=== PATIENT | female | born 1980 | race Caucasian/White ===

== ENCOUNTER 2022-10-21 13:24 | Outpatient (OUT) | payer OTHER, SELFPAY ==
[2022-10-21 13:54] LABS: Basophils Percent Auto 0.4 % (0.2-2.0); Eosinophils Absolute Auto 0.1 10^3/uL (0.0-0.7); Eosinophils Percent Auto 1.2 % (0.9-7.0); Hematocrit 39.6 % (36.0-48.0); Hemoglobin 13.3 g/dL (12.0-16.0); Immature Granulocytes Abs Auto 0.03 10^3/uL (0.00-0.03); Immature Granulocytes Pct Auto 0.4 % (0.0-0.5); Lymphocytes Absolute Auto 2.5 10^3/uL (1.2-3.8); Lymphocytes Percent Auto 32.5 % (20.5-60.0); Mean Corpuscular HGB Conc 33.6 g/dL (29.9-35.2); Mean Corpuscular Hemoglobin 30.4 pg (26.7-34.0); Mean Corpuscular Volume 90.6 fL (81.0-99.0); Mean Platelet Volume 10.3 fL (9.5-13.5); Monocytes Absolute Auto 0.5 10^3/uL (0.3-0.8); Monocytes Percent Auto 6.3 % (1.7-12.0); Neutrophils Absolute Auto 4.5 10^3/uL (1.4-6.5); Neutrophils Percent Auto 59.2 % (43.0-75.0); Platelet Count 291 10^3/uL (150-450); Red Blood Count 4.37 10^6/uL (4.20-5.40); Red Cell Distribution Width 13.1 % (11.0-15.0); White Blood Count 7.6 10^3/uL (4.0-11.0)
[2022-10-21 14:35] LABS: Estimated Average Glucose 123 mg/dL; Glycohemoglobin A1C 5.9 % (4.5-6.2)
[2022-10-21 15:10] LABS: Occult Blood Negative
[2022-10-21 15:16] LABS: Alanine Aminotransferase 37 U/L (14-59); Albumin Globulin Ratio 0.9; Albumin Level 3.5 g/dL (3.4-5.0); Alkaline Phosphatase 67 U/L (46-116); Anion Gap 11.4; Aspartate Amino Transferase 26 U/L (15-37); BUN Creatinine Ratio 3.9; Bilirubin Total 0.3 mg/dL (0.2-1.0); Calcium 8.9 mg/dL (8.5-10.1); Carbon Dioxide 27.5 mmol/L (21.0-32.0); Chloride 103 mmol/L (98-107); Chol HDL Ratio 6.9; Cholesterol 295 mg/dL (<=200); Estimated GFR (African America >60 (>=60); Estimated GFR (Non-African Ame 59 (>=60); Free T3 2.15 pg/mL (2.18-3.98); Globulin 3.9 g/dL; Glucose 122 mg/dL (74-106); HDL Cholesterol 43 mg/dL (40-60); Potassium 3.9 mmol/L (3.5-5.1); Sodium 138 mmol/L (136-145); Thyroid Stimulating Hormone 1.291 uIU/mL (0.358-3.740); Total Protein 7.4 g/dL (6.4-8.2); Triglycerides 295 mg/dL (<=150)
== END 2022-10-21 13:25 | disposition home or self-care (01) ==
LOC: LAB 13:30
PROVIDERS: PCP Family Medicine; Visit Provider Family Medicine
DX: Z00.00 Encounter for general adult medical examination without abnormal findings (principal); E55.9 Vitamin D deficiency, unspecified
CPT/HCPCS: 36415; 80053; 80061; 82306; 82607; 82746; 83036; 83525; 83540; 84436; 84443; 84481; 85025; 87045; G0328

== ENCOUNTER 2022-11-01 08:52 | Outpatient (OUT) | payer OTHER, SELFPAY ==
--- NOTE | 2022-11-01 08:58 | MM_ITS ---
Patient: ALFREDO NAQVI Exam Date: 11/01/2022 : 1980 Gender:F Ordering : DR CORBY MEADE . Admission #: [id number] Family : Order #: [id number] CLICK HERE TO VIEW EXAM RADIOLOGY REPORT PROCEDURE: MM TOMOSYNTHESIS SCREENING BI COMPARISON: None. INDICATIONS: Screening Calculator Name NCI Breast Cancer Risk Assessment Tool 5 Year Breast Cancer Risk Not Reported. Lifetime Breast Cancer Risk Not Reported. Personal Breast Cancer No Personal Ovarian Cancer No Treatments None Family Cancers None LOCATION: [facility] BREAST COMPOSITION: Heterogeneously dense,which may obscure small masses. FINDINGS: DIAGNOSTIC CATEGORY 0--INCOMPLETE: NEED ADDITIONAL IMAGING EVALUATION. RIGHT BREAST: Round partially circumscribed 9 mm mass within posterior upper-outer quadrant which is partially in by a larger area of asymmetric density which appears to be residual fibroglandular tissue. Spot magnification views and ultrasound evaluation recommended. LEFT BREAST: Oval partially circumscribed 18 x 8 x 11 mm mass within upper-outer quadrant, mid breast. Spot magnification views and ultrasound evaluation recommended. RECOMMENDATIONS: ADDITIONAL MAMMOGRAPHIC VIEWS REQUIRED: BILATERAL BREASTS - RIGHT CRANIOCAUDAL SPOT MAGNIFICATION VIEW - RIGHT OBLIQUE SPOT MAGNIFICATION VIEW - LEFT CRANIOCAUDAL SPOT MAGNIFICATION VIEW - LEFT OBLIQUE SPOT MAGNIFICATION VIEW - ULTRASOUND: BILATERAL BREASTS PLEASE NOTE: A NORMAL MAMMOGRAM DOES NOT EXCLUDE THE POSSIBILITY OF BREAST CANCER. A CLINICALLY SUSPICIOUS PALPABLE LUMP SHOULD BE BIOPSIED. Dictated by: Patrick Rangel M.D. on 11/02/2022 at 13:03 Approved by: Patrick Rangel M.D. on 11/02/2022 at 13:25
--- NOTE | 2022-11-01 09:02 | XR_ITS ---
The [address] [address] Patient Name: ALFREDO NAQVI MRN: [id number] date: 1980 Sex: F Assigned Patient Location: [facility] Current Patient Location: [facility] Accession/Order Number: [id number] Exam Date: 11/01/2022 09:28 Report Date: 11/01/2022 09:56 At the request of: CORBY MEADE Procedure: XR DEXA axial skeleton EXAMINATION: XR DEXA axial skeleton HISTORY: Primary Ovarian Failure E28.39 COMPARISON: No relevant comparison available. TECHNIQUE: Dual-energy X-ray absorptiometry (DXA) was performed. FINDINGS: SPINE ANALYSIS: Average bone mineral density is 1.361 g/cm2. T-score (standard deviation relative to young adult mean): 1.5 . HIP ANALYSIS: Lowest bone mineral density is within the left femoral trochanter, 0.791 g/cm2. T-score (standard deviation relative to young adult mean): -0.5 . XR/XR DEXA axial skeleton IMPRESSION: [employer] Classification: Normal - Low Fracture Risk Electronically authenticated by: SRAVANI MAYA Date: 11/01/2022 09:56
== END 2022-11-01 08:53 | disposition home or self-care (01) ==
LOC: MAMMO 08:52
PROVIDERS: PCP Family Medicine; Visit Provider Family Medicine
DX: Z12.39 Encounter for other screening for malignant neoplasm of breast (principal); N63.11 Unspecified lump in the right breast, upper outer quadrant; N63.21 Unspecified lump in the left breast, upper outer quadrant; E28.39 Other primary ovarian failure; R07.9 Chest pain, unspecified; Z00.00 Encounter for general adult medical examination without abnormal findings
CPT/HCPCS: 77063; 77067; 77080

== ENCOUNTER 2022-12-20 19:46 | Outpatient (OUT) | payer OTHER, SELFPAY | END 2022-12-20 19:47 | disposition home or self-care (01) | LOC: SLEEP 19:56 | PROVIDERS: PCP Family Medicine; Visit Provider Family Medicine | DX: G47.33 Obstructive sleep apnea (adult) (pediatric) (principal) | CPT/HCPCS: 95810 ==

== ENCOUNTER 2023-01-17 12:14 | Outpatient (OUT) | payer OTHER, SELFPAY ==
--- NOTE | 2023-01-17 13:01 | P.CN_ITS ---
Consult Note: HPI Data of Consult Patient: new to practice Consult date: 01/17/23 Requesting Physician: Rica Villa MD Primary Care Provider: Yadiel Conner MD Consult Narrative Reason for consult: Right wrist, right foot pain Narrative: 42yof who presents for evaluation. Has longstanding right wrist and ankle pain secondary to trauma and subsequent surgeries of both right wrist and ankle. Right wrist is more painful today. Had previously discussed stellate ganglion block with [facility], but was never completed. Continues in provider directed home exercise course >6 weeks, with minimal benefit. Utilizes butrans patch, cymbalta. Previously was on norco, but caused itchiness. Otherwise denies adverse med side effects. cc:: CC: Rica Villa MD Review of Systems ROS Status of ROS 10 or more systems reviewed and unremarkable except as noted in history and below Exam Narrative Exam Narrative: Psych-alert and oriented x 3.? Attentive and appropriate, constitutionally normal, displays normal mood and affect per situation.? There are no obvious deficits in memory, reasoning, or intellect. Examination of the right upper extremity reveals notable hyperpathia and allodynia.? Notable atrophy and diffuse weakness present in the extremity.? There is notable shiny skin with hair loss and abnormal hair growth denoting trophic changes presently.? Asymmetric color and temperature changes are present which denotes sudomotor changes.? Decreased range of motion and strength is noted in the extremity.? Coordination remains intact.? Gait remains non-antalgic. Assessment and Plan Assessment and Plan (1) Complex regional pain syndrome i of right upper limb: (2) Complex regional pain syndrome i of right lower limb: Plan 42yof who presents for evaluation. Failed conservative measures, as noted. Given her history of injury, subsequent surgeries, and persistent symptoms, suspect that her right wrist and ankle pain is consequence of complex regional pain syndrome. At this point, prudent to attempt right stellate ganglion block x2 under fluoroscopic guidance with moderate sedation with attempts to provide palliation. She is in agreement. Medications reviewed, no changes. Follow up after procedure.
== END 2023-01-17 12:15 | disposition home or self-care (01) ==
PROVIDERS: PCP Family Medicine; Visit Provider Anesthesiology
DX: G90.521 Complex regional pain syndrome I of right lower limb (principal); G90.511 Complex regional pain syndrome I of right upper limb
CPT/HCPCS: G0463

== ENCOUNTER 2023-02-07 20:58 | Outpatient (OUT) | payer OTHER, SELFPAY | END 2023-02-07 20:59 | disposition home or self-care (01) | LOC: SLEEP 20:59 | PROVIDERS: PCP Family Medicine; Visit Provider Family Medicine | DX: G47.33 Obstructive sleep apnea (adult) (pediatric) (principal) | CPT/HCPCS: 95811 ==

== ENCOUNTER 2023-03-07 07:30 | Day surgery (SDC) | payer OTHER, SELFPAY ==
[2023-03-07 07:51] VITALS: BP 129/79; PULSE 87; RESP 16; TEMP 36.3; O2SAT 100
[2023-03-07 07:54] LABS: HCG Qualitative NEGATIVE (NEGATIVE)
[2023-03-07] MEDS: 0.9 % SODIUM CHLORIDE 500 ML 50 ML IV (07:55)
[2023-03-07] MEDS: DEXAMETHASONE SOD PHOS 10 MG/ML VIAL INJ (08:44)
[2023-03-07] MEDS: BUPIVACAINE HCL 0.25% PF 25 MG/10 ML VIAL 4 ML INJ (08:44)
[2023-03-07] MEDS: LIDOCAINE HCL 2% PF 100 MG/5 ML VIAL 2 ML INJ (08:47)
--- NOTE | 2023-03-07 08:47 | W.PM.PROCNOT ---
Date of procedure: 03/07/23 Pre-op diagnosis: Complex regional pain syndrome, type 1, right upper extremity Post-op diagnosis: same as pre-op Procedure: Procedure: Right stellate ganglion block Medications: Bupivacaine 0.25% 4cc, dexamethasone 10mg, normal saline 0.9% 5cc The patient was seen and examined in the preoperative holding areas where the site was marked.? A written informed consent was obtained and placed on the chart.? The patient was brought to the medical procedures unit and placed in the supine position.? The area overlying the anterolateral vertebral body of the C6 vertebral element was identified under fluoroscopic guidance.? The area was prepped and draped in usual sterile fashion.? Strict aseptic technique was used throughout.? The C-arm was rotated obliquely until the intervertebral foramen were well-visualized. Lidocaine 1% was used to anesthetize the skin overlying the base of the right C7 uncinate process. A 25-gauge 3-1/2 inch Quincke tipped spinal needle was advanced to the above mentioned target point under AP fluoroscopic guidance.? Then Omnipaque dye was injected and verified that no vascular uptake was seen.? Then the above-mentioned aliquot was delivered in 1 mL boluses.? The needle was removed.? The needle insertion site was covered.? The patient tolerated the procedure well and was found suitable for discharge in the company of a responsible adult. Anesthesia: Moderate Sedation Surgeon: Rica Villa Pathology: none sent Condition: stable Disposition: no change
[2023-03-07] MEDS: IOHEXOL 240 MG/ML - 10 ML VIAL 12 MG INJ (08:48)
[2023-03-07 08:50] VITALS: BP 106/71; PULSE 81; RESP 16; TEMP 36.9; O2SAT 93
[2023-03-07 08:52] VITALS: BP 97/76; PULSE 80; RESP 16; TEMP 36.9; O2SAT 94
[2023-03-07] MEDS: 0.9 % SODIUM CHLORIDE 10 ML SYRINGE - SALINE FLUSH 2.5 ML IV (09:49)
== END 2023-03-07 09:12 | disposition home or self-care (01) ==
PROVIDERS: PCP Family Medicine; Visit Provider Anesthesiology
PROC: (CPT 1992; principal; 2023-03-07 08:20)
DX: G90.511 Complex regional pain syndrome I of right upper limb (principal)
CPT/HCPCS: 36415; 64510; 77002; 84703; J1100; J2704; Q9966

== ENCOUNTER 2023-03-28 07:30 | Day surgery (SDC) | payer OTHER, SELFPAY ==
[2023-03-28 08:07] VITALS: BP 125/79; PULSE 83; RESP 16; TEMP 36.2; O2SAT 99
[2023-03-28] MEDS: 0.9 % SODIUM CHLORIDE 500 ML IV (08:11)
[2023-03-28 08:15] LABS: HCG Qualitative NEGATIVE (NEGATIVE)
--- NOTE | 2023-03-28 08:49 | W.PM.PROCNOT ---
Date of procedure: 03/28/23 Pre-op diagnosis: Complex regional pain syndrome type 1, right upper extremity Post-op diagnosis: same as pre-op Procedure: Procedure: Right stellate ganglion nerve block Medications: Bupivacaine 0.25% 4cc, normal saline 0.9% 5cc, dexamethasone 10mg The patient was seen and examined in the preoperative holding areas where the site was marked.? A written informed consent was obtained and placed on the chart.? The patient was brought to the medical procedures unit and placed in the supine position.? The area overlying the anterolateral vertebral body of the C6 vertebral element was identified under fluoroscopic guidance.? The area was prepped and draped in usual sterile fashion.? Strict aseptic technique was used throughout.? The C-arm was rotated obliquely until the intervertebral foramen were well-visualized. Lidocaine 1% was used to anesthetize the skin overlying the base of the right C7 uncinate process. A 25-gauge 3-1/2 inch Quincke tipped spinal needle was advanced to the above mentioned target point under AP fluoroscopic guidance.? Then Omnipaque dye was injected and verified that no vascular uptake was seen.? Then the above-mentioned aliquot was delivered in 1 mL boluses.? The needle was removed.? The needle insertion site was covered.? The patient tolerated the procedure well and was found suitable for discharge in the company of a responsible adult. Anesthesia: Moderate Sedation Surgeon: Rica Villa Pathology: none sent Condition: stable Disposition: no change
[2023-03-28 08:50] VITALS: BP 115/77; PULSE 78; RESP 16; TEMP 36.2; O2SAT 97
[2023-03-28] MEDS: BUPIVACAINE HCL 0.25% PF 25 MG/10 ML VIAL 4 ML INJ (08:50)
[2023-03-28] MEDS: DEXAMETHASONE SOD PHOS 10 MG/ML VIAL INJ (08:50)
[2023-03-28] MEDS: IOHEXOL 240 MG/ML - 10 ML VIAL 12 MG INJ (08:50)
[2023-03-28] MEDS: LIDOCAINE HCL 2% PF 100 MG/5 ML VIAL 1 ML INJ (08:51)
[2023-03-28] MEDS: 0.9 % SODIUM CHLORIDE 10 ML SYRINGE - SALINE FLUSH 5 ML INJ (08:52)
[2023-03-28 08:55] VITALS: BP 114/69; PULSE 78; RESP 16; TEMP 36.2; O2SAT 97
== END 2023-03-28 09:17 | disposition home or self-care (01) ==
PROVIDERS: PCP Family Medicine; Visit Provider Anesthesiology
PROC: (CPT 1991; principal; 2023-03-28 08:40)
DX: G90.511 Complex regional pain syndrome I of right upper limb (principal)
CPT/HCPCS: 36415; 64510; 77002; 84703; J1100; J2704; Q9966

== ENCOUNTER 2023-11-02 11:44 | Outpatient (OUT) | payer OTHER, SELFPAY ==
--- OUTSIDE RECORDS SUMMARY | 2023-11-02 11:51 | XMS_ITS | CCD ---
Author Organization [facility] ion Partnership [facility] Care Team Providers Care It Associate Name Role Phone NEENA OLIVAREZ Admitting Unavailable NEENA OLIVAREZ Attending Unavailable CORBY CONNER Admitting Unavailable CORBY CONNER Attending Unavailable CORBY CONNER Primary Care Unavailable Corby Conner Primary Care Physician Brynn Quick Unavailable Unavailable Olu Yang Attending Unavailable Olu Yang Admitting Unavailable Daisy PEREZ, Rica Gerard Attending Unavailable Gistephitis , Rica Gerard Attending Unavailable Gieditis , Rica Gerard Attending Unavailable Allergies Allergy Classification Reported Allergen(s) Allergy Type Date of Onset Reaction(s) Facility (1 source) Acetaminophen / HYDROcodone; Translations: [HYDROCODONE-ACETAM INOPHEN] Drug Allergy 6 [facility] Repository (2 sources) Codeine; Translations: [CODEINE] Drug Allergy 3 [facility] Repository (4 sources) Morphine; Translations: [MORPHINE] Drug Allergy 4 Vomitus (substance) [facility] Repository (1 source) Acetaminophen / HYDROcodone Drug Allergy 4 [facility] Repository (1 source) Pseudoephedrine Drug Allergy 4 [facility] Repository (2 sources) HYDROcodone / Phenylpropanolamine ; Translations: [hydrocodone-phenyl propanolamine] Drug Allergy Rash [facility] Medications Current Medications Medication Drug Class(es) Dates Sig (Normalized) Sig (Original) acetaminophen 325 mg / oxyCODONE hydrochloride 5 mg oral tablet (1 source) Opioid Agonist Start: 04-16-2022 take 1-2 tablets by mouth every four hours as needed for pain Percocet 5 mg-325 mg oral tablet See Instructions, 40 tab(s), Refill(s) 0, Take one to two po every 4 hours as needed for ankle surgical pain, [facility]/pharmacy #[id number] Start Date: 04/16/22 Status: Ordered docusate sodium 100 mg oral capsule (1 source) Start: 04-16-2022 take 1 capsule by mouth twice daily Colace 100 mg Cap 100 mg = 1 cap(s), Oral, BID, # 20 cap(s), Refills(s) 0, Pharmacy: [facility]/pharmacy #[id number] Start Date: 04/16/22 Status: Ordered duloxetine 60 mg Cap-DR (1 source) Start: 04-15-2022 take 2 capsules by mouth once daily duloxetine 60 mg Cap-DR 120 mg, Oral, Daily, Refills(s) 0 Start Date: 04/15/22 Status: Ordered gabapentin 300 mg oral capsule (1 source) Anti-epileptic Agent Start: 04-15-2022 take 1 capsule by mouth once daily at bedtime gabapentin 300 mg Cap 300 mg = 1 cap(s), Oral, Once a day (at bedtime), # 30 cap(s), Refills(s) 0 Start Date: 04/15/22 Status: Ordered omeprazole 40 mg delayed release oral capsule (1 source) Proton Pump Inhibitor Start: 04-15-2022 take 2 capsules by mouth once daily omeprazole 40 mg Cap-DR 80 mg = 2 cap(s), Oral, Daily, Refills(s) 0 Start Date: 04/15/22 Status: Ordered sulfamethoxazole 800 mg / trimethoprim 160 mg oral tablet (1 source) Dihydrofolate Reductase Inhibitor Antibacterial, Sulfonamide Antimicrobial Start: 04-17-2022 End: 05-01-2022 Bactrim D.S. 800 mg-160 mg Tab 1 tab(s), Oral, BID for 14 day(s), 28 tab(s), Refill(s) 0, Cancel Keflex script from yesterday, [facility]/pharmacy #[id number], 74, kg, 04/17/22 6:27:00 EST, Weight Dosing Start Date: 04/17/22 Stop Date: 05/01/22 Status: Ordered Completed/Discontinued Medications Medication Drug Class(es) Dates Sig (Normalized) Sig (Original) aspirin 325 mg oral tablet (1 source) Platelet Aggregation Inhibitor, Nonsteroidal Anti-inflammatory Drug Start: 04-16-2022 End: 05-16-2022 aspirin 325 mg Tab 325 mg = 1 tab(s), Oral, Daily, Start 04-17-22 for 4 weeks for blood clot prevention., X 30 day(s), # 30 tab(s), Refills(s) 0, Pharmacy: [facility]/pharmacy #[id number] Start Date: 04/16/22 Stop Date: 05/16/22 Status: Ordered Problems Active Problems Problem Classification Problem Date Documented Date Episodic/Chronic Other connective tissue disease (1 source) Radial styloid tenosynovitis [de Quervain]; Translations: [Radial styloid tenosynovitis (de quervain)] Onset: 07-07-2018 Episodic Substance-related disorders (1 source) Smoker 04-15-2022 Chronic Comment on above: Added secondary to d ocumentation in Social History. Past or Other Problems Problem Classification Problem Date Documented Da te Episodic/Chronic Fracture of lower limb (3 sources) Closed pilon fracture; Translations: [Displaced pilon fracture of right tibia, initial encounter for closed fracture] Onset: 04-15-2022 Episodic Results Test Name Value Interpretation Reference Range Facility Consent for Procedure/Surger yon 05-18-2022 Consent for Procedure/Surgery [id number] 8#[id number]:[address] [facility] Progress Note-Physicianon Progress Note-Physician Patient: Jane MUNOZ Age: 41 years Sex: Female : 1980 Associated Diagnoses: None Author: Jaun Lockhart Jr, DO Postoperative Information Post Operative Note: Post Anesthesia Care Unit. Anesthetic utilized: General. Health Status Allergies: Allergic Reactions (Selected) Severity Not Documented Codamine- Rash. Morphine- Vomit. Problem list: All Problems Smoker / SNOMED CT 816634532 / Confirmed Added secondary to documentation in Social History. Resolved: At risk for falls / SNOMED CT 365977656 Problem added when Risk for Falls Careplan was initiated. Resolved due to patient discharge. Physical Examination Vital Signs 04/17/2022 12:16 EST Heart Rate Monitored 78 bpm SpO2 97 % 04/17/2022 12:15 EST Systolic Blood Pressure 108 mmHg Diastolic Blood Pressure 70 mmHg Mean Arterial Pressure, Monitered 82 mmHg 04/17/2022 12:15 EST Temperature Axillary 37.1 DegC HI 04/17/2022 9:01 EST Hourly Rounding Yes Promise to Return Yes 04/17/2022 8:55 EST SpO2 97 % 04/17/2022 8:01 EST Hourly Rounding Yes Promise to Return Yes 04/17/2022 7:09 EST Hourly Rounding Yes Promise to Return Yes 04/17/2022 7:00 EST Temperature Oral 36.7 DegC Heart Rate Monitored 79 bpm Systolic Blood Pressure 111 mmHg Diastolic Blood Pressure 73 mmHg SpO2 96 % 04/17/2022 6:00 EST Hourly Rounding Yes Promise to Return Yes 04/17/2022 5:00 EST Hourly Rounding Yes Promise to Return Yes 04/17/2022 4:00 EST Hourly Rounding Yes Promise to Return Yes 04/17/2022 3:35 EST Temperature Oral 36.8 DegC Heart Rate Monitored 89 bpm Respiratory Rate 16 br/min Systolic Blood Pressure 111 mmHg Diastolic Blood Pressure 73 mmHg Blood Pressure Location Right arm Mean Arterial Pressure, Cuff 86 mmHg SpO2 96 % 04/17/2022 3:03 EST Hourly Rounding Yes Promise to Return Yes 04/17/2022 2:21 EST Hourly Rounding Yes Promise to Return Yes 04/17/2022 1:35 EST Temperature Oral 36.9 DegC Heart Rate Monitored 89 bpm Respiratory Rate 16 br/min Systolic Blood Pressure 125 mmHg Diastolic Blood Pressure 77 mmHg Blood Pressure Location Right arm Mean Arterial Pressure, Cuff 93 mmHg SpO2 96 % 04/17/2022 1:21 EST Hourly Rounding Yes Promise to Return Yes 04/17/2022 0:45 EST Hourly Rounding Yes Promise to Return Yes 04/17/2022 0:29 EST SpO2 96 % 04/16/2022 23:30 EST Hourly Rounding Yes Promise to Return Yes 04/16/2022 23:05 EST Temperature Oral 36.7 DegC Heart Rate Monitored 84 bpm Respiratory Rate 16 br/min Systolic Blood Pressure 115 mmHg Diastolic Blood Pressure 76 mmHg Blood Pressure Location Left arm Mean Arterial Pressure, Cuff 89 mmHg SpO2 99 % No qualifying data available General: Alert and oriented, No acute distress. Respiratory: Lungs are clear to auscultation. Cardiovascular: Normal rate, Regular rhythm. Neurologic: Normal sensory. Review / Management Condition: Stable. Assessment Anesthetic outcome No anesthetic complications noted. Adequate pain relief. TOLERATING PO INTAKE. voiding w/o diff.. No Complaint of nausea and vomiting. Plan Transfer/ Discharge: To nursing unit, Patient can be discharged from PACU when criteria met. Condition stable. [facility] Comment on above: Result Comment: Elec tronically Signed By: Jaun Lockhart Jr, DO\.bryant\Date and Time Signed: 05/18/22 10:13 EST Intra[employer] Documentson 0 04-22-2022 IntraOperative Documents [id number] 6#[id number]:[address] [facility] EMS Documentationon 04-21-19 EMS Documentation Please click on link to see report pdfCD:[id number] iDxFJLaOvx8EKIqZoGXG bVqpONPwbF42koJPkzVB fCZV4PlChATGmZYA3WqS wIFIgMiAw GERwOKQ8OTSgPAVnWSL1 BLNhMNZtH7Fec9DDi4wl NS9aLOKxVMN1ONXeHSY2 DSPyTC5vE3CobOXf MTIyMCAwIFIvSUQgMTIy AUQkHHNjVLIsnPGQn0zj TK9fNNUkAIM9OOUmRTA8 XDXaKY8qOGsjUA0p O8LeqcOqaQFgIWz1XVYg Cn0IQDDuwPBjBRE9MR6V n4fpavLlSIIuCVorZ1Ki SSCfSMhdNYFBZl3q Dp2zjUj0I5NAMNOyKjYr EKNtIz0TPCKhGZImIiOv GLBsLLLrAZLqNQTjXd4F YRQwQPXtWPUEB7WL RDFlShK6MLRlSl0+L1By m9KUKWEeK0QXZg5VFQq9 CY8LjGYMS6BguLAwICN1 JUUlEVHzPP7mimJu dCAxMjcyIDAgUj4+L1Jv hLU6BYBmZ1V7ykMxxJYv muUrzCZoTHWxVQksSS3Q OAejC1FzDfTdBs7+ CcFcKM9fvxykZTTox1Nz Yau7O3szsaj0gWHbKOqs Mz4+t4MnERXtBj1IGbNu U0VrPYZyy5VnHoMx CYa1MvH7SAWiOxClXVN6 MyByZQpmCjAgIHNjbgox WNB9NYLwDVz7XS4gWrn7 IHJlCmYKMTAgNjk1 XuT2VIZaNyNsCySuWdZe arLOLdk2QFJlIzGuFoi4 MgW2PRArRgJgIcIsAwOb wwSDWmhqVLU8JXUd NbTdTIx4LJ3dGpv5VUJd RyMGZJTyGfTfLev2YYP7 JyXuZX37OQIzZUxnPwCb CVH6HA5pQZHrPiu7 DY7oWk6fWMNuEDmcWtF3 AB5tIVC0CGVsQmXpHZ11 NSAtMzIuMjUgcmUKZgow UmsnOUZgv1FwDiDu Wvg2UQM5HQ24GCZ2Eg5t NSAtMTIgcmUKZgowICBz R93TACSyGnEnGkqsQnL8 TFI2Ge1mPKDqST02 XOCqXDspJuJyXWA8GTHk G96ETec1SXB0JD45XKB3 Dz0fYYSyBVWfslCWBzal OJUrN33QAus1BHI8 Yz7lYMYsVErtYcMxMZZn LuRhotRFVvifERA1SrIr LAb1NE4bIuf5KFWdWlUQ KJUgJGw6XjF1KOA5 AmCaPD12SSAdWRbjLwUf JHN9EiWpQen4TT02HY69 IHZrMhCKYXi9WeC5TWT9 BgVcCio6QW14JD71 LNGwIrUDZY14OCvqROJt uvqnCQ02PEG8BgUfAdOt OBp0MaFzGWAgMSYiRbXM TAQbj5MzTkQfAjr4 QGC0DTB4ZfYzZNHfCB56 GASxFKjqXhObBQ61TFH5 UA39UVGmGDNjHmWfENFx HpDmfcDBFzx3NMDl JRE8ODVwKKupZgQ3GA8y Fgx5RPBjThOCHAHtFfMp PdE7Vwr2PYChQuEpAKM2 PiKrfoYIAsh3CPOi MjR4Cvc7ASBvTrFdJQO2 LjUgcmUKZgowLjkxOCAg z5FbZcGvWu5fRJZ0NNqd PZnfLxl5YU7qFnDd FQzlRcSiUBFdizg9PVVb KeHoRaR2Otc3IYE2QB89 LJNfUR07EBYiNSfoSqZn GIJ5Kg66NHP9ZuIf LR13SSMwSAhdNvXgNOJ9 TP30NPS5XjFzDKKtTiJp kyEWLizoNDX9ILYnHROf Bsb7DN3oBW10MEEz OuXVFOg3EzK4RLB9Ls57 ZWFdYzUiRKG9RyEiyyGF OryjPnokBDYsy5YiDyDb Rox2RDR7Zx71ICL3 NzQuNSAtMTIgcmUKZgow FQPfT15PWKEnOgWuDYkb UdUbBAp8MhPjGRKoPjKz ylDIYyhpZVB0SUWz OXi1PI7pBom4HBVpPtRC ZYYuBNucEFO8ZsQzWJ63 MBHkJHkfQwJmBTI8LJAa Znv6PH60NK98RLCp GLabClS6BG1yWSA3PVAd BT15YSTbHaQqHlWgunLR NpdrYqhxMXEcw9LmMkEi Ycj8CTLbAO3iADL2 NzQuNSAtMTIgcmUKZgow NOTdS63LBFFzKkSmODS7 YSS4II48LH3oJac0INHz CmYKMTAgNDYwLjUg MKi1BE2sSld1FZKrLtAS NLQcBFU7Ubl5BSH7BfIs HX04KHLaMLgyTcDkRKO7 FL23XTBcRiVvZIM9 GjOujsPUOvg4OFOaKzHo TOCuTcJlIU58HWGrQTLh BVVmLRqzRsLiYIU7ALPs O73HDLWrVvByAFL3 Wbq3DFP1LK81SL0eHiHp OVznDvYrXORaajbzUQ31 ASR5VIrhWBM3LxIlRYXx DK80MTWdKKusWwFo HBT5HTKrV22MDXNoDJC3 CgC9VTY3Ak0mPXNsMOBb NSByZQpmCjEgIHNjbgox NiAzOTMuNzUgMzYu UyJdYUQkYqm0WBJgKoYG FL58KCdwCCGgwhgrGdJj OTMuNzUgMzYuNzUgLTMw Adw2JTVbGiYPOBFn h6WzRfQsHko1OYZ2Ip81 AAX7FI9vKZEpTyPzKhAy hrQDXvmcLuwgARRoh0Hd CnXoSjf8SNY2We79 KHK8XB8pSULvLyRiBqKr pzKJHmfzIOAdY46TNHF6 LYW2Zt82LOU7DiVrUmWu MjUgcmUKZgowLjkx PYXct3HfNlJcPkZkKSMs KrBnTGTpRDYgAiA3CNQd KmEXOJGyf3UnFqT9TRJt OTMuNzUgNDkuNSAt MjAuMjUgcmUKZgowLjkx KSRbf2HlSfX7SCFmSIGc NzUgNDkuNSAtMjAuMjUg hzHCRtmjVBUmJ26Z WwL6TvTsWkqfJxy2ACSe QyJ5TH8yBW7sDUZjNWqx RjZsFKD7JAWoJ40MAyK3 EmJyGhjcXur1ULZy LvZ1RI7bOV2vIZTsGZxz CjEgIHNjbgoyMzguNzUg FqdcIrr3VUYwIY7pBR5p NSByZQpmCjAuOTE4 WWTwR86ZJoO8Tmw5PKJ0 Wq28ZZE4FsDnWnUpDiUf exBWTlxeWSMlU10IAtmj Bup4RQA9Bs47UAOm LD83YU0jGL7tTEPwBTvt WyFjAKE0PAQwW08VUbor Keu6JGR8Xc14XEKgGX19 PR0kUT7fRXPdJEwb CjEgIHNjbgozMDYuMjUg HtowQab7QHUrId5hWNDa MjAuMjUgcmUKZgowLjkx VQLdf2RzZbVwEn4x FOVaHBSxDpEsFLU8JmC1 TQ1pCK6jFKOyRZhpBhGn ZTXsbkq3HxQeAEKfPMXs NzUgMjguNSAtMjAu MjUgcmUKZgowLjkxOCAg g3IuQiMfDi55TGR6Xi44 ZFNiSG75WI5gZH2hFWBd ZQpmCjEgIHNjbgo0 AANdGtooVye8VTA9Oki2 XB0mCT2qSXMfTPzvPvKd IID0FXHnF68QTXFcTMJ6 Uh49OTZbEl41SRSg MjAuMjUgcmUKZgoxICBz D68YXMx3Znb0SIG8Qq05 HKBbIU32JB5aPC2tAVQx DEagSeAcVWX4XVFe F28JXKm7Boe4JDY0Hf90 FYJyJI57ZJ4lSF4uFCSe ZLkyPmIhGTOkycn5YRcj CdNkDrpfMee1OWA0 GrSsGOUxHbL2SBMfYsTF UO86WRoeARJlbnd9LLcc VbXcDishHse2URU3ZmWc TALzUwF4RRLsOyTD CSMcn9ZfNiT2YE31HKFs OTMuNzUgMjUuNSAtMjAu MjUgcmUKZgowLjkxOCAg l2CmJwZ5CQ21AGNz OTMuNzUgMjUuNSAtMjAu YyJlvtRLPoyhFZBrB57Y PEcfHgD1DBF5Am70QHV7 YA1pTC5xQIObQPcr NwZoLZB3KVVtE58DUVjk FfV1HRK1Kd82DCY6AU0f TP8rJTOzBVloIkYfWKNd bei9Pn36XGLxZwRo JCO3ZN4xYFHdMPRlNACb KAirLsMwXRQ1PTEdT52G NTIuNzUgMzczLjUgNzQu MjUgLTEwLjUgcmUK RbwvPLZeC18IEWA4LUE1 Vs25NJBwQE7uXQ30QASm ExLUEY27BUocOALfemcp MjcgMzczLjUgNDIg LTEwLjUgcmUKZgoxICBz X03PRWK1ZFR0Xx73JZU4 LjUgLTEwLjUgcmUKZgow RruwCTDjo1CkNrE0 EHJmNoBmGIP3SX59XC4t ZR12TXTuTqHVYBRah8Lh GsZxZN51TQR6Wk14WTFo BzS0ZF0eYX17DOBz BaZECJ15WBvwDNDhdfbf DGziEZCrFeIsTYNrRS0n NSAtMTAuNSByZQpmCjEg IHNjbgoyMzguNzUg MzczLjUgNDIgLTEwLjUg smEDVsuuXxqyUEOob4Ul HiMrHM89SKUqRxZjILK2 MiAtMTAuNSByZQpm CjEgIHNjbgoyODAuNzUg MzczLjUgMjUuNSAtMTAu YDOtLHwxTgScQWW1NIRy O95TShclMms2AMY1 Ro58DXS4HlSgMFQqOkAh huAXQsotYGKvU99SIkU1 IxR9UCE9Zx51UGL1QJ91 NSAtMTAuNSByZQpm FkMmNPU5YTIqF88ATfG0 YlJ0DFQ6Eb53YIX0FM32 NSAtMTAuNSByZQpmCjEg MQAbukx4ZPFaXfud AtJtGBU9HjY7HU8sII26 RPFaNfFKFN49CJbcNURm zbi8VBXaBpdoXoFzONS6 SzZ7NF7yTR60WBVc EuRCIWJeSdQiTPN5Wwx8 EJ1iGP15YSUnOqFZQJWu KmJsWfWsTIKqDf99WK4e RW24WMHgNrJGPEWj i3ZrZzJ6ZROiWK3rIMN7 NjQgLTAuNzUgcmUKZgox BkF1AMZxBiVqQB41WKDo MTEuMjUgcmUKZgo1 VtsoPzFlAKF5JzN0AUEg ClYrNPCdVaF8ZYFgEuWV WIp4UuQ8RLD0 (more content not included)... [facility] Progress Note-Physicianon Progress Note-Physician Patient: Jane MUNOZ Age: 41 years Sex: Female : 1980 Associated Diagnoses: None Author: Jaun Lockhart Jr, DO Preoperative Information Time patient last ate or drank:=== (npo 8 hours) Anesthesia history: Patient history: No prior anesthesia problems. Re-evaluation prior to induction: Completed, Initial evaluation reviewed. Review of Systems Respiratory: No shortness of breath. Cardiovascular: No chest pain. Hematology/Lymphatic s: No bruising tendency, No bleeding tendency. Health Status Allergies: Allergic Reactions (All) Severity Not Documented Codamine- Rash. Morphine- Vomit. Current medications: (Selected) Inpatient Medications Ordered Dilaudid 1 mg/mL injectable solution: 1 mg = 1 mL, Injection, IV Push, q2hr PRN Pain for 5 day(s), Stop date 04/20/22 18:10:00 EST, Routine, Start date 04/15/22 18:11:00 EST Lactated Ringers IV Tara 1000 mL 1,000 mL: 1,000 mL, IV, 150 mL/hr, Routine, Start date 04/16/22 13:30:00 EST, 6.7 hour(s), Total volume (mL): 1,000 Lactated Ringers IV Tara 1000 mL 1,000 mL: 1,000 mL, IV, 80 mL/hr, Routine, Start date 04/15/22 18:09:00 EST, 12.5 hour(s), Total volume (mL): 1,[address] Tab: 40 mg = 1 tab(s), Tab-DR, Oral, Daily, Routine, Start date 04/15/22 22:00:00 EST Percocet 5 mg-325 mg oral tablet: 1 tab(s), Tab, Oral, q4hr PRN Pain for 5 day(s), Stop date 04/20/22 18:16:00 EST, Routine, Start date 04/15/22 18:17:00 EST Percocet 5 mg-325 mg oral tablet: 2 tab(s), Tab, Oral, q4hr PRN Pain for 5 day(s), Stop date 04/20/22 18:17:00 EST, Routine, Start date 04/15/22 18:18:00 EST Zofran 4 mg/2 mL Injection: 4 mg = 2 mL, Injection, IV Push, q4hr PRN Nausea/Vomiting, Routine, Start date 04/15/22 18:20:00 EST, 04/15/22 18:20:00 EST cefazolin additive + Sodium Chloride 0.9% intravenous solution 50 mL: 2 gram = 1 EA, Powder-Inj, IV Piggyback, PREOP, Routine, Start date 04/16/22 14:00:00 EST, 100 mL/hr, Infuse over 30 minute(s) duloxetine 60 mg Cap-DR: 120 mg = 2 cap(s), Cap-DR, Oral, Bedtime, Routine, Start date 04/15/22 22:00:00 EST, 04/15/22 22:00:00 EST gabapentin 300 mg Cap: 300 mg = 1 cap(s), Cap, Oral, Bedtime, Routine, Start date 04/15/22 22:00:00 EST, 04/15/22 22:00:00 EST Prescriptions Prescribed Colace 100 mg Cap: 100 mg = 1 cap(s), Oral, BID, # 20 cap(s), Refills(s) 0, Pharmacy: [facility]/pharmacy #[id number] Keflex 500 mg Cap: 500 mg = 1 cap(s), Oral, QID, X 10 day(s), # 40 cap(s), Refills(s) 0, Pharmacy: [facility]/pharmacy #[id number] Percocet 5 mg-325 mg oral tablet: See Instructions, 40 tab(s), Refill(s) 0, Take one to two po every 4 hours as needed for ankle surgical pain, [id number] aspirin 325 mg Tab: 325 mg = 1 tab(s), Oral, Daily, Start 04-17-22 for 4 weeks for blood clot prevention., X 30 day(s), # 30 tab(s), Refills(s) 0, Pharmacy: [facility]/pharmacy #[id number] Documented Medications Documented duloxetine 60 mg Cap-DR: 120 mg, Oral, Daily, Refills(s) 0 gabapentin 300 mg Cap: 300 mg = 1 cap(s), Oral, Once a day (at bedtime), # 30 cap(s), Refills(s) 0 omeprazole 40 mg Cap-DR: 80 mg = 2 cap(s), Oral, Daily, Refills(s) 0 Problem list: All Problems At risk for falls / SNOMED CT 163464131 / Possible Problem added when Risk for Falls Careplan was initiated. Smoker / SNOMED CT 799187455 / Confirmed Added secondary to documentation in Social History. Histories Past Medical History: No active or resolved past medical history items have been selected or recorded. Family History: No family history items have been selected or recorded. Procedure history: ORIF - Open reduction of fracture of ankle with internal fixation ([id number]) on 04/16/2022 at 41 Years. Social History Social & Psychosocial Habits Alcohol 04/15/2022 Risk Assessment: Denies Alcohol Use Substance Abuse 04/15/2022 Risk Assessment: Denies Substance Abuse Tobacco 04/15/2022 Risk Assessment: High Risk 04/15/2022 Tobacco Use: vape Type: Vaping . Physical Examination Vital Signs 04/16/2022 15:00 EST Hourly Rounding Yes 04/16/2022 14:00 EST Hourly Rounding Yes Promise to Return Yes 04/16/2022 13:44 EST Hourly Rounding Yes 04/16/2022 13:00 EST Hourly Rounding Yes Promise to Return Yes 04/16/2022 12:00 EST Hourly Rounding Yes Promise to Return Yes 04/16/2022 11:18 EST Temperature Oral 36.6 DegC Peripheral Pulse Rate 76 bpm Respiratory Rate 15 br/min Systolic Blood Pressure 104 mmHg Diastolic Blood Pressure 62 mmHg Blood Pressure Location Right arm Mean Arterial Pressure, Cuff 76 mmHg SpO2 95 % 04/16/2022 11:00 EST Hourly Rounding Yes Promise to Return Yes 04/16/2022 10:00 EST Hourly Rounding Yes Promise to Return Yes 04/16/2022 9:00 EST Hourly Rounding Yes Promise to Return Yes 04/16/2022 8:00 EST Hourly Rounding Yes Promise to Return Yes 04/16/2022 7:31 EST Heart Rate Monitored 78 bpm SpO2 95 % 04/16/2022 7:31 EST Respiratory Rate 19 br/min 04/16/2022 7:27 EST Temperature Axillary 36.7 DegC 04/16/2022 7:26 EST Systolic Bloo (more content not included)... [facility] Comment on above: Result Comment: Elec tronically Signed By: Jaun Lockhart Jr, DO\.br\Date and Time Signed: 04/20/22 14:45 EST Coding Summary.on 04-19-2022 Coding Summary. CD:[id number] Gh0bWw+PGhlYWQ+PE1FV EPxL71jfTZdyC6VV4sYC F4IXTVANMHHBI2BGP7qc BI6HPzjK7GbrtTq ItfxpRIrOP71KMq5TIA9 qNdvHLvmyF7osVTqB3f3 HoMxRM94jE47SDgnHXGv HqT9BsYgpwgagJKo S7laKlYqnYIvSqo+PHRh YmxlIHdpZHRoPScxMDAl CuRmrHjaKF0bNs5cCCSz LWNvbGxhcHNlOiBj l3umWOXjDBarZA2dxGyk M9DprZH6BTZnx6o8Dv26 dHI+WGQcLMC4kXjlJHak y136OpRzc9ioBUA5 rNLxIVyjNTV5O08wm4J3 GAKrHQQeZDK2oVQ3yK8v mEbofdhlM4MxwKOsBzV4 KJS9pQCvoM3tnUkj ujdrfM3xUtd+B49GOG9O XWEIHV6KEbr6J8JoGidc dHI+HA05BNGyBZ02sOOb qQVtl0igzLm9AwNq BIVpAXG8rMbgILtcb2Zj ITLqT97kqWZkt3R8COCh vPgusPFlZwFgnHZ9aO6h OVsgctxit4ufbuny Nqsqp6hedi65vJ92S63u FYhdDCFxUAU3ATBiFRGt oHsodf6zuD2mBy0+IDxj w3qlu3cizMy4XyGt ZJXomdDyiCgyUSF1u3Bu Fm44Y6ZbdWdhp7AbBuv1 ba94vXEzr5L4jFG5RPou EJBdnB9yZJarFpK8 SQLhCuCraX87fJPzDJxr Gj3bySnmzHguDT8tEKDf npsqPJIkcI1pCLDlpGCu dIdsZJ7jGWCwzyhf t209BqXhYDV5KAGesZZa C6DsgS1fIgMvSOTqWBUf M5CmzGVxIBslO350VUva UaF7BYMwueTfW6Oo ZSBydGukDbM3v4F2Ix1H o4JejrtkKES4BLhtRBMl TaM0UjQvLvA2R1FmXuo1 HZPmwAgqSZ0gL5Fb ATSqhzupzujnuIP3ORRp PKTxnH34hAAtLNweZm3r v1W3o874DTViLHDqwR49 Zk7ktVlzSXKvmADQ aM1injadb1wzvvxrSuZy JOHbMAo4WJi9ZOJykEwy YwRnFCU2OjP6QVB9tSGn rR1fyZstwxrxwU9l Oyc+P87gkQ2dLTS8SEO5 vomeBFPgixWqHI75OK96 J7TmBdnwxPNpbVR+PGRp yfJzsWotHF2hNlSl p3avf4RpTBvpR8TzONOa ULirArn7WCYmQOX3tGX5 lE5uRPVnOAcxn6L2jEM8 V5NtgzGoap8aj9jq DEKgKSugM39qwGZis5S4 VDOfzKF4YNCdcVhbYbMs iP90Sqk+DDWqoVole8Uk Kpdue2dvf3cdxVv1 IjMwJSIgdmFsaWduPSJ0 m8MtFj98H47mZGbuHADq JXUyWCMhOONfdKogoj2y fR2sYf0+PGNvbCB3 tVI5tG5hUVPqElK2PNss D788GjIntCKqTfgdl7hz p3aidEm3ZnOaQKLrdhIv yJrfGKI9e1YwNr30 T78oMKthRJPzCIItPMEf ATGteKjxwr0zjB9sQh6+ ZU6mj3ekfq82hO72fLL+ OUYoQCA6nQegHUzl RFWtqN1jDSbaXiL7RWGo PeDspW16mUGcXKkdAq0g oMmffUapDG1kSTGqvqgg u913AaMbf1vjEJSa sPHoLEsoUQM5A47ha3M6 KLWgKVCiWNQ9iRV1uJ2v bGlnbjogbGVmdDsgdmVy eEpvQPtgMYixC285 IHRvcDsnPlBhdGllbnQg UyBrDKn5L1WkKhk3FZDm hGcbZK2nvZZjVWvbDo1c sUycfKctVP9qGFVn nhfgm957LgRtp2mbUKZt tTNaKQdeYKJ4L02re4R2 NIImYZYdSUM2yFQ2xT0q bGlnbjogbGVmdDsg ocDjdAqsDKkbHJkcM225 IHRvcDsnPkJpcnRoIERh eCL6MQ22BG63iHFrk2E6 qCZ2Q7HbYVGjfhpx wcmauWQ5VWAsDYBtxJ78 Qx7ipXmvVp6kYBFxBKY8 IRRybOKtF1HjcX3cXmSq SMLtPQStZ9CvtMQq IIbdL154CBagNxK8QSPv lkVhC6CaIZElzPxjOpY7 w1A5Ui1WS2L1BI70NU65 mDVyk3C3wFV5D7Zf LIQozombzztkjLY0RTNm GHFxfL23Xl2alKrsIn6d BDJvTCT0APBtoBDeN2Oh vP2jHeRlJTLfBQAq B7HnuOYoNXjhI043ATgm BvZ9YZGevxIgR1PzIEYy iCklOnX3k3L5Pt2LWJx5 GB77TV17xAIuj3G3 wBV6K3BuKEKssuiebjbt yXP1HIRkEOVmkO69Ds2d nAymZh1vLAEjYFU7LSBi kIWgJ1QiqV2mQnQd SEJkEUDjW7IoeDWuKKpi Z387WHbgYeB8NHLpufFm Q4JyDFXszGokZlP0q2W6 Wt1UYIHuBE83GSY5 pDP0KG83CM16I6JlWpkl dGFibGU+PHRhYmxlIHdp ZHRoPScxMDAlJyBzdHls QR9pKs1wMSEcBDAf sKqdyEFoUyPun8yiPGQf WJafTF8oxCzzD9WawWJ1 FRRvc8a2En25L97bF3Ne dXA+FUHnpJX1gNX5 kU3lPaGvPdV1LOdpP000 HdUuzZDkOkyxg4hby4mp vHp5NqF2ZLIcnqGevMzy PFX3o2UaRr04H03m IHdpZHRoPSIxNSUiIHZh kXtoix0ieN0wTw5+PGNv kTR6eLW3lM3rAoMwCzM4 EHppH431XrEqqHDs Oubdq7ghu0mthRy4LmKu VMJgdwFflUzrTQF0f7Eb Tb17G6SyoYojl8SuRuo4 jf99mJJkw9Z9wBQ2 R7XhUCFypxxwfPRgmBrb OW3kCWHzkliuVQHouK0f ILFgV7u1HxSfIkU2TGdj O3AjksV4LOZtyHVf CUhiPJD7I60ev5S7JLCe KVAyEQU0bTD0lL7gcHsn bjogbGVmdDsgdmVydGlj GIbeYJpeB168KRWl wPmcFSXcqW5jKPXmdWDd bBbgPM2ePXIrokemQkrV NULyFRwEB6FzRDoerBB+ PIWhQHC4iGgoENyk TYDktB6dYTIgU9x7PqLl CrJ6MFskQ3LbJZYrieih Zf98lB2pMaNeBnE8EMre U8WcqiH5SSNnkANo NLcuSEF1M22gu0D0LCZi XGIoSNN9sEU2aD0koSxj bjogbGVmdDsgdmVydGlj JOnuJPanW110RJLt pJrbWqH9DvT0PnG6Onj4 R8KwZli4VNVavZgwWP2x zKTiKZeaRn3akMndfJon JY3bIRVmmsnnUZYp bY9uSBAutEZbdIyvQQ7c THNgzlhda953FuLyVQX0 NKJcdTGeL8TseQ1tBmHl WFCgXRRjW9SvvAXu MEvoG659YLknFpG4SWGy ijHgE8JjNTElhEnbDiE2 t3V0Gj59GoTHRWBghyqr dGQ+AVSmUYU7uWta YZufSHQvmG0bYLDuP5w3 DfFzMgK4LIcuJ2JdQTYf njbmMn89cM0lIgMrJuS6 NOqyZ5TjqaS4VOCm mRWoQRotJTQ9W72si1J9 XXBpWWCxOJC5oTD2gP0w bGlnbjogbGVmdDsgdmVy dLiqQXruCBtyD231 IHRvcDsnPkZlbWFsZTwv dGQ+KBHnJBJ8jYlkTLnx FDTckM7uSQLvO0x0NkBg DuU6GMbxT3BiQUJv fdqwRp66rX1kWkCcKrH4 GYhaG0KyrlN6MATowPTr BKarXGR1J62fr6R4XBVg JPNeUKL6vLP9uD4r bGlnbjogbGVmdDsgdmVy gRgmKAynITzbL753UUCk lQriRdwdlKC3tIGpuNzs dGQ+EB75ui30V3Hv FzozGdy8QGKkNMO1gKB8 mH1yIKLeJYusx9J4uAM6 M3EfpuUfjj4vr7ioTTFh IPawR26hhQNlf0M2 NDIprWP0TFAzvGhoWrLu yZ17Fvw+BWZygQjww6Hz Ksfck4bzg2srmOk7PwTu JSIgdmFsaWduPSJ0 e7HiNm26H77tNKvvIYZc CDLaCIJkBPIrmVdlcl9p jM2gAk0+MTJwcXT2uKH2 gX3vVjLxGiX5SSun N222OnEtaLJwPkwfk8nm g1nldWx4HdOlTFEcdaIs yAfdPKR2o1BpGg97U4Bt rAjbh0AcJol0hi11 pJJwg5W7xTM9H1TmMLZz xihiyWQopPcoGV3oLTKi pxmaVCPlaA0aEJGfM8h3 NlIzQpY1BQniC1Vn diH5UNHhoYJkETSdgDCO jD2swajop4tfodgpAvIq XYNmYTa0FEf4XEBkeYas EsTfXMC1RxR4COR6 tLLraO8izXcxxscrqL6p Oyc+IDf2j6riuMKuNL3x zPL7BG73GW94xTYxa3C1 yZE0Q8EzSSUgyllt oxczyZV8AGTbFPTjaD31 Nx5ekNosZo6iMMWgJUA0 XOAcxCRcI3TsvD6mUlPv XFIzLQGaI1DzzTZq UImwR346NIpaTeW3XIPq zcAeW7SiERWiqTacCjT6 d6N7Us0GVP53CD91ZZ06 hPAly3U8aPL8D0Ow QCGahxapxhlndKI9WAOh SJZvfE63Wd7agEkaZd2o UIUdXIV0LGAxhPFuS1Hf bR9yVeAvELGiEOJy M9BmiQLyXOzaU016WQoh RpD5YOEdiqFrP3MsSADo nNunBfX0f2N6Lx8MUp71 LL75YB89oGJns9V6 pJI9O4MvQXRjxfvbqwhb rYS1CEZlBFJxtF93Xi9h zIlaMq7hGTQpJFV2BATx aLFnZ4NidD5lLqTm AVAdXFBbP2SrgLVyDJtr I588APbuItD7WNTrkvSy W8ScMEQmqRmrUtR6o7J0 Nx3ISUuaskt3V6Yp PjwvdHI+IU20PQQcAC66 cGHetOSms8tlcIp6JgFj SHFvREA8pNahONtcw6Ho DUDeN78swHPlp8K6 IGNv (more content not included)... Normal [facility] Consent for Anesthesiaon Consent for Anesthesia [id number] 010 [id number] #[email or web address]:[id number] [facility] Consent for Procedure/Surger yon 04-19-2022 Consent for Procedure/Surgery [id number] #[email or web address]:[address] [facility] Discharge Instructionson Discharge Instructions [id number] 010 [id number] .00CD:[address] [facility] ED Note-Physicianon 04-19-19 23 ED Note-Physician Basic Information Time Seen: Capri Weiner PA-C 04/15/2022 16:26 Chief Complaint Tripped over baby gate and fell History of Present Illness 41-year-old female presents to the ED complaining of right ankle pain after tripping over a baby gate and falling. Patient reports that when she attempted to step over the gate she lost her footing and fell, twisting her right ankle. Patient has exquisite pain of the right ankle and is unable to move. Patient called EMS as she was unable to walk. Denies hitting her head, no LOC, no other pain or injuries. States that she is having some pain radiating up her leg from her ankle. Review of Systems All organ systems are reviewed. Pertinent positive and negative findings as mentioned in the HPI. Physical Exam Vitals & Measurements T: 36.3 ?C(Oral) HR: 74(Monitored) RR: 18 BP: 116/78 SpO2: 100% GENERAL APPEARANCE: Well developed, well nourished, alert and cooperative HEAD: normocephalic, atraumatic EYES: PERRL, EOMI. Vision is grossly intact. EARS: External auditory canals clear, hearing grossly intact. NOSE: No nasal discharge. THROAT: Oral cavity and pharynx normal. Oral mucosa moist. CARDIAC: Normal heart sounds, no murmurs. Rhythm is regular. LUNGS: Clear to auscultation without rales, rhonchi, wheezing or diminished breath sounds.. MUSCULOSKELETAL: Obvious deformity of the right ankle with edema and ecchymosis noted. Distal pulses of the right foot 2+. Patient guarding the extremity secondary to pain. She there is no tenderness ovation over the proximal tib-fib, knee, hip. Patient is full passive and active range of motion of all other extremities have pain or difficulty. Distal pulses 2+ throughout. NEUROLOGICAL: CN grossly intact. Strength and sensation symmetric and intact throughout. SKIN: Skin normal color, texture and turgor with no lesions or eruptions. Medical Decision Making 41-year-old female presents to the ED complaining of right ankle pain after tripping and falling at home. In the ED patient is afebrile, vital signs are stable. Mild distress secondary to pain but nontoxic-appearing. Patient has an obvious deformity of her right ankle. X-rays confirm trimalleolar fracture. Patient's pain was treated with fentanyl and Dilaudid and the patient was placed in a Ortho-Glass splint using cast padding, Ortho-Glass, Aniket wrap. Case was discussed with orthopedics on-call, Dr. Yang who recommends CT of the lower extremity and admission to the hospital under the orthopedic service. We will plan for surgical invention in the next 24 to 48 hours. This was discussed with the patient and she is agreeable to plan. Assessment/Plan 1. Trimalleolar fracture of ankle, closed (S82.853A: Displaced trimalleolar fracture of unspecified lower leg, initial encounter for closed fracture) Orders: HYDROmorphone, 1 mg = 1 mL, Injection, IV Push, Once, Stop date 04/15/22 17:46:00 EST, STAT, Start date 04/15/22 17:46:00 EST, 04/15/22 17:46:00 EST ondansetron, 4 mg = 2 mL, Injection, IV Push, Once, Stop date 04/15/22 17:46:00 EST, STAT, Start date 04/15/22 17:46:00 EST, 04/15/22 17:46:00 EST XR Ankle 3+ Views Right XR Knee Complete 4+ Views Right Medications Administered Given Lactated Ringers IV Tara 1000 mL 1,000 mL, 1000 mL, IV [id number] [F], 2 tab(s), Oral Dilaudid 1 mg/mL injectable solution, 1 mg, IV Push duloxetine 60 mg Cap-DR, 120 mg, Oral [id number] [F], 300 mg, Oral [id number] [F], 1 mg, IV Push [id number] [F], 1 mg, IV Push [id number] [F], 40 mg, Oral potassium chloride 20 mEq ER Tab, 40 mEq, Oral Zofran 4 mg/2 mL Injection, 4 mg, IV Push Disposition Plan Patient Discharge Condition Improved, stable Discharge Disposition Admit to orthopedics Discharge Prescription List Prescriptions No active prescription medications Follow-up No qualifying data available Attestation Patient was treated and evaluated by the Physician Graining Press Operator. The attending physician was in the Emergency Department at all times and supervised care. The case was discussed with the attending physician and diagnostics were reviewed as needed. Problem List/Past Medical History Ongoing Smoker Historical No qualifying data Medications Inpatient Dilaudid 1 mg/mL injectable solution, 1 mg= 1 mL, IV Push, q2hr, PRN duloxetine 60 mg Cap-DR, 120 mg= 2 cap(s), Oral, Bedtime gabapentin 300 mg Cap, 300 mg= 1 cap(s), Oral, Bedtime Lactated Ringers IV Tara 1000 mL 1,000 mL, 1000 mL, IV Pantoprazole [address] Tab, 40 mg= 1 tab(s), Oral, Daily Percocet 5 mg-325 mg oral tablet, 1 tab(s), Oral, q4hr, PRN Percocet 5 mg-325 mg oral tablet, 2 tab(s), Oral, q4hr, PRN Zofran 4 mg/2 mL Injection, 4 mg= 2 mL, IV Push, q4hr, PRN Home duloxetine 60 mg Cap-DR, 120 mg, Oral, Daily gabapentin 300 mg Cap, 300 mg= 1 cap(s), Oral, Once a day (at bedtime) omeprazole 40 mg Cap-DR, 80 mg= 2 cap(s), Oral, Daily Allergies Codamine (Rash) morphine (Vomit) Social History Alcohol - Denies Al (more content not included)... [facility] Comment on above: Result Comment: Elec tronically Signed By: Capri Weiner PA-C\.br\Date and Time Signed: 04/15/22 23:21 EST\.br\Electronically Co-Signed By: Sonu Richards MD\.br\Date and Time Co-Signed: 04/19/22 18:39 EST IntraOperative Documentson 0 04-19-2022 IntraOperative Documents [id number] #1.00CD:[address] [facility] Main OR Intraoperative Recor don 04-19-2022 Main OR Intraoperative Record IntraOp Document Type FT Summary Primary Physician: Olu Yang DO Finalized Date/Time: 04/19/22 09:57:37 Pt. Name: ANGELA MUNOZ/Sex: 1980 Female Med Rec #: [id number] Physician: Olu Yang DO Financial #: [id number] Pt. Type: I Room/Bed: [place] [address] Admit/Disch: 04/15/22 16:23:28 - 04/17/22 14:15:00 Institution: Case Times FT Entry 1 Patient Times In Room 04/16/22 17:43:00 Out Room 04/16/22 19:41:00 Procedure Times Start 04/16/22 18:06:00 Stop 04/16/22 19:37:00 Anesthesia Times Start 04/16/22 17:43:00 Stop 04/16/22 19:41:00 Last Modified By: Ever Skelton RN 04/16/22 19:41:15 General Comments: 04/19/22 Chart opened to review and send charges LRoth CSFA Case Attendance FT Entry 1 Entry 2 Entry 3 Case Attendee Jaun Lockhart Jr, DO, DO, Michael T Krupp RN, Gibran Lara Role Performed Anesthesiologist of Surgeon - Primary Ship Captain - Primary Record Time In 04/16/22 17:43:00 04/16/22 17:43:00 04/16/22 17:43:00 Time Out 04/16/22 19:41:00 04/16/22 19:41:00 04/16/22 19:41:00 Procedure ANKLE FRACTURE ANKLE FRACTURE ANKLE FRACTURE ORIF(Right) ORIF(Right) ORIF(Right) Comments Preceptor Last Modified By: Costa RN, Ever Skelton RN, Ever Skelton RN, Ever Mcleod 04/16/22 19:41:16 04/16/22 19:41:16 04/16/22 19:41:16 Entry 4 Entry 5 Entry 6 Case Attendee Prosper KUMARI, Hollis Wesley RN, Ever Mcleod Role Performed TREE TAPPING LABORER/SA Scrub - Primary Ship Captain - Primary Time In 04/16/22 17:43:00 04/16/22 17:43:00 04/16/22 18:06:00 Time Out 04/16/22 19:41:00 04/16/22 19:41:00 04/16/22 19:41:00 Procedure ANKLE FRACTURE ANKLE FRACTURE ANKLE FRACTURE ORIF(Right) ORIF(Right) ORIF(Right) Comments Orientation Last Modified By: Costa RN, Ever Skelton RN, Ever Skelton RN, Ever Mcleod 04/16/22 19:41:16 04/16/22 19:41:16 04/16/22 19:41:16 Entry 7 Entry 8 Case Attendee Carlos Enrique TATUM, Margie Almazan Role Performed Montessori Paraprofessional Montessori Paraprofessional Time In 04/16/22 18:00:00 04/16/22 18:00:00 Time Out 04/16/22 19:24:00 04/16/22 18:05:00 Procedure ANKLE FRACTURE ANKLE FRACTURE ORIF(Right) ORIF(Right) Comments Last Modified By: Costa RN, Ever Skelton RN, Ever Mcleod 04/16/22 19:41:16 04/16/22 19:41:16 General Comments: Lonny Valeriomer-Biomet rep, also in attendance. Gibrancharcoal unloader Protocols FT Pre-Care Text: Implements protective measures prior to operative or invasive procedure, confirms identity before the operative or invasive procedure, verifies operative procedure, surgical site, and laterality Entry 1 Procedure(s) ANKLE FRACTURE Patient Identity Birthday, ID Band ORIF(Right) Verified (select at Check, Patient least 2): Participation Consents / H and P Anesthesia Consent, Operative Site Present Verified HandP, Surgery/Procedure Marking Verified Consent Surgical Site Yes Laterality Verified Yes Verified Procedure Verified Yes Correct Patient Yes Position Verified Availability Equipment, Implant, Prep Dry Yes Verified (If Medication, X-ray Applicable) PreOp Antibiotic Yes Time Out Richy Barlow DO, Jaun Mcleod, Given Participants Olu Yang DO, Katie SIMMONS, Gibran Lara, Hollis Buchanan, Prosper KUMARI, Darlene Quijano Time Out Complete 04/16/22 18:06:00 Outcomes Met? Yes Last Modified By: Ever Skelton RN 04/16/22 18:08:39 Post-Care Text: The patient is free from signs and symptoms of injury caused by extraneous objects Allergy Information FT Pre-Care Text: Verifies allergies Entry 1 Allergies Reviewed? Yes Allergies Reviewed Self/Patient With Outcomes Met? Yes Last Modified By: Gibran Wilson RN 04/16/22 16:43:56 Post-Care Text: The patient received appropriate medication(s) safely administered during the perioperative period Surgical Procedures FT Entry 1 Procedure Description Procedure ANKLE FRACTURE ORIF Modifiers Right Surgeon Description RIGHT ANKLE ORIF Primary Procedure Yes Primary Surgeon Olu Yang DO Start 04/16/22 18:06:00 Stop 04/16/22 19:37:00 Anesthesia Type General Surgical Service Orthopedics Wound Class 1 - Clean Last Modified By: Ever Skelton RN 04/16/22 19:40:20 General Case Data FT Pre-Care Text: Classifies surgical wound, implements aseptic technique, initiates traffic control Entry 1 Case Information OR OR 4 FT Case Level Level 4 Wound Class 1 - Clean Specialty Orthopedics ASA Class 3 Preop Diagnosis trimalleolar ankle Postop Same As Preop Yes fracture, closed Postop Diagnosis trimalleolar ankle Outcomes Met? Yes fracture, closed Last Modified By: Ever Skelton RN 04/16/22 18:09:24 Post-Care Text: The patient is free from signs and symptoms of infection Skin Assessment (Pre Procedure) FT Pre-Care Text: Implements protective measures to prevent skin/ tissue injury due to thermal or mechanical sources Evaluates for signs and symptoms of physical in (more content not included)... [facility] Prescriptions/Work Noteson 0 04-19-2022 Prescriptions/Work Notes [id number]#1 .00CD:[address] [facility] C Urineon 04-18-2022 Bacteria identified Cx Nom (U) Microbiology PROCEDURE: Urine Culture [R1] SOURCE: U Cath BODY SITE: COLLECTED DATE/TIME: 04/16/2022 18:17 EST RECEIVED DATE/TIME: 04/16/2022 19:19 EST START DATE/TIME: 04/16/2022 19:19 EST FREE TEXT SOURCE: Olu Yang DO, DO, Olu Jacobs FINAL REPORTS Final Report [] Verified Date/Time: 04/18/2022 09:11 EST >100,000 cfu/ml Escherichia coli SUSCEPTIBILITY RESULTS LEGEND: S=Susceptible, N/R=Not Reported, Blank=Data not available, or drug not advisable or tested, I=Intermediate, ESBL=Extended spectrum beta-lactamase, R=Resistant, TFG=Thymidine-depend ent strain, DIANN=Beta-lactamase positive, DIVYA=mcg/m;(mg/L), S*=Predicted susceptible interp, R*=Predicted resistant interp EC Antibiotic DIVYA Dilutn DIVYA Interp Amikacin <=16 S Ampicillin <=8 S Ampicillin/ <=8/4 S Sulbactam Aztreonam <=4 S Cefazolin <=2 S Cefepime <=2 S Cefoxitin <=8 S Ceftazidime <=1 S Ceftazidime/ <=8 S Avibactam Ceftriaxone <=1 S Ciprofloxacin <=1 S Ertapenem <=0.5 S Gentamicin <=4 S Levofloxacin <=2 S Meropenem <=1 S Nitrofurantoin <=32 S Piperacillin/ <=16 S Tazobactam Tetracycline <=4 S Tigecycline <=2 S Tobramycin <=4 S Trimethoprim/ <=2/38 S Sulfa Performing Locations R1: This test was performed at: [facility], [address] [place] [address], [address] , , [facility] Comment on above: Performed By: #### 1 [id number] ####[facility] [id number] [place] [address] Inpatient Patient Summaryon 04-17-2022 Inpatient Patient Summary ANGELA MUNOZ :1980 Visit Date:04/15/2022 Inpatient Discharge Instructions Your Care Team Admitting Physician - Olu Yang DO Reason for Your Visit Tripped over baby gate and fell Your Diagnosis Ankle injury - Minor Closed displaced fracture of lateral malleolus of right fibula Closed displaced pilon fracture of right tibia Fall Tests Performed Automated Diff Beta hCG Qual BMP CBC w/ Auto Diff eGFR UA With Cult Reflex Ankle XR 2 Views Right Ankle XR Complete Right CT Lower Extremity w/o Contrast Right XR Ankle 3+ Views Right XR Chest Single View XR Knee Complete 4+ Views Right This Is Your Medications List acetaminophen-oxycod one (Percocet 5 mg-325 mg oral tablet) aspirin (aspirin 325 mg Tab) docusate (Colace 100 mg Cap) duloxetine (duloxetine 60 mg Cap-DR) gabapentin (gabapentin 300 mg Cap) omeprazole (omeprazole 40 mg Cap-DR) sulfamethoxazole-tri methoprim (Bactrim D.S. 800 mg-160 mg Tab) Procedure History ORIF - Open reduction of fracture of ankle with internal fixation (04/16/2022). Discharge Vitals Temperature (Axillary) 37.1 ?C Heart Rate (Monitored) 78 Respiratory Rate 16 Blood Pressure 108/70 Weight 74 kg What to do next Instructions From Your Doctor Event Name Event Result Discharge Activity Resume normal activities in 24 hours, Arrange for a responsible adult supervision for 24 hours, Expect mild pain, Do not lift more than 5 lbs, No weight bearing Discharge Restrictions No driving, Do not operate machinery or tools, Do not make important decisions for 24 hours, Do not drink alcoholic beverages for 24 hours Discharge Diet(s) Regular, Drink liquids and eat a light meal Call Your Doctor For Persistent or heavy bleeding, Temperature above 101.5 degrees, Redness, swelling, or pus at operative site, Severe pain at the operative site, Persistent vomiting Wound Care Do not remove dressing, Keep incision dry Pharmacy Information [facility] (formerly [facility]) Discharge Instructions PLEASE QUIT SMOKING AND AVOID SECOND HAND SMOKE New Follow Up Appointments after Discharge Follow Up with Olu Yang When: Comments: Call for followup appointment 2 weeks [facility] Where: [address] [place] [address]- Business (1) Follow Up with Corby Conner When: In 0 days Where: [address] [place] [address]- Business (1) Medications What How Much When Why Instructions Next Dose New acetaminophen-oxycod one (Percocet 5 mg-325 mg oral tablet) See instructions Closed displaced pilon fracture of right tibia Take one to two po every 4 hours as needed for ankle surgical pain Pickup at [facility]/pharmacy #[id number] New aspirin (aspirin 325 mg Tab) 1 Tablets By Mouth Every day Duration: 30 Days Start 04-17-22 for 4 weeks for blood clot prevention. Pickup at [facility]/pharmacy #[id number] 04/18 New docusate (Colace 100 mg Cap) 1 Capsules By Mouth 2 times a day Pickup at [facility]/pharmacy #[id number] 04/17 9:00pm New sulfamethoxazole-tri methoprim (Bactrim D.S. 800 mg-160 mg Tab) 1 Tablets By Mouth 2 times a day Duration: 14 Days Cancel Keflex script from yesterday Pickup at [facility]/pharmacy #[id number] Begin when filled Unchanged duloxetine (duloxetine 60 mg Cap-DR) 120 Milligram By Mouth Every day 04/18 Unchanged gabapentin (gabapentin 300 mg Cap) 1 Capsules By Mouth Once a day (at bedtime) 04/18 Unchanged omeprazole (omeprazole 40 mg Cap-DR) 2 Capsules By Mouth Every day 04/17 9:00pm Pharmacy Information [facility]/pharmacy #[id number]: [address] [place], [place] [id number] [phone] Test Results CBC BMP WBC: 11.7 E9/L High (04/16/22 05:49:00) Glucose Lvl: 112 mg/dL (04/16/22 05:49:00) RBC: 4.2 E12/L Low (04/16/22 05:49:00) BUN: 6 mg/dL (04/16/22 05:49:00) HGB: 12.6 gm/dL (04/16/22 05:49:00) Creatinine: 0.8 mg/dL (04/16/22 05:49:00) Hct: 37.1 % (04/16/22 05:49:00) BUN/Creat Ratio: 8 Low (04/16/22 05:49:00) MCV: 88.3 fL (04/16/22 05:49:00) Sodium Lvl: 136 mmol/L (04/16/22 05:49:00) MCH: 30 pg (04/16/22 05:49:00) Potassium Lvl: 3.3 mmol/L Low (04/16/22 05:49:00) MCHC: 34 gm/dL (04/16/22 05:49:00) Chloride: 100 mmol/L Low (04/16/22 05:49:00) RDW: 14.1 % (04/16/22 05:49:00) CO2: 29 mmol/L (04/16/22 05:49:00) Platelet: 273 E9/L (04/16/22 05:49:00) AGAP: 10 mEq/L (04/16/22 05:49:00) MPV: 9.6 fL (04/16/22 05:49:00) Calcium Lvl: 8.6 mg/dL Low (04/16/22 05:49:00) Allergies Codamine (Rash) morphine (Vomit) Problems Ongoing - Any problem that you are currently receiving treatment for. Smoker Devices Implanted/Removed This Visit Notice: You have devices implanted this visit that may not be MRI compatible. Implanted ANKLE FRACTURE ORIF Ankle R 3.5 Cortical Screw (3), 04/17/2022 3.5 Cortical Screw 04/17/2022 3.5 Cortical Screw 04/17/2022 3.5 Cortical Screw (2), 04/17/2022 3.5 Locking Cortical Screw (2), 04/17/2022 3.5 Locking Cortical Scre (more content not included)... [facility] Interdisciplinary Note - Cristóbal e Manageron 04-17-2022 Interdisciplinary Note - Rod Straightener Pt is awake and alert in bed, previously rounded with Surgeon. Numerous family members at bedside. Pt is aware of plan to DC home today. Pt is aware of need for knee scooter, sates her family found one for her to use, denies CRM assistance. Declines any further concerns or DC needs. . PCP verified and insurance information reviewed and DME disscussed. contact information provided and white board updated. pt has no medical insurance, was previously provided with financial assistance paperwork, declines further needs. [facility] Comment on above: Result Comment: Elec tronically Signed By: Carol SIMMONS, Mahsa\.br\Date and Time Signed: 04/17/22 14:25 EST Operative Reporton Operative Report SURGERY DATE: 04/16/2022 REMEDIATION BIOANALYTICS CONSULTANT: Darlene Cheng C.F.A. PREOPERATIVE DIAGNOSIS: Right closed ankle fracture with tibial pilon comminuted component with displacement, ankle mortise disruption, distal fibula Diana C/B comminuted fracture status post fall compounded by osteoporosis POSTOPERATIVE DIAGNOSIS: Right closed ankle fracture with tibial pilon comminuted component with displacement, ankle mortise disruption, distal fibula Diana C/B comminuted fracture status post fall compounded by osteoporosis OPERATION: Right ankle open reduction and internal fixation, lateral fibular plating, medial tibial plating, anterior-posterior compression screws ANESTHESIA: General ANESTHESIOLOGIST: Jaun Lockhart Jr., D.O. ESTIMATED BLOOD LOSS: 25 cc SPECIMEN: None IMPLANTS: Utilized were the Keke titanium medial small A.L.P.S. plate with multiple locking and nonlocking screws, a 1/3 tubular DePuy titanium lateral eight-hole plate with multiple cortical screws, two anterior-posterior 4.0 cannulated screws TOURNIQUET TIME: 78 minutes PATIENT CONDITION: Satisfactory HISTORY AND INDICATIONS: Angela is a 41-year-old female with a fall yesterday afternoon over a baby gate while stepping where she blocks her dogs at her apartment, subsequently fell and had pain and deformity of the ankle. She was seen and evaluated by CHRISTINE Acuna in the Emergency Room. Conversation occurred. 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 She has not voided all day. The pros, cons, risks, benefits, and reasonable expectations of the above procedure were discussed. We discussed the high level of comminution and articular stepoff and displacement and the high likelihood of posttraumatic arthritis, stiffness, pain, nerve/vessel/tendon injury, hardware removal, malunion, nonunion, hardware fixation failure, antalgic gait, dissatisfaction, need for multiple surgeries, and potential for infection were all reviewed. The articular displacement is a poor prognostic indicator as well as her tobacco abuse and history of reflex sympathetic dystrophy to the right upper extremity after a scapholunate ligament repair. Consent form was signed and witnessed. Antibiotics provided weight based per protocol. PROCEDURE: Angela was taken to the Operating Room and placed in supine position. Anesthesia was provided. A well-padded tourniquet was placed on the right upper thigh. The leg was prepped and draped in sterile fashion with ChloraPrep. A time-out procedure occurred consistent with the consent form, History and Physical, preoperative marked site. Large C-arm was utilized with system support technician. Landmarks were identified. The leg was exsanguinated. Tourniquet was inflated to 300 mmHg to the right thigh. A 5-1/2 to 6-inch longitudinal incision was made along the medial ankle extending from the tip of the medial malleolus proximally. Posterior tibial tendon and saphenous vein were protected. The fracture had severe comminution with transverse and vertical split components. After copious irrigation and curettage of the hematoma, the fracture fragments were appropriately reduced. The small medial A.L.P.S. plate by Keke (titanium) was positioned and held with a K-wire. One screw was placed holding the plate out to length, and a lateral x-ray was achieved. The coronal split of the articular surface where the talus was proud into the joint was reduced, and two anterior-posterior screws were placed, one through the medial incision and one through an anterolateral incision. Blunt dissection was performed. Tissue protector was achieved, and 4.0 cannulated screws with K-wires were drilled and placed, reducing the anterior-posterior displacement of the articular surface. The medial A.L.P.S. plate was then fixed with locking and nonlocking screws in acceptable position and alignment. Once again significant comminution as well as osteoporosis was seen. This was fairly pronounced for the age of 41. The lateral fibula was opened up through a 4-inch incision. The soft tissue was very thin as well as very swollen. No sign of compartment syndrome. The lateral fibula was a Diana B to C. The syndesmosis was intact. Curettage and irrigation were performed. An eight-hole 1/3 tubular plate was appropriately positioned, and multiple cortical screws and cancellous screws were placed distally. The fibula was fixed out to length, reduced in acceptable position and alignment. Of note, screw purchase and fixation were tenuous due to poor bone quality. Final pictures were taken. It was copiously irrigated out. The subcutaneous tissues were closed with 0 Vicryl and 2-0 Vicryl sutures. Nazia were applied. 10 cc of 0.25% plain Marcaine was injected between the incisions. [place] once again were applied. Bacitracin, Adaptic, and well-padded dressing with posterior short splint were provided. Tourniquet was deflated. She was awakened from anesthesia and transferred to the Recovery Room in stable and satisfactory condition. Of note, due to her (more content not included)... [facility] Comment on above: Result Comment: Elec tronically Signed By: Olu Yang DO\.br\Date and Time Signed: 04/17/22 11:47 EST XR Ankle 2 Views Righton XR Ankle 2 Views Right Exam Date/Time: 04/16/2022 19:27 EST Reason for Exam: Fracture Report XR Ankle 2 Views Right : 04/16/2022 5:48 PM CLINICAL HISTORY: Fracture. Open reduction internal fixation of the tibia and fibula. COMPARISON: None available. Intraoperative fluoroscopy was provided for Dr. Yang' procedure. A total of 7.63 mGy of fluoroscopy was used, with 7 fluoroscopic stills saved. No diagnostic images were obtained. Please see Dr. Yang' surgical notes for complete details. FINAL REPORT Dictated: 04/17/2022 9:20 am Dwayne Davila DO Signed (Electronic Signature): 04/17/2022 9:20 am Signed by: Dwayne Davila DO Transcribed by: DANNIE Technologist: AIDAN Noe [facility] Auto Diffon 04-16-2022 Basophils/100 WBC (Bld) 0.3 % Normal 0.0-2.0 [facility] Comment on above: Order Comment: Order Added by Discern Expert. Performed By: #### [id number] ####[place] [id number] [place] [address] Basophils/Leukocytes Auto (Bld) [Pure # fraction] 0.0 E9/L Normal 0.0-0.2 [facility] Comment on above: Order Comment: Order Added by Discern Expert. Performed By: #### 2 [id number] ####[facility] [id number] [place] [place] [address] Eosinophils/100 WBC (Bld) 0.9 % Normal 0.0-8.0 [facility] Comment on above: Order Comment: Order Added by Discern Expert. Performed By: #### 2 130869, [id number], 7896959, [id number] ####[address] [place] [address] Eosinophils/Leukocytes Auto (Bld) [Pure # fraction] 0.1 E9/L Normal 0.0-0.5 [facility] Comment on above: Order Comment: Order Added by Discern Expert. Performed By: #### 2 956230, [id number], 2397903, 5230029 ####[facility] [address] [place] [address] Lymphocytes/100 WBC (Bld) 31.0 % Normal 14.0-50.0 [facility] Comment on above: Order Comment: Order Added by Discern Expert. Performed By: #### 2 182551, [id number], 3183345, 3501646 ####[facility] [address] [place] [address] Lymphocytes/Leukocytes Auto (Bld) [Pure # fraction] 3.6 E9/L Normal 1.0-4.0 [facility] Comment on above: Order Comment: Order Added by Discern Expert. Performed By: #### 2 860793, 68780215, 4342165, 8311182 ####[address] [place] [address] Monocytes/100 WBC (Bld) 7.3 % Normal 4.0-14.0 [facility] Comment on above: Order Comment: Order Added by Discern Expert. Performed By: #### 2 164965, [id number], 1036083, 1056526 ####[address] [address] Monocytes/Leukocytes Auto (Bld) [Pure # fraction] 0.9 E9/L Normal 0.2-1.0 [facility] Comment on above: Order Comment: Order Added by Discern Expert. Performed By: #### 2 248058, 75827721, 4239413, 7827473 ####[address] [address] Neutrophils/100 WBC (Bld) 60.5 % Normal 36.0-75.0 [facility] Comment on above: Order Comment: Order Added by Discern Expert. Performed By: #### 2 920166, 06228489, 2122794, 9247148 ####[address] [address] Neutrophils/Leukocytes Auto (Bld) [Pure # fraction] 7.1 E9/L Normal 2.0-7.5 [facility] Comment on above: Order Comment: Order Added by Discern Expert. Performed By: #### 2 296476, 76164426, 4746140, 0889230 ####[address] [place] [address] BMPon 04-16-2022 Anion gap [Moles/Vol] 10 mmol/L Normal 6-16 [facility] Comment on above: Performed By: #### 2 089556, 50805443, 8462982, 2737838 ####[facility] [address] [place] [address] Calcium [Mass/Vol] 8.6 mg/dL Low 8.9-11.1 [facility] Comment on above: Performed By: #### 2 238382, 28905429, 3266595, 3640203 ####[facility] [address] [place] [address] Chloride [Moles/Vol] 100 mmol/L Low 101-111 [facility] Comment on above: Performed By: #### 2 937712, 74320158, 0908776, 8949942 ####[facility] [address] [place] [address] CO2 [Moles/Vol] 29 mmol/L Normal 21-31 [facility] Comment on above: Performed By: #### 2 017779, 87257199, 9321431, 4276638 ####[facility] [address] [place] [address] Creatinine [Mass/Vol] 0.8 mg/dL Normal 0.5-1.3 [facility] Comment on above: Performed By: #### 2 006781, 15563471, 4767977, 0152974 ####[facility] [address] [place] [address] Glucose [Mass/Vol] 112 mg/dL Normal 55-199 [facility] Comment on above: Result Comment: If t his glucose result represents a fasting glucose, interpretation should refer to the following reference range: 55-99 mg/dL Performed By: #### 2 144324, 90771525, 3888444, 3776924 ####[facility] [address] [place] [address] Potassium [Moles/Vol] 3.3 mmol/L Low 3.5-5.3 [facility] Comment on above: Performed By: #### 2 622045, 31621031, 6461854, 7174611 ####[facility] [address] [place] [address] Sodium [Moles/Vol] 136 mmol/L Normal 135-145 [facility] Comment on above: Performed By: #### 2 361991, 18240683, 3923655, 0566986 ####[facility] [address] [place] [address] Urea nitrogen [Mass/Vol] 6 mg/dL Normal 5-21 [facility] Comment on above: Performed By: #### 2 622296, 72280515, 0181800, 1098983 ####[facility] [address] [place] [address] Urea nitrogen/Creatinine [Mass ratio] 8 No Units Low 10-20 [facility] Comment on above: Performed By: #### 2 147626, 09929948, 6092550, 7864658 ####[facility] [address] [place] [address] CBC w/ Auto Diffon 3 Erythrocyte distribution width (RBC) [Ratio] 14.1 % Normal 10.9-14.2 [facility] Comment on above: Performed By: #### 2 901317, 18730653, 5031791, 6349929 ####[facility] [address] [place] [address] Hematocrit (Bld) [Volume fraction] 37.1 % Normal 34.0-46.0 [facility] Comment on above: Performed By: #### 2 577866, 32183493, 7234504, 5684857 ####[facility] [address] [place] [address] Hemoglobin (Bld) [Mass/Vol] 12.6 g/dL Normal 12.0-16.0 [facility] Comment on above: Performed By: #### 2 325543, 14405536, 8808809, 3860688 ####[facility] [address] [place] [address] MCH (RBC) [Entitic mass] 30.0 pg Normal 27.0-34.0 [facility] Comment on above: Performed By: #### 2 964052, 79297356, 7171643, 7238157 ####[address] [place] [address] MCHC (RBC) [Mass/Vol] 34.0 g/dL Normal 31.4-36.0 [facility] Comment on above: Performed By: #### 2 943346, 11971605, 4716205, 5868355 ####[facility] [address] [place] [address] MCV (RBC) [Entitic vol] 88.3 fL Normal 80.0-100.0 [facility] Comment on above: Performed By: #### 2 503983, 67777668, 6958740, 6086684 ####[address] [address] Platelet mean volume (Bld) [Entitic vol] 9.6 fL Normal 6.4-10.8 [facility] Comment on above: Performed By: #### 2 612278, 11158849, 4516726, 6827471 ####[address] [address] Platelets (Bld) [#/Vol] 273.0 E9/L Normal 150.0-500.0 [facility] Comment on above: Performed By: #### 2 310681, 14222271, 3935778, 3941879 ####[address] [address] RBC (Bld) [#/Vol] 4.2 E12/L Low 4.3-5.9 [facility] Comment on above: Performed By: #### 2 297616, 77625193, 8560613, 7827273 ####[facility] [address] [place] [address] WBC corrected for nucl RBC Auto (Bld) [#/Vol] 11.7 E9/L High 4.0-11.0 [facility] Comment on above: Performed By: #### 2 977716, 42700392, 3437602, 3859084 ####[facility] [id number] CHEMISTRYOrdered By: SYSTEM SYSTEM on 04-16-2022 Anion gap [Moles/Vol] 10 mmol/L Normal 6 - 16 mEq/L [facility] Remisol Calcium [Mass/Vol] 8.6 mg/dL Low 8.9 - 11. 1 mg/dL [facility] Chloride [Moles/Vol] 100 mmol/L Low 101 - 1 11 mmol/L [facility] Remisol CO2 [Moles/Vol] 29 mmol/L Normal 21 - 31 mmol/L [facility] Creatinine [Mass/Vol] 0.8 mg/dL Normal 0.5 - 1.3 mg/dL [facility] Remisol GFR/1.73 sq M.predicted among blacks MDRD (S/P/Bld) [Vol rate/Area] mL/min/1.73 m2 Normal >=59mL/min/1 .73 m2 [facility] [place] S GFR/1.73 sq M.predicted among non-blacks MDRD (S/P/Bld) [Vol rate/Area] mL/min/1.73 m2 Normal >=59mL/min/1 .73 m2 [facility] [place] S Glucose [Mass/Vol] 112 mg/dL Normal 55 - 199 mg/dL [facility] Potassium [Moles/Vol] 3.3 mmol/L Low 3.5 - 5.3 mmol/L [facility] Sodium [Moles/Vol] 136 mmol/L Normal 135 - 145 mmol/L [facility] Urea nitrogen [Mass/Vol] 6 mg/dL Normal 5 - 21 mg/d L [facility] Remisol Urea nitrogen/Creatinine [Mass ratio] 8 mg/mg Low 10 - 20 [facility] Remisol HEMATOLOGYOrdered By: SYSTEM SYSTEM on 04-16-2022 Basophils/100 WBC (Bld) 0.3 % Normal 0.0 - 2.0 % [facility] HemeAutoSS Basophils/Leukocytes Auto (Bld) [Pure # fraction] 0.0 E9/L Normal 0.0 - 0.2 E9/L [facility] HemeAutoSS Eosinophils/100 WBC (Bld) 0.9 % Normal 0.0 - 8.0 % [facility] HemeAutoSS Eosinophils/Leukocytes Auto (Bld) [Pure # fraction] 0.1 E9/L Normal 0.0 - 0.5 E9/L [facility] HemeAutoSS Lymphocytes/100 WBC (Bld) 31.0 % Normal 14.0 - 50.0 % [facility] HemeAutoSS Lymphocytes/Leukocytes Auto (Bld) [Pure # fraction] 3.6 E9/L Normal 1.0 - 4.0 E9/L [facility] HemeAutoSS Monocytes/100 WBC (Bld) 7.3 % Normal 4.0 - 14.0 % [facility] HemeAutoSS Monocytes/Leukocytes Auto (Bld) [Pure # fraction] 0.9 E9/L Normal 0.2 - 1.0 E9/L [facility] HemeAutoSS Neutrophils/100 WBC (Bld) 60.5 % Normal 36.0 - 75.0 % [facility] HemeAutoSS Neutrophils/Leukocytes Auto (Bld) [Pure # fraction] 7.1 E9/L Normal 2.0 - 7.5 E9/L [facility] HemeAutoSS HEMATOLOGYOrdered By: Dolores Burgess on 04-16-2022 Erythrocyte distribution width (RBC) [Ratio] 14.1 % Normal 10.9 - 14.2 % [facility] HemeAutoSS Hematocrit (Bld) [Volume fraction] 37.1 % Normal 34.0 - 46.0 % [facility] HemeAutoSS Hemoglobin (Bld) [Mass/Vol] 12.6 g/dL Normal 12.0 - 16.0 gm/dL [facility] HemeAutoSS MCH (RBC) [Entitic mass] 30.0 pg Normal 27. 0 - 34.0 pg [facility] HemeAutoSS MCHC (RBC) [Mass/Vol] 34.0 g/dL Normal 31.4 - 36.0 gm/dL [facility] HemeAutoSS MCV (RBC) [Entitic vol] 88.3 fL Normal 80.0 - 100.0 fL [facility] HemeAutoSS Platelet mean volume (Bld) [Entitic vol] 9.6 fL Normal 6.4 - 10.8 fL [facility] HemeAutoSS Platelets (Bld) [#/Vol] 273.0 E9/L Normal 150. 0 - 500.0 E9/L [facility] HemeAutoSS RBC (Bld) [#/Vol] 4.2 E12/L Low 4.3 - 5.9 E12/L [facility] [place] HemeAutoSS WBC corrected for nucl RBC Auto (Bld) [#/Vol] 11.7 E9/L High 4.0 - 11.0 E9/L [facility] [place] HemeAutoSS Inpatient Clinical Summaryon 04-16-2022 Inpatient Clinical Summary [facility] [address], [place] [address] Clinical Summary Person Information: Name: ANGELA MUNOZ Age: 41 Years : 1980 Sex: Female PCP: Corby Conner MD Marital Status: Single Phone: [phone] Race: White Ethnicity: Non- or Language: Lao Visit Id: Visit Reason: Fall; Ankle injury - Minor; ANKLE FX Speciality: Acuity: Enc Type: Observation Med Service: Medical Arrival: 04/15/2022 16:23:28 Discharge: Dispo Type: Ad[facility] as [facility] Address: [address] [place] [phone] Provider Notes: Diagnosis: Closed displaced fracture of lateral malleolus of right fibula; Closed displaced pilon fracture of right tibia Problems Active Smoker Smoking Status: Current Every Day Smoker Functional Status: Sensory Deficits: History of Falls: Immediately prior to hospitalization Mobility Assistance Prior to Admission: Independent ADLs: Independent Current Level of Assistance for Self-Care/Mobility: Cognitive Status: Oriented x 3 Allergies Codamine (Rash) morphine (Vomit) Measurements: Height: Weight: Blood Pressure: 116 mmHg / 70 mmHg BMI: Procedures No Procedures Documented Immunizations No Immunizations Documented This Visit Final Med List: duloxetine (duloxetine 60 mg Cap-DR) 120 Milligram By Mouth every day. gabapentin (gabapentin 300 mg Cap) 1 Capsules By Mouth once a day (at bedtime). omeprazole (omeprazole 40 mg Cap-DR) 2 Capsules By Mouth every day. Care Team Members: Attending Physician: Olu Yang DO Consulting Physician: Referring Physician: Follow up: With: Address: When: Olu Yang [address] [place] [address] [facility] (1) Comments: Call for followup appointment 2 weeks [place] office With: Address: When: Corby Conner [facility] [facility], [place] [address] Business (1) Patient Education Information: Normal [facility] Inpatient Patient Summaryon 04-16-2022 Inpatient Patient Summary [facility] [address], [place] [address] Patient Discharge Instructions PERSON INFORMATION Name: ANGELA MUNOZ Date of : 1980 Current Date: 04/16/2022 07:22:01 PHYSICIANS Admitting Physician: Olu Yang DO Primary Care Physician: Corby Conner MD PCP Comment: Discharge Diagnosis: Closed displaced fracture of lateral malleolus of right fibula; Closed displaced pilon fracture of right tibia Condition at Discharge: ANGELA MUNOZ has been given the following list of follow-up instructions, prescriptions, and patient education materials: PATIENT FOLLOW-UP INFORMATION Diet: Regular, Drink liquids and eat a light meal Discharge Activity: Resume normal activities in 24 hours, Arrange for a responsible adult supervision for 24 hours, Expect mild pain, Do not lift more than 5 lbs, No weight bearing Discharge Restrictions: No driving, Do not operate machinery or tools, Do not make important decisions for 24 hours, Do not drink alcoholic beverages for 24 hours Wound Care Instructions: Do not remove dressing, Keep incision dry Remove Your Dressing In Days Call Your Doctor For: Persistent or heavy bleeding, Temperature above 101.5 degrees, Redness, swelling, or pus at operative site, Severe pain at the operative site, Persistent vomiting IF UNABLE TO CONTACT YOUR PHYSICIAN AND YOU FEEL IT IS AN EMERGENCY, GO TO THE NEAREST EMERGENCY ROOM OR CALL 911 Home Treatment: Devices/Equipment: None Special Services: Additional Instructions: PLEASE QUIT SMOKING AND AVOID SECOND HAND SMOKE Primary Care Physician to provide the following pending test results: Follow up: With: Address: When: Olu Yang [address] [place] [address] Business (1) Comments: Call for followup appointment 2 weeks [place] office With: Address: When: Corby Conner [address] [facility] [place] [address] Business (1) In the event that this physician does not participate in your insurance network, please consult with your insurance company to find a nearby participating provider. Comment: ALEXANDER Tovar LISA M, have received the attached patient education materials/instructio ns and have verbalized understanding: Patient Signature Date Clinican/Nurse Signature Date HERE ARE THE MEDICATION CHANGES THAT OCCURRED DURING YOUR HOSPITAL STAY Medications to Continue with No Changes Other Medications duloxetine (duloxetine 60 mg Cap-DR) 120 Milligram By Mouth every day. Last Dose: Next Dose: gabapentin (gabapentin 300 mg Cap) 1 Capsules By Mouth once a day (at bedtime). Last Dose: Next Dose: omeprazole (omeprazole 40 mg Cap-DR) 2 Capsules By Mouth every day. Last Dose: Next Dose: Comment: MEDICATION LIST PROVIDED FOR YOU IS A LIST OF YOUR CURRENT MEDICATIONS. PLEASE CARRY THIS WITH YOU AT ALL TIMES. duloxetine (duloxetine 60 mg Cap-DR) 120 Milligram By Mouth every day. gabapentin (gabapentin 300 mg Cap) 1 Capsules By Mouth once a day (at bedtime). omeprazole (omeprazole 40 mg Cap-DR) 2 Capsules By Mouth every day. Pharmacy Information: [facility] Comment: PATIENT EDUCATION INFORMATION Instructions: Medication Leaflets: You may receive a survey from [employer] asking you to rate your care experience. Your feedback is important and will help us understand what we do well and how we can improve the quality of care we provide to you, your loved ones and our community. It?s an honor to serve you. Thank you for choosing [facility] Normal [facility] Insurance Correspondence Off iceon 04-16-2022 Insurance Correspondence Office [id number] 3#1.00CD:[address] [facility] Laboratory - Microbiology an d Antimicrobial susceptibilityOrdered By: Lani Hogan on 04-16-2022 Bacteria identified Cx Nom (U) >100,000 cfu/ml Gram Negative Phillip [employer] Designer species [facility] Main OR PACU I Recordon Main OR PACU I Record PACU Phase I Document Type FT Summary Primary Physician: Olu Yang DO Finalized Date/Time: 04/16/22 20:43:42 Pt. Name: MUNOZANGELA/Sex: 1980 Female Med Rec #: [id number] Physician: Olu Yang DO Financial #: [id number] Pt. Type: O Room/Bed: [facility]/ Admit/Disch: 04/15/22 16:23:28 - Institution: Case Times PACU I FT Pre-Care Text: Identifies barriers to communication and implements measures to provide psychological support Develops individualized plan of care, and ensures continuity of care Maintains patient's dignity and privacy, and maintains patient confidentiality Identifies and reports philosophical, cultural, and spiritual beliefs and values Identifies individual values and wishes concerning care Implements aseptic technique, and administers prescribed antibiotic therapy and immunizing agents as ordered Evaluates postoperative tissue perfusion Implements thermoregulation measures, and monitors body temperature Evaluates postoperative respiratory status Evaluates postoperative cardiac status Evaluates postoperative neurological status Assesses pain control, collaborated in initiating patient-controlled analgesia and implements alternative methods of pain control Verifies allergies, administers prescribed medications and solutions, evaluates response to medications Entry 1 In PACU I 04/16/22 19:42:00 Discharge from PACU 04/16/22 20:15:00 I Outcomes Met? Yes Last Modified By: Flora Brandon RN 04/16/22 20:43:23 Post-Care Text: The patient demonstrates knowledge of the expected response to the operative or invasive procedure The patient's care is consistent with the individualized perioperative plan of care The patient's right to privacy is maintained The patient's value system, lifestyle, ethnicity, and culture are considered, respected, and incorporated into the perioperative plan of care The patient participates in decisions affecting his or her perioperative plan of care The patient is free from signs and symptoms of infection The patient has wound/tissue perfusion consistent with or improved from baseline levels established preoperatively The patient is at or returning to normothermia at the conclusion of the immediate postoperative period The patient's respiratory function is consistent with or improved from baseline levels established preoperatively The patient's cardiovascular status is consistent with or improved from baseline levels established preoperatively The patient's cardiovascular status is consistent with or improved from baseline levels established preoperatively The patient demonstrates and/or reports adequate pain control throughout the perioperative period The patient received appropriate medication(s), safely administered during the perioperative period Acuity Level PACU I FT Entry 1 Start Time 04/16/22 19:42:00 Stop Time 04/16/22 20:15:00 Acuity Level Acuity Level I Last Modified By: Flora Brandon RN 04/16/22 20:43:36 Finalized By: Flora Brandon RN Document Signatures Signed By: Flora Brandon RN 04/16/22 20:[address] [facility] Main OR Preoperative Recordo n 04-16-2022 Main OR Preoperative Record PreOp Document Type FT Summary Primary Physician: Olu Yang DO Finalized Date/Time: 04/16/22 18:15:02 Pt. Name: ANGELA MUNOZ./Sex: 1980 Female Med Rec #: [id number] Physician: Olu Yang DO Financial #: [id number] Pt. Type: O Room/Bed: S335/01 Admit/Disch: 04/15/22 16:23:28 - Institution: Case Times PreOp FT Pre-Care Text: Verifies consent for planned procedure, identifies individual values and wishes concerning care, includes family members in perioperative teaching Entry 1 Patient Times. In Pre Surgery 04/16/22 14:50:00 Out Pre Surgery 04/16/22 17:41:00 Outcomes Met? Yes Last Modified By: Ever Skelton RN 04/16/22 18:15:00 Post-Care Text: The patient participates in decisions affecting his or her perioperative plan of care Finalized By: Ever Skelton RN Document Signatures Signed By: Ever Skelton RN 04/16/22 18:[address] [facility] Monitor Recordon 04-16-2022 Monitor Record [id number] 0#[id number]:[address] [facility] Monitor Record [id number] 2#1.00CD:[address] [facility] Operative Reporton 3 Operative Report Patient: ANGELA MUNOZ Age: 41 years Sex: Female : 1980 Associated Diagnoses: None Author: Olu Yang DO Health Status Allergies: Allergic Reactions (Selected) Severity Not Documented Codamine- Rash. Morphine- Vomit. Review / Management Results review: Lab results 04/16/2022 18:17 EST UA Spec Desc [place] UA Color Yellow UA Clarity SL CLOUDY UA Spec Grav 1.020 UA pH 5.5 UA Protein Negative UA Glucose Negative UA Ketones Negative UA Bili Negative UA Blood Trace UA Nitrite Positive UA Urobilinogen 0.2 EU/dL UA Leuk Est 2+ UA RBC 0-3 /HPF UA Squam Epithelial 0-2 /HPF UA WBC >30 /HPF UA Bacteria 3+ /HPF UA Mucous Trace 04/16/2022 5:49 EST WBC 11.7 E9/L HI RBC 4.2 E12/L LOW HGB 12.6 gm/dL Hct 37.1 % MCV 88.3 fL MCH 30.0 pg MCHC 34.0 gm/dL RDW 14.1 % Platelet 273.0 E9/L MPV 9.6 fL Neutro Auto 60.5 % Lymph Auto 31.0 % [place] Auto 7.3 % Eos Auto 0.9 % Basophil Auto 0.3 % Neutro Absolute 7.1 E9/L Lymph Absolute 3.6 E9/L [place] Absolute 0.9 E9/L Eos Absolute 0.1 E9/L Basophil Absolute 0.0 E9/L Glucose Lvl 112 mg/dL BUN 6 mg/dL Creatinine 0.8 mg/dL eGFR >60 mL/min/1.73 m2 eGFR AA >60 mL/min/1.73 m2 BUN/Creat Ratio 8 LOW Sodium Lvl 136 mmol/L Potassium Lvl 3.3 mmol/L LOW Chloride 100 mmol/L LOW CO2 29 mmol/L AGAP 10 mEq/L Calcium Lvl 8.6 mg/dL LOW 04/15/2022 17:35 EST WBC 14.6 E9/L HI RBC 4.6 E12/L HGB 13.7 gm/dL Hct 40.0 % MCV 85.9 fL MCH 29.5 pg MCHC 34.3 gm/dL RDW 13.7 % Platelet 282.0 E9/L MPV 9.4 fL Neutro Auto 82.1 % HI Lymph Auto 11.5 % LOW [place] Auto 5.3 % Eos Auto 0.4 % Basophil Auto 0.7 % Neutro Absolute 12.0 E9/L HI Lymph Absolute 1.7 E9/L [place] Absolute 0.8 E9/L Eos Absolute 0.1 E9/L Basophil Absolute 0.1 E9/L Glucose Lvl 128 mg/dL BUN 7 mg/dL Creatinine 0.9 mg/dL eGFR >60 mL/min/1.73 m2 eGFR AA >60 mL/min/1.73 m2 BUN/Creat Ratio 8 LOW Sodium Lvl 134 mmol/L LOW Potassium Lvl 3.1 mmol/L LOW Chloride 99 mmol/L LOW CO2 25 mmol/L AGAP 13 mEq/L Calcium Lvl 9.1 mg/dL Beta hCG Ql Negative . Impression and Plan Diagnosis Pre-op dx-rt closed displaced pilon fx/lateral malleolus Post-op dx-same Procedure-rt ankle ORIF, med/lat and a-p screw fixation Anesthesia-gen EBL-25 cc TT-78 min To Recovery Room in stable and satisfactory condition.. Normal [facility] Comment on above: Result Comment: Elec tronically Signed By: Olu Yang DO\.br\Date and Time Signed: 04/16/22 19:50 EST Progress Note-Physicianon Progress Note-Physician Patient: Jane MUNOZ Age: 41 years Sex: Female : 1980 Associated Diagnoses: None Author: Olu Yang DO Basic Information H&P dictated OR this afternoon. Continue NPO. Consent signed and witnessed. Health Status Allergies: Allergic Reactions (All) Severity Not Documented Codamine- Rash. Morphine- Vomit. Normal [facility] Comment on above: Result Comment: Elec tronically Signed By: Olu Yang DO\.br\Date and Time Signed: 04/16/22 07:19 EST UA With Cult Reflexon 2022 Bacteria LM Ql (Urine sed) 3+ /HPF Abnormal Trace [facility] Comment on above: Performed By: #### 1 [id number], [id number] ####[facility] [address] [place] [address] Bilirubin Ql (U) Negative Normal Negative [facility] Comment on above: Performed By: #### 1 [id number], [id number] ####[facility] [address] [place] [address] Clarity (U) SL CLOUDY Invalid Interpretation Code [facility] Comment on above: Performed By: #### 1 [id number], 5757445 ####[facility] [address] [place] [address] Color (U) YELLOW Normal Yellow [facility] Comment on above: Performed By: #### 1 3569778, [id number] ####[facility] [address] [place] [address] Epithelial cells.squamous LM.HPF (Urine sed) [#/Area] 0-2 Normal 0-2 [facility] Comment on above: Performed By: #### 1 0875966, 3358595 ####[facility] [address] [place] [address] Glucose Test strip (U) [Mass/Vol] Negative Normal Negative [facility] Comment on above: Performed By: #### 1 8431349, 8517790 ####[address] [address] Hemoglobin Ql (U) TRACE Abnormal Negative [facility] Comment on above: Performed By: #### 1 5898013, 4265824 ####[address] [address] Ketones (U) [Mass/Vol] Negative Normal Negative [facility] Comment on above: Performed By: #### 1 6477352, 5201275 ####[address] [address] [place].plasma/[place].R BC (Bld) [Mass ratio] 0-3 Normal 0-3 [facility] Comment on above: Performed By: #### 1 1161305, 2653443 ####[address] [address] Mucus Ql (Urine sed) TRACE Normal [facility] [facility] Comment on above: Performed By: #### 1 [id number], [id number] ####[address] [address] Nitrite Ql (U) Positive Abnormal Negative [facility] Comment on above: Performed By: #### 1 [id number], [id number] ####[address] [address] pH (U) 5.5 [pH] Invalid Interpretation Code 5.0-9.0 [facility] Comment on above: Performed By: #### 1 [id number], [id number] ####[address] [address] Protein (U) [Mass/Vol] Negative Normal Negative [facility] Comment on above: Performed By: #### 1 [id number], 2893446 ####[address] [address] Specific gravity (U) [Rel density] 1.020 Invalid Interpretation Code 1.005-1.030 [facility] Comment on above: Performed By: #### 1 [id number], 8882472 ####[facility] [address] [place] [address] Type of Urine collection method Mandujano Normal [facility] Comment on above: Performed By: #### 1 [id number], 5559799 ####[facility] [address] [place], [place] [id number] Urobilinogen Qn (U) 0.2 {Yonatan'U}/dL Normal 0.0-1.0 [facility] Comment on above: Performed By: #### 1 7104269, 6371169 ####[place] [address] WBC Auto Ql (U) 2+ Abnormal Negative [facility] Comment on above: Performed By: #### 1 5367021, 9294441 ####[facility] [address] [place] [address] WBC LM.HPF (Urine sed) [#/Area] /[HPF] Abnormal 0-5 [facility] Comment on above: Performed By: #### 1 [id number], 9885888 ####[place] [address] URINALYSISOrdered By: Ru gomez on 04-16-2022 Bacteria LM Ql (Urine sed) 3+ /HPF Invalid Interpretation Code Trace/HPF [facility] UA Auto SS Bilirubin Ql (U) Negative (04/16/22 6:17 PM) Normal Negative [facility] Auto SS Clarity (U) SL CLOUDY Invalid Interpretation Code [facility] [place] Auto SS Color (U) Yellow (04/16/22 6:17 PM) Normal Yellow [facility] [place]A Auto SS Epithelial cells.squamous LM.HPF (Urine sed) [#/Area] 0-2 /HPF Normal 0-2/HPF [facility] Aut o SS Glucose Test strip (U) [Mass/Vol] Negative (04/16/22 6:17 PM) Normal Negative [facility] Auto SS Hemoglobin Ql (U) Trace *ABN* (04/16/22 6:17 PM) Invalid Interpretation Code Negative [facility] UA Auto SS Ketones (U) [Mass/Vol] Negative (04/16/22 6:17 PM) Normal Negative [facility] UA Auto SS [place].plasma/[place].R BC (Bld) [Mass ratio] 0-3 /HPF Normal 0-3/HPF [facility] UA Au to SS Mucus Ql (Urine sed) Trace (04/16/22 6:17 PM) Normal [facility] UA Auto SS Nitrite Ql (U) Positive *ABN* (04/16/22 6:17 PM) Invalid Interpretation Code Negative [facility] UA Auto SS pH (U) 5.5 *NA* (04/16/22 6:17 PM) Invalid Interpretation Code 5.0 - 9.0 [facility] UA Auto SS Protein (U) [Mass/Vol] Negative (04/16/22 6:17 PM) Normal Negative [facility] UA Auto SS Specific gravity (U) [Rel density] 1.020 *NA* (04/16/22 6:17 PM) Invalid Interpretation Code 1.005 - 1.030 [facility] UA Auto SS UA Spec Desc Mandujano (04/16/22 6:17 PM) Normal [facility] UA Auto SS Urobilinogen Qn (U) 0.7098766 {Yonatan'U}/dL Normal 0.0 - 1.0 EU/dL [facility] UA Auto SS WBC Auto Ql (U) 2+ *ABN* (04/16/22 6:17 PM) Invalid Interpretation Code Negative [facility] UA Auto SS WBC LM.HPF (Urine sed) [#/Area] /[HPF] Invalid Interpretation Code 0-5/HPF [facility] UA Auto SS XR Ankle 3+ Views Righton XR Ankle 3+ Views Right Exam Date/Time: 04/15/2022 18:26 EST Reason for Exam: post reduction;Other (please specify) Report IMPRESSION: STATUS POST SPLINTING OF PREVIOUSLY NOTED TIBIAL AND FIBULAR FRACTURES. CLINICAL HISTORY: post reduction COMPARISON: None available. FINDINGS: AP, lateral and oblique views of the right ankle demonstrates status post splinting of previously noted tibial and fibular fractures. FINAL REPORT Dictated: 04/16/2022 8:05 am Morgan Brady MD, V. Signed (Electronic Signature): 04/16/2022 8:05 am Signed by: Morgan Brady MD, V. Transcribed by: DANNIE Technologist: JUAN PABLO Normal [facility] XR Chest Single Viewon 04-16 XR Chest Single View Exam Date/Time: 04/15/2022 17:46 EST Reason for Exam: preop;Other (please specify) Report IMPRESSION: There are no acute cardiopulmonary changes. CLINICAL HISTORY: preop COMPARISON: FINDINGS: The cardiomediastinal silhouette is unremarkable. The lungs are free of infiltrates effusions or consolidations. There are no acute osseous changes. FINAL REPORT Dictated: 04/16/2022 8:02 am Morgan Brady MD, V. Signed (Electronic Signature): 04/16/2022 8:02 am Signed by: Morgan Brady MD, V. Transcribed by: DANNIE Technologist: Normal [facility] eGFRon 04-16-2022 GFR/1.73 sq M.predicted among blacks MDRD (S/P/Bld) [Vol rate/Area] mL/min/{1.73_m2} Normal >=59 [facility] Comment on above: Order Comment: Order added by Discern Expert. Result Comment: eGFR is race adjusted. AA=. Performed By: #### 2 308158, 50855244, 6174585, 4427505 ####[facility] [address] [place] [address] GFR/1.73 sq M.predicted among non-blacks MDRD (S/P/Bld) [Vol rate/Area] mL/min/{1.73_m2} Normal >=59 [facility] Comment on above: Order Comment: Order added by Discern Expert. Result Comment: Kinesiologist vivi kidney disease could be indicated at eGFR's of less than 60 mL/min/1.73m2. Kidney failure is indicated at less than 15 mL/min/1.73m2. Performed By: #### 2 467566, 96957852, 3484210, 8508496 ####[facility] [address] [place] [address] Auto Diffon 04-15-2022 Basophils/100 WBC (Bld) 0.7 % Normal 0.0-2.0 [facility] Comment on above: Order Comment: Order Added by Silver Expert. Performed By: #### 2 367745, 18520991, 7075418, 9182506, 77006177 ####[address] [place] [address] Basophils/Leukocytes Auto (Bld) [Pure # fraction] 0.1 E9/L Normal 0.0-0.2 [facility] Comment on above: Order Comment: Order Added by Discern Expert. Performed By: #### 2 478895, 16985635, 0496054, 1266305, 75491014 ####[address] [place] [address] Eosinophils/100 WBC (Bld) 0.4 % Normal 0.0-8.0 [facility] Comment on above: Order Comment: Order Added by Silver Expert. Performed By: #### 2 621501, 48055102, 8815107, 4192964, 67878650 ####[address] [place] [address] Eosinophils/Leukocytes Auto (Bld) [Pure # fraction] 0.1 E9/L Normal 0.0-0.5 [facility] Comment on above: Order Comment: Order Added by Silver Expert. Performed By: #### 2 990831, 20841788, 7326871, 8145088, 68677578 ####[address] [address] Lymphocytes/100 WBC (Bld) 11.5 % Low 14.0-50.0 [facility] Comment on above: Order Comment: Order Added by Silver Expert. Performed By: #### 2 179991, 99609870, 4305081, 0544159, 32184642 ####[address] [address] Lymphocytes/Leukocytes Auto (Bld) [Pure # fraction] 1.7 E9/L Normal 1.0-4.0 [facility] Comment on above: Order Comment: Order Added by Silver Expert. Performed By: #### 2 463348, 63515663, 9955868, 0866941, 86731893 ####[facility] [address] [place] [address] Monocytes/100 WBC (Bld) 5.3 % Normal 4.0-14.0 [facility] Comment on above: Order Comment: Order Added by Discern Expert. Performed By: #### 2 430368, 41341343, 0211822, 2008155, 23319531 ####[facility] [address] [place] [address] Monocytes/Leukocytes Auto (Bld) [Pure # fraction] 0.8 E9/L Normal 0.2-1.0 [facility] Comment on above: Order Comment: Order Added by Silver Expert. Performed By: #### 2 342488, 80341975, 6386558, 2438545, 21332089 ####[address] [address] Neutrophils/100 WBC (Bld) 82.1 % High 36.0-75.0 [facility] Comment on above: Order Comment: Order Added by Discern Expert. Performed By: #### 2 957696, 88837282, 3422006, 7891519, 90757193 ####[address] [place] [address] Neutrophils/Leukocytes Auto (Bld) [Pure # fraction] 12.0 E9/L High 2.0-7.5 [facility] Comment on above: Order Comment: Order Added by Discern Expert. Performed By: #### 2 584602, 78718712, 4150091, 0308353, 65177582 ####[facility] [address] [place] [address] B hCG Qualon 04-15-2022 Beta hCG Ql Negative Normal [facility] Comment on above: Performed By: #### 2 956612, 58356883, 3058531, 5299030, 21754249 ####[facility] [address] [place] [address] BMPon 04-15-2022 Creatinine [Mass/Vol] 0.9 mg/dL Normal 0.5-1.3 [facility] Comment on above: Performed By: #### 2 561497, 49838625, 9795589, 6831277, 89861334 ####[facility] [address] [place] [address] Urea nitrogen [Mass/Vol] 7 mg/dL Normal 5-21 [facility] Comment on above: Performed By: #### 2 771015, 22386867, 9965541, 9289680, 58593671 ####[facility] [address] [place] [address] Urea nitrogen/Creatinine [Mass ratio] 8 No Units Low 10-20 [facility] Comment on above: Performed By: #### 2 805134, 05999274, 8234714, 8758356, 71626737 ####[facility] [address] [place] [address] Anion gap [Moles/Vol] 13 mmol/L Normal 6-16 [facility] Comment on above: Performed By: #### 2 447817, 41640124, 0642038, 9865107, 70179119 ####[facility] [address] [place] [address] Calcium [Mass/Vol] 9.1 mg/dL Normal 8.9-11.1 [facility] Comment on above: Performed By: #### 2 271445, 10347050, 8941347, 1038291, 56804998 ####[facility] [address] [place] [address] Chloride [Moles/Vol] 99 mmol/L Low 101-111 [facility] Comment on above: Performed By: #### 2 585089, 42547589, 1886268, 3182020, 21815337 ####[facility] [address] [place] [address] CO2 [Moles/Vol] 25 mmol/L Normal 21-31 [facility] Comment on above: Performed By: #### 2 592228, 29148088, 8623317, 6189387, 01080598 ####[facility] [address] [place] [address] Glucose [Mass/Vol] 128 mg/dL Normal 55-199 [facility] Comment on above: Result Comment: If t his glucose result represents a fasting glucose, interpretation should refer to the following reference range: 55-99 mg/dL Performed By: #### 2 744219, 02138909, 0687516, 3360759, 54775988 ####[facility] [address] [place] [address] Potassium [Moles/Vol] 3.1 mmol/L Low 3.5-5.3 [facility] Comment on above: Performed By: #### 2 499852, 85191996, 0282566, 6805706, 82782194 ####[facility] [address] [place] [address] Sodium [Moles/Vol] 134 mmol/L Low 135-145 [facility] Comment on above: Performed By: #### 2 281459, 09464678, 2394328, 9113021, 47813577 ####[facility] [address] [place] [address] CBC w/ Auto Diffon 3 Erythrocyte distribution width (RBC) [Ratio] 13.7 % Normal 10.9-14.2 [facility] Comment on above: Performed By: #### 2 274777, 75427192, 4907104, 6967346, 08280683 ####[facility] [address] [place] [address] Hematocrit (Bld) [Volume fraction] 40.0 % Normal 34.0-46.0 [facility] Comment on above: Performed By: #### 2 429192, 01719129, 2130144, 9994421, 18386117 ####[facility] [address] [place] [address] Hemoglobin (Bld) [Mass/Vol] 13.7 g/dL Normal 12.0-16.0 [facility] Comment on above: Performed By: #### 2 837006, 08185454, 5428489, 5315597, 90851894 ####[address] [address] MCH (RBC) [Entitic mass] 29.5 pg Normal 27.0-34.0 [facility] Comment on above: Performed By: #### 2 458784, 91587110, 2888722, 3137064, 21025536 ####[address] [address] MCHC (RBC) [Mass/Vol] 34.3 g/dL Normal 31.4-36.0 [facility] Comment on above: Performed By: #### 2 571840, 92039288, 5251417, 5558182, 28027081 ####[address] [address] MCV (RBC) [Entitic vol] 85.9 fL Normal 80.0-100.0 [facility] Comment on above: Performed By: #### 2 300063, 20897048, 5995382, 3501602, 67807089 ####[address] [address] Platelet mean volume (Bld) [Entitic vol] 9.4 fL Normal 6.4-10.8 [facility] Comment on above: Performed By: #### 2 033887, 04426252, 7522542, 8114418, 82214825 ####[address] [address] Platelets (Bld) [#/Vol] 282.0 E9/L Normal 150.0-500.0 [facility] Comment on above: Performed By: #### 2 346262, 04536845, 9195246, 1845315, 57706483 ####[address] [address] RBC (Bld) [#/Vol] 4.6 E12/L Normal 4.3-5.9 [facility] Comment on above: Performed By: #### 2 422631, 08165734, 7733494, 4658537, 25379218 ####[facility] [address] [place] [address] WBC corrected for nucl RBC Auto (Bld) [#/Vol] 14.6 E9/L High 4.0-11.0 [facility] Comment on above: Performed By: #### 2 958087, 84975755, 2273245, 0141389, 36703185 ####[facility] [address] [place] [address] CHEMISTRYOrdered By: SYSTEM SYSTEM on 04-15-2022 Anion gap [Moles/Vol] 13 mmol/L Normal 6 - 16 mEq/L [facility] Remisol Calcium [Mass/Vol] 9.1 mg/dL Normal 8.9 - 11. 1 mg/dL [facility] Remisol Chloride [Moles/Vol] 99 mmol/L Low 101 - 1 11 mmol/L [facility] Remisol CO2 [Moles/Vol] 25 mmol/L Normal 21 - 31 mmol/L [facility] Remisol Creatinine [Mass/Vol] 0.9 mg/dL Normal 0.5 - 1.3 mg/dL [facility] Remisol GFR/1.73 sq M.predicted among blacks MDRD (S/P/Bld) [Vol rate/Area] mL/min/1.73 m2 Normal >=59mL/min/1 .73 m2 [facility] S GFR/1.73 sq M.predicted among non-blacks MDRD (S/P/Bld) [Vol rate/Area] mL/min/1.73 m2 Normal >=59mL/min/1 .73 m2 [facility] [place] Chem S Glucose [Mass/Vol] 128 mg/dL Normal 55 - 199 mg/dL [facility] Remisol Potassium [Moles/Vol] 3.1 mmol/L Low 3.5 - 5.3 mmol/L [facility] Remisol Sodium [Moles/Vol] 134 mmol/L Low 135 - 145 mmol/L [facility] Remisol Urea nitrogen [Mass/Vol] 7 mg/dL Normal 5 - 21 mg/d L [facility] Remisol Urea nitrogen/Creatinine [Mass ratio] 8 mg/mg Low 10 - [address] [facility] [address] Lower Extremity w/o Contr ast Righton 04-15-2022 CT Lower Extremity w/o Contrast Right Exam Date/Time: 04/15/2022 17:55 EST Reason for Exam: right ankle fx;Trauma Report IMPRESSION: COMMINUTED FRACTURES OF THE DISTAL TIBIA AND FIBULA WITH POSTERIOR DISLOCATION OF THE TALUS WITH RESPECT TO THE MAJORITY OF THE TIBIAL PLAFOND. EXAMINATION: CT Lower Extremity w/o Contrast Right HISTORY: Fracture TECHNIQUE: Multiple contiguous axial images were obtained of the right ankle without contrast . Multiplanar reformats were obtained. COMPARISON: Radiographs performed earlier on the same date FINDINGS: Comminuted displaced fracture of the distal tibial diaphysis extending into the medial malleolus and posterior malleolus with resultant posterior dislocation of the talar dome with respect to the majority of the tibial plafond. Comminuted fracture of the distal fibular diaphysis with the distal aspect of the fracture located approximately 1 cm proximal to the talar dome. Associated soft tissue edema. No overt abnormality of the flexor or extensor tendons identified by CT. No definitive tendon interposition between fracture fragments. All CT scans at this facility use dose modulation, iterative reconstruction, and/or weight based dosing when appropriate to reduce radiation dose to as low as reasonably achievable. FINAL REPORT Dictated: 04/15/2022 6:11 pm Dwayne Davila DO Signed (Electronic Signature): 04/15/2022 6:11 pm Signed by: Dwayne Davila DO Transcribed by: DANNIE Technologist: JUAN PABLO Noe [facility] Consent for Treatmenton Consent for Treatment [id number] 1#[id number] [facility] ED Clinical Summaryon 2022 ED Clinical Summary [address] [address] ED Clinical Summary Person Information Name: ANGELA MUNOZ [facility] Age: 41 Years : 1980 Sex: Female Language: Lao PCP: Corby Conner MD Marital Status: Single Phone: [phone] Visit Id: Visit Reason: Fall; Ankle injury - Minor; ANKLE FX Speciality: Acuity: 3 Enc Type: Observation Med Service: Emergency Arrival: 04/15/2022 16:23:28 Discharge: LOS: 000 02:02 Checkin: 04/15/2022 16:23:28 Checkout: 04/15/2022 18:25:42 Dispo Type: Admitted as IP to this [facility] EVENTS: Event Name Event Status Request Date/Time Start Date/Time Complete Date/Time Arrive Complete 04/15/2022 16:23:28 04/15/2022 16:23:28 04/15/2022 16:23:28 Document Home Meds Request 04/15/2022 16:23:28 Triage Complete 04/15/2022 16:23:28 04/15/2022 16:30:35 04/15/2022 16:30:35 Bed Assign Complete 04/15/2022 16:25:02 04/15/2022 16:25:02 04/15/2022 16:25:02 Dr Exam Complete 04/15/2022 16:25:02 04/15/2022 16:26:46 04/15/2022 16:26:46 RN Exam Complete 04/15/2022 16:25:02 04/15/2022 16:39:01 04/15/2022 16:39:01 Registration Complete 04/15/2022 16:26:46 04/15/2022 17:17:03 04/15/2022 17:17:03 X-Ray Complete 04/15/2022 16:28:12 04/15/2022 16:39:34 04/15/2022 16:49:52 X-Ray Complete 04/15/2022 16:36:10 04/15/2022 16:39:34 04/15/2022 16:49:52 Fall Risk Request 04/15/2022 16:39:02 Wet Read Request 04/15/2022 16:49:52 Pending Labs Complete 04/15/2022 17:16:30 04/15/2022 18:05:54 Lab Complete 04/15/2022 17:16:30 04/15/2022 17:55:25 CT Complete 04/15/2022 17:16:30 04/15/2022 17:46:48 04/15/2022 17:55:55 EKG Complete 04/15/2022 17:16:30 04/15/2022 17:29:30 Bed Request Request 04/15/2022 17:16:30 Reg Bed Request Complete 04/15/2022 17:16:30 04/15/2022 17:17:03 04/15/2022 17:17:03 Admit Request 04/15/2022 17:16:30 X-Ray Complete 04/15/2022 17:16:30 04/15/2022 17:31:35 04/15/2022 17:46:18 Reg Complete Request 04/15/2022 17:17:03 Dr Exam Complete 04/15/2022 17:25:22 04/15/2022 17:25:22 04/15/2022 17:25:22 Registration Complete 04/15/2022 17:25:22 04/15/2022 17:56:13 04/15/2022 17:56:13 Pending Labs Complete 04/15/2022 17:38:01 04/15/2022 17:38:01 04/15/2022 17:52:24 Lab Complete 04/15/2022 17:38:01 04/15/2022 17:38:01 04/15/2022 17:52:24 Meds Admin Complete 04/15/2022 17:46:46 04/15/2022 17:56:54 Pending Labs Complete 04/15/2022 17:55:25 04/15/2022 17:55:25 04/15/2022 17:55:32 Lab Complete 04/15/2022 17:55:25 04/15/2022 17:55:25 04/15/2022 17:55:32 X-Ray Request 04/15/2022 18:14:16 Meds Admin Request 04/15/2022 18:25:27 NPO Request 04/15/2022 18:25:27 Patient Care Request 04/15/2022 18:25:27 Pending Labs Request 04/15/2022 18:25:27 Lab Request 04/15/2022 18:25:27 Inpatient Bed Ready Complete 04/15/2022 18:25:42 04/15/2022 18:25:42 04/15/2022 18:25:42 ADDRESS: [address] [place] [phone] PHYS DOC NOTES: MEDICAL INFORMATION: Prescriptions Given: PATIENT EDUCATION INFORMATION: Instructions: Follow up: DIAGNOSIS: Normal [facility] ED Patient Education Noteon 04-15-2022 ED Patient Education Note Normal [facility] ED Patient Summaryon 023 ED Patient Summary [address] [address] Patient Discharge Instructions Person Information Name: ANGELA MUNOZ Age: 41 Years Arrival Date: 04/15/2022 16:23:28 Discharge Diagnosis: Primary Care Physician: Corby Conner MD Provider Information Primary Provider: [facility] [employer]ibility [facility] Representative:Capri Weiner PA-C The exam and treatment you received in the Emergency Department were for an urgent problem and are not intended as complete care. It is important that you follow up with a doctor, nurse practitioner, or physician?s religious assistant for ongoing care. If your symptoms become worse or you do not improve as expected and you are unable to reach your usual health care provider, you should return to the Emergency Department. We are available 24 hours a day. ANGELA MUNOZ has been given the following list of patient education materials, prescriptions and follow-up instructions: Follow-up Instructions: In the event that this physician does not participate in your insurance network, please consult with your insurance company to find a nearby participating provider. Patient Education Materials: A MESSAGE TO ALL PATIENTS REGARDING OPIOIDS PRESCRIPTION OPIOIDS: WHAT YOU NEED TO KNOW Prescription opioids can be used to help relieve yueohtbc-jd-qfxzyw pain and are often prescribed following a surgery or injury, or for certain health conditions. These medications can be an important part of the treatment but also come with serious risks. It is important to work with your healthcare provider to make sure you are getting the safest, most effective care. WHAT ARE THE RISKS AND SIDE EFFECTS OF OPIOID USE? Prescription opioids carry serious risks of addiction and overdose, especially with prolonged use. An opioid overdose, often marked by slowed breathing, can cause sudden . The use of prescription opioids can have a number of side effects as well, even when taken as directed: ? Tolerance?meaning you might need to take more of the medication for the same pain relief ? Physical dependence?meaning you have symptoms of withdrawal when a medication is stopped ? Increased sensitivity to pain ? Constipation ? Nausea, vomiting, and dry mouth ? Sleepiness and dizziness ? Confusion ? Depression ? Low levels of testosterone that can result in lower sex drive, energy, and strength ? Itching and sweating RISKS ARE GREATER WITH: ? History of drug misuse, substance use disorder, or overdose ? Mental health conditions (such as depression or anxiety) ? Sleep apnea ? Older age (65 years and older) ? Avoid alcohol while taking prescription opioids. Also, unless specifically advised by your health care provider, medications to avoid include: ? Benzodiazepines (such as Xanax or Valium) ? Muscle relaxants (such as Soma or Flexeril) ? Hypnotics (such as Ambien or Lunesta) ? Other prescription opioids KNOW YOUR OPTIONS Talk to your health care provider about ways to manage your pain that don?t involve prescription opioids. Some of these options may actually work better and have fewer risks and side effects. Options may include: ? Pain relievers such as acetaminophen, ibuprofen, and naproxen ? Some medication that are also used for depression or seizures ? Physical therapy and exercise ? Cognitive behavioral therapy, a psychological, goal-directed approach, in which patients learn how to modify physical, behavioral, and emotional triggers of pain and stress. IF YOU ARE PRESCRIBED OPIOIDS FOR PAIN: ? Never take opioids in greater amounts or more often than prescribed. ? Follow up with your primary health care provider. o Work together to create a plan on how to manage your pain. o Talk about ways to help manage your pain that don?t involve prescription opioids. o Talk about any and all concerns and side effects. ? Help prevent misuse and abuse o Never sell or share prescription opioids. o Never use another person?s prescription opioids. ? Store prescription opioids in a secure place and out of reach of others (this may include visitors, children, friends, and family). ? Safely dispose of unused prescription opioids: Find your community drug take-back program or your pharmacy mail-back program, or flush them down the toilet, following guidance from the Food and Drug Administration (www.fda.gov/Drugs/R esourcesForYou). ? Visit www.cdc.gov/drugover dose to learn about the risks of opioids abuse and overdose. ? If you believe you may be struggling with addiction, tell your health daytime caregiver and ask for guidance or call [facility]?S National Helpline at 7-395-038-DTLF. b Source: US Department of Health and Human Services/Center for Disease Control & Prevention [facility] Medications Given: Medication Dose Route HYDROmorphone 1.00 mg IV Push Left Antecubital Fo (more content not included)... Normal [facility] EMS Documentationon 04-15-19 EMS Documentation Please click on link to see report pdfCD:[id number] xLjQNCiX5+prnDQolQUJ IlIZcOCIiUeZ1ENaiOaI cWG7vvz0HCMhCQ0DbZTG aTGBlPk2P IXxcGAk6YGWpM34QD2mu OYvmDNlmGb9BjS0lLYTf hvKcTWNXH08sNevmVyVj NQovVCAxODAwOTMK Zw1yHLGzAZGwXJMzPIBk ICAgICAgICAgICAgICAg ICAgICAgICAgICAgICAg ICAgICAgICAgICAg ICAgICAgICAgICAgICAg ICAgICAgDQplbmRvYmoN Gf0LbIShEw4EFeBvChBK CjAwMDAwMDAwMzIg BVEcGXQqvt0YMDXbHBLo RGA6DJOjAXYcNMFiCXks SGOsLHUiKCc0TWTnIEGd ZU9FCpPqUXNgWIQ5 HzWlQFVnRLPihi0JJIWk UNIjZBl8MxXiTLEhYBIp MJcqXVDcOIZqTnS0BMWz VUMoTM7XAjVxYGHp YOYwXWpgKXKkBJWjni5T ZQHeQQZqHcL2ZKEcOJFg MCBuDQowMDAwMDAyNDI4 GGDrYPSoEG4ALgXn NHSrMWF7DTkmDPGtFTRj pq6VWCLgFCGjZvyrGqBz MDAwMCBuDQowMDAwMDAz RMgfKBNfJXWiWH2C NkXoKJEtEQZ0NYByRBJf SRQzsi7CTHGfRTHfVaE6 MCAwMDAwMCBuDQowMDAw MDAzODgxIDAwMDAw WA5DKhEmHFCjVRHvJrGs LDRfKHQdpy0JXXExBJWp NDUxMCAwMDAwMCBuDQow LZImPSI7LmrzLFCi SDOjPC3MXxKgFNHbVVX0 UAsvAKUtFTNnrr0LQAIw DCBaTCL5HtDfQLPvFHRe TRgvWWNoBLT2IUrl OZZbGHZkPM7SGpRtYGWu STN2MYGdHSByNSVitk2W ULJcTWGeEFC1JCKkLQUs MCBuDQowMDAwMDQ4 TYr3BTApNGAeOQ9UJdKh MDAwODUzNDQgMDAwMDAg bw2OzADggBkflf7RVDvK Q4lJBHc7BSR6NVT1 IHo0ZwL1VvW4FYc6BUSm BpH5SiYqIvJuNKL+CjxD RDBFMjExRTMyNEVDNTUw ZVTySMApKpg7ZlEe RVhFNs0vUl8DqjO7ZRV5 YOU0LhgxGm2htYZfKiWq DNZWI3ByqbLkNGvZL3Ii rDTgZOEnN4VZLMZ8 Rc64VprxjHvGUMS8ZIRD NGrxPI8ZZqcGRsLnRRlk Tw21J9BPj5N7HlStY2QA gIkAykPXTHfhG2eX fPO8f1lewJqOiZLKlLbt OGdJcndPalFSQUlqUHNX eC82ywiYX9UbKQu1G6VP Uq1ERKfhEeJosF1B qVneOFI2wG7aLWERJJcI KjjiCW7KQZJWYVn2JXc+ PiAgICAgICAgICAgICAg ICAgICAgICAgICAg ICAgICAgICAgICAgICAg ICAgICAgICAgICAgICAg ICAgICAgICAgICAgICAg ICAgICAgICAgICAg ICAgICAgICAgICAgICAg ICAgICAgICAgICAgICAg ICAgICAgICAgICAgICAg ICAgICAgICAgICAg ICAgICAgICAgICAgICAg ICAgICAgICAgICAgICAg ICAgICAgICAgICAgICAg ICAgICAgICAgICAg ICAgICAgICAgICAgICAg ICAgICAgICAgICAgICAg ICAgICAgICAgICAgICAg ICAgICAgICAgICAg ICAgICAgICAgICAgICAg ICAgICAgICAgICAgICAg ICAgICAgICAgICAgICAg ICAgICAgICAgICAg ICAgICAgICAgICAgICAg ICAgICAgICAgICAgICAg ICAgICAgICAgICAgICAg ICAgICAgICAgICAg ICAgICAgICAgICAgICAg ICAgICAgICAgICAgICAg ICAgICAgICAgICAgICAg ICAgICAgICAgICAg EA9Ut0DuesD8epToASiz PVuiUOZVMi5MPCkoVlHc NM3ugw6MNItFH09vaDPp YXRhIDIxIDAgUgov Q6RwrpZiaRslijFeCcHw JOFYKf3RtHSWVVypC5U1 uAxgWENoMMonFBWUUr9F INjgLN3tKZBtAKRh Ta8hHEazXEQcRTHsNuXv MXYFRe6OgZEiBS0PTAKb pT9lXp2+DQplbmRvYmoN Jy2QRuFgDUFwJihU Asr1Ea8PnSe9MTYzS5Qt OYDwGSOkr6TaRe4JFJ2z uFlrIBU2Nc0HJAa1Qb9+ VElobEZbWP7VMarx C2BlXPOpVSSvLWLq7FOV iXSzPNCcSYRAYJGb7pJP Xu7fSGrKSUvYwpJBLjZI L2lHMhgqZvfFmeGy OnCnnM8P7oHLsB5iAXxT loOpO7O2Kif0ZyPcPFmu iG8B+WnS8aa0ATuLJchB +z3iOQBlOgLiuMoq yKsAc6U4NeM7YzMlLVMA GRgqVgLZbuhOBgDwqhqE CXzqncUccPVsZT9JGfVq KU3wej2DBLsfKOGf SU7oqs3JITzKA4QwgcYg bvRjDPh2AyDsNPNmIm8Y ZWRpYUJveCBbMCAwIDYx IvA0ZRNlWt1WRSXf irXmQnKeNIYWPw3XFBVx bUJwSIQdAXdDK7tEZhmb Y8SnUJnVV4ciZyW3DIR1 IDAgUgo+Pgo+Pgov VHlwZSAvUGFnZQo+Pg0K MH7qj8RbKCxPXaM8RSLy a0LcVYo4HLhhGaGhkOTd YMQjMVXxNtV3PCKp Hu9DgJl1USOeU8YaJQTi MAFiz4MyCi4HOI5iqArm ViZZE7Nog010ojMzwpJ6 YIhnSF9psyKhtYQ2 PAovSWFiYzYgNDMgMCBS Cj4+Cj4+Fj4LnRH6hZTm HJ6Dw5HmDk6SbLHxQK9D B9KzCRB0Is6+DQpz uWVqAB3ELkgfi9it4Ngw 2NU2WKRVSLQ1PyX7VQWb SuXlClfI4+Pf6WG3IRIx AzPKFXWp2PjgTtiu GDgWN38xALzNSPZfd7xh kJfLFWgOADNrDtQNCmVu HEA9pjJjpC9LST1rh9Bb AZwLMpE7LFOoh3Xq OVz0XSbiZk1uD40cof6o tTloJ3XwYGpqORLmQPvx TEogMAovTFcgMgovTUwg EFnxH4HgqDO4YIca B6AdJPa+Xh8GMR5ok1Vo FMhWIyF4GFRkn0PmTIe1 UWvfCl8gU96jpa3lcPmt V3YoESa+Gj0PUJ3f v2NhRZvFGqP5MUBqz3Mu WLg1CSktGq3aK94pfd9b xQfmL2YiETokSUJsGYhu TEogMAovTFcgMQov HKlsFBdvZ6OraIE0YSws B5OfZRf+Oz2RXE9ug3Ad OHzDWcHePFBss7VgNSa8 PAovQmFzZUZvbnQg F5ONAdrHHjdCm0EaeWDv IqP0WZYsZt4kND1TTe0A OIQiQL6aVH49Wu1abVHh DdVzWSMuQa2BN4Ja C63clJ7zMI7NHFAckGk8 mP5JOo2RmRK9lYFaNF9V vBIlQXvxPZ3Dreave9Ok IDMzIDAgUgovVHlw YMCrIs3eqEv+Bv4CQA6k j4ReRLwYAeRiKIBsi2Nz LDa6IXffItPyIPQufsAy F4HUIurKArvVt8Oo uOTpDfN0OGYwNk9qBB1E Xw3GBFRNbBO3FJ0ZmmUf HIn6Mr6YmpEnxlnoInWw JBYyjnTymJazUn1Z MKepe5ZzkOThWPGxStXa Ok5XfMPdoRFtKG12BVGJ Sa9MG4MDZVFbA1uEVLYx CA8QLTAzpMw0wKwp KCzyQZnnVc2lgIMjn8Fw gIV9j4YyYoTiKHQPNu6J iQN8sNJrBM1RSNSMs899 YFyzCEBHM3Z2uELs M6UqipKKY7iyXvMmJNKc NpXtEcH3OxD2DSg+Pg0K RN7vw0GcHLdXJwPgJHQp j1SsVUj3PIuxFUQx HU01LNdbAa33DUc4Ofzg S7EbZKEuS8r7WXH0YP71 DTP6WNndEDBjL4TmaKAt CVXdGruuGCdUW6Jw ZVfcRAJ6Ou8Xx208IiSk oGYfOHC6HR73CWS1BfIk UgTnTnI2WAUbLIhaPO16 NjAxNiAxMjIxLjE5 RVFgBScsOo3giJGplJFf HRF4ZWLyLriqUq8sgG6m qVMfB7SCSwqVPbyOq7Jt sCJtZsQ9LOPxXb0k DU6GXq6TiOYfxZRDwyhh WPYmZw3KgXCfDeI4Lg5j AeR8SKijFArjPDCuCy2e sOQyt3RnxUC5h0TG Uz8CGtKhYV7dzx1BBWse ApKkOW2qfk9QWWaLN8Ca bHRlciAvRmxhdGVEZWNv NPMQM8ayyvy3uJMf ROXSVq4CTtZ6ycQeyR9Z nQuzYa3vpkPSnbRjyapA FKQVqsuD1WJH8bBJss8L 7XC4rZhCVaum7v/Y kJHLCgSx11k8nvV4TRiA BJZ++TR0YEatbDHrrQch jN2sUvhPXdrRHpwXdpl5 k4BQ2U8NyJYo/ZiU KXZtA5yWkk8mm4GoQL5C 2J4x5EOy2Vw8prOfp379 kQE7UR3DCeSSG8yJli02 Z5QGNwcWz6pM3fQa Xndj5NMXcJUiFq7bLjcs 7K70TDIcpOoYfvJlJfV1 T97I2otqq+cCtGe572KE iHaEckRCIMpPiPIj ouKAvqvD/s/xAw4FrJhG Yo/qcLNQ4vCE0BWxMg0g o+TRrvGtriePWBOM6NTA sVS8JK9egUESB0Kl DQ3PgHYbm7d/gFpeZrTs 1x2QccM+oi5MfeMlti4n 3O+SW94dGk5scgfz0q9G OX6vh8LfDFUrRMqv ctNpPtrYWe5VCxWmTEOh LrdLVbw2Gx3JTHRyLu3z tYAmZ7bQHEOFI9BbdWAd SMAAWAgXF61EZy5U ZVLgMG3jBN72Wc5irYGo OrM2EBInMt2EV5QeU40z eZ6eQR8QGWMt (more content not included)... Normal [facility] Documentation Please click on link to see report pdfCD:[id number] xLjQNCiX5+prnDQolQUJ DcGRmIDExMjAxDQoxNyA jUA3dri1RTRrGL8WeIHq pMSgTP1dp KzW5HrXeLJW5RAfrFBOw UCV6TfWLG1hmdwNqkxv8 WPVzWQqlTjQhVx6DOXGi Si5XPJCeVUE9Shx+ PiAgICAgICAgICAgICAg ICAgICAgICAgICAgICAg ICAgICAgICAgICAgICAg ICAgICAgICAgICAg ICAgICAgICAgICAgICAg ICAgICAgDQplbmRvYmoN Dq0QeUKoNx5AOXswPHzD CjAwMDAwMDAwMzIg BSZwFEBnsv9YIIAoBSKp JLD3NCJeYXXxASVfCLff XJMqTTXhKRJ2TBQjEVOc IK5EZrNnOVUrNRR9 JDMzEHHcSUFvjh2OEKFk YRAiTQj0DBDkKDCdPAGw DQowMDAwMDAxOTYzIDAw CMStGQ8MHkKdCQGy BSBaBgZmKIFoMAMxwh1P MDAwMDAwMjIzNyAwMDAw MCBuDQowMDAwMDAyNDAz PABtLSZrWS4GAqZn AVCyVTO9TYLsJSPoLXXg ta8PRAMrOWXjHvF9HGAv MDAwMCBuDQowMDAwMDAy Lyu4GJUxKCCrKX3T UyAbXCXoPVE2KWCwBGQm WCBlgn9NLOAnGSIoGfC8 NCAwMDAwMCBuDQowMDAw JSWbPbC4ACNlHVFn GB1FLpRmEBJfAjphVXjk NSDtAROjmo4EKZRlWNB8 VaY2NFObIHXcEXMqHWa6 drOauQInAZu0MXux PQFsBve5FWH0VLyAOwU5 NzdGNEIwMkQzMzlBNkQw RpVjGZPkVU9HPAR1T6BQ RkEyNjFEQzIzRTlD NWIiFIJ9VOXWIWYsQVA3 Zf2EK5XkFODoLIFuDPp6 Ko6Bp856ODW0ELFgQagb O1a6ILAbSCyjZ613 cmNlIChXZUpYRnhOTzRm CyY0fMSJGEEXZ0F9A91e A35oPG1CHZjtS8N8LFly I7R6HiORX9FEMGNv LMWvoBb8EEojBOf1Yugc qLxkZJL8N3HmeGB2B4fb d05wIQXDQRrUg3gwPBH3 G00FRywPDujXizPR E3j2jQFJK3HjL4TsK6VZ UNsBUONaHNAqNy1WJHcI PKkvsiiDJv9zBp8+ICAg ICAgICAgICAgICAg ICAgICAgICAgICAgICAg ICAgICAgICAgICAgICAg ICAgICAgICAgICAgICAg ICAgICAgICAgICAg ICAgICAgICAgICAgICAg ICAgICAgICAgICAgICAg ICAgICAgICAgICAgICAg ICAgICAgICAgICAg ICAgICAgICAgICAgICAg ICAgICAgICAgICAgICAg ICAgICAgICAgICAgICAg ICAgICAgICAgICAg ICAgICAgICAgICAgICAg ICAgICAgICAgICAgICAg ICAgICAgICAgICAgICAg ICAgICAgICAgICAg ICAgICAgICAgICAgICAg ICAgICAgICAgICAgICAg ICAgICAgICAgICAgICAg ICAgICAgICAgICAg ICAgICAgICAgICAgICAg ICAgICAgICAgICAgICAg ICAgICAgICAgICAgICAg ICAgICAgICAgICAg ICAgICAgICAgICAgICAg ICAgICAgICAgICAgICAg ICAgICAgICAgICAgICAg ICAgICAgICAgICAg ICAgICAgICAgICAgDQpz dGFydHhyZWYNCjANCiUl QP4RQJaTBjP0ZEPvz6Ui QUx5BYlzNIA4BUVo lJHaAJBfJRAFHb1LaZGh BBC9sN9mMTnePCDuMYVL V0LbiO5LS565zUihpkBv AXP6DSGdAvhgCPLr ZH2xIEBtL2WlJH3kttHF P4MeS3WhFNU0XOHcHopz ITvlKDWiA4T8PCcfYlf+ Lj2BCS1jq8YgBJaX AwD3OHGnf7IpSNa9YQbp HfrsaCHfPI2OyRJ8HGQu O50zQRvfTTFsY2GlTQwq Cr7NMMQ4Lx7+DQpz fVVzZS5LHwihR5Fb0FFd RF1OvMCXwOsNDEFCYaYr ZTxPJCY8hWCAfWpleDwx +YCJyAPNtCZ0dEBD KTJTrA9ItjTuXaF5uJXO f4YqWdsM1V6TxV+YiQCY +TdaREgftwJtkQErPR1X MlFrFA2wva4THIeg DIGeHP0tby3AMQhZC3Ug bnRlbnRzIFsyMiAwIFIg DyBlUTHYUKS8VQSqCbXj NSAwIFIKMjYgMCBS AAE6JQUdRuQrVBRoILJy MjkgMCBSXQovTWVkaWFC i1wePgWdVAW7ZGCvZich WYewANBcAL42MNX6 AWAdQaxfIwBwg7MfL4Lu HZn7Xc7Ri646IMx5Hd7N AYYlEQIzYIOrNILYYm2T U3vJWmdhA8YlUFbY K4raBoBnEFVbDRYyQHVP F4dkDhMcKTBjXlGzQZQD R2zyXmEnMQGxZyTmJZJI V3ngOvG8SLHhTYEw Ambrocio+Pgo+PgovVHlwZSAv UGFnZQo+Ky6GUV9cb7Ni BUvGBqUbRXImn8RjISc6 PAovQmFzZUZvbnQg S4CajDAkMSMxsJHjKe2V xhGtXArvJbRaV4wbIF1y lBCfS20gqU8gHx0EzCH1 mSAaXA8QtICwCIdu LSbeHJRhOr1bzWh+Pg0K WM2sk6WcDAcBLlWvEIGo x7NuNMt2TMyaNRKqH9Gn IDEwMQo+Bg3Jj1Ck CMAfUTzuDFpZDZ0UXFLi MGLlbssYRg0SPHFvQZIi QWVAQt6KIHPiMNKlHWSq QEK8IGWbCbKBrS2K JdGsITU4JUJkWBHuNG24 V0B7kvwcNnTeGPFnVG0M F2sqZZjbKVXAOg7QJMQT ZoEOHb0OZQ8sy6Lu LYFkYMiebxGkKveUVf5O BtHnGOUfMabSWgx4Zc8K RZ5wcEasHSQICi4YIeH6 ndWfeE4QRwuWChGZ UaO4LyJbPPJxTQN8VDZr WMT8HE0qJlOfRsJwlB1U G0obSqG6BVMkVDwBFDxF NU7OUKqnofWzkSYi RO6FZcLrJA0yuh9SJHbt IJRzIH7knz2AAMrSL4fy xik7eLZwYIAYQm6GVhE1 wfAewH6ApP4YYdLE CjAgMCAwIHJnDQovRmFi YzUgMTEgVGYNCjEgMCAw IDEgMjAgNTQwLjUzMzMz IFRtDQpbICggRXYp KGX9YTxcwkPkJ8QhjEJz IYKtDIGgA7LtdxMpTnws ENRANc4LLCGBMhAROe0N JI1rq5JvGRMbXLvd clLeVcuDJd6OXbGiFYQn JmhRQvc0Nb3GKM3voSiq UFXCQb2KVsA1yyCtuD3J FiwBDzDAXsG1MzQc IKZjHZQzIoTuHUI6LoX1 WbH2VQQmBVixTHWuNmFf IAPjXFwAOBeYKS1PACtz cbVnuFKvYJ7DAuCf LJ9rvd4TWAaaCeKvYG2l ga1AEKuJF3ruaqb4wCBn RKOXXb6FJoG8ylIwcI7W kQ5DWeHPRjOxZILs IHJnDQovRmFiYzUgMTEg VGYNCjEgMCAwIDEgMjAg ACE9Wwf1HbJ7JVZbQQwf DYanVHQvKDR3XSvp ycUwG6ZqxGKsYSEzPVP8 H8BdM46xHUSgFOFICCqW WS4ZVJ0ZERrsvvZrnDRe KI3LCfJwUA1hid0L UAnaTzLkVR0uyp7YGWeY O9hbogn7kSW4FUf+Pg0K s3TnRIHkGCuPQX9SyC1J NTUyIDAgMCAxNjUg OeWhKcU9PMUtIKikGGAa IyY1ANXzLMtSBHmFXR2F JSnvlmPndTHvFO9WQuZz BA5acd2UOYpqPBJn HG8prp0AHNoAI9ewvjo6 iMJdQSSBGi1ZUyL2jgIx jG1YiA0UInMEPqEcGYOb IHJnDQovRmFiYzUg MTEgVGYNCjEgMCAwIDEg WbKaYsY9GoZdIX4QLjkv NJSUqrbnCHMwULNyyG0D dCKlkQ6tUWQwDRic U5IjDe80GXDxOLJAWRvZ PX5LYV1MBKcpcjGjqIQo KF8EBcUkNK9ysw2YAIiu RBTsIZ7tio0BVGvA D0wbveb2rHH4XZw+Pg0K p4QkLTFjKOzEJG3VbW7P STKrVVBnLZO6PnJcLVUr BfXgNuUnHoHaA13V Vl2XIAQjXTuyTB1CUnSG WsRIXEdSZrHpOCZ2seFc iV9UUO4ic4FeGCtIUkMo CMYhq6ZwGJw0PBkh Cqi0h5EsqoGytPWmixYp qCN2Gf0Ez5ujjnIkANNi YR3FUJTzV3JDK1SNL8Gz bHRlciAvRmxhdGVE MIXdXIFGQ8yjjHtvpCTs CeGVD7pkiwb0iFOgZQi9 BSzyN5MkaKyeDJFbGX2w Y6DZE1S7hCObF7eC EribB7KPL0dpFYTjZMD6 MQo+Fn3Xa7XqATYuQFg6 yJz1Q9uNXjSu2nd97g76 c9//go6zPj2nS0Jx 9ovs8IlwYh1eCW4NhPQi ZRJIMwpbHMsXIXnVw40l QQFBDChmELNiQMRMVASV I5lD+F5n9vHyFmlh d4pXQlc3ok/2iJys5o47 JxgO4thL9Q5OSlKJGbKY AgICAgICAgICAgICAgIC AgICAgICAgICAgIC AgICAgICAgICAgICAgIC YxYIEmWJIcRLEruhJJ9Q u1mma/w+RWfRd1Ve6ZiI 8rv65FqQEb1/9ijn hO48Btq2+Gq51vdJLfKe B9poN69yN36/LDt+o1hf 5ZiEmGh9rqm20tq+PZU3 j2c+qXuZXyUgICAg 0CFRnxM+cukVrUoIaIHu +jnF7ThCljrJtXFv/FJu Ac6Pl78QPS7maG70+uf2 VwlS4MmTDpR25LQu p8W9J2MLsX/FgprrqeET lWbx3cyE7lcbes1egL1S JWvSdi6YY+/i (more content not included)... Normal [facility] HEMATOLOGYOrdered By: SYSTEM SYSTEM on 04-15-2022 Basophils/100 WBC (Bld) 0.7 % Normal 0.0 - 2.0 % [facility] Basophils/Leukocytes Auto (Bld) [Pure # fraction] 0.1 E9/L Normal 0.0 - 0.2 E9/L [facility] Eosinophils/100 WBC (Bld) 0.4 % Normal 0.0 - 8.0 % [facility] Eosinophils/Leukocytes Auto (Bld) [Pure # fraction] 0.1 E9/L Normal 0.0 - 0.5 E9/L [facility] Lymphocytes/100 WBC (Bld) 11.5 % Low 14.0 - 50.0 % [facility] Lymphocytes/Leukocytes Auto (Bld) [Pure # fraction] 1.7 E9/L Normal 1.0 - 4.0 E9/L [facility] Monocytes/100 WBC (Bld) 5.3 % Normal 4.0 - 14.0 % [facility] Monocytes/Leukocytes Auto (Bld) [Pure # fraction] 0.8 E9/L Normal 0.2 - 1.0 E9/L [facility] Neutrophils/100 WBC (Bld) 82.1 % High 36.0 - 75.0 % [facility] Neutrophils/Leukocytes Auto (Bld) [Pure # fraction] 12.0 E9/L High 2.0 - 7.5 E9/L [facility] HEMATOLOGYOrdered By: Vilma Crouch on 04-15-2022 Erythrocyte distribution width (RBC) [Ratio] 13.7 % Normal 10.9 - 14.2 % [facility] Hematocrit (Bld) [Volume fraction] 40.0 % Normal 34.0 - 46.0 % [facility] Hemoglobin (Bld) [Mass/Vol] 13.7 g/dL Normal 12.0 - 16.0 gm/dL [facility] MCH (RBC) [Entitic mass] 29.5 pg Normal 27. 0 - 34.0 pg [facility] MCHC (RBC) [Mass/Vol] 34.3 g/dL Normal 31.4 - 36.0 gm/dL [facility] MCV (RBC) [Entitic vol] 85.9 fL Normal 80.0 - 100.0 fL [facility] Platelet mean volume (Bld) [Entitic vol] 9.4 fL Normal 6.4 - 10.8 fL [facility] Platelets (Bld) [#/Vol] 282.0 E9/L Normal 150. 0 - 500.0 E9/L [facility] RBC (Bld) [#/Vol] 4.6 E12/L Normal 4.3 - 5.9 E12/L [facility] WBC corrected for nucl RBC Auto (Bld) [#/Vol] 14.6 E9/L High 4.0 - 11.0 E9/L [facility] Pre-Arrival Noteon 3 Pre-Arrival Note Pre-Arrival Summary [facility] Current Date: 04/15/2022 16:25:10 EST Gender: Female Date of : Age: 41 Pre-Arrival Type: EMS ETA: 04/15/2022 16:50:00 EST Primary Care Physician: Presenting Problem: fall Pre-Arrival User: Ana Paula Funes RN Referring Source: Location: Completion Date/Time: 04/15/2022 16:20:00 [facility] Emergency Department Pre-Hospital Report Form Vital Signs: Pre-Hospital Report: Treatment in Route: Response to Treatment: Misc. Issues: Normal [facility] SEROLOGYOrdered By: Ru For ster on 04-15-2022 Beta hCG Ql Negative (04/15/22 5:35 PM) Normal [facility] [place] Sero XR Ankle 3+ Views Righton XR Ankle 3+ Views Right Exam Date/Time: 04/15/2022 16:49 EST Reason for Exam: Fall Report IMPRESSION: THERE ARE TRIMALLEOLAR ANKLE FRACTURES WITH POSTERIOR DISPLACEMENT OF THE TALUS. CLINICAL HISTORY: Fall COMPARISON: None available. FINDINGS: AP, lateral and oblique views of the right ankle demonstrates mildly displaced fractures of the distal fibula in the posterior and lateral tibia with posterior displacement of the talus. FINAL REPORT Dictated: 04/15/2022 4:59 pm Morgan Brady MD, V. Signed (Electronic Signature): 04/15/2022 4:59 pm Signed by: Morgan Brady MD, V. Transcribed by: DANNIE Technologist: MIRANDA [facility] XR Knee Complete 4+ Views Ri [facility] 04-15-2022 XR Knee Complete 4+ Views Right Exam Date/Time: 04/15/2022 16:49 EST Reason for Exam: Pain, Traumatic Report IMPRESSION: NEGATIVE RIGHT KNEE. CLINICAL HISTORY: Pain, Traumatic COMPARISON: NONE. FINDINGS: AP and lateral views of the right knee demonstrate no evidence of a fracture, dislocation, bone or joint abnormality. FINAL REPORT Dictated: 04/15/2022 4:58 pm Morgan Brady MD, V. Signed (Electronic Signature): 04/15/2022 4:58 pm Signed by: Morgan Brady MD, V. Transcribed by: DANNIE Technologist: MIRANDA [facility] eGFRon 04-15-2022 GFR/1.73 sq M.predicted among blacks MDRD (S/P/Bld) [Vol rate/Area] mL/min/{1.73_m2} Normal >=59 [facility] Comment on above: Order Comment: Order added by Discern Expert. Result Comment: eGFR is race adjusted. AA=. Performed By: #### 2 [id number] ####[facility] [id number] [place] [address] GFR/1.73 sq M.predicted among non-blacks MDRD (S/P/Bld) [Vol rate/Area] mL/min/{1.73_m2} Normal >=59 [facility] Comment on above: Order Comment: Order added by Discern Expert. Result Comment: Kinesiologist vivi kidney disease could be indicated at eGFR's of less than 60 mL/min/1.73m2. Kidney failure is indicated at less than 15 mL/min/1.73m2. Performed By: #### 2 [id number] ####[facility] [id number] [place] [address] ANES Rodney 07-07-2018 ANES POST HNO ID: [id number] Author: Gwen Angela Service: Anesthesiology Author Type: Anesthesiologist Type: Anesthesia PostOp Filed: 07/07/2018 11:33 AM Note Text: POST ANESTHESIA EVALUATION NOTE SERVICE DATE: 07/07/2018 SERVICE TIME: 11:33 AM : 1980 Vitals: 07/07/18 0819 07/07/18 1025 Temp: 36.3 ?C (97.3 ?F) 36.4 ?C (97.5 ?F) 07/07/18 0819 07/07/18 1025 07/07/18 1030 07/07/18 1045 BP: 111/72 117/66 129/69 125/76 07/07/18 0819 07/07/18 1025 07/07/18 1030 07/07/18 1045 Pulse: 72 87 77 68 07/07/18 0819 07/07/18 1025 07/07/18 1030 Resp: 16 16 20 07/07/18 0819 07/07/18 1025 07/07/18 1030 07/07/18 1045 SpO2: 97% 95% 97% 95% Validated Vital Signs: Yes POST ANES STATUS: No apparent anesthetic complications. The patient is appropriately hydrated with stable respiratory and cardiovascular status. Patient has safe and adequate airway control. The patient has appropriate pain relief and no significant post operative nausea or vomiting. The patient has achieved baseline mental status. Intra-Operative Events: No Significant Anesthesia Events Further assessment by Anesthesia Service: None Other Remarks: SIGNATURE: Gwen Angela MD PATIENT NAME: Angela Munoz DATE: July 07, 2018 TIME: 11:33 AM PAGER/CONTACT #: [phone] [facility] ANES PREOPon 07-07-2018 ANES PREOP HNO ID: [id number] Author: Gwen Angela Service: Anesthesiology Author Type: Anesthesiologist Type: Anesthesia PreOp Filed: 07/07/2018 8:38 AM Note Text: ANESTHESIOLOGY DAY OF SURGERY NOTE SERVICE DATE: 07/07/2018 SERVICE TIME: 8:37 AM : 1980 Procedure(s) (LRB): RELEASE CONTRACTURE DEQUERVAINS (Left) BIOPSY SOFT TISSUE FOREARM AND/OR WRIST, DEEP (Left) Surgeon(s): Neena Olivarez Estimated body mass index is 29.45 kg/m? as calculated from the following: Height as of 07/05/18: 157.5 cm (5' 2 ). Weight as of this encounter: 73 kg (161 lb). Most recent hematocrit and potassium results: Hematocrit 43.4 07/05/2018 Potassium 3.9 07/05/2018 ANES DOS/PREOP NOTE: Vitals: 07/07/18 0819 BP: 111/72 Pulse: 72 Resp: 16 Temp: 36.3 ?C (97.3 ?F) TempSrc: Temporal SpO2: 97% Weight: 73 kg (161 lb) ACTIVE PROBLEM LIST Work Related Injury Pain in Right Wrist Bmi 25.0-25.9,Adult Scapholunate Dissociation Pre-Op Testing Radial Sensory Nerve Injury, Right, Sequela Traumatic Neuroma De Quervain's Disease (Radial Styloid Tenosynovitis) Tobacco Abuse Depression Gerd (Gastroesophageal Reflux Disease) PAST MEDICAL HISTORY Diagnosis Date - NEGATIVE MEDICAL HISTORY - Tobacco abuse PAST SURGICAL HISTORY Procedure Laterality Date - PAST SURGICAL HISTORY OF Left age 10 knee open repair - PAST SURGICAL HISTORY OF tubal ligation - PAST SURGICAL HISTORY OF Right 2013 oopherectomy and salpingectomy (ovarian cyst) - PAST SURGICAL HISTORY OF Right 01/2016, 10/2016 wrist surgeries FAMILY HISTORY Problem Relation Age of Onset - None Mother - Diabetes Father Social History: Social History Tobacco Use - Smoking status: Current Every Day Smoker Packs/day: 0.75 Years: 30.00 Pack years: 22.50 Types: Cigarettes - Smokeless tobacco: Never Used Substance Use Topics - Alcohol use: No - Drug use: No No current facility-administere d medications on file prior to encounter. Current Outpatient Medications on File Prior to Encounter: gabapentin (NEURONTIN) 300 mg capsule Take 300 mg by mouth twice daily. amitriptyline (ELAVIL) 25 mg tablet Take 50 mg by mouth daily at bedtime. 150mg daily DULOXETINE HCL (CYMBALTA ORAL) Take 20 mg by mouth once daily. pantoprazole (PROTONIX) 40 mg grps Take 40 mg by mouth DAILY (6 AM). No current facility-administere d medications for this encounter. Allergies: ALLERGIES Allergen Reactions - Codeine Vomiting - Hydrocodone-Acetami* Vomiting - Morphine Vomiting DOS EXAM: Adequate NPO status: Yes Anesthetic risks, benefits, alternatives, personnel and consent discussed: Yes Patient agrees to proceed: Yes Previous Anesthesia: No history of adverse event. Airway Assessment: MP 2; Neck ROM: Full ROM without neurologic symptoms; Airway Evaluation: No significant abnormalities Symptoms of Sleep Apnea: None Dentition: Teeth intact Additional Physical Exam: Lungs: Lungs clear to auscultation. Good diaphragmatic excursion. Cardiac: normal S1 and S2; no rubs, no murmurs, and no gallops Additional Pertinent Findings: N/A Blood Products: Not anticipated for this procedure. Anesthetic Plan: MAC with Sedation Pain Management Plan: Parenteral or Oral ASA Class: 2 Other Medical Problems: None Chronic Beta Rhonda medication administered within 24 hours: N/A I have interviewed and examined the patient. I have reviewed the medical record and/or the pre-anesthesia evaluation, pertinent labs, and test results. Significant changes in the patient's condition since the History and Physical, not otherwise documented in primary service progress notes: No This contains updated information obtained within 48 hours of Surgery/Procedure. SIGNATURE: Gwen Angela MD PATIENT NAME: Angela Munoz DATE: July 07, 2018 TIME: 8:37 AM CSN: [id number] [facility] NURSING PROGon 07-07-2018 Protein mass conc HNO ID: [id number] Author: Leila (Rn) Jules RN Service: Nursing Author Type: Registered Nurse Type: Nursing Progress Note Filed: 07/07/2018 10:48 AM Note Text: Dr Olivarez spoke to patient at bedside [facility] PT EDon 07-07-2018 PT ED HNO ID: [id number] Author: Leila (Rn) TROY Vicente Service: Nursing Author Type: Registered Nurse Type: Patient Education Filed: 07/07/2018 11:16 AM Note Text: POST OP LEARNING RESPONSE INSTRUCTION PROVIDED TO: Patient and family member METHOD OF INSTRUCTION: Written instruction - handouts Verbal instruction PATIENT / FAMILY RESPONSE: Verbalizes understanding of: MEDICATION PRESCRIBED-Accurate knowledge of prescribed medication prior to discharge PAIN MANAGEMENT-Effective strategies to manage pain in addition to pain medication POST-OPERATIVE INSTRUCTIONS-Correct actions to take to reduce postoperative complications FOLLOW-UP PLAN: Patient instructed to call with any further issues SUPPLEMENTAL MATERIAL: None REFERRAL (RECOMMENDATION): None Electronically Signed By: Leila Vicente RN In Department: [facility] AMBULATORY SURGERY - [facility] SURGICAL PATHOLOGYon 019 SURGICAL PATHOLOGY Specimen #: [id number] Submitting Physician: NEENA OLIVAREZ M.D. FINAL DIAGNOSIS 1. Left wrist, first compartment tenosynovium, excision (A) - Fragments of tenosynovium, no significant pathologic alterations. 2. Left wrist, second extensor compartment tenosynovium, excision (B) - Marked chronic tenosynovitis with organizing fibrin deposition. 3. 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 JDR/poppy 07/12/2018 Alessandro Izquierdo M.D. (Electronic Signature) SPECIMEN SUBMITTED A: LEFT WRIST FIRST COMPARTMENT TENOSYNOVIUM B: LEFT WRIST SECOND EXTENSOR COMPARTMENT TENOSYNOVIUM C: LEFT WRIST THIRD EXTENSOR COMPARTMENT TENOSYNOVIUM CLINICAL DATA DE QUERVAIN'S DISEASE (TENOSYNOVITIS) LEFT WRIST GROSS DESCRIPTION A. Received in formalin and labeled first compartment tenosynovium left wrist is an irregular white soft segment of tissue measuring 2.2 x 0.5 x 0.2 cm. The specimen is totally submitted in formalin in one cassette. KVB/ka 07/10/2018 B. Received in formalin labeled left wrist second extensor compartment tenosynovium are multiple jane soft segments of tissue aggregating to 3.3 x 3.2 x 1.0 cm. The specimens are sectioned. [employer] sections are submitted in formalin in one cassette. KVB/rw 07/10/2018 C. Received in formalin labeled third extensor compartment tenosynovium left wrist are multiple white rubbery to fibrous segments of tissue aggregating to 2.3 x 1.8 x 0.4 cm. The specimens are totally submitted in formalin in one cassette. KVB/glw 07/10/2018 Gross examination performed at [facility], [address] [place] [address] Date of Report: 07/12/2018 Date of Procedure: 07/07/2018 Date of Receipt: 07/07/2018 Submitted by: NEENA OLIVAREZ M.D. Location: [facility] ([facility]) Diagnostic interpretation performed at [facility], [address] [place] [address]. CLIA Number: [id number] [facility] NURSING PROGon 07-06-2018 Protein mass conc HNO ID: [id number] Author: Roseline (Rn) TROY Douglas Service: ? Author Type: Registered Nurse Type: Nursing Progress Note Filed: 07/06/2018 7:35 AM Note Text: PACC Nurse Progress Note History AND Physical: PACC Visit Date: 07/05/18 Original HANDP Date: N/A ED visit Date: N/A Outside HANDP Scanned Date: N/A Labs Within Last 6 Months: CBC: Date 07/05/18-wnl BMP/CMP: Date 07/05/18 within acceptable limits per anesthesia guidelines for planned procedure. Imaging Within Last 12 Months: See chart Cardiac Testing: N/A EKG not indicated per PACC protocol Last Menstrual Period: LMP Date: 07/05/18 Postmenopausal >1yr: No, S/P Hysterectomy: No BMI Percentile (PEDS): N/A Risk Assessment: N/A Anesthesia Review: N/A Narrative: N/A Pre-op Considerations: N/A Chart Check: COMPLETED Roseline Douglas RN July 06, 2018 7:33 AM [facility] HOSPon 06-22-2018 HOSP Patient:Angela Munoz MRN: Height:5' 2 (1.575 m) Weight:163 lb (73.936 kg) Outpatient Medications as of 07/07/18: traMADol (ULTRAM) 50 mg tablet Omeprazole 40 mg capsule acetaminophen (TYLENOL) 325 mg tablet CALCIUM ORAL gabapentin (NEURONTIN) 300 mg capsule amitriptyline (ELAVIL) 25 mg tablet pantoprazole (PROTONIX) 40 mg grps DULOXETINE HCL (CYMBALTA ORAL) Admission/Clinic Administered Medications as of 07/07/18: lidocaine 10 mg/mL (1 %) 1-2 mg injection (XYLOCAINE) lactated ringers infusion ceFAZolin iv piggyback 2 g in D5W (iso-osmotic) 100 mL (ANCEF) Problem List: Work related injury [Y99.0] Pain in right wrist [M25.531] BMI 25.0-25.9,adult [Z68.25] Scapholunate dissociation [M25.339] Pre-op testing [Z01.818] Radial sensory nerve injury, right, sequela [S44.21XS] Traumatic neuroma [T14.8XXA] De Quervain's disease (radial styloid tenosynovitis) [M65.4] Tobacco abuse [Z72.0] Depression [F32.9] GERD (gastroesophageal reflux disease) [K21.9] Allergies: Codeine Hydrocodone-Acetamin ophen Morphine Date Verified: 07/07/18 Lab Values Lab Value Units Date High Low POTA* 3.9 mmol/L 07/05/2018 5.1 3.7 MARIA TERESA* 43.4 % 07/05/2018 46.0 36.0 Progress Notes ([facility] MAIN): Gm Matthewake 07/06/2018 1:40 PM Signed ORTHO CARE COORDINATION QUICK NOTE Patient has been identified by name and date of : Yes called patient to check if labs were fasting or not, glucose was 138. she was fasting. so she will follow up with pcp about high blood sugar results. Gm Broussard Progress Notes ([facility]): Noelle Rudd Rt 06/20/2018 12:35 PM Signed Radiology Service Progress Note PATIENT NAME: Angela Munoz DATE OF SERVICE: June 20, 2018 TIME: 12:34 PM PATIENT IDENTITY VERIFICATION COMPLETED USING TWO (2) METHODS: Patient confirmed name verbally and Date of . PATIENT GENDER DATA: Female. status: : No status: NO. PATIENT RELEVANT IMPLANT DATA REVIEWED: Not Applicable RADIOLOGY DEPARTMENT: General X-ray: Exam(s) Completed: Upper Extremity X-Ray(s): Wrist, left : PERIPHERAL IV DATA: Not applicable SIGNED BY: Noelle Rudd Rt June 20, 2018 12:34 PM [facility] Vital Signs Date Time Vital Sign Value Performing Clinician Jeff lindo 04-17-2022 12:16-0500 Heart rate 78 /min Olu Yang [facility] 04-17-2022 12:16-0500 SaO2% (BldA) [Mass fraction] 97 % Olu Yang [facility] 04-17-2022 12:15-0500 Diastolic blood pressure 70 mm[Hg] Olu Yang [facility] 04-17-2022 12:15-0500 Mean blood pressure 82 mm[Hg] Olu Yang [facility] 04-17-2022 12:15-0500 Systolic blood pressure 108 mm[Hg] Olu Yang [facility] 04-17-2022 12:15-0500 Body temperature 98.78 [degF] Olu Yang [facility] 04-17-2022 09:01-0500 Hourly Rounding Olu Yang [facility] 04-17-2022 09:01-0500 Promise to Return Olu Yang [facility] 04-17-2022 08:55-0500 SaO2% (BldA) [Mass fraction] 97 % Olu Yang [facility] 04-17-2022 08:01-0500 Hourly Rounding Olu Yang [facility] 04-17-2022 08:01-0500 Promise to Return Olu Yang [facility] 04-17-2022 07:09-0500 Hourly Rounding Olu Yang [facility] 04-17-2022 07:09-0500 Promise to Return Olu Yang [facility] 04-17-2022 07:00-0500 Body temperature 98.06 [degF] Olu Yang [facility] 04-17-2022 07:00-0500 Heart rate 79 /min Olu Yang [facility] 04-17-2022 07:00-0500 SaO2% (BldA) [Mass fraction] 96 % Olu Yang [facility] 04-17-2022 03:35-0500 Blood Pressure Location Olu Yang [facility] 04-17-2022 03:35-0500 Body temperature 98.24 [degF] Olu Celia [facility] 04-17-2022 03:35-0500 Diastolic blood pressure 73 mm[Hg] Olu Yang [facility] 04-17-2022 03:35-0500 Heart rate 89 /min Olu Celia [facility] 04-17-2022 03:35-0500 Mean blood pressure 86 mm[Hg] Olu Celia [facility] 04-17-2022 03:35-0500 Respiratory rate 16 /min Olu Yang [facility] 04-17-2022 03:35-0500 Systolic blood pressure 111 mm[Hg] Olu Celia [facility] 04-17-2022 01:35-0500 Blood Pressure Location Olu Celia [facility] 04-17-2022 01:35-0500 Body temperature 98.42 [degF] Olu Yang [facility] 04-17-2022 01:35-0500 Mean blood pressure 93 mm[Hg] Olu Celia [facility] 04-17-2022 01:35-0500 Respiratory rate 16 /min Olu Yang [facility] 04-16-2022 23:05-0500 Blood Pressure Location Olu Celia [facility] 04-16-2022 23:05-0500 Mean blood pressure 89 mm[Hg] Olu Yang [facility] 04-16-2022 23:05-0500 Respiratory rate 16 /min Olu Yang [facility] 04-16-2022 20:40-0500 Respiratory rate 17 /min Olu Yang [facility] 04-16-2022 20:10-0500 Body temperature 98.42 [degF] Olu Yang [facility] 04-16-2022 20:10-0500 Respiratory rate 26 /min Olu Yang [facility] 04-16-2022 19:55-0500 Respiratory rate 21 /min Olu Yang [facility] 04-16-2022 19:42-0500 Body temperature 98.24 [degF] Olu Celia [facility] 04-16-2022 11:18-0500 Heart rate 76 /min Olu Celia [facility] 04-16-2022 07:26-0500 Mean blood pressure 80 mm[Hg] Olu Yang [facility] 04-15-2022 20:53-0500 Mean blood pressure 81 mm[Hg] Olu Yang [facility] 04-15-2022 17:59-0500 Heart rate 82 /min Olu Yang [facility] 04-15-2022 16:25-0500 Heart rate 71 /min Olu Yang [facility] Encounters Encounter Date Encounter Type Care Provider Facility Start: 03-28-2023 End: 03-29-2023 [facility] Start: 03-07-2023 End: 03-08-2023 ambulatory Rica Villa MD [facility]: [facility] Start: 01-17-2023 End: 01-18-2023 ambulatory Rica Villa MD Facility: [facility] Start: 04-15-2022 End: 04-17-2022 Evaluation and management of inpatient Olu [place] [place]: 04-15-2022 End: 04-17-2022 Evaluation and management of inpatient Olu Yang [facility] Start: 01-11-2020 Patient encounter procedure CORBY DESHAUN Facility: Start: 07-07-2018 End: 07-07-2018 Patient encounter procedure [facility] Procedures Date Procedure Procedure Detail Performing Clinician Start: 04-16-2022 Open reduction of fracture of ankle with internal fixation Olu Yang Payers Date Payer Category Payer Private Health Insurance 1980 Unknown [id number] 1980 Unknown [id number] 1980 Unknown [id number] 1978 Unknown [id number] [id number]. [id number] 1978 Unknown [id number] [id number]. [id number] 1961 Self-pay Social History Date Type Detail Facility Tobacco vape Tobacco Use:. Vaping Fi [facility] Tobacco smoking status No Smoking Status Entered [facility] Sex Assigned At Female [facility] Medical Equipment Procedure Code Equipment Code Equipment Origin al Text Equipment Identifier Dates ANKLE FRACTURE O RIF Yang DO, Olu T 04/16/22 Unknown Ankle R FDA Start: 04-16-2022 ANKLE FRACTURE O RIF Yang DO, Olu T 04/16/22 Unknown Ankle R FDA Start: 04-16-2022 ANKLE FRACTURE O RIF Yang DO, Olu T 04/16/22 Unknown Ankle R FDA Start: 04-16-2022 ANKLE FRACTURE O RIF Yang DO, Olu T 04/16/22 Unknown Ankle R FDA Start: 04-16-2022 ANKLE FRACTURE O RIF Yang DO, Olu T 04/16/22 Unknown Ankle R FDA Start: 04-16-2022 ANKLE FRACTURE O RIF Yang DO, Olu T 04/16/22 Unknown Ankle R FDA Start: 04-16-2022 ANKLE FRACTURE O RIF Yang DO, Olu T 04/16/22 Unknown Ankle R FDA Start: 04-16-2022 ANKLE FRACTURE O RIF Yang DO, Olu T 04/16/22 Unknown Ankle R FDA Start: 04-16-2022 ANKLE FRACTURE O RIF Yang DO, Olu T 04/16/22 Unknown Ankle R FDA Start: 04-16-2022 ANKLE FRACTURE O RIF Yang DO, Olu T 04/16/22 Unknown Ankle R FDA Start: 04-16-2022 ANKLE FRACTURE O RIF Yang DO, Olu T 04/16/22 Unknown Ankle R FDA Start: 04-16-2022 ANKLE FRACTURE O RIF Ynag DO, Olu T 04/16/22 Unknown Ankle R FDA Start: 04-16-2022 ANKLE FRACTURE O RIF Yang DO, Olu T 04/16/22 Unknown Ankle R FDA Start: 04-16-2022 ANKLE FRACTURE O RIF Yang DO, Olu T 04/16/22 Unknown Ankle R FDA Start: 04-16-2022 ANKLE FRACTURE O RIF Yang DO, Olu T 04/16/22 Unknown Ankle R FDA Start: 04-16-2022 ANKLE FRACTURE O RIF Yang DO, Olu T 04/16/22 Unknown Ankle R FDA Start: 04-16-2022 Functional Status Date Assessment Result Facility 04-15-2022 Functional Status N/A [facility] 04-15-2022 Functional Status [facility] Clinical Note 04-19-2022 Note Date & Type Note Facility 04-19-2022 Note PROGRESS NOTE: 04/17 CHIEF COMPLAINT: Postoperative day one status post right ankle open reduction and internal fixation comminuted distal tibial pilon fracture with articular displacement with associated fibular fracture Diana B to C HISTORY OF PRESENT ILLNESS: Angela had a fair amount of pain last night. Catheter is still in. She denies any chest pain or shortness of breath. No anesthesia complications. Family is present at the bedside. Of note, a urinary Mandujano catheter was placed intraoperatively with cloudy urine. This does have a positive culture. It shows gram-negatives. Further identification is pending. PHYSICAL EXAMINATION: Today she is alert and oriented. Daughter and spouse are present. Vital signs 36.7, 79, 16, 111/73. She is 97% on room air. Her dressing is clean, dry, intact. Her compartments are supple. She is able to wiggle her toes. Her capillary refill is appropriate and she is neurovascularly intact distally. LABORATORY DATA: Laboratory studies are reviewed. Urinalysis culture is pending. ASSESSMENT: 1. Status post right ankle open reduction and internal fixation comminuted distal tibial pilon fracture with articular stepoff and comminution, associated fibular fracture, postoperative day one. 2. Osteoporosis. 3. Metabolic syndrome. 4. Urinary tract infection. 5. History of reflex sympathetic dystrophy right upper extremity after a scapholunate ligament repair. 6. History of tobacco abuse. 7. Poor dentition. TREATMENT PLAN: The nature of the findings are discussed at length. We discussed this being a wakeup call for Angela at length with the patient and family. She has some metabolic issues that are going on with very soft bone for her age. We discussed improvement parameters with overall health with smoking cessation, weight reduction, improving her dentition, as well as calcium plus D. Once she is healed over the next month, I would appreciate if she would see her primary care for a formal physical as well as consideration of DEXA scan testing. For this low-volume injury, stepping over a baby gate to have this volume of fracture does further support her significant osteoporosis and metabolic syndrome. She is strict nonweightbearing. Mandujano catheter will be removed. She will be discharged home with Percocet for pain, aspirin once a day for deep vein thrombosis prevention for four weeks, Colace for constipation p.r.n., and Bactrim DS twice a day for seven days for orthopedic coverage of her leg as well as her urinary tract infection. I will see her back in the office in two weeks for recheck with staple removal. They voiced verbal understanding an increase in pain will return to the Emergency Room. Olu Yang D.O. sathish Dictated: 04/17/2022 [id number] Transcribed: 04/17/2022 [facility] Comment on above: Result Comment: Elec tronically Signed By: Olu Yang DO\.br\Date and Time Signed: 04/19/22 06:59 EST Discharge summary note 04-19-2022 Note Date & Type Note Facility 04-19-2022 Note ADMISSION DATE: 08/2022 DISCHARGE DATE: 04/17/2022 ADMISSION DIAGNOSIS: Right closed displaced distal tibial pilon fracture with associated fibular component. DISCHARGE DIAGNOSIS: Right closed displaced distal tibial pilon fracture with associated fibular component. SURGERY: 04/16/2022, general anesthesia with Dr. Lockhart. CONSULTATIONS: Physical Therapy and Social Service. HOSPITAL COURSE: Angela was admitted the evening of the fracture to my service, subsequently was n.p.o. after midnight. Preoperative labs were performed. Potassium was supplemented. She subsequently underwent surgery in the evening on 04/16/2022 for her committed pilon fracture with fibular component. She was admitted due to the time of the evening overnight. Mandujano catheter was placed which does have gram-negative infection. She states this is quite frequent for her. She will be discharged to home with family, strict nonweightbearing, two-pillow elevation. Icing techniques were reviewed. Discharge medications are sent to [facility] in [place] with Percocet, aspirin, Colace, and Bactrim (of note, cancelled Keflex ordered yesterday due to her concomitant urinary tract infection). She will follow up in the office in two weeks for recheck with dressing off and staple removal. We discussed followup with Primary Care in one to two months for a formal physical exam and consideration of bone density DEXA scan testing. Olu Yang D.O. ca Dictated: 04/17/2022 [id number] Transcribed: 04/17/2022 [facility] Comment on above: Result Comment: Elec tronically Signed By: Olu Yang DO\.br\Date and Time Signed: 04/19/22 06:59 EST Clinical Note 04-17-2022 Note Date & Type Note Facility 04-17-2022 Note PT evaluation comple bebe. Pt required min assist for bed mobility due to R LE pain rated 9/10, min assist with left hand rail for sit to stand, and pt was unable to flex R LE due to LE pain to try to utilize knee scooter this date. Pt will have w/c at home for mobility and family to assist. Pt will likely have improved ability with transfers and ability to use knee scooter when pain decreases. Pt and family report understanding of use of knee scooter this date and stated they felt comfortable with transferring to w/c until she has less pain. Will trial knee scooter again tomorrow if pt still inpatient. [facility] 04/03 [facility] Hospital Discharge instructions 04-17-2022 Note Date & Type Note Facility 04-17-2022 Hospital Discharg e instructions Patient Education 04/17/2022 12:25:02 Displaced Medial or Posterior Malleolar Ankle Fracture Treated With ORIF, Care After Displaced Medial or Posterior Malleolar Ankle Fracture Treated With ORIF, Care After This sheet gives you information about how to care for yourself after your procedure. Your health care provider may also give you more specific instructions. If you have problems or questions, contact your health care provider. What can I expect after the procedure? After the procedure, it is common to have: Pain. Swelling. A small amount of fluid from your incision. Follow these instructions at home: If you have a boot: Wear the boot as told by your health care provider. Remove it only as told by your health care provider. Loosen the boot if your toes tingle, become numb, or turn cold and blue. Keep the boot clean. If the boot is not waterproof: ?Do not let it get wet. ?Cover it with a watertight covering when you take a bath or a shower. If you have a cast: Do not stick anything inside the cast to scratch your skin. Doing that increases your risk of infection. Check the skin around the cast every day. Tell your health care provider about any concerns. You may put lotion on dry skin around the edges of the cast. Do not put lotion on the skin underneath the cast. Keep the cast clean. If the cast is not waterproof: ?Do not let it get wet. ?Cover it with a watertight covering when you take a bath or a shower. Bathing Do not take baths, swim, or use a hot tub until your health care provider approves. Ask your health care provider if you can take showers. If your boot or cast is not waterproof, cover it with a watertight covering when you take a bath or a shower. Keep the bandage (dressing) dry until your health care provider says it can be removed. Incision care Follow instructions from your health care provider about how to take care of your incision. Make sure you: ?Wash your hands with soap and water before you change your dressing. If soap and water are not available, use hand distance learning unit leader. ?Change your dressing as told by your health care provider. ?Leave stitches (sutures), skin glue, or adhesive strips in place. These skin closures may need to stay in place for 2 weeks or longer. If adhesive strip edges start to loosen and curl up, you may trim the loose edges. Do not remove adhesive strips completely unless your health care provider tells you to do that. Check your incision area every day for signs of infection. Check for: ?Redness. ?More pain or swelling. ?Blood or more fluid. ?Warmth. ?Pus or a bad smell. Managing pain, stiffness, and swelling If directed, put ice on the affected area. ?If you have a removable boot, remove it as told by your health care provider. ?Put ice in a plastic bag. ?Place a towel between your skin and the bag or between your cast and the bag. ?Leave the ice on for 20 minutes, 2 3 times a day. Move your toes often to avoid stiffness and to lessen swelling. Raise (elevate) the injured area above the level of your heart while you are sitting or lying down. To do this, try putting a few pillows under your leg and ankle. Driving Do not drive or use heavy machinery while taking prescription pain medicine. Ask your health care provider when it is safe to drive if you have a boot or cast on your foot. Activity Return to your normal activities as told by your health care provider. Ask your health care provider what activities are safe for you. Do exercises as told by your health care provider or physical therapist. Do not use your injured limb to support (bear) your body weight until your health care provider says that you can. Follow weight-bearing restrictions as told. Use crutches or other devices to help you move around (assistive devices) as directed. General instructions Do not put pressure on any part of the cast until it is fully hardened. This may take several hours. Do not use any products that contain nicotine or tobacco, such as cigarettes and e-cigarettes. These can delay bone healing. If you need help quitting, ask your health care provider. Take lkze-ces-cgjhevf and prescription medicines only as told by your health care provider. If you are taking prescription pain medicine, take actions to prevent or treat constipation. Your health care provider may recommend that you: ?Drink enough fluid to keep your urine pale yellow. ?Eat foods that are high in fiber, such as fresh fruits and vegetables, whole grains, and beans. ?Limit foods that are high in fat and processed sugars, such as fried or sweet foods. ?Take an jtbu-svr-hafqfgv or prescription medicine for constipation. Keep all follow-up visits as told by your health care provider. This is important. Contact a health care provider if: You have a fever. Your pain medicine is not helping. You have redness around your incision. You have more swelling or pain around your incision. You have blood or more fluid coming from your incision or leaking through your cast. Your incision feels warm to the touch. You have pus or a bad smell coming from your incision or dressings. Get help right away if: The edges of your incision come apart after the stitches or nazia have been taken out. You have chest pain. You have difficulty breathing. You have numbness or tingling in your foot or leg. Your foot becomes cold, pale, or blue. Summary After the procedure, it is common to have some pain and swelling. If your boot or cast is not waterproof, do not let it get wet. Contact your health care provider if you have severe pain or swelling, or if you have more fluids coming from your incision or leaking through your cast. Get help right away if you have numbness or tingling in your foot or leg, or if your foot becomes cold, pale, or blue. This information is not intended to replace advice given to you by your health care provider. Make sure you discuss any questions you have with your health care provider. Document Released: 01/05/2006 Document Revised: 03/10/2018 Document Reviewed: 01/16/2018 [employer] Patient Education 2020 [employer] 04/17/2022 12:24:52 Ankle Fracture Ankle Fracture The ankle joint is made up of the lower (distal) sections of your lower leg bones (tibia and fibula) along with a bone in your foot (talus). An ankle fracture is a break in one, two, or all three of these sections of bone. There are two general types of ankle fractures: Stable fracture. This happens when one of your bones is broken, but the bones of your ankle joint stay in their normal positions. Unstable fracture. This type can include more than one broken bone. It can also happen if your outer bone is broken and the tough bands of tissue that connect bones (ligaments) are also injured at your inner ankle. This type of fracture allows the talus to move out of its normal position. What are the causes? This condition may be caused by: A hard, direct hit (blow) to the ankle. Quickly and severely twisting your ankle, often while your foot is planted and the rest of your body moving. Trauma, such as a car accident or falling from a height. What increases the risk? This condition is more likely to occur in people who: Smoke. Are overweight. Participate in sports that involve quick direction changes, as in soccer. Do high-impact sports like gymnastics or football. Are involved in a high-impact car accident. What are the signs or symptoms? Symptoms of this condition include: Tender and swollen ankle. Bruising around the injured ankle. Pain when moving or pressing on the ankle. Trouble walking or using the ankle to support your body weight (putting weight on the ankle). Pain that gets worse when moving or standing and gets better with rest. How is this diagnosed? An ankle fracture is usually diagnosed with a physical exam and X-rays. A CT scan or MRI may also be done. How is this treated? Treatment for this condition depends on the type of ankle fracture you have. Stable fractures are treated with a cast, boot, or splint to hold the ankle still and crutches to avoid putting weight on the injured ankle until the fracture heals. Unstable fractures require surgery to ensure that the bones heal properly. After surgery, you will have a splint. After your incision is healed, your surgeon may give you a cast or a boot. You will not be able to put weight on your injured side for several weeks. After your ankle has healed, you will do exercises to improve the strength and mobility of your ankle. Follow these instructions at home: If you have a splint: Wear the splint as told by your health care provider. Remove it only as told by your health care provider. Loosen the splint if your toes tingle, become numb, or turn cold and blue. Keep the splint clean. If the splint is not waterproof: ?Do not let it get wet. ?Cover it with a watertight covering when you take a bath or a shower. If you have a cast: Do not stick anything inside the cast to scratch your skin. Doing that increases your risk of infection. Check the skin around the cast every day. Tell your health care provider about any concerns. You may put lotion on dry skin around the edges of the cast. Do not put lotion on the skin underneath the cast. Keep the cast clean. If the cast is not waterproof: ?Do not let it get wet. ?Cover it with a watertight covering when you take a bath or a shower. Managing pain, stiffness, and swelling If directed, put ice on the injured area: ?If you have a removable splint, remove it as told by your health care provider. ?Put ice in a plastic bag. ?Place a towel between your skin and the bag or between your cast and the bag. ?Leave the ice on for 20 minutes, 2 3 times a day. Move your toes often to avoid stiffness and to lessen swelling. Raise (elevate) the injured area above the level of your heart while you are sitting or lying down. General instructions Do not use the injured limb to support your body weight until your health care provider says that you can. Use crutches as told by your health care provider Take cwsi-eoc-zsstvnx and prescription medicines only as told by your health care provider. Ask your health care provider when it is safe to drive if you have a cast or splint. Do exercises as told by your health care provider. Do not use any products that contain nicotine or tobacco, such as cigarettes and e-cigarettes. These can delay bone healing. If you need help quitting, ask your health care provider Keep all follow-up visits as told by your health care provider. This is important. Contact a health care provider if: You have pain or swelling that gets worse or does not get better with rest or medicine. Get help right away if: Your cast gets damaged. You have severe pain that lasts. You develop new pain or swelling. Your skin or toenails below the injury turn blue or wick, feel cold, become numb, or have a loss of sensitivity to touch. Summary An ankle fracture can either be stable or unstable. This is determined after a physical exam and imaging studies like X-rays, a CT scan, or MRI. Stable fractures are treated with a cast, boot, or splint to hold the ankle still until the fracture heals. Unstable fractures require surgery to ensure that the bones heal properly. You will not be able to put weight on your injured side for several weeks. Pain medicines, icing, and raising (elevating) your injured ankle when sitting or lying down may help with pain relief. Follow instructions as told by your health care provider. This information is not intended to replace advice given to you by your health care provider. Make sure you discuss any questions you have with your health care provider. Document Released: 03/25/2001 Document Revised: 06/07/2019 Document Reviewed: 04/29/2017 [employer] Patient Education 2019 [employer]. Follow Up Care 04/15/2022 16:23:55 With:Olu Yang Address: [address] [place] [address]- Business (1) When: Unknown Comments:Call for followup appointment 2 weeks [place] office With:Corby Conner Address: [address] [place] [phone]- Business (1) When: Unknown [facility] Clinical Note 04-16-2022 Note Date & Type Note Facility 04-16-2022 Note CRM entered the room to discuss discharge planning. PCP, DME and insurance discussed. Patient is alert and involved in plan of care. Contact information provided and whiteboard updated. Pt had ankle fx. PT rec knee scooter, LM with Ortho office clerk assistant to see if Celia will order for pt. Pt has no insurance. HCAP given. Pt will have surgery today. ANt dc TBD. CRM to follow. [facility] Comment on above: Result Comment: Elec tronically Signed By: Elisa Domínguez\.br\Date and Time Signed: 04/16/22 12:12 EST Evaluation + Plan note 04-16-2022 Note Date & Type Note Facility 04-16-2022 Evaluation + Plan note Extrac bebe from: Title:Op Note skeleton Author:Olu Yang DO Date:04/16/22 Impression and Plan Diagnosis Pre-op dx-rt closed displaced pilon fx/lateral malleolus Post-op dx-same Procedure-rt ankle ORIF, med/lat and a-p screw fixation Anesthesia-gen EBL-25 cc TT-78 min To Recovery Room in stable and satisfactory condition.. [facility] Clinical Note 04-16-2022 Note Date & Type Note Facility 04-16-2022 Note PT Evaluation done t his date. Pt. is unable to use crutches or FWW due to CRPS in right hand and is only allowed to put 1# of pressure through that hand. She does have access to a w/c and would also benefit from a knee scooter to use in the home to get around independently. No further PT needs at this time. [facility] History and physical note 04-16-2022 Note Date & Type Note Facility 04-16-2022 Note HOSPITAL REGULATIONS : All Positive and Important Negative Findings Shall Be Recorded DATE ADMITTED: 04/15/2022 CHIEF COMPLAINT: Right ankle pain, deformity status post fall. HISTORY OF PRESENT ILLNESS: Angela is admitted to my service late yesterday evening for a fall over a baby gait that she uses to block her four dogs. She lives with her boyfriend and two daughters in the [facility]. She does have a full slight of stairs. As she stepped over the gait, her ankle slipped twisting and feeling a pop sensation with deformity. She could not bear weight. She comes in for evaluation, x-ray and examination. She had no prodrome of pain. She is admitted to my service with a distal tibial pilon fracture with distal fibula fracture with deformity. PAST MEDICAL HISTORY: She does have a past history of tobacco abuse, chronic regional pain syndrome right upper extremity after a scapholunate ligament repair with Dr. Neena Olivarez, [facility]; gastroesophageal reflux disease. PAST SURGICAL HISTORY: Right wrist scapholunate ligament repair with pin, bilateral knee surgery. MEDICATIONS: 1. Cymbalta 60 mg daily. 2. Gabapentin 30 mg q h.s. 3. Omeprazole 40 mg daily. ALLERGIES: Codeine and morphine. She states she can take Percocet and [place]. REVIEW OF SYSTEMS: Otherwise negative. PHYSICAL EXAMINATION: VITAL SIGNS: 36.7, 77, 14, 116/70. She is 97% on room air. HEAD AND E.E.N.T.: Pupils are equal, round and reactive to light and accommodation. Extraocular movements are intact. Cranial nerves II-XII are intact. Tongue is midline. No tracheal shift. No neck pain. CHEST: Clear to auscultate lungs bilaterally. HEART: Regular rate and rhythm. ABDOMEN: Soft, nontender without rebound. EXTREMITIES: Her right lower extremity is in a splint. She has appropriate capillary refill. She has tenderness both at the medial malleolar area as well as fibula. Her left ankle is stable. She has prior incisions of the knees left greater than right. There is no hip pain or deformity. Pelvic compression test is negative. OSTEOPATHIC: Examination is deferred secondary to immobility with her fracture. LABORATORY DATA: Laboratory studies are reviewed, show a white blood cell count of 11.7, hemoglobin 12.6, hematocrit 37.1, platelet 273. Potassium is 3.3, improved from 3.1 last night. IMAGING: X-rays are reviewed of the ankle show a distal fibular fracture Diana B with displacement and angulation. She has a comminuted distal pilon fracture with both coronal and sagittal split with significant deformity. She does have proximal migration of her talus into the fracture with the deformity and instability of the articular area. Comminution is present. Deformity is moderate to severe. Syndesmosis appears to be intact. CT scan is reviewed as well. ASSESSMENT: 1. Status post fall with right closed displaced distal tibia pilon fracture with associated distal fibular lateral malleolus fracture. 2. History of chronic regional pain syndrome right upper extremity after ligament repair. 3. Tobacco abuse. 4. Gastroesophageal reflux disease. TREATMENT PLAN: The nature of the findings were discussed at length. We had a lengthy visit regarding the comminution of severity of the injury. This does have significant intra-articular involvement of the distal tibial plafond. This does have a poor prognostic indicator with respect to stiffness as well as long-term posttraumatic ankle arthritis. She is at a higher risk for her RSD or chronic regional pain syndrome of the right leg which she also has of the right wrist. She has been NPO after midnight. We will tentatively be on surgery later this afternoon for surgical fixation with lateral and medial plating with correction of the deformity. She most likely will require anterior, posterior screws. The pros, cons, risks, benefits, reasonable expectations were reviewed. These include but not limited to regional pain syndrome, numbness/tingling, nerve, vessel, tendon injury, stiffness, posttraumatic arthritis, infection, hardware failure, nonunion/malunion, need for more surgeries, antalgic gait, leg length disparity, dissatisfaction were all reviewed. She does live with her family on an upper level floor with four dogs. Instructed it may be of best interest to find a situation where she can stay on a single level without all the commotion of the animals. She is a high risk of recurrent falls. We discussed the importance of smoking cessation. The potential of nonunion, malunion contributed to the tobacco abuse was reviewed and highly encouraged to quit smoking at this point. She voiced a verbal understanding. Consent form signed and witnessed. She will be maintained NPO status. We will move forward later today. Xochilt Bueno Dictated: 04/16/2022 [id number] Transcribed: 04/16/2022 [facility] Comment on above: Result Comment: Elec tronically Signed By: Olu Yang DO\.br\Date and Time Signed: 04/16/22 07:47 EST Hospital course Narrative Note Date & Type Note Facility Hospital course Narrative No data available for this section [facility] Progress note Note Date & Type Note Facility Progress note No data available for this section [facility] Summary Purpose Family History No Family History Records FoundNo Family History Records FoundNo Family History Records FoundNo Family History Records Found Advance Directives No Advanced Directives Records FoundNo Advanced Directives Records FoundNo Advanced Directives Records FoundNo Advanced Directives Records Found Procedure Findings Note HNO ID: [id number] Author: James Montenegro MD (Fel) Service: ? Author Type: Fellow Type: Brief Op Note Filed: 07/07/2018 10:25 AM Note Text: BRIEF OPERATIVE / PROCEDURE NOTE LOG ID: [id number] SURGERY/PROCEDURE DATE: 07/07/2018 INCISION/PROCEDURE START TIME: 9:43 AM INCISION CLOSE/PROCEDURE END TIME: 10:19 AM SURGEON(S)/PROCEDURALIST(S) AND REMEDIATION BIOANALYTICS CONSULTANT(S): Surgeon(s) and Role: * Neena Olivarez - Primary * Tristian Montenegro MD (Fel) - Fellow No Additional Staff SURGERY/PROCEDURE(S): LEFT: Release 1st extensor compartment, with tenosynovial biopsy Release 2nd extensor compartment, with tenosynovial biopsy Release 3rd extensor compartment, with tenosynovial biopsy ANESTHESIA: Monitored Anesthesia Care FINDINGS: thickened mucoid hypertrophic tenosynovium all 3 compartments ESTIMATED BLOOD LOSS: 0 ml SPECIMENS: 3 compartments' tenosynovium COMPLICATIONS: None PRE-OP/PRE-PROCEDURE DIAGNOSIS: DeQuervains Disease (tenosynovitis) DeQuervain's disease (radial styloid tenosynovitis) POST-OP/POST-PROCEDURE D (more content not included)... Note HNO ID: [id number] Author: Zeinab Olivarez Service: Hand Surgery Author Type: Physician Type: Operative Report Filed: 07/12/2018 5:45 PM Note Text: OPERATIVE NOTE: July 07, 2018 Neena Olivarez MD, PhD, [facility] Shoulder, Elbow, Wrist AND Hand Surgery Orthopaedic AND Rheumatologic [place] [address] [place] [address] , Patient: Ms. Angela Munoz 1980, 37 year old, female Procedure(s): Left DeQuervain's release, 2nd and 3rd dorsal compartment and tenosynovectomy Pre-op Diagnosis: Left DeQuervain's (first dorsal wrist compartment) and 2nd and 3rd compartment tenosynovitis Post-op Diagnosis: Same Surgeon(s) and Role: * Neena Olivarez - Primary * Tristian Montenegro MD (Fel) - Fellow No Additional Staff Anesthesia: Monitored Anesthesia Care Tourniquet: See anaesthesia note Specimens: tenosynovium EBL: 0 ml Implanted tissues or devices: NoneFindings: Please see dictated operative note for details Complications: None Incision/Procedure Start Ti (more content not included)... Additional Source Comments INFORMATION SOURCE (unrecogn ized section and content) DATE CREATED AUTHOR 07/14/2018 [facility] DATE CREATED AUTHOR AUTHOR'S ORGANIZ ATION 01/11/2020 [facility] DATE CREATED AUTHOR AUTHOR'S ORGANIZ ATION 08/14/2022 [facility] DATE CREATED AUTHOR AUTHOR'S ORGANIZ ATION 04/01/2023 [facility] Patient Care team informatio n (unrecognized section and content) Personnel Name: Deshaun PEREZ Corby Address: Address: [address] [place] [address] Name: Brynn Quick LPN FOR RECORDS PERTAINING TO PATIENTS WHO ARE OR HAVE BEEN ENROLLED IN A CHEMICAL DEPENDENCY/SUBSTANCEABUSE PROGRAM, SOME INFORMATION MAY BE OMITTED. This clinical summary was aggregated from multiple sources. Caution should be exercised in using it in the provision of clinical care. This summary normalizes information from multiple sources, and as a consequence, information in this document may materially change the coding, format and clinical context of patient data. In addition, data may be omitted in some cases. CLINICAL DECISIONS SHOULD BE BASED ON THE PRIMARY CLINICAL RECORDS. [employer] provides no warranty or guarantee of the accuracy or completeness of information in this document.
--- NOTE | 2023-11-02 11:55 | XR_ITS ---
The [address] [address] Patient Name: ALFREDO NAQVI MRN: [id number] date: 1980 Sex: F Assigned Patient Location: LAB Current Patient Location: LAB Accession/Order Number: [id number] Exam Date: 11/02/2023 12:00 Report Date: 11/02/2023 12:49 At the request of: CORBY MEADE Procedure: XR chest 2V EXAM: XR chest 2V HISTORY: COVID 19 U07.1 COMPARISON: None. TECHNIQUE: Upright PA and lateral chest x-ray FINDINGS: The heart is not enlarged and the vasculature is not distended. No acute infiltrate, effusion or pneumothorax is identified. The osseous structures are grossly intact. XR/XR chest 2V IMPRESSION: No acute infiltrate or evidence of cardiac decompensation. Electronically authenticated by: NEENA ORELLANA Date: 11/02/2023 12:49
[2023-11-02 12:31] LABS: Alanine Aminotransferase 31 U/L (14-59); Albumin Globulin Ratio 0.8; Albumin Level 3.3 g/dL (3.4-5.0); Alkaline Phosphatase 72 U/L (46-116); Anion Gap 16.1; Aspartate Amino Transferase 11 U/L (15-37); BUN Creatinine Ratio 17.3; Bilirubin Total 0.4 mg/dL (0.2-1.0); Calcium 8.3 mg/dL (8.5-10.1); Chloride 94 mmol/L (98-107); Estimated GFR (African America 50 (>=60); Estimated GFR (Non-African Ame 41 (>=60); Globulin 4.2 g/dL; Glucose 436 mg/dL (74-106); Potassium 3.1 mmol/L (3.5-5.1); Sodium 133 mmol/L (136-145); Total Protein 7.5 g/dL (6.4-8.2)
[2023-11-02 12:32] LABS: Hematocrit 42.4 % (36.0-48.0); Hemoglobin 14.7 g/dL (12.0-16.0); Mean Corpuscular HGB Conc 34.7 g/dL (29.9-35.2); Mean Corpuscular Hemoglobin 29.7 pg (26.7-34.0); Mean Corpuscular Volume 85.7 fL (81.0-99.0); Mean Platelet Volume 10.8 fL (9.5-13.5); Platelet Count 562 10^3/uL (150-450); Red Blood Count 4.95 10^6/uL (4.20-5.40); Red Cell Distribution Width 12.7 % (11.0-15.0); White Blood Count 19.2 10^3/uL (4.0-11.0)
[2023-11-02 15:00] LABS: Internal Control Within Normal Limits; Mono Screen NEGATIVE (NEGATIVE)
[2023-11-02 15:05] LABS: Band Neutrophils Absolute 0.2 10^3/uL (0.0-0.3); Eosinophils Absolute Manual 0.19 10^3/uL (0.00-0.70); Lymphocytes Absolute Manual 5.37 10^3/uL (1.20-3.80); Monocytes Absolute Manual 1.53 10^3/uL (0.30-0.80)
== END 2023-11-02 11:45 | disposition home or self-care (01) ==
LOC: LAB 11:46
PROVIDERS: PCP Family Medicine; Visit Provider Family Medicine
DX: U07.1 COVID-19 (principal)
CPT/HCPCS: 36415; 71046; 80053; 85007; 85027; 86308

== ENCOUNTER 2023-11-25 08:05 | Outpatient (OUT) | payer OTHER, SELFPAY ==
--- OUTSIDE RECORDS SUMMARY | 2023-11-25 08:09 | XMS_ITS | CCD ---
Author Organization [facility] ion Partnership [facility] Care Team Providers Care Custodial Operations Manager Name Role Phone NEENA OLIVAREZ Admitting Unavailable [...] HYDROcodone; Translations: [HYDROCODONE-ACETAM INOPHEN] Drug Allergy 6 [facility] Repository (2 sources) Codeine; Translations: [CODEINE] Drug Allergy 3 [facility] Repository (4 sources) Morphine; Translations: [MORPHINE] Drug Allergy 4 Vomitus (substance) [facility] Repository (1 source) Acetaminophen / HYDROcodone Drug Allergy 4 [facility] Repository (1 source) Pseudoephedrine Drug Allergy 4 [facility] Repository (2 sources) HYDROcodone / Phenylpropanolamine ; Translations: [hydrocodone-phenyl propanolamine] Drug Allergy Rash [facility] Medications Current Medications Medication Drug Class(es) [...] hours as needed for ankle surgical pain, [facility]/pharmacy #[id number] Start Date: 04/16/22 Status: Ordered docusate sodium 100 mg oral capsule (1 source) Start: 04-16-2022 take 1 capsule by mouth twice daily Colace 100 mg Cap 100 mg = 1 cap(s), Oral, BID, # 20 cap(s), Refills(s) 0, Pharmacy: [facility]/pharmacy #[id number] Start Date: 04/16/22 Status: Ordered duloxetine [...] Refill(s) 0, Cancel Keflex script from yesterday, [facility]/pharmacy #[id number], 74, kg, 04/17/22 6:27:00 EST, Weight [...] day(s), # 30 tab(s), Refills(s) 0, Pharmacy: [facility]/pharmacy #[id number] Start Date: 04/16/22 Stop Date: 05/16/22 [...] for Procedure/Surger yon 05-18-2022 Consent for Procedure/Surgery [id number] 8#1.00CD:127 Normal [facility] Progress Note-Physicianon Progress Note-Physician Patient: Jane MUNOZ Age: 41 years Sex: Female : 1980 Associated Diagnoses: None Author: Jaun Lockhart Jr, DO Postoperative Information Post Operative Note: Post Anesthesia Care Unit. Anesthetic utilized: General. Health Status Allergies: Allergic Reactions (Selected) Severity Not Documented Codamine- Rash. Morphine- Vomit. Problem list: All Problems Smoker / SNOMED CT 145403699 / Confirmed Added secondary to documentation in Social History. Resolved: At risk for falls / SNOMED CT 231001379 Problem added when Risk for Falls Careplan [...] PACU when criteria met. Condition stable. Normal [facility] Comment on above: Result Comment: Elec tronically Signed By: Jaun Lockhart Jr, DO\.bryant\Date and Time Signed: 05/18/22 10:13 EST Intra[employer] Documentson 0 04-22-2022 Intra[facility] Documents [id number] 6#[id number]:127 Normal [facility] EMS Documentationon 04-21-19 EMS Documentation Please click on link to see report pdfCD:[id number] hVwLHYgGjt2YQPkVuFRY gVolONOlyQ30hgEKhoCJ bGNK4XySzUHRoEWA8GhR wIFIgMiAw JHPdZUS5ALAoPNYkXUD8 EEPnQQNvJ9Ggq7ZSk4ej NZ0sVWRlKIY7RNBqIWT5 OWOdRY0jD7UubVNt MTIyMCAwIFIvSUQgMTIy ZNCzPBQkLBEikSZAk9jy XJ8pMXVzWCA4HJJsZDJ0 NOFsCK9oXTxbAI3p U5PixdYfpKQoIFb0UQCx Yi2HJGQunIOtGSM9GO0X n4anczBjEHWhTJauV2Xi LYGwYWepASNXVr6t Tw7qgEz0N2TLANNpDuQf NHLwXd9ADHUvWRKuPqOr RJMfDLOmOHVrQVFbCl8N TGJcXYLkICHTW8SM SSAzPcZ3OMHlZa2+L1By o3UIBQOxH9ZNQa1TDYm9 IM5WyBQZJ9ZaaPUcKYY2 YJYiYRPlWZ1djsQz dCAxMjcyIDAgUj4+L1Jv xYR7XFZkH1U3jpJcbXWp ceRqbSIeQZWfRSbqTW3M FJtxH7FbFmKkVb7+ QxVcHA3qtqzhMSPgy2Or Ufd7P7uofdv0uEGlBMtv Mz4+e7LoDIGwKn8UNoCu L1KrZDXxa0SlZxWn TQh1JzZ6NUKsCgZpATK4 MyByZQpmCjAgIHNjbgox MKY2BUThQYh8ZW2uGjc2 IHJlCmYKMTAgNjk1 SdN4BBVwStUxMsVsGcWc lkPQUzs0VQKaDlWdOco4 EjI6BUZkQyJzQeIxAcEa pkQUYlcmQXA4LDGp CiNmQAj2KR6mYgy7FJNx AjMYMEHaLiEmAov0AWE1 XnOiNJ31NJJjVOvrEcMg VTC3FY5bDUReMgv7 MO1iMy9kQFGgNCojFnN8 QD0cRDZ8WSLgLzHrTV30 NSAtMzIuMjUgcmUKZgow ShsyDHBuw0RhOfKx Xpj4SAJ9HI92HJY3As4h NSAtMTIgcmUKZgowICBz W50UBPVqEyYrAmemJhC6 UAU7Qa9xPAHpZE66 LLFcHYijOrLrUPV1CEDs W20VJxy7SZT4EG96EYK7 Cg4vOZKqZSKhxbFBGvoq JXIlI01HTpx1FEN0 Cq7kWTKrCJqwXbLlRWMa HyJchlKTXucnKNH5RlQd LKk6CD6hKow4LVGeUySQ PAQyTPu3JxG9KMM9 HiGvSQ43HLTcNNbhBfEz UJZ3ViMgClg6AL11EW65 OJTnNtJZTKm0NvS5JNZ7 MaIaJrk1NE17MH08 HTUxKpSVDS63CCjwBHTj ldjhWX17CKQ5XpQsXyQp ZZk0MtXmESNgYKCaGjHY KRQwm8ClJfRhDkn0 UBG2JAT7OvUyDNBkPS43 ZNLhNDnrIqFdUS35MWG4 WX93VPMqHNUbXhWcYPXi WoDqgwKAHgj0TSKc ZDP9NHAvNFziLaO5SR6w Xds5QFSpDuXBJTXhYtHw VdG1Bxo3TCIzPmBfAGI4 AwKsxdQFIjo2FJJa CtN5Cfc9UNIpLvPvTNR7 LjUgcmUKZgowLjkxOCAg b1BcPfKxGd5iSBR9YFys GIsfVjs8DA6sMpXh DVqtHuSbKBIjihg8BMAy WjUaZaC2Eas0TOG4XW30 GREkZQ12TZXcFChiXtPb PKP3Ak59GNA0ZsJy WQ08YJPjZWiqWgJqJNO2 DA07IQY2DjClRSVzGnFn qxHQYvlbVAA7VQFtVHBt Bdr9MC9rDF10BUMb FhAIDKi5OoG5NEQ3Wg09 HLXmStRpXDZ6SyDkblXS OmnsZzauERYnf1XjGqSb Jmd5MNS0Qm46DAA2 NzQuNSAtMTIgcmUKZgow BEKbJ78VLZWhUdEaTIqt KzBiGGj0BgJtUSIiTdIa weIBZsqfUVZ2JCQs CJd2ZI6qKrc9YNLnMwYD FCJzZYypMER3UgJkXC71 OXGtXEntKlNxNMD9OTJt Faj6SB73RZ15YKMi WEozIeO9SY7gAFO4VTSo FA35EDQrXhOjPgPrqkCX DvmuVyrmADJqy6RcZeXl Kbg3JOWgES3bYOQ4 NzQuNSAtMTIgcmUKZgow YUFpJ47AJNWvUbHtXWP9 YZP6DT48NB3gAms2ZXXz CmYKMTAgNDYwLjUg RIj4TZ0rKzj9OQAhOaFF CPCbOQE3Xnw4PWM8BbAj BX88HZFhXCrkUtCvNTZ1 KW35OKOxXbHrGAZ8 UuQenzLOQlb1FVLlJoYc VLLvRuVdUC70JVHzCIEy YOFrNBjqHnGaVCA4SYNt H19BPDTfCmQnNLD9 Yjj9UEF0YG00IS7zBgJn EMksJxHdPSJezlyjFV04 XVF1VDruCBU6GdKbMYCd GQ91PIRqOMqbMjLn EHG4JORkM34ZEZXyMYB1 UeM6NDM5Ll9cAHXhDTRl NSByZQpmCjEgIHNjbgox NiAzOTMuNzUgMzYu LtWwSDVkFly9EVTwEvCM WU63VOcuPDThhkkbCbRa OTMuNzUgMzYuNzUgLTMw Dhv5KKEzWfLPWQLe t2WvMhNvYns1GKA9Ig64 ASL8LU5uDTZpItNbQxSa hzOMRwyeCaqeURTwv7Va CqAiLvp7HSW3Hr30 LDY0SM4aOIWmJgXzFsGq kiPWRdpwTCAuN88XRSE5 MNZ1Sj13YMI7ExPuCdLg MjUgcmUKZgowLjkx YKJca3ToYnNxYjYyIHLd DqGvCHVxHHLbToH1XPEl YeBZPRTap3QpBzY8ACIm OTMuNzUgNDkuNSAt MjAuMjUgcmUKZgowLjkx PZSuy3JhQtT6IPAeMQTr NzUgNDkuNSAtMjAuMjUg tkAPLjiwAIZeF46I ZlI2EtDpGtcyPgn4WSGt AbI9DX3fZA9zAHVeUErj YiAzOXO3SQIpC60PPiF0 WrLiLcqoMeb4ZOAs QpP6ER3sHC0pOWSrJBom CjEgIHNjbgoyMzguNzUg HtlkBed5EACxQZ1eKP6b NSByZQpmCjAuOTE4 SFKhB21TQkD9Ncr2JWU3 Bz28VSE7PpOlPrIpSiYw liFAVktvTAZlX75GYqab Xpt1ZFO9Rc26QZGx BN06SZ7bSI3lTVOuKSkp FcDsEUT5JGBiK50FCldn Cmb5ROA2Lc05ABGcMA04 WV4yNU3lBCLcNOoy CjEgIHNjbgozMDYuMjUg XjuyQre6FSWxRi7tFITk MjAuMjUgcmUKZgowLjkx MIGwy9MgDuAuHa4k SYJsSGGkHdBzGJJ8VyB1 EK2rXZ2cJWBvZCcfNlIf KCHxbyz1VnNoYIExJAYm NzUgMjguNSAtMjAu MjUgcmUKZgowLjkxOCAg y6VyMxYnPl85GIL9Cx96 LZEdIC20JH1eDT1aFNEp ZQpmCjEgIHNjbgo0 YVSrKscoUqu5FJU6Jae5 EX2iJH0gKPTvWGkePeQw KIW3DHBuX96MRWFqOVN4 Yr06PXRcVi48XWQm MjAuMjUgcmUKZgoxICBz F69TQNs5Thv5SVL0Sk39 CSVjTU64DA2uFI7uFLIb YCndPbYgXWZ0NGYk K85LCXd8Tfb7KXS5Xl97 ZRTqOG86LX9iIL2oSFNj AZdmJtMoVWRphib8JQat VpBjCiksGqd2AYR0 JnYgWIHbTwL7AGMgIpZV DC21BNvvXENbmwx1ONcx FsHwOyygAob9MQF1EgYm PFGaVgH3SPKfEcZO RGJur2GbMdY8UY10OZBu OTMuNzUgMjUuNSAtMjAu MjUgcmUKZgowLjkxOCAg y7WmWjK8XK21IYYj OTMuNzUgMjUuNSAtMjAu LnClejQSMsreAYXeO68E RWwbUxV2CNG6Gk03SEM8 CL7zSW7wBYItJBxp RvErOQT5LKTkE17AWJub YmB8DTN3Qr64KRT9DQ2r KY0tLLSnZYkgCmLtLTIn hwd2En67YIUqBcRc FDM1WC6gGNYcLEBpTXCg HZpaBdWyXBX0UBAtB58M NTIuNzUgMzczLjUgNzQu MjUgLTEwLjUgcmUK RnmaNILrR88YYWS6MNX4 Gn95WPDbWN6pLF16PTOa TpUKEZ99LDwwQAGscdeh MjcgMzczLjUgNDIg LTEwLjUgcmUKZgoxICBz B53LGUP6LVP0Qh22HEW7 LjUgLTEwLjUgcmUKZgow RbekCTHnq3BzCuW2 EFNuYlHpSFF6OS59SP5j OT56IXWoCsOSWAHxp4Ci FvBvWJ83CCV9Gn12POLh NlI8XD9aXF00JDRe KsCHUL77TFnrBEWwxavp AUyeSGMdTaLhXQWdDS8w NSAtMTAuNSByZQpmCjEg IHNjbgoyMzguNzUg MzczLjUgNDIgLTEwLjUg bbPNLnslQammFOLfj3Oa SxNwQA06UFYtXaIwLCA5 MiAtMTAuNSByZQpm CjEgIHNjbgoyODAuNzUg MzczLjUgMjUuNSAtMTAu WFUgBXcfWjTiCWR8DBYi A22FFjsqIck3OEA7 Mc55ORX1BrNwVEKkClAb llEANjwoPDAvK49KHgF9 FxE2ZSF5Iv85IDR2IX00 NSAtMTAuNSByZQpm YhRkEVC5SXQbF73LBcL7 ZzD8KHP3Qi03ZLC7PW88 NSAtMTAuNSByZQpmCjEg HBVayzl0WTDoVaom GsHxNEQ5YrV8SR5bGP13 FCYtStRBBH19LJrxGZJu ozf1WYAmKfutCgHnNYQ3 IvW8TZ3jBJ56LWPp QoLYXQJsZeRiSOW6Dkz4 SZ7rFL81HZJaKfVOXCAf XsWjGcJqPBFgFy87ZW9h PT96OWLxOqOWSFYa z5PxQjS1WFIqNH4rXTL2 NjQgLTAuNzUgcmUKZgox HyS9QCOpJoBaBV14HWVn MTEuMjUgcmUKZgo1 GdhfXmLaZDI0NdI2XPXy ZcXzBXCbRyH7WDVcJeFA JZl3UeS3PKN8 (more content not included)... Normal [facility] Progress Note-Physicianon Progress Note-Physician Patient: Jane MUNOZ [...] BID, # 20 cap(s), Refills(s) 0, Pharmacy: [facility]/pharmacy #[id number] Keflex 500 mg Cap: 500 mg = 1 cap(s), Oral, QID, X 10 day(s), # 40 cap(s), Refills(s) 0, Pharmacy: [facility]/pharmacy #[id number] Percocet 5 mg-325 mg oral tablet: See Instructions, 40 tab(s), Refill(s) 0, Take one to two po every 4 hours as needed for ankle surgical pain, [facility][id number] aspirin 325 mg Tab: 325 mg = 1 tab(s), Oral, Daily, Start 04-17-22 for 4 weeks for blood clot prevention., X 30 day(s), # 30 tab(s), Refills(s) 0, Pharmacy: [facility]/pharmacy #[id number] Documented Medications Documented duloxetine 60 mg Cap-DR: 120 mg, Oral, Daily, Refills(s) 0 gabapentin 300 mg Cap: 300 mg = 1 cap(s), Oral, Once a day (at bedtime), # 30 cap(s), Refills(s) 0 omeprazole 40 mg Cap-DR: 80 mg = 2 cap(s), Oral, Daily, Refills(s) 0 Problem list: All Problems At risk for falls / SNOMED CT 040810133 / Possible Problem added when Risk for Falls Careplan was initiated. Smoker / SNOMED CT 552738330 / Confirmed Added secondary to documentation in Social History. Histories Past Medical History: No active or resolved past medical history items have been selected or recorded. Family History: No family history items have been selected or recorded. Procedure history: ORIF - Open reduction of fracture of ankle with internal fixation ([id number]) on 04/16/2022 at 41 Years. Social History [...] Systolic Bloo (more content not included)... Normal [facility] Comment on above: Result Comment: Elec tronically Signed By: Jaun Lockhart Jr, DO\.br\Date and Time Signed: 04/20/22 14:45 EST Coding Summary.on 04-19-2022 Coding Summary. [id number] Gh0bWw+PGhlYWQ+PE1FV YQzG21fzFUwjD3QT3xPT K3VNWTKNJJBVM6NMH6gf KM0QLcpV6MrrgHr ShwpvXNkXO52YZo1BQU2 nEunROavbE2etPEoI9w6 WiGbSR95hZ51KJkqXEUn JaE8RvPedqpdxOJw Z8pyTeYqmORrDap+PHRh YmxlIHdpZHRoPScxMDAl YsQhfDymUX5uPa2tSOGu LWNvbGxhcHNlOiBj j0dbXQLzNLxdCU9ocPzo C4RsiGD4SNHpo5m3Ot31 dHI+XXAfEQU5oHhnVFwr z688LlPfp1ofVKL9 wEAmZXtbKCN5K84ez6F8 MEMcIOAlFAI0xIZ6uO8b jDflfrgnK4PniDSwFvL3 SFD2bBTesJ3bxXti bzkqvC6uHmn+E52HOY1G LBXZMQ7AXjo1M8WvEvfd dHI+XE85DXKhJS44hSJy bNXtj4lqiVn7DzBt LOOrXJW4pHgaWVojm6Sx QCIhZ55qsWXnu2D7LGSj fUyzvNOuCmVllKA3yE1j FPphrolql5ztrgha Ibqmh4vnsz34mH44Y37r QPixZHNrQWU2VVJlFTIu pRhsju1dmK6eKv7+IDxj n3xvg7optAt8OuOn CHMcmeEkbZryDSP6h0Ky Sw92D8EzaXxjr6KrYih1 sj70lHPph1N3aWW2OFmn MJYjkX6oZLhaNxT4 YZQdOiKamG41hLUgDGfe Bu1fuJqveLbkZQ2mEKAv ipyiEZVipL4qHDMyzBLq yKxwEI6eDEZwmecb w122UzNwIWN7MSZtyTTm C7EhyD5mUqBrIVJaKQLu L3IxlGJjPEicV459XHas MnX3HXNminXxF9Tq TTZkjZliEaP4f1C5Hn8M i7OfrcjrRHS5ZPwwJYVx TfJ2CiVwSuN8J8BiQzi1 TPHceJryNC9fG5Jj CAFijpqkakjuuGA6IORu STNvhX84rNIxGFleCu7j y8H5s472WLGbSYEmrV75 Os3xoYyiHBCdbVAL nV7ajlgvr5jhypgvLrNh WNXuVWp6EZe1QLQteIlh WlVrKEF3NrL8YJS8qWFd pF9sqOgugjzpyA8d Oyc+W57yrU4cJVB1CPV6 emftHYKjrbMuEW73YD23 X6QkFlpfpADxpVK+PGRp ejIshFofQG5kFfEe x2ecd7SlIEkiC0YqDQXe OGtyAzm4TEQkLMO5jAX7 jS9fQATvGAern5M9mIF4 Y3EfoaDkhw9bf7hc YFKjECobW76tsETga8Z8 KVMooKC7HKYzdJkzPtSk oF90Skb+EZOryZamm7Wt Gwoqw1cka2chdUf1 IjMwJSIgdmFsaWduPSJ0 x2YzWf52Z47eDAfiMACn GLEpVNSwMOCnoCtzoi7z mY1kZo3+PGNvbCB3 gRR2bZ0zVXOeIsM0HXhr W789NeJxpHOqBtrwk3ds f2fjsMt8VsFbVZOmeyTf uCyfVVJ4i7NzQr93 R82gXPojPLJjOVRoLOIi VVMvcHqkhb7ojK8sDk1+ WA8xr5fzae36cO13nAC+ KEBtVIK6oPkfBBcl YJHrrM8aCZhoVxL5RKAi VmLewZ71bLShTIjnTt1t bAsaeFjkHA7rBDGcoaev e542DlMkk6ydZWWl oLAjKUiqJGN7X69kc3J7 RQGeSYBmMIR7xZO3rH6g bGlnbjogbGVmdDsgdmVy eKrzKCzgHEsjI224 IHRvcDsnPlBhdGllbnQg SjRyFCx5Z5TxDoi8TLYf oSzoRN5ysMWyHHrtYh3r mVcfdXekZG5uOXHf ipock146XhEok4wiJEFr aIXnRMulMET4N41em5W6 KBIoOHPqYRG3wXW4kE0p bGlnbjogbGVmdDsg vyZhtGesXCkuRIwsP936 IHRvcDsnPkJpcnRoIERh mRK4KX79CW89iHBzw8K0 oWX2B2GzLZOtxfyd mvgofDB0MOSeDBBxeT82 Ec3hgCpmTi2nPKLnWJN9 IHCgpGFuM3ZldY0mYkRg FMMzOAPjB2NzdDLj OZyhW215XXzlCpO5NADi egNsE8EhQYMrnRhzSsL0 x8Q4Ar3AT9J4OZ14HO27 pXAku5A5uGO2Y3Fg SVLpfqwvlmfhdGS8GMEu NFEifX17Wj0rtSqhDc7y ZNMvEOR0WSLkeMLwU4Eg nY8tMpFdTIDvUJXf L6NrwCQxFKzrZ745LWhe PrE2VEDxqtPtY2LlKXLm hWimGsX0z3T5Xz6UTLe6 VZ58HV96lSRuc6A3 pOM0S5WpOVBhrrvtlprx wRM9RPUiJNThwW89Sb4o mBhrCd1xPIAbDVK4KAGb aTEvS7MmlV4iTjAc KWTzVYXyJ7LetHVwPJvb E534SVvjNeT0VIVrshCy G2NnFVVrwXkxScE3u8I8 Rs3IWWDkLI06OEF2 sAB9MI89VN69M8HsYchm dGFibGU+PHRhYmxlIHdp ZHRoPScxMDAlJyBzdHls JF4rLd9hCCLwASUb jJdyiDWaMoZqp5ckMLSq PYhtMF8zfHvjH0QtoRB6 EGQln7x5Sn64V39uR7Ao dXA+JAKqyHM4hBC6 oO4sMrCnNuX4TKmlL170 UhApgMLsMbhxi5flu3vc wTa5AyJ7ENQppuXfpKpk PFH1t6IeEv16Z74q IHdpZHRoPSIxNSUiIHZh sWbojo7qgB0jWe8+PGNv pGP7gZY3vT9aLeAuKbR2 CJawG822QoAitTWm Svlwe0mup4pylBw2ZuJd ENSoaqPtlHbzRJS2i5Fq Qq42T7IoaQzud6JqUfg3 gq07jEIit1Z9vQE1 N1DbDBPgtfkhfGLylWru BC8rOWSwyzgcVPCqqF7g PWVjV1t4UrKoQlO5WHhz V9OostQ0FFGloPBx FPxqWRG9M05hb7B4LBTy XSQlZZN5vAX7oI8lgOpo bjogbGVmdDsgdmVydGlj EUuvYZxpT598NAYe bBopZBZoiP2eSKCziVXh cHtjAL7lWOVohzlzMmjS LHAxGUbNZ1CrWUpofJL+ LTSdLCY6aQyjZDbg QTDnqT9kWRGmE1q7FzYp OzS5AGmfB6HdHYCiteee Pv12uF0oVnLvXeB3TEqc V7NsbzH7MBWbqGJw HGzcIXU4O36oi1R4PVBu VAFnRCT1qVN5qI5elVpo bjogbGVmdDsgdmVydGlj FSyxBYnzP590WXXg tXipShN5MyG1ChK1Ldc9 G4HyVrn9DRHjsHumNK2d tQXjSOblBm1olByuoUry PM7lEJBlqhxnCPWl sA4dVKMzsSDgrQcjOY8j MKAhxtbud009YzYsNRU6 KOJzqUGlZ7LusA0mOyJi APRqXJQgB3YniHXs PLfjB312MWcjSzR2SJEo nrDbV9KmZYFhwVkpMwY5 z8C7Tn17DtXJBWCngdvs dGQ+SUKkCTA9eIbv OIvuVOTrtC5fMTMaX2d7 WeHkWsD8PRciR7PoFSYh vlheKl59aR0hLpXxCrN7 LKgnR9QogpA2VBUa vYSlNPqnFXS5H59ld1H0 HWBiMRRtVFU9cUB8lD0z bGlnbjogbGVmdDsgdmVy aDilWMamPIlkU476 IHRvcDsnPkZlbWFsZTwv dGQ+COMgMUT2pThgDBef SYDjgR1aBSJfJ5a0MsZe LqJ1VNbyZ6IzSZMf hqlrEf34dW5jDdSrCgT3 NIcgY8NkjkA2ASTcyFJn EXhiFEX4D40dc6B6VHOz SBYcCBJ4cEM7kW3u bGlnbjogbGVmdDsgdmVy mQabRJjtCQafG216RHYu sBdaAojlfAE4gZMooEcd dGQ+AU85py20G2Rt GgzdVig9DWKiNNE1gOK7 pP4dBQRvTScjh7N6kNT2 N2QopgPehl6mf7mtEDQd RAiaX47bxLVdr6D5 LNBoeNQ0UPKufQfvBrSt nA13Eoi+SBAmrDibd6Qi Akvhk3mwq8niqBl0MkYl JSIgdmFsaWduPSJ0 y7MxRu57K26wBPzdQPQw CXTpESYhPHKbaPoymr5a sF8jFm7+WYEvrKS5mAG7 rY5oCbLkHuE2LFbg A684OjUdbAOeJimea3ng k0ylnHu3FsTrLBOsffXr kVqvLDY8r2ArTy00L1Zj sSgph3KtEsm7dh40 uRCus6Z5kRJ1W7XqCDHd gjdafXNmkHtdYP5vEBPs cjqpANMwrI4gAMDvR4s4 UcVsWsD6LJfmK4Ee oxR9HYKoeTDnFDUwkFFS qW0jvjhxe6rtfnmbJhIr LFFeSIr3LSt1QESkgLwn XqPdQOG8SjA2EHN6 pNTijH7tfCkkefphcO5n Oyc+HHh5q6msdEFnOE5s qZF5JX56VV57xCNbc4K4 gYV9C9OnKELrefop jaxjxML4FKKqXTBqsQ48 Dq4sqAmuDh1gCOKrWQI0 KBRidMLrA1TcgY1mBaNp BRByEGIgV1ThdFCl VLfrM843JItsKgA1AYHc aeLiO8CaGRMlqIqiXoG0 a5V1Cw2OUI19QA52EU72 eTDcu4Q6jGI2Y5Nr RKFploenogeiyZW5UJFf LRCojL77Ww1ygOykJz3l GVYsWAH2PUByxQSoZ1Lg uZ5tUwHrYKWsRMLb Z9WfpVOdBYfuZ020HPrq RlA5UZUhtmNbH5XaDCXp kOabMlI4u2U9Pl5GHv82 VL74EX13tXFcu6Q5 lAI0C8IvJTDoyjpxibax dKB5HNGbKHZcsF57Tm0s uFmfQo5vRSIwEBR3VJAl pGYxC5RktN8mUsDo UIUqYRVwF3SbdHRcBJjs K227UZyeZlK2WHAsdbAb Y7LbKRPcrTqoRkP1f4G7 Wp7GKXpyqlk7W3Ye PjwvdHI+DB07CPUbTG04 kUMlbRAel0xbtMq9DlVm QZAxJID0bSrdRVlld2Sk LJXuP47ziHVlc8Q3 IGNv (more content not included)... Normal [facility] Consent for Anesthesiaon Consent for Anesthesia [id number] [id number] #1.00CD:127 Normal [facility] Consent for Procedure/Surger yon 04-19-2022 Consent for Procedure/Surgery [id number] #1.00CD:127 Normal [facility] Discharge Instructionson Discharge Instructions [id number] [id number]#1 .00CD:127 Normal [facility] ED Note-Physicianon 04-19-19 23 ED Note-Physician Basic [...] 1000 mL 1,000 mL, 1000 mL, IV aal-mpz168-9dFwq [F], 2 tab(s), Oral Dilaudid 1 mg/mL injectable solution, 1 mg, IV Push duloxetine 60 mg Cap-DR, 120 mg, Oral lzplvo0Xjf [F], 300 mg, Oral VPMF3CHG [F], 1 mg, IV Push MOXO6WCS [F], 1 mg, IV Push amsire3Xrr-CW [F], 40 mg, Oral potassium chloride 20 mEq ER Tab, 40 mEq, Oral Zofran 4 mg/2 mL Injection, 4 mg, IV Push Disposition Plan Patient Discharge Condition Improved, stable Discharge Disposition Admit to orthopedics Discharge Prescription List Prescriptions No active prescription medications Follow-up No qualifying data available Attestation Patient was treated and evaluated by the Physician Access Registrar. The attending physician was in the Emergency [...] Denies Al (more content not included)... Normal [facility] Comment on above: Result Comment: Elec tronically Signed By: Capri Weiner PA-C\.br\Date and Time Signed: 04/15/22 23:21 EST\.br\Electronically Co-Signed By: Sonu Richards MD\.br\Date and Time Co-Signed: 04/19/22 18:39 EST IntraOperative Documentson 0 04-19-2022 IntraOperative Documents [id number] #1.00CD:127 Normal [facility] Main OR Intraoperative Recor don 04-19-2022 Main OR Intraoperative Record IntraOp Document Type FT Summary Primary Physician: Olu Yang DO Finalized Date/Time: 04/19/22 09:57:37 Pt. Name: AGNELA MUNOZ/Sex: 1980 Female Med Rec #: [id number] Physician: Olu Yang DO Financial #: [id number] Pt. Type: I Room/Bed: [place] [address] Admit/Disch: 04/15/22 16:23:28 - 04/17/22 14:15:00 Institution: [...] Role Performed Anesthesiologist of Surgeon - Primary Quality Control Head - Primary Record Time In 04/16/22 17:43:00 [...] Hollis Wesley RN, Ever Mcleod Role Performed CIVIL ENGINEERING ASSISTANT/SA Scrub - Primary Quality Control Head - Primary Time In 04/16/22 17:43:00 04/16/22 17:43:00 04/16/22 18:06:00 Time Out 04/16/22 19:41:00 04/16/22 19:41:00 04/16/22 19:41:00 Procedure ANKLE FRACTURE ANKLE FRACTURE ANKLE FRACTURE ORIF(Right) ORIF(Right) ORIF(Right) Comments Orientation Last Modified By: Costa RN, Ever Skelton RN, Ever Skelton RN, Ever Mcleod 04/16/22 19:41:16 04/16/22 19:41:16 04/16/22 19:41:16 Entry 7 Entry 8 Case Attendee Carlos Enrique TATUM, Margie Almazan Role Performed Binder Cutter Hand Binder Cutter Hand Time In 04/16/22 18:00:00 04/16/22 18:00:00 Time Out 04/16/22 19:24:00 04/16/22 18:05:00 Procedure ANKLE FRACTURE ANKLE FRACTURE ORIF(Right) ORIF(Right) Comments Last Modified By: Costa RN, Ever Skelton RN, Ever Mcleod 04/16/22 19:41:16 04/16/22 19:41:16 General Comments: Lonny Valeriomer-Biomet rep, also in attendance. Gibranflotation tender Protocols FT Pre-Care Text: Implements protective measures [...] physical in (more content not included)... Normal [facility] Prescriptions/Work Noteson 0 04-19-2022 Prescriptions/Work Notes [id number]#1 .00CD:127 Normal [facility] C Urineon 04-18-2022 Bacteria identified Cx Nom [...] Locations R1: This test was performed at: [facility], [address] [place] [address], [phone]- , , Normal [facility] Comment on above: Performed By: #### 1 [id number], [id number] ####[facility] [id number] [place] [address] Inpatient Patient Summaryon 04-17-2022 Inpatient Patient Summary [...] remove dressing, Keep incision dry Pharmacy Information [facility] Discharge Instructions PLEASE QUIT SMOKING AND AVOID SECOND HAND SMOKE New Follow Up Appointments after Discharge Follow Up with Olu Yang When: Comments: Call for followup appointment 2 weeks [facility] Where: [address] [place] [address]- Business (1) Follow Up with Corby Conner When: In 0 days Where: [address] [place] [address]- Business (1) Medications What How Much When Why Instructions Next Dose New acetaminophen-oxycod one (Percocet 5 mg-325 mg oral tablet) See instructions Closed displaced pilon fracture of right tibia Take one to two po every 4 hours as needed for ankle surgical pain Pickup at [facility]/pharmacy #[id number] New aspirin (aspirin 325 mg Tab) 1 Tablets By Mouth Every day Duration: 30 Days Start 04-17-22 for 4 weeks for blood clot prevention. Pickup at [facility]/pharmacy #[id number] 04/18 New docusate (Colace 100 mg Cap) 1 Capsules By Mouth 2 times a day Pickup at [facility]/pharmacy #[id number] 04/17 9:00pm New sulfamethoxazole-tri methoprim (Bactrim D.S. 800 mg-160 mg Tab) 1 Tablets By Mouth 2 times a day Duration: 14 Days Cancel Keflex script from yesterday Pickup at [facility]/pharmacy #[id number] Begin when filled Unchanged duloxetine (duloxetine 60 mg Cap-DR) 120 Milligram By Mouth Every day 04/18 Unchanged gabapentin (gabapentin 300 mg Cap) 1 Capsules By Mouth Once a day (at bedtime) 04/18 Unchanged omeprazole (omeprazole 40 mg Cap-DR) 2 Capsules By Mouth Every day 04/17 9:00pm Pharmacy Information [facility]/pharmacy #[id number]: [address] [place], [place] [id number] [phone] Test Results CBC BMP WBC: 11.7 E9/L [...] Cortical Scre (more content not included)... Normal [facility] Interdisciplinary Note - Cristóbal e Manageron 04-17-2022 Interdisciplinary Note - On Air Director Pt is awake and alert in bed, [...] financial assistance paperwork, declines further needs. Normal [facility] Comment on above: Result Comment: Elec tronically Signed By: Carol SIMMONS, Mahsa\.br\Date and Time Signed: 04/17/22 14:25 EST Operative Reporton Operative Report SURGERY DATE: 04/16/2022 AIRBRUSH PAINTER: Darlene Cheng C.F.A. PREOPERATIVE DIAGNOSIS: Right closed [...] marked site. Large C-arm was utilized with it support technician. Landmarks were identified. The leg [...] with 0 Vicryl and 2-0 Vicryl sutures. [place]erfield were applied. 10 cc of 0.25% plain Marcaine was injected between the incisions. Nazia once again were applied. Bacitracin, Adaptic, and well-padded dressing with posterior short splint were provided. Tourniquet was deflated. She was awakened from anesthesia and transferred to the Recovery Room in stable and satisfactory condition. Of note, due to her (more content not included)... Normal [facility] Comment on above: Result Comment: Elec tronically [...] DO Transcribed by: DANNIE Technologist: AIDAN Noe [facility] Auto Diffon 04-16-2022 Basophils/100 WBC (Bld) 0.3 % Normal 0.0-2.0 [facility] Comment on above: Order Comment: Order Added by Discern Expert. Performed By: #### 2 [id number], [id number] ####[address] [place] [address] Basophils/Leukocytes Auto (Bld) [Pure # fraction] 0.0 E9/L Normal 0.0-0.2 [facility] Comment on above: Order Comment: Order Added by Discern Expert. Performed By: #### 2 [id number], [id number] ####[facility] [id number] [place] [address] Eosinophils/100 WBC (Bld) 0.9 % Normal 0.0-8.0 [facility] Comment on above: Order Comment: Order Added by Discern Expert. Performed By: #### 2 [id number], [id number], [id number] ####[address] [place] [address] Eosinophils/Leukocytes Auto (Bld) [Pure # fraction] 0.1 E9/L Normal 0.0-0.5 [facility] Comment on above: Order Comment: Order Added by Discern Expert. Performed By: #### 2 [id number], [id number], [id number] ####[facility] [id number] [place] [address] Lymphocytes/100 WBC (Bld) 31.0 % Normal 14.0-50.0 [facility] Comment on above: Order Comment: Order Added by Discern Expert. Performed By: #### 2 [id number], [id number], [id number], [id number] ####[facility] [address] [place] [address] Lymphocytes/Leukocytes Auto (Bld) [Pure # fraction] 3.6 E9/L Normal 1.0-4.0 [facility] Comment on above: Order Comment: Order Added by Discern Expert. Performed By: #### 2 [id number], [id number], [id number], [id number] ####[address] [place] [address] Monocytes/100 WBC (Bld) 7.3 % Normal 4.0-14.0 [facility] Comment on above: Order Comment: Order Added by Discern Expert. Performed By: #### 2 [id number], [id number], 4258848, 5303900 ####[address] [address] Monocytes/Leukocytes Auto (Bld) [Pure # fraction] 0.9 E9/L Normal 0.2-1.0 [facility] Comment on above: Order Comment: Order Added by Discern Expert. Performed By: #### 2 138417, 00226831, 5427684, 7726505 ####[address] [address] Neutrophils/100 WBC (Bld) 60.5 % Normal 36.0-75.0 [facility] Comment on above: Order Comment: Order Added by Discern Expert. Performed By: #### 2 243984, 27216686, 9737044, 2648379 ####[address] [address] Neutrophils/Leukocytes Auto (Bld) [Pure # fraction] 7.1 E9/L Normal 2.0-7.5 [facility] Comment on above: Order Comment: Order Added by Discern Expert. Performed By: #### 2 300193, 57289980, 0752716, 1383319 ####[address] [place] [address] BMPon 04-16-2022 Anion gap [Moles/Vol] 10 mmol/L Normal 6-16 [facility] Comment on above: Performed By: #### 2 198622, 01603698, 2859424, 7633956 ####[facility] [address] [place] [address] Calcium [Mass/Vol] 8.6 mg/dL Low 8.9-11.1 [facility] Comment on above: Performed By: #### 2 469297, 26758789, 4023732, 2515463 ####[facility] [address] [place] [address] Chloride [Moles/Vol] 100 mmol/L Low 101-111 [facility] Comment on above: Performed By: #### 2 165027, 86691956, 6751088, 0988184 ####[facility] Iv[address]Nor[place] [address] CO2 [Moles/Vol] 29 mmol/L Normal 21-31 [facility] Comment on above: Performed By: #### 2 283001, 80097243, 8599747, 4867906 ####[facility] [address] [place] [address] Creatinine [Mass/Vol] 0.8 mg/dL Normal 0.5-1.3 [facility] Comment on above: Performed By: #### 2 575402, 17961023, 1403732, 9923196 ####[facility] [address] [place] [address] Glucose [Mass/Vol] 112 mg/dL Normal 55-199 [facility] Comment on above: Result Comment: If t his glucose result represents a fasting glucose, interpretation should refer to the following reference range: 55-99 mg/dL Performed By: #### 2 781065, 49272098, 0407148, 2077230 ####[facility] [address] [place] [address] Potassium [Moles/Vol] 3.3 mmol/L Low 3.5-5.3 [facility] Comment on above: Performed By: #### 2 233869, 44857264, 3268258, 3961738 ####[facility] [address] [place] [address] Sodium [Moles/Vol] 136 mmol/L Normal 135-145 [facility] Comment on above: Performed By: #### 2 070915, 75485276, 6028197, 2718020 ####[facility] [address] [place] [address] Urea nitrogen [Mass/Vol] 6 mg/dL Normal 5-21 [facility] Comment on above: Performed By: #### 2 693598, 14441616, 1428490, 8453458 ####[facility] [address] [place] [address] Urea nitrogen/Creatinine [Mass ratio] 8 No Units Low 10-20 [facility] Comment on above: Performed By: #### 2 468388, 31978304, 7546927, 6091695 ####[facility] [address] [place] [address] CBC w/ Auto Diffon 3 Erythrocyte distribution width (RBC) [Ratio] 14.1 % Normal 10.9-14.2 [facility] Comment on above: Performed By: #### 2 852367, 62280726, 4170952, 5931323 ####[facility] [address] [place] [address] Hematocrit (Bld) [Volume fraction] 37.1 % Normal 34.0-46.0 [facility] Comment on above: Performed By: #### 2 475161, 35451918, 2277303, 3831087 ####[facility] [address] [place] [address] Hemoglobin (Bld) [Mass/Vol] 12.6 g/dL Normal 12.0-16.0 [facility] Comment on above: Performed By: #### 2 293127, 05103013, 5188527, 1290538 ####[facility] [address] [place] [address] MCH (RBC) [Entitic mass] 30.0 pg Normal 27.0-34.0 [facility] Comment on above: Performed By: #### 2 743841, 15697324, 7465363, 6953161 ####[address] [place] [address] MCHC (RBC) [Mass/Vol] 34.0 g/dL Normal 31.4-36.0 [facility] Comment on above: Performed By: #### 2 856464, 71954662, 8687508, 8323883 ####[facility] [address] [place] [address] MCV (RBC) [Entitic vol] 88.3 fL Normal 80.0-100.0 [facility] Comment on above: Performed By: #### 2 927637, 38192471, 0194321, 9092163 ####[address] [address] Platelet mean volume (Bld) [Entitic vol] 9.6 fL Normal 6.4-10.8 [facility] Comment on above: Performed By: #### 2 054268, 76035977, 0459712, 3015331 ####[address] [address] Platelets (Bld) [#/Vol] 273.0 E9/L Normal 150.0-500.0 [facility] Comment on above: Performed By: #### 2 279946, 09780709, 0998164, 9201443 ####[address] [address] RBC (Bld) [#/Vol] 4.2 E12/L Low 4.3-5.9 [facility] Comment on above: Performed By: #### 2 534057, 84944455, 3182478, 1119810 ####[facility] [address] [place] [address] WBC corrected for nucl RBC Auto (Bld) [#/Vol] 11.7 E9/L High 4.0-11.0 [facility] Comment on above: Performed By: #### 2 337617, 92079362, 9625307, 8382224 ####[facility] [id number] CHEMISTRYOrdered By: SYSTEM SYSTEM on 04-16-2022 Anion gap [Moles/Vol] 10 mmol/L Normal 6 - 16 mEq/L [place] [facility] [place]isol Calcium [Mass/Vol] 8.6 mg/dL Low 8.9 - 11. 1 mg/dL [facility] Chloride [Moles/Vol] 100 mmol/L Low 101 - 1 11 mmol/L [facility]isol CO2 [Moles/Vol] 29 mmol/L Normal 21 - 31 mmol/L [facility] Creatinine [Mass/Vol] 0.8 mg/dL Normal 0.5 - 1.3 mg/dL [facility] GFR/1.73 sq M.predicted among blacks MDRD (S/P/Bld) [Vol rate/Area] mL/min/1.73 m2 Normal >=59mL/min/1 .73 m2 [facility] [place] Chem S GFR/1.73 sq M.predicted among non-blacks MDRD (S/P/Bld) [Vol rate/Area] mL/min/1.73 m2 Normal >=59mL/min/1 .73 m2 [facility] [place] Chem S Glucose [Mass/Vol] [...] 4.2 E12/L Low 4.3 - 5.9 E12/L [facility] HemeAutoSS WBC corrected for nucl RBC Auto (Bld) [#/Vol] 11.7 E9/L High 4.0 - 11.0 E9/L [facility] [place] HemeAutoSS Inpatient Clinical Summaryon 04-16-[address] [facility] [address] [place], [place] [address] Clinical Summary Person Information: Name: ANGELA MUNOZ Age: 41 Years : 1980 Sex: Female PCP: Corby Conner MD Marital Status: Single Phone: [phone] Race: White Ethnicity: Non- or Language: [place]er Visit Id: Visit Reason: Fall; Ankle injury - Minor; ANKLE FX Speciality: Acuity: Enc Type: Observation Med Service: Medical Arrival: 04/15/2022 16:23:28 Discharge: Dispo Type: Admitted as IP to this [facility] Address: [address] [place] [address] [id number] Provider Notes: Diagnosis: Closed displaced fracture of [...] up: With: Address: When: Olu Yang [address] [place] [address] [facility] (1) Comments: Call for followup appointment 2 weeks [place] office With: Address: When: Corby Conner [facility] [facility], [place] [address] Business (1) Patient Education Information: Normal [facility] Inpatient Patient Summaryon 04-16-[address] [facility] [address] [place], [place] [address] Patient Discharge Instructions PERSON INFORMATION [...] up: With: Address: When: Olu Yang [address] [place] [address] Business (1) Comments: Call for followup appointment 2 weeks [place] office With: Address: When: Corby Conner [address] [facility], [facility] [place] [address] Business (1) In the event [...] Leaflets: You may receive a survey from [employer] asking you to rate your care experience. Your feedback is important and will help us understand what we do well and how we can improve the quality of care we provide to you, your loved ones and our community. It?s an honor to serve you. Thank you for choosing [facility] Normal [facility] Insurance Correspondence Off iceon 04-16-2022 Insurance Correspondence Office [id number] 3#1.00CD:127 Normal [facility] Laboratory - Microbiology an d Antimicrobial susceptibilityOrdered By: Lani Hogan on 04-16-2022 Bacteria identified Cx Nom (U) >100,000 cfu/ml Gram Negative [employer] Tender species [facility] Main OR PACU I Recordon Main OR PACU I Record PACU Phase I Document Type FT Summary Primary Physician: Olu Yang DO Finalized Date/Time: 04/16/22 20:43:42 Pt. Name: MUNOZANGELA/Sex: 1980 Female Med Rec #: [id number] Physician: Olu Yang DO Financial #: [id number] Pt. Type: O Room/Bed: [facility]/ Admit/Disch: 04/15/22 16:23:28 - Institution: [...] By: Flora Brandon RN 04/16/22 20:43 Normal [facility] Main OR Preoperative Recordo n 04-16-2022 Main OR Preoperative Record PreOp Document Type FT Summary Primary Physician: Olu Yang DO Finalized Date/Time: 04/16/22 18:15:02 Pt. Name: ANGELA MUNOZ./Sex: 1980 Female Med Rec #: [id number] Physician: Olu Yang DO Financial #: [id number] Pt. Type: O Room/Bed: S335/01 Admit/Disch: 04/15/22 [...] By: Ever Skelton RN 04/16/22 18:15 Normal [facility] Monitor Recordon 04-16-2022 Monitor Record [id number] 0#1.00CD:127 Normal [facility] Monitor Record [id number] 2#1.00CD:127 Normal [facility] Operative Reporton 3 Operative Report Patient: ANGELA [...] Auto 60.5 % Lymph Auto 31.0 % Christian Auto 7.3 % Eos Auto 0.9 % Basophil Auto 0.3 % Neutro Absolute 7.1 E9/L Lymph Absolute 3.6 E9/L Christian Absolute 0.9 E9/L Eos Absolute 0.1 E9/L [...] % HI Lymph Auto 11.5 % LOW Christian Auto 5.3 % Eos Auto 0.4 % Basophil Auto 0.7 % Neutro Absolute 12.0 E9/L HI Lymph Absolute 1.7 E9/L Christian Absolute 0.8 E9/L Eos Absolute 0.1 E9/L [...] Room in stable and satisfactory condition.. Normal [facility] Comment on above: Result Comment: Elec tronically [...] Not Documented Codamine- Rash. Morphine- Vomit. Normal [facility] Comment on above: Result Comment: Elec tronically Signed By: Olu Yang DO\.br\Date and Time Signed: 04/16/22 07:19 EST UA With Cult Reflexon 2022 Bacteria LM Ql (Urine sed) 3+ /HPF Abnormal Trace [facility] Comment on above: Performed By: #### 1 7973350, 2575263 ####[facility] [address] [place] [address] Bilirubin Ql (U) Negative Normal Negative [facility] Comment on above: Performed By: #### 1 2139791, 6410024 ####[facility] [address] [place] [address] Clarity (U) SL CLOUDY Invalid Interpretation Code [facility] Comment on above: Performed By: #### 1 1688432, 2303937 ####[facility] [address] [place] [address] Color (U) YELLOW Normal Yellow [facility] Comment on above: Performed By: #### 1 1376773, 1963186 ####[facility] [address] [place] [address] Epithelial cells.squamous LM.HPF (Urine sed) [#/Area] 0-2 Normal 0-2 [facility] Comment on above: Performed By: #### 1 9664304, 7706395 ####[facility] [address] [place] [address] Glucose Test strip (U) [Mass/Vol] Negative Normal Negative [facility] Comment on above: Performed By: #### 1 8797319, 4150875 ####[address] [address] Hemoglobin Ql (U) TRACE Abnormal Negative [facility] Comment on above: Performed By: #### 1 8855387, 9760877 ####[address] [address] Ketones (U) [Mass/Vol] Negative Normal Negative [facility] Comment on above: Performed By: #### 1 1144661, 0571393 ####[address] [address] [place].plasma/[place].R BC (Bld) [Mass ratio] 0-3 Normal 0-3 [facility] Comment on above: Performed By: #### 1 7495029, 5028354 ####[address] [address] Mucus Ql (Urine sed) TRACE Normal [facility] Comment on above: Performed By: #### 1 5988069, 3129520 ####[address] [address] Nitrite Ql (U) Positive Abnormal Negative [facility] Comment on above: Performed By: #### 1 9173682, 3061311 ####[address] [address] pH (U) 5.5 [pH] Invalid Interpretation Code 5.0-9.0 [facility] Comment on above: Performed By: #### 1 2331831, 2884524 ####[address] [address] Protein (U) [Mass/Vol] Negative Normal Negative [facility] Comment on above: Performed By: #### 1 7205692, 7674025 ####[address] [address] Specific gravity (U) [Rel density] 1.020 Invalid Interpretation Code 1.005-1.030 [facility] Comment on above: Performed By: #### 1 7293133, 7927995 ####[facility] [address] [place] [address] Type of Urine collection method Mandujano Normal [facility] Comment on above: Performed By: #### 1 0252008, 7639449 ####[facility] [address] [place], [place] [address] Urobilinogen Qn (U) 0.2 {Yonatan'U}/dL Normal 0.0-1.0 [facility] Comment on above: Performed By: #### 1 0456941, 1967964 ####[place] [address] WBC Auto Ql (U) 2+ Abnormal Negative [facility] Comment on above: Performed By: #### 1 5466391, 8191754 ####[facility] [address] [place] [address] WBC LM.HPF (Urine sed) [#/Area] /[HPF] Abnormal 0-5 [facility] Comment on above: Performed By: #### 1 0102140, 1860927 ####[place] [address] URINALYSISOrdered By: Ru gomez on 04-16-2022 Bacteria LM Ql (Urine sed) 3+ /HPF Invalid Interpretation Code Trace/HPF FT UA Auto SS Bilirubin Ql (U) Negative (04/16/22 6:17 PM) Normal Negative [facility] UA Auto SS Clarity (U) SL CLOUDY Invalid Interpretation Code [facility] UA Auto SS Color (U) Yellow (04/16/22 6:17 PM) Normal Yellow [facility] [place] UA Auto SS Epithelial [...] PM) Normal Negative [facility] UA Auto SS [place].plasma/[place].R BC (Bld) [Mass ratio] 0-3 /HPF Normal [...] [facility] UA Auto SS Urobilinogen Qn (U) 0.1890912 {Yonatan'U}/dL Normal 0.0 - 1.0 EU/dL [facility] [...] Transcribed by: DANNIE Technologist: JUAN PABLO Normal [facility] XR Chest Single Viewon 04-16 XR Chest Single View Exam Date/Time: 04/15/2022 17:46 EST Reason for Exam: preop;Other (please specify) Report IMPRESSION: There are no acute cardiopulmonary changes. CLINICAL HISTORY: preop COMPARISON: FINDINGS: The cardiomediastinal silhouette is unremarkable. The lungs are free of infiltrates effusions or consolidations. There are no acute osseous changes. FINAL REPORT Dictated: 04/16/2022 8:02 am Mogran Brady MD, V. Signed (Electronic Signature): 04/16/2022 8:02 am Signed by: Morgan Brady MD, V. Transcribed by: DANNIE Technologist: Normal [facility] eGFRon 04-16-2022 GFR/1.73 sq M.predicted among blacks MDRD (S/P/Bld) [Vol rate/Area] mL/min/{1.73_m2} Normal >=59 [facility] Comment on above: Order Comment: Order added by Discern Expert. Result Comment: eGFR is race adjusted. AA=. Performed By: #### 2 002913, 76386351, 0692748, 5243750 ####[facility] [address] [place] [address] GFR/1.73 sq M.predicted among non-blacks MDRD (S/P/Bld) [Vol rate/Area] mL/min/{1.73_m2} Normal >=59 [facility] Comment on above: Order Comment: Order added by Discern Expert. Result Comment: Baggage Checker vivi kidney disease could be indicated at eGFR's of less than 60 mL/min/1.73m2. Kidney failure is indicated at less than 15 mL/min/1.73m2. Performed By: #### 2 645903, 83055951, 0386497, 7163088 ####[facility] [address] [place] [address] Auto Diffon 04-15-2022 Basophils/100 WBC (Bld) 0.7 % Normal 0.0-2.0 F [facility] Comment on above: Order Comment: Order Added by Silver Expert. Performed By: #### 2 380955, 20684312, 5828480, 2763419, 17764231 ####[address] [place] [address] Basophils/Leukocytes Auto (Bld) [Pure # fraction] 0.1 E9/L Normal 0.0-0.2 [facility] Comment on above: Order Comment: Order Added by Discern Expert. Performed By: #### 2 182574, 22476135, 0329308, 8189028, 29220029 ####[address] [place] [address] Eosinophils/100 WBC (Bld) 0.4 % Normal 0.0-8.0 [facility] Comment on above: Order Comment: Order Added by Silver Expert. Performed By: #### 2 723053, 80364920, 6245966, 0190572, 67940103 ####[address] [place] [address] Eosinophils/Leukocytes Auto (Bld) [Pure # fraction] 0.1 E9/L Normal 0.0-0.5 [facility] Comment on above: Order Comment: Order Added by Silver Expert. Performed By: #### 2 629098, 63078201, 9979098, 1651978, 04465073 ####[address] [address] Lymphocytes/100 WBC (Bld) 11.5 % Low 14.0-50.0 [facility] Comment on above: Order Comment: Order Added by Silver Expert. Performed By: #### 2 049517, 05116867, 0070550, 4075085, 70760795 ####[address] [address] Lymphocytes/Leukocytes Auto (Bld) [Pure # fraction] 1.7 E9/L Normal 1.0-4.0 [facility] Comment on above: Order Comment: Order Added by Silver Expert. Performed By: #### 2 955292, 27639637, 0267233, 5558549, 39858785 ####[facility] [address] [place] [address] Monocytes/100 WBC (Bld) 5.3 % Normal 4.0-14.0 [facility] Comment on above: Order Comment: Order Added by Discern Expert. Performed By: #### 2 535395, 71451500, 1352196, 1880493, 22185820 ####[facility] [address] [place] [address] Monocytes/Leukocytes Auto (Bld) [Pure # fraction] 0.8 E9/L Normal 0.2-1.0 [facility] Comment on above: Order Comment: Order Added by Silver Expert. Performed By: #### 2 316564, 57283403, 0752520, 2569808, 52473173 ####[address] [address] Neutrophils/100 WBC (Bld) 82.1 % High 36.0-75.0 [facility] Comment on above: Order Comment: Order Added by Discern Expert. Performed By: #### 2 463117, 00549553, 7614107, 2993771, 61580159 ####[address] [place] [address] Neutrophils/Leukocytes Auto (Bld) [Pure # fraction] 12.0 E9/L High 2.0-7.5 [facility] Comment on above: Order Comment: Order Added by Discern Expert. Performed By: #### 2 096241, 25862549, 4825129, 2953801, 11871438 ####[facility] [address] [place] [address] B hCG Qualon 04-15-2022 Beta hCG Ql Negative Normal [facility] Comment on above: Performed By: #### 2 690552, 84140185, 8078944, 0707706, 01244925 ####[facility] [address] [place] [address] BMPon 04-15-2022 Creatinine [Mass/Vol] 0.9 mg/dL Normal 0.5-1.3 [facility] Comment on above: Performed By: #### 2 380529, 53897722, 0103656, 1937827, 12640817 ####[facility] [address] [address] Urea nitrogen [Mass/Vol] 7 mg/dL Normal 5-21 [facility] Comment on above: Performed By: #### 2 312654, 29069725, 3122383, 6720804, 46706257 ####[facility] [address] [place]Nthe [place] [address] Urea nitrogen/Creatinine [Mass ratio] 8 No Units Low 10-20 [facility] Comment on above: Performed By: #### 2 219361, 77949735, 5567361, 1334679, 15349685 ####[facility] [address] [place] [facility] [address] Anion gap [Moles/Vol] 13 mmol/L Normal 6-16 [facility] Comment on above: Performed By: #### 2 760626, 62565853, 9814485, 7180288, 66211732 ####[facility] [address] AveNthe [place] [address] Calcium [Mass/Vol] 9.1 mg/dL Normal 8.9-11.1 [facility] Comment on above: Performed By: #### 2 241002, 61892461, 3467632, 5012014, 49598375 ####[facility] [address]Nthe [place] [address] Chloride [Moles/Vol] 99 mmol/L Low 101-111 [facility] Comment on above: Performed By: #### 2 592398, 04243144, 0123186, 9127488, 84297030 ####[facility] [address]Nthe [place] [address] CO2 [Moles/Vol] 25 mmol/L Normal 21-31 [facility] Comment on above: Performed By: #### 2 647169, 58167961, 2209124, 4915089, 40847901 ####[facility] [address] [place] [address] Glucose [Mass/Vol] 128 mg/dL Normal 55-199 [facility] Comment on above: Result Comment: If t his glucose result represents a fasting glucose, interpretation should refer to the following reference range: 55-99 mg/dL Performed By: #### 2 390132, 19609627, 0042188, 9684456, 96021802 ####[facility] [address] [place] [address] Potassium [Moles/Vol] 3.1 mmol/L Low 3.5-5.3 [facility] Comment on above: Performed By: #### 2 224741, 13673640, 8494153, 6812576, 97001929 ####[facility] [address] [place] [address] Sodium [Moles/Vol] 134 mmol/L Low 135-145 [facility] Comment on above: Performed By: #### 2 273090, 22066240, 4389912, 3094279, 02764577 ####[facility] [address] [place] [address] CBC w/ Auto Diffon 3 Erythrocyte distribution width (RBC) [Ratio] 13.7 % Normal 10.9-14.2 [facility] Comment on above: Performed By: #### 2 690328, 91241634, 8155460, 4611729, 09321745 ####[facility] [address] [place] [address] Hematocrit (Bld) [Volume fraction] 40.0 % Normal 34.0-46.0 [facility] Comment on above: Performed By: #### 2 502288, 83900504, 4325570, 2714628, 35025660 ####[facility] [address] [place] [address] Hemoglobin (Bld) [Mass/Vol] 13.7 g/dL Normal 12.0-16.0 [facility] Comment on above: Performed By: #### 2 985145, 68402173, 2691849, 9059300, [id number] ####[address] [address] MCH (RBC) [Entitic mass] 29.5 pg Normal 27.0-34.0 [facility] Comment on above: Performed By: #### 2 [id number], [id number], [id number], [id number], [id number] ####[address] [address] MCHC (RBC) [Mass/Vol] 34.3 g/dL Normal 31.4-36.0 [facility] Comment on above: Performed By: #### 2 [id number], [id number], 9882502, [id number], [id number] ####[address] [address] MCV (RBC) [Entitic vol] 85.9 fL Normal 80.0-100.0 [facility] Comment on above: Performed By: #### 2 [id number], [id number], 3830417, 0282389, [id number] ####[address] [address] Platelet mean volume (Bld) [Entitic vol] 9.4 fL Normal 6.4-10.8 [facility] Comment on above: Performed By: #### 2 542036, [id number], 6615589, [id number], [id number] ####[address] [address] Platelets (Bld) [#/Vol] 282.0 E9/L Normal 150.0-500.0 [facility] Comment on above: Performed By: #### 2 883080, [id number], 0174916, 8803935, [id number] ####[address] [address] RBC (Bld) [#/Vol] 4.6 E12/L Normal 4.3-5.9 [facility] Comment on above: Performed By: #### 2 [id number], 12897946, 6325986, 0078664, [id number] ####[facility] [address] [place] [address] WBC corrected for nucl RBC Auto (Bld) [#/Vol] 14.6 E9/L High 4.0-11.0 [facility] Comment on above: Performed By: #### 2 457059, 17841430, 9169260, 0448065, [id number] ####[facility] [address] [place] [address] CHEMISTRYOrdered By: SYSTEM SYSTEM on 04-15-2022 Anion [...] rate/Area] mL/min/1.73 m2 Normal >=59mL/min/1 .73 m2 [facility] [place] Chem S Glucose [Mass/Vol] [...] Transcribed by: DANNIE Technologist: JUAN PABLO Noe [facility] Consent for Treatmenton Consent for Treatment [id number] [id number] [email or web address] Normal [facility] ED Clinical Summaryon 2022 ED Clinical Summary [address] [address] ED Clinical Summary Person Information Name: ANGELA MUNOZ [facility] Age: 41 Years : 1980 Sex: Female Language: [place] Islander PCP: Corby Conner MD Marital Status: Single Phone: [phone] Visit Id: Visit Reason: Fall; Ankle injury - Minor; ANKLE FX Speciality: Acuity: 3 Enc Type: Observation Med Service: Emergency Arrival: 04/15/2022 16:23:28 Discharge: LOS: 000 02:02 Checkin: 04/15/2022 16:23:28 Checkout: 04/15/2022 18:25:42 Dispo Type: Admitted as IP to this [facility] EVENTS: Event Name Event Status Request [...] 04/15/2022 18:25:42 04/15/2022 18:25:42 04/15/2022 18:25:42 ADDRESS: [address] [place] [id number] PHYS DOC NOTES: MEDICAL INFORMATION: Prescriptions Given: PATIENT EDUCATION INFORMATION: Instructions: Follow up: DIAGNOSIS: Normal [facility] ED Patient Education Noteon 04-15-2022 ED Patient Education Note Normal [facility] ED Patient Summaryon 023 ED Patient Summary [address] [address] Patient Discharge Instructions Person Information Name: ANGELA MUNOZ Age: 41 Years Arrival Date: 04/15/2022 16:23:28 Discharge Diagnosis: Primary Care Physician: Corby Conner MD Provider Information Primary Provider: [employer] Operator:Capri Weiner PA-C The exam and treatment you received in the Emergency Department were for an urgent problem and are not intended as complete care. It is important that you follow up with a doctor, nurse practitioner, or physician?s assistant case manager for ongoing care. If your symptoms become [...] opioids can be used to help relieve rhjancvk-ib-ulggvy pain and are often prescribed following a [...] be struggling with addiction, tell your health customer care professional and ask for guidance or call [facility]?S National Helpline at 2-141-309-XTCU. c Source: [place] Department of Health and Human Services/Center for Disease Control & Prevention [facility] Medications Given: Medication Dose Route HYDROmorphone 1.00 mg IV Push Left Antecubital Fo (more content not included)... Normal [facility] EMS Documentationon 04-15-19 EMS Documentation Please click on link to see report pdfCD:[id number] xLjQNCiX5+prnDQolQUJ PfJRtVVLaIgL2LYqtCpL aGC5nuw9EASlBT1QmNKR sASPdXb8G UAhcKHl3CSRlE90NN4pz JRlmUOkoUh5ShQ4eADNk zkHiXUGRH39zLahsAfYf NQovVCAxODAwOTMK Kl9xXSCiEXTrWUTiFOMw ICAgICAgICAgICAgICAg ICAgICAgICAgICAgICAg ICAgICAgICAgICAg ICAgICAgICAgICAgICAg ICAgICAgDQplbmRvYmoN Bh0KkKFbLk5BXoLhUaOI CjAwMDAwMDAwMzIg QOUbOKDmoy7LBLHbCFZv KIB2BSLsVJDdLTCwHExa KYUbZLZmXQc9WYUuEQJo IL7OIgReILJxWMU1 OdAwETDiGOBbln4MJPUl IEPzIPv6HfFtOJWlQSOl WVicEBPxXBMyYiC4PQEe UTLkIY7EZjAbDFXb ZVTzPJdrUYMdQVQmuv7S FKNdTTBnVzK7JDRcVBIf MCBuDQowMDAwMDAyNDI4 WUStVLCgHQ6LRgOn TIDpELW6DYfvAOQzRWOd cd6WHQRkMNHdUbqaUiUv MDAwMCBuDQowMDAwMDAz JLamRLPuXQWdUY1M BeUrWZZrKFO4BDIrDYRl IQHmoh8SZUQnMLPvRlA8 MCAwMDAwMCBuDQowMDAw MDAzODgxIDAwMDAw NF0VTpIdSQQbTQCcPdRn JRUwTUOucp1IEOEjSJNt NDUxMCAwMDAwMCBuDQow OOAgMKA7FzabSFOe UCXsPU3VJhGlZATbPKT7 ULjdULSsEHWpid3CKUDd GHVqHWT5IuSkUAJtYUPc UYlbXOTrSRI9XZog LRFjQERbLL3UIvOjKBVh YFH4EUTaLOJwBGTeqs9A RDEmQXDtMDE5PNFyMEXe MCBuDQowMDAwMDQ4 DHc2MDDtMRTfEE8QNqPd MDAwODUzNDQgMDAwMDAg aa4RqSJpvQgnvc2EFPmO C5gVPJk8ZOV6TOB3 NLa7SaH6ZoZ9LPq4XYWc JuT3QrDjJrLlRJF+CjxD RDBFMjExRTMyNEVDNTUw VYQbKNJmPod3YlPt KGjLMi9eTb9GrdP9JLC7 FJC3JprbEo5qeIYnJtDi WJNNP8NdnfBjBEmUC7Qu oLQeDFPiK5EKRAW5 Xp32EnobzKmQHEN3PPZI OOgnFC0DHsbGEsPuOUjw Sa92H1TZg1R1IjWiP4NF mRdIaxBSAKbwM5hA fQQ9p1qzeCzOkSJBuTfb OGdJcndPalFSQUlqUHNX eD34atfED6OkXNb2U1XG Yk7SAFunMfQnbT6D uZfxPWJ2nQ6aSXHIPExF SjpzYI7XJJNMQQe8VTz+ PiAgICAgICAgICAgICAg ICAgICAgICAgICAg ICAgICAgICAgICAgICAg ICAgICAgICAgICAgICAg ICAgICAgICAgICAgICAg ICAgICAgICAgICAg ICAgICAgICAgICAgICAg ICAgICAgICAgICAgICAg ICAgICAgICAgICAgICAg ICAgICAgICAgICAg ICAgICAgICAgICAgICAg ICAgICAgICAgICAgICAg ICAgICAgICAgICAgICAg ICAgICAgICAgICAg ICAgICAgICAgICAgICAg ICAgICAgICAgICAgICAg ICAgICAgICAgICAgICAg ICAgICAgICAgICAg ICAgICAgICAgICAgICAg ICAgICAgICAgICAgICAg ICAgICAgICAgICAgICAg ICAgICAgICAgICAg ICAgICAgICAgICAgICAg ICAgICAgICAgICAgICAg ICAgICAgICAgICAgICAg ICAgICAgICAgICAg ICAgICAgICAgICAgICAg ICAgICAgICAgICAgICAg ICAgICAgICAgICAgICAg ICAgICAgICAgICAg BH9Vq3PxuuW6jaFaWZpm AKigHQKAXp2TOMmhCiYn HS0ljo9ZREdNH14nmBDw YXRhIDIxIDAgUgov C1UqbqMxbDrbegKdRvRc PVRSKb9AiZABUUykX7X7 lOpuYQHqNOfjFMTRLp8O DGerGS4rOKKzOXDd Wm1lMRplTOXzYHLsCkRb PZIUWv4RzDBjAC3BYKUs oT9cYq5+DQplbmRvYmoN Md3DXxMkRSDuTfjT Yoa8Fx0IdCq5WUSbU8Hv DQLvCXOty7CoLf0LFA7s vZnaPWJ0Lc0ZFCv5Pp9+ GLjruOQsMT3WTyew V6PaIBRtLVIkAVEe8MDM kDCwORJxRVKHCNAs2yCM Cy7xQUhVDErMfcBYAbUB A0pLPmvhSvcDlvBs WoBpfJ5A5xEYeI9oAJsM xjCxK5J1Ghy4YwReDDjw iG8B+QtY7fv8DAaUArxR +l9hEWGpReVoaZqb rPcQd2I9XvH5BfVvYFXU GRgqVgLZbuhOBgDwqhqE DLelniHqfGDuJF2YDeIr YT5ufy6BHSauBLRx MH7fmu9TTJmCN6AnsnPo hmJtKAl2EwEmKTLfQn4C ZWRpYUJveCBbMCAwIDYx AlT3SISbJc3ITDMa ybTxRxAlMISNUq1CPGXg xZZqUQOrJMkXS6lUEvyj Z7ReUDzBI8poYxI4EAC7 IDAgUgo+Pgo+Pgov VHlwZSAvUGFnZQo+Pg0K IF3cf7ZvDDvYHvV1QENj l2WgTUv0NDrpJdUusDWt FXMqZNQqSzY1QXDg Yb5UiLc2FENoV2BeAAPk JIQvd4WkPn0VDI7maAoj JwUGA9Ilu905ufDpnbL1 YJesUT4hjcLslXL5 PAovSWFiYzYgNDMgMCBS Cj4+Cj4+Sh0TrKZ7rUSz SZ6Dx4CuQh8LaLVnEC4O G4TyCPS6Jf8+DQpz eESeFD6JNqicq7go3Zkb 2YE3YOGWRIM7HuT7DJCf SuXlClfI4+Wp9YI7SBMw RdVVWREb5FevWrya KCkMG90bLAcJGUOzo6ys kJfLFWgOADNrDtQNCmVu UZN2ixJjnU8KDY4sq8Xs WQzIByD5EDEoa1Qb ZZy9KMiwHc1rV91wdf7x tLarO8PkHWtjYTNzICwe TEogMAovTFcgMgovTUwg AZmtD0BxcUC4ZExr X1FrKBw+Yt3AYC3np4Vs XIvVOkJ1VQYcf9UiEBn3 JElpYw3nG41pje8tyXml E8SbYWh+Mb4STK8u e7DtUMpMIzJ6NQZxx0Ki XRb0HFxaMx6cD75dfe6b wBsaZ4EpAZzlYHJiDLza TEogMAovTFcgMQov GVkqBGxwX5IfuAZ7XUaq U9RqXRj+Ko3HZV9ua7Ab XVnGRsOmCJLst3YoEKm0 PAovQmFzZUZvbnQg F1JCGehXBdmMy6ZoxMUr VfP7TSKoAe2bUD0HYg8T OXVdHQ2tLD72Zs7exDXf ZrMwDTTgFo0OG6Sp X85bnD4aXE6KTKAggCd2 mD4QPt5KiFG6bBVcXP4E uZIaLPxzBK1Utvkbh3Jr IDMzIDAgUgovVHlw PDGsLu3cuDm+Dm8ZWT9d o8YdUVaLRuXnOYOfa1Zf FFw6OQyoXgVaHPSecfUx J8DENfkDDzyOw9Wq nKYoHxN5OBBiCv9sKI9Z Bx3ZLIQKhRM0SP8ZkbLu XUj8Nn1ZttLzxmsyGtFd KYSbzfJrrNvmIz0J IDdbi2RbuKKgIBGkSiIe Rg4KzFCryRAaFK10SJVC Il9DG1HOWLJiA4bZZYLr MW1CILGneYz9hAyl UWusODvbUz6ozIFei2Pk mPT4p1PcLiAlCLPFSj6V dUH9dLZjOX5NGRRWh069 NDasUVGSS2R9gAEx U1ZihmFLP9qoXqDiOPZu VbRpYzB9HrP2DNf+Pg0K PY7hm2ExKQrEMcClAXPv v5JoSVk3RFqxCWAl XP32ZLivWw65RMy1Xwui T1OhFTJiT7x4TEQ7GP37 NXW0PEktQYYdF0WsqCUx FQMmXpqkBGfOR2Uu DUvfASE4Oa5Kc689GnPv fXPhCDL4HZ08PFI9EpCe KoBaKeA3FOCbPPiyKQ53 NjAxNiAxMjIxLjE5 JWXeNWttTo2ntMYnmKEb JUG7ZQBkRvbpIp9icE9q zQJdL8ZYIesKLrzJe9Hc vJFtBlF3OKSsOw0f QA7QPp2AlUIfqBUZvikc GKSnPy2ZrGRiEpO8Cw0n ClH1PStfHTxhLMExYq4u pSQke3WnkYU5j4BK Rq1EYkKoWI8rxa8UCZxi ErNbPG8huj4SREgEJ5Vv bHRlciAvRmxhdGVEZWNv HAEKF0spiuu8bNWu MQDECs5IClE4fdYzoO3A hYsqRa2vivZWllFbuqiY LSZQrzoA1DZL8cQQug3U 7GS6bDvCQehp9a/Y rDDWWnGb38o7sfM3JLzC BJZ++OT0GInnpNRbjReu eO4kNrgSNhaXNlsOnmh8 h4FQ3Z4EcAAd/ZiU UTDoZ9mRza4ur8HiUB7G 5W7o6PQu8Te3ttMwh714 xPI9WW7XJjSFG7qUkw71 V7QECmiAu8gE1nMu Ynos8YSKqZPlKe8jRekd 8R98CGYqqHjVzxWcBlD1 Z37J0tudz+nCnMy071JR iHaEckRCIMpPiPIj ouKAvqvD/s/jBu6DcCvI Yo/mnBGV4nZR5WYwKp2e o+JMjoQehnrUKDBP8EOB lBO9DN6zcXTOJ0Ol BE9EuSWou9u/gFpeZrTs 7t3QavH+ou4XkjVpdu2h 3O+DE64sVn4wbxgu8h7F MY1gh2GsEYFcRWbq ajWqPjfBKa1BTpAbWBVg VguOZam2Ck2JMNNyZj3m nHEpP7vGKSCMB2KouFTv HOILEMkLE51GYi3O QHEsYJ0kAB67Dv5ksPWu LtQ6XUOdZp7ZM8HkH57t hG9bQJ6AKVSk (more content not included)... Normal [facility] EMS Documentation Please click on link to see report pdfCD:[id number] xLjQNCiX5+prnDQolQUJ DcGRmIDExMjAxDQoxNyA kJH1coq0YXKxXP6RbQLu bBUxKI1cu BjJ6GrHxRGL6PNicPMYe GVV4JxPBF5xcdvFpyjc6 CCWhKQgiIiAzBi6NZAFq Vr1JOCPsTQO5Fsg+ PiAgICAgICAgICAgICAg ICAgICAgICAgICAgICAg ICAgICAgICAgICAgICAg ICAgICAgICAgICAg ICAgICAgICAgICAgICAg ICAgICAgDQplbmRvYmoN Vs6ZuYCsHf9BTEnyWXjR CjAwMDAwMDAwMzIg RJLzVDOrwi5APKSkDFZt DJU7LNMnCZHdGALuFIfh LQIaZLKwFEE9HIRwLLRe EY5NBtErVZWkLTI8 HOXxSEQbOTYgwk4LAXBg VXNiEPv7PAQfGDCvEFZh DQowMDAwMDAxOTYzIDAw MRXyVX6ZDlUiKGOt OLBcPxUuRLMpHIFlbl7M MDAwMDAwMjIzNyAwMDAw MCBuDQowMDAwMDAyNDAz YNAfBGWaWW3AYqBm NPTbTPD5TXHlCEBiYUPz pc1FPPYrOPJrCuD6JGDy MDAwMCBuDQowMDAwMDAy Ggk2OIMvARAvTW6H QaXcMHAvXVK7RFSgOLPd ZOPfeu0KOAGqLUVgUrV2 NCAwMDAwMCBuDQowMDAw IKKgWuC6KVFqDLJq KS5KCxWvNTZbPaghPWqu UXQxHITlac6MSEViMDF3 ThG8YVJdQAUeMMZyZQr4 ukEuwWZxFOu0KTef QWAmSjy2JBT2QAbMKvM9 NzdGNEIwMkQzMzlBNkQw EiTdDOUpGY4RYSW1G0IE RkEyNjFEQzIzRTlD UHFaINP9DNLHSUNwZCY6 Fj4QG0FaFRCoOEQvZQu7 Jk9Za640CFO6DJLjVetd A0i9YBYhSBdmI351 cmNlIChXZUpYRnhOTzRm TeT1bRRBJFBSZ6T2K30p N31xHL5BXEukD6U2TUfn O7J7XzYZR6GBLGGo OLFcvAl1IGbgZDi0Yrpv qYogJME5N7UjkKM9C4xb m49aBBQZWNtQd3gwVOY1 W97WAjnQBrkFkcCW C3i8gNNNY1HcE1UtD5CA DCrOJLHdAEGdNf9WRKdP INqesgpNBc0bWw9+ICAg ICAgICAgICAgICAg ICAgICAgICAgICAgICAg ICAgICAgICAgICAgICAg ICAgICAgICAgICAgICAg ICAgICAgICAgICAg ICAgICAgICAgICAgICAg ICAgICAgICAgICAgICAg ICAgICAgICAgICAgICAg ICAgICAgICAgICAg ICAgICAgICAgICAgICAg ICAgICAgICAgICAgICAg ICAgICAgICAgICAgICAg ICAgICAgICAgICAg ICAgICAgICAgICAgICAg ICAgICAgICAgICAgICAg ICAgICAgICAgICAgICAg ICAgICAgICAgICAg ICAgICAgICAgICAgICAg ICAgICAgICAgICAgICAg ICAgICAgICAgICAgICAg ICAgICAgICAgICAg ICAgICAgICAgICAgICAg ICAgICAgICAgICAgICAg ICAgICAgICAgICAgICAg ICAgICAgICAgICAg ICAgICAgICAgICAgICAg ICAgICAgICAgICAgICAg ICAgICAgICAgICAgICAg ICAgICAgICAgICAg ICAgICAgICAgICAgDQpz dGFydHhyZWYNCjANCiUl SV0SFQcJCcO0YTVua4Ke RXb9WCiaKNS2EPUb mADtAURbFLSJTq5EvMIg TSA0bO6dMFwqQUIdJDSL Z2EjlM0BM951sTpswvFf ZPO4DRNrNptuTHSg ZW4fFYKuT3RkKK7cbyHU G3SvR4VlWTX2ZKLyOwce UUjnIHMhG6O4XQrxEfr+ In4AWB9ce1UdDWnP FbB6YNAqn3EgXRc6FLhj GbsteBBsAE2XoMK9BTTi E60cTHlqWJGqJ3ArWKle Yb2LOWB0Bq7+DQpz bTZbVP6EEutbF0Bk4FEh MK3RtUCOdWjITYPZZaYt KJnEFUL9rHQAiChwoAys +VCVqDVWpXF1yFKM NCXReJ1FeqGiHtC9zKLH g0EpLnoG7A4OlX+YiQCY +VbhJHgecbDcyHNoWB1I AqQlNQ7bsl8XRVgt KXLdKP7ske3TFClOV1Fw bnRlbnRzIFsyMiAwIFIg EtJgFXXULCD1UNErNmDa NSAwIFIKMjYgMCBS XDW3WACvJcEzEKZrLFTf MjkgMCBSXQovTWVkaWFC r8ifNtXwTDG8NDLhTvio CHexEOUlUR32EWJ0 XQUeAcnuLfUih0EzB3Jy CTi2Am1Mn482HZy3Pr4Q JXXyQKXzVBFeMOPOXi3T D0dAAfnoN4GjTLmU Y0wkZkZkHDUtVIRvOAON U5onXpQmXSGdSlStFRAD A6cpHpSiOAKgNaFjTFVE J8koEmI3ECAoVAOj Ambrocio+Pgo+PgovVHlwZSAv UGFnZQo+Kl6EHB0ts9Zy EDaFMiKgFBYog5LzLXx1 PAovQmFzZUZvbnQg Q2FjyPPnTJYqcYUeEw9E ycXjQNgyDiDdJ0dsNL8u fJBoH50veC8yAi1ZuHQ6 kMLwTH0FlJGvZRzi MBtuTPLyWr3kdQv+Pg0K GD3xy3BdNAfAOpHqZUQb v0WzUQy4RWytJTRsJ0Rm IDEwMQo+Hx9Hp6Gg XRVfLDhfQRvOXX2XMBRe WLGrdmfWKh2YTWDlSUPu IXZMCd8XCZWnGKGwCSIg LGE2JQFvBhFYiD6E ArGmRTI2DYIrRBXpVH38 E8G5bpaqSkWbLQVoSW1C F7iqZFxiOUSIIl1YQTXV BiNYMo3GDS5qq2Mn SIBgBUtfpiEaRbbVXb2V SxKsLTWzFmbTUap7Om6C BJ4auPnkBUUJPu7QLnP5 ehCpnS9BNblRRhJG KzY5KwOuGBExJZY8MKAz GKW2VG3dDoVqGfPptG2M A7xrMsY0QYBfMThZPOmF IW3UVDalpgActFSm UB7JGjKuWD2hcx3OQKuq SZVvWZ2vpo2IPVgCB0lj jfo3vJAqUFBACo7LBdJ1 trPmkF5YiY2FOhYM CjAgMCAwIHJnDQovRmFi YzUgMTEgVGYNCjEgMCAw IDEgMjAgNTQwLjUzMzMz IFRtDQpbICggRXYp PIW4NJllpkLeF1EddPAb TJKcKTKkK6VispTsLtkx APBICc8CDVKVAvAYTm9F AJ9hm9DjKKIeWWae imUqXvfCGf3QIiRfDACn MejOIax6Mf3YVC6agLoy UBTFWa6QZgG2epKaiU3L IdcPQiJJAqW1IdCa QWVfCFMbMfDuXDT3RwZ8 UeT3SGPtBKtrNJWcKwAk JYFeJJrTTHjVZR6WGQoq uiHjtYLqWI3TTfZn SK1qck9FBNrhSnThHS3i ja3FZGhVT3smpxj0cKBs CVNOGm4SOoP0skUgvE7H pZ4DTlIJVjOcFVGa IHJnDQovRmFiYzUgMTEg VGYNCjEgMCAwIDEgMjAg VGM1Jtz4NqR4HNMkZShr LZhePDKcFWX4HSne rsUvC7TxuDCtOYIsNIS1 U8YzD82vEKUsKQUOSYtW QY3ZXC7GTUsrppPwsTRp OZ7GWjJmSW5oig7V YLwvAwPoNY7pzv1PNQnT C5cuwmw2xAR9YDz+Pg0K i6HsHIEdHPuUGY7NrN5A NTUyIDAgMCAxNjUg WgYzJuW8SPRmLRehOINg PcT2SWGpAPzOVIgHBJ5R KIdgdxRdbLBlDT6LYsQk YL0chu0SFPhvZSAc FI7qeo6MSFpFG8fujdc4 eBGkXTLBWx4NKgJ4pqTt mX9GeK1SEdHBPuQhNHUb IHJnDQovRmFiYzUg MTEgVGYNCjEgMCAwIDEg JjZkOfM6ZbQrNH1RPpnb BZXWrxtqKAPfSMGhxN4V zGIpeP0zAIGhKHuq Q5ByTl26YOBmREERPAnP SN9YEY6KHNdmjqZplKJy GS7ELqPpYE6lfb6TZWga OCDoKY4avi7TLKyP V6kudtd0hLX9OTk+Pg0K m6LtMTEuVNmPYI4KxI3A OSLrWABwCZK2DmFmTOBq LwNcEhKlAsPxX95B On8PNVIvQPfpDZ1KLxDA CgPCHPcPGgWeHWT9ptLt uQ1QSY2vl6CvTHuHTjYz WRGfx3FsQBz6FRml Ycy1k4OzlfIxzGBqnvVf yRG6Ro6Jd7nhjgJiTOZn HY9XVFVmE1QNT8FUC7Ec bHRlciAvRmxhdGVE CCBnCJAFG4qelNgrgACs XdNOV6lucfw8fFHwVJl8 GCnbU1IpqPliQLUvUW2s Z4BNA8U5kKAxJ3bM MjjyO4OFM4laTKNfDMH2 MQo+Hf3Ln1UlNAJmCSi0 oLt7A8qMKsCl2uf81n26 c9//wy9mRn4dY7Xk 5zgg9TbyBx2aUA7SrDUd RHUGHlymBZcVOYkUr48t QQFBDChmELNiQMRMVASV I5lD+D7p2hNhPjrb m6wDLbv8by/9aNpn7e72 QlnF4yfA0A8DQwLYEiAM AgICAgICAgICAgICAgIC AgICAgICAgICAgIC AgICAgICAgICAgICAgIC WlIONfDEXrEBKdoxWX0H u1mma/w+AQaNd1Dq2WcT 0hx79YhQAx5/9ijn xU45Hrx7+Aq15tfDXaJw L9iyV39aV68/LDt+o1hf 6LkLkRm2vus07rl+PZU3 j2c+qXuZXyUgICAg 0CFRnxM+cukVrUoIaIHu +hlA1CsUqfeDbUIz/FJu Ii8Zs09PEJ0soV10+uf2 SnkH6LgZNxR39PGc k8W8S6RWnL/FgprrqeET tRcp6nsB4xsrmo9sdF9E YQjSbv7ER+/i (more content not included)... Normal [facility] HEMATOLOGYOrdered By: SYSTEM SYSTEM on 04-15-2022 Basophils/100 [...] 3 [facility]-Ar[facility] Note [facility]: 04/15/2022 16:25:10 EST Gender: Female Date of : Age: 41 Pre-Arrival Type: EMS ETA: 04/15/2022 16:50:00 EST Primary Care Physician: Presenting Problem: fall Pre-Arrival User: Ana Paula Funes RN Referring Source: Location: Completion Date/Time: 04/15/2022 16:20:00 [facility] Emergency Department Pre-Hospital Report Form Vital Signs: Pre-Hospital Report: Treatment in Route: Response to Treatment: Misc. Issues: Normal [facility] SEROLOGYOrdered By: Ru For ster on 04-15-2022 Beta hCG Ql Negative (04/15/22 5:35 PM) Normal [facility] Man Sero XR Ankle [...] MD, V. Transcribed by: DANNIE Technologist: MIRANDA [facility] XR Knee Complete 4+ Views Ri [facility] 04-15-2022 XR Knee Complete 4+ Views Right [...] MD, V. Transcribed by: DANNIE Technologist: MIRANDA [facility] eGFRon 04-15-2022 GFR/1.73 sq M.predicted among blacks MDRD (S/P/Bld) [Vol rate/Area] mL/min/{1.73_m2} Normal >=59 [facility] Comment on above: Order Comment: Order added by Discern Expert. Result Comment: eGFR is race adjusted. AA=. Performed By: #### 2 [id number] ####[facility] [id number] [place] [address] GFR/1.73 sq M.predicted among non-blacks MDRD (S/P/Bld) [Vol rate/Area] mL/min/{1.73_m2} Normal >=59 [facility] Comment on above: Order Comment: Order added by Discern Expert. Result Comment: Baggage Checker vivi kidney disease could be indicated at eGFR's of less than 60 mL/min/1.73m2. Kidney failure is indicated at less than 15 mL/min/1.73m2. Performed By: #### 2 [id number] ####[facility] [id number] [place] [address] ANES Rodney 07-07-2018 ANES POST HNO ID: [id number] Author: Gwen Angela Service: Anesthesiology Author Type: [...] 07, 2018 TIME: 11:33 AM PAGER/CONTACT #: [phone] [facility] ANES PREOPon 07-07-2018 ANES PREOP HNO ID: [id number] Author: Gwen Angela Service: Anesthesiology Author Type: [...] within 48 hours of Surgery/Procedure. SIGNATURE: Gwen Anglea MD PATIENT NAME: Angela Munoz DATE: July 07, 2018 TIME: 8:37 AM CSN: [id number] [facility] NURSING PROGon 07-07-2018 Protein mass conc HNO ID: [id number] Author: Leila (Rn) Julse RN Service: Nursing Author Type: Registered Nurse Type: Nursing Progress Note Filed: 07/07/2018 10:48 AM Note Text: Dr Olivarez spoke to patient at bedside [facility] PT EDon 07-07-2018 PT ED HNO ID: [id number] Author: Leila (Rn) TROY Vicente Service: Nursing [...] Signed By: Leila Vicente RN In Department: [facility] AMBULATORY SURGERY - [facility] SURGICAL PATHOLOGYon 019 SURGICAL PATHOLOGY Specimen #: [id number] Submitting Physician: NEENA OLIVAREZ M.D. FINAL DIAGNOSIS [...] x 1.0 cm. The specimens are sectioned. Hide Shaker sections are submitted in formalin in one cassette. KVB/rw 07/10/2018 C. Received in formalin labeled third extensor compartment tenosynovium left wrist are multiple white rubbery to fibrous segments of tissue aggregating to 2.3 x 1.8 x 0.4 cm. The specimens are totally submitted in formalin in one cassette. KVB/glw 07/10/2018 Gross examination performed at [facility], [address] [place] [address] Date of Report: 07/12/2018 Date of Procedure: 07/07/2018 Date of Receipt: 07/07/2018 Submitted by: NEENA OLIVAREZ M.D. Location: [facility] ([facility]) Diagnostic interpretation performed at [facility], [address] [place] [address]. CLIA Number: [id number] [facility] NURSING PROGon 07-06-2018 Protein mass conc HNO ID: [id number] Author: Roseline (Rn) TROY Douglas Service: ? [...] Douglas RN July 06, 2018 7:33 AM [facility] HOSPon 06-22-2018 HOSP Patient:Angela Munoz MRN: [...] results. Gm Broussard Progress Notes ([facility] IN[facility]): Noelle Rudd Rt 06/20/2018 12:35 PM [...] Rudd Rt June 20, 2018 12:34 PM [facility] Vital Signs Date Time Vital Sign Value Performing Clinician Jeff lindo 04-17-2022 12:16-0500 Heart rate 78 /min Olu Yang [facility] 04-17-2022 12:16-0500 SaO2% (BldA) [Mass fraction] 97 % Olu Yang [facility] 04-17-2022 12:15-0500 Diastolic blood pressure 70 mm[Hg] Olu Yang [facility] 04-17-2022 12:15-0500 Mean blood pressure 82 mm[Hg] Olu Yang [facility] 04-17-2022 12:15-0500 Systolic blood pressure 108 mm[Hg] Olu Yang [facility] 04-17-2022 12:15-0500 Body temperature 98.78 [degF] Olu Yang [facility] 04-17-2022 09:01-0500 Hourly Rounding Olu Yang [facility] 04-17-2022 09:01-0500 Promise to Return Olu Yang [facility] 04-17-2022 08:55-0500 SaO2% (BldA) [Mass fraction] 97 % Olu Yang [facility] 04-17-2022 08:01-0500 Hourly Rounding Olu Yang [facility] 04-17-2022 08:01-0500 Promise to Return Olu Yang [facility] 04-17-2022 07:09-0500 Hourly Rounding Olu Yang [facility] 04-17-2022 07:09-0500 Promise to Return Olu Yang [facility] 04-17-2022 07:00-0500 Body temperature 98.06 [degF] Olu Yang [facility] 04-17-2022 07:00-0500 Heart rate 79 /min Olu Yang [facility] 04-17-2022 07:00-0500 SaO2% (BldA) [Mass fraction] 96 % Olu Yang [facility] 04-17-2022 03:35-0500 Blood Pressure Location Olu Yang [facility] 04-17-2022 03:35-0500 Body temperature 98.24 [degF] Olu Celia [facility] 04-17-2022 03:35-0500 Diastolic blood pressure 73 mm[Hg] Olu Yang [facility] 04-17-2022 03:35-0500 Heart rate 89 /min Olu Celia [facility] 04-17-2022 03:35-0500 Mean blood pressure 86 mm[Hg] Olu Celia [facility] 04-17-2022 03:35-0500 Respiratory rate 16 /min Olu Yang [facility] 04-17-2022 03:35-0500 Systolic blood pressure 111 mm[Hg] Olu Celia [facility] 04-17-2022 01:35-0500 Blood Pressure Location Olu Celia [facility] 04-17-2022 01:35-0500 Body temperature 98.42 [degF] Olu Yang [facility] 04-17-2022 01:35-0500 Mean blood pressure 93 mm[Hg] Olu Celia [facility] 04-17-2022 01:35-0500 Respiratory rate 16 /min Olu Yang [facility] 04-16-2022 23:05-0500 Blood Pressure Location Olu Celia [facility] 04-16-2022 23:05-0500 Mean blood pressure 89 mm[Hg] Olu Yang [facility] 04-16-2022 23:05-0500 Respiratory rate 16 /min Olu Yang [facility] 04-16-2022 20:40-0500 Respiratory rate 17 /min Olu Yang [facility] 04-16-2022 20:10-0500 Body temperature 98.42 [degF] Olu Yang [facility] 04-16-2022 20:10-0500 Respiratory rate 26 /min Olu Yang [facility] 04-16-2022 19:55-0500 Respiratory rate 21 /min Olu Yang [facility] 04-16-2022 19:42-0500 Body temperature 98.24 [degF] Olu Celia [facility] 04-16-2022 11:18-0500 Heart rate 76 /min Olu Celia [facility] 04-16-2022 07:26-0500 Mean blood pressure 80 mm[Hg] Olu Yang [facility] 04-15-2022 20:53-0500 Mean blood pressure 81 mm[Hg] Olu Yang [facility] 04-15-2022 17:59-0500 Heart rate 82 /min Olu Yang [facility] 04-15-2022 16:25-0500 Heart rate 71 /min Olu Yang [facility] Encounters Encounter Date Encounter Type Care Provider Facility Start: 03-28-2023 End: 03-29-2023 [facility]ulatory [facility] Start: 03-07-2023 End: 03-08-2023 ambulatory Rica Villa MD Facility: [facility] Start: 01-17-2023 End: 01-18-2023 ambulatory Rica Villa MD Facility: [facility] Start: 04-15-2022 End: 04-17-2022 Evaluation and management of inpatient Olu Yang Facility:[facility] Start: 04-15-2022 End: 04-17-2022 Evaluation and management of inpatient Olu Yang [facility] Start: 01-11-2020 Patient encounter procedure CORBY DESHAUN Facility: Start: 07-07-2018 End: 07-07-2018 Patient encounter procedure [facility] Procedures Date Procedure Procedure Detail Performing Clinician Start: 04-16-2022 Open reduction of fracture of ankle with internal fixation Olu Yang Payers Date Payer Category Payer Private Health Insurance 1980 Unknown [id number] 1980 Unknown [id number] 1978 Unknown [id number] 1978 Unknown [id number] [id number]. [id number] 1978 Unknown [id number]. [id number] 1961 Self-pay Social History Date Type Detail Facility Tobacco vape Tobacco Use:. Vaping [facility] Tobacco smoking status No Smoking Status Entered [facility] Sex Assigned At Female [facility] Medical Equipment Procedure Code Equipment Code [...] Assessment Result Facility 04-15-2022 Functional Status N/A [facility] 04-15-2022 Functional Status [facility] Clinical Note 04-19-2022 Note Date & Type [...] Room. Olu Yang D.O. sathish Dictated: 04/17/2022 [id number] Transcribed: 04/17/2022 [facility] Comment on above: Result Comment: Elec tronically [...] were reviewed. Discharge medications are sent to [facility] in [place] with Percocet, aspirin, Colace, and Bactrim (of [...] testing. Olu Yang D.O. ca Dictated: 04/17/2022 [id number] Transcribed: 04/17/2022 [facility] Comment on above: Result Comment: Elec tronically [...] scooter again tomorrow if pt still inpatient. [facility] 04/03 [facility] Hospital Discharge instructions 04-17-2022 Note Date & [...] and water are not available, use hand daycare worker. ?Change your dressing as told by your [...] quitting, ask your health care provider. Take fuca-bpa-bfqnbwl and prescription medicines only as told by [...] as fried or sweet foods. ?Take an magr-oag-fqhhhai or prescription medicine for constipation. Keep all [...] 01/05/2006 Document Revised: 03/10/2018 Document Reviewed: 01/16/2018 [employer] Patient Education 2020 [employer] 04/17/2022 12:24:52 Ankle Fracture Ankle Fracture [...] told by your health care provider Take jleh-cbi-avabcaj and prescription medicines only as told by [...] 03/25/2001 Document Revised: 06/07/2019 Document Reviewed: 04/29/2017 [employer] Patient Education 2019 [employer]. Follow Up Care 04/15/2022 16:23:55 With:Olu Yang Address: [address] [place] [phone]- Business (1) When: Unknown Comments:Call for followup appointment 2 weeks [place] office With:Corby Conner Address: [address] [place] [phone]- Business (1) When: Unknown [facility] Clinical Note 04-16-2022 Note Date & Type Note Facility 04-16-2022 Note CRM entered the room to discuss discharge planning. PCP, DME and insurance discussed. Patient is alert and involved in plan of care. Contact information provided and whiteboard updated. Pt had ankle fx. PT rec knee scooter, LM with Ortho office machines wirer to see if Celia will order for pt. Pt has no insurance. HCAP given. Pt will have surgery today. ANt dc TBD. CRM to follow. [facility] Comment on above: Result Comment: Elec tronically [...] Recovery Room in stable and satisfactory condition.. [facility] Clinical Note 04-16-2022 Note Date & [...] No further PT needs at this time. [facility] History and physical note 04-16-2022 Note Date [...] her boyfriend and two daughters in the [facility]. She does have a full slight of [...] scapholunate ligament repair with Dr. Neena Olivarez, [facility]; gastroesophageal reflux disease. PAST SURGICAL HISTORY: Right wrist scapholunate ligament repair with pin, bilateral knee surgery. MEDICATIONS: 1. Cymbalta 60 mg daily. 2. Gabapentin 30 mg q h.s. 3. Omeprazole 40 mg daily. ALLERGIES: Codeine and morphine. She states she can take Percocet and [place]. REVIEW OF SYSTEMS: Otherwise negative. PHYSICAL EXAMINATION: [...] forward later today. Xochilt Bueno Dictated: 04/16/2022 [id number] Transcribed: 04/16/2022 [facility] Comment on above: Result Comment: Elec tronically Signed By: Olu Yang DO\.br\Date and Time Signed: 04/16/22 07:47 EST Hospital course Narrative Note Date & Type Note Facility Hospital course Narrative No data available for this section [facility] Progress note Note Date & Type Note Facility Progress note No data available for this section [facility] Summary Purpose Family History No Family History Records FoundNo Family History Records FoundNo Family History Records FoundNo Family History Records Found Advance Directives No Advanced Directives Records FoundNo Advanced Directives Records FoundNo Advanced Directives Records FoundNo Advanced Directives Records Found Procedure Findings Note HNO ID: [id number] Author: James Montenegro MD (Fel) Service: ? Author Type: Fellow Type: Brief Op Note Filed: 07/07/2018 10:25 AM Note Text: BRIEF OPERATIVE / PROCEDURE NOTE LOG ID: [id number] SURGERY/PROCEDURE DATE: 07/07/2018 INCISION/PROCEDURE START TIME: 9:43 AM INCISION CLOSE/PROCEDURE END TIME: 10:19 AM SURGEON(S)/PROCEDURALIST(S) AND AIRBRUSH PAINTER(S): Surgeon(s) and Role: * Neena Olivarez - [...] (more content not included)... Note HNO ID: [id number] Author: Zeinab Olivarez Service: Hand Surgery Author Type: Physician Type: Operative Report Filed: 07/12/2018 5:45 PM Note Text: OPERATIVE NOTE: July 07, 2018 Neena Olivarez MD, PhD, [facility] Shoulder, Elbow, Wrist AND Hand Surgery Orthopaedic AND Rheumatologic [place] [address] [place] [address] , Patient: Ms. Angela Munoz 1980, 37 [...] CREATED AUTHOR AUTHOR'S ORGANIZ ATION 01/11/2020 [facility] DATE CREATED AUTHOR AUTHOR'S ORGANIZ ATION 08/14/2022 [facility] DATE CREATED AUTHOR AUTHOR'S ORGANIZ ATION 04/01/2023 [facility] Patient Care team informatio n (unrecognized section and content) Personnel Name: Deshaun PEREZ Corby Address: Address: [address] [place] [address] Name: Brynn Quick LPN FOR RECORDS PERTAINING [...] BE BASED ON THE PRIMARY CLINICAL RECORDS. [email or web address] provides no warranty or guarantee of the accuracy or completeness of information in this document.
[2023-11-25 09:01] LABS: Estimated Average Glucose 252 mg/dL; Glycohemoglobin A1C 10.4 % (4.5-6.2)
[2023-11-25 09:16] LABS: Basophils Percent Auto 0.2 % (0.2-2.0); Eosinophils Absolute Auto 0.1 10^3/uL (0.0-0.7); Eosinophils Percent Auto 2.1 % (0.9-7.0); Hematocrit 36.9 % (36.0-48.0); Hemoglobin 12.5 g/dL (12.0-16.0); Immature Granulocytes Abs Auto 0.04 10^3/uL (0.00-0.03); Immature Granulocytes Pct Auto 0.7 % (0.0-0.5); Lymphocytes Absolute Auto 2.4 10^3/uL (1.2-3.8); Lymphocytes Percent Auto 43.6 % (20.5-60.0); Mean Corpuscular HGB Conc 33.9 g/dL (29.9-35.2); Mean Corpuscular Hemoglobin 29.3 pg (26.7-34.0); Mean Corpuscular Volume 86.6 fL (81.0-99.0); Mean Platelet Volume 10.6 fL (9.5-13.5); Monocytes Absolute Auto 0.5 10^3/uL (0.3-0.8); Monocytes Percent Auto 8.4 % (1.7-12.0); Neutrophils Absolute Auto 2.5 10^3/uL (1.4-6.5); Platelet Count 323 10^3/uL (150-450); Red Blood Count 4.26 10^6/uL (4.20-5.40); Red Cell Distribution Width 13.5 % (11.0-15.0); White Blood Count 5.6 10^3/uL (4.0-11.0)
[2023-11-25 09:50] LABS: Alanine Aminotransferase 43 U/L (14-59); Albumin Globulin Ratio 0.9; Albumin Level 3.2 g/dL (3.4-5.0); Alkaline Phosphatase 86 U/L (46-116); Anion Gap 12.2; Aspartate Amino Transferase 17 U/L (15-37); BUN Creatinine Ratio 7.8; Bilirubin Total 0.6 mg/dL (0.2-1.0); Calcium 8.8 mg/dL (8.5-10.1); Chloride 99 mmol/L (98-107); Chol HDL Ratio 5.6; Cholesterol 338 mg/dL (<=200); Estimated GFR (African America >60 (>=60); Estimated GFR (Non-African Ame >60 (>=60); Free T3 2.71 pg/mL (2.18-3.98); Globulin 3.4 g/dL; Glucose 325 mg/dL (74-106); HDL Cholesterol 60 mg/dL (40-60); Potassium 3.2 mmol/L (3.5-5.1); Sodium 138 mmol/L (136-145); Thyroid Stimulating Hormone 2.331 uIU/mL (0.358-3.740); Total Protein 6.6 g/dL (6.4-8.2); Triglycerides 314 mg/dL (<=150); VLDL CHOLESTEROL 62.8 mg/dL
[2023-11-27 12:13] LABS: Insulin 10.7 uIU/mL (2.6-24.9)
== END 2023-11-25 08:06 | disposition home or self-care (01) ==
LOC: LAB 08:06
PROVIDERS: PCP Family Medicine; Visit Provider Family Medicine
DX: I73.9 Peripheral vascular disease, unspecified (principal); R60.9 Edema, unspecified; R63.8 Other symptoms and signs concerning food and fluid intake; R73.09 Other abnormal glucose; D64.9 Anemia, unspecified
CPT/HCPCS: 36415; 80053; 80061; 83036; 83525; 83540; 84436; 84443; 84481; 85025

== ENCOUNTER 2023-11-29 12:59 | Outpatient (OUT) | payer OTHER, SELFPAY ==
--- NOTE | 2023-11-29 13:00 | VEIN_ITS ---
Patient Name: ALFREDO NAQVI MR#: [id number] : 1980 Exam Date: 11/29/2023 Ordering Doctor: DR CORBY MEADE . RADIOLOGY REPORT PROCEDURE: VC EXT VENOUS REFLUX MOE LMTD COMPARISON: None. INDICATIONS: R60.0 TECHNIQUE: Duplex imaging of the lower extremity to assess the deep and superficial venous system for the presence of deep or superficial venous incompetence and to document the location and severity of disease. The study includes evaluation of the great saphenous vein (GSV), anterior accessory saphenous vein (AASV) and small saphenous vein (SSV). Patient scanned in reverse Trendelenburg and standing. FINDINGS: RIGHT LOWER EXTREMITY: Saphenofemoral Junction Reflux: YesNo 4.6mm sec GSV: Diam (mm) Reflux/ Time (sec) Proximal Thigh 3.7 No Mid Thigh 2.1 No Distal Thigh 3.3 No Prox Calf 1.4 No Mid Calf N/A Saphenopopliteal Junction Reflux 3.2mm No SSV: Proximal Calf 3.7 No Mid Calf 1.3 No AASV: Proximal Thigh 2.3 No Mid Thigh Distal Thigh Thrombi: No acute or chronic thrombus visualized Compressibility: Normal Flow: Normal Preforator: Mid/med calf 1.3mm with 0s reflux. Tech Note: Patent varicose vein prox/med calf 1.3mm with 0s reflux. LEFT LOWER EXTREMITY: Saphenofemoral Junction Reflux: Yes 5.0 mm 0.6 sec GSV: Diam (mm) Reflux/Time (sec) Proximal Thigh 3.7 No Mid Thigh 3.3 No Distal Thigh 3.7 No Prox Calf 1.4 No Mid Calf 0.5 No Saphenopopliteal Junction Relux: 1.2 mm No SSV: Proximal Calf 1.0 No Mid Calf AASV: Not present Proximal Thigh Mid Thigh Distal Thigh Thrombi: No acute or chronic thrombus visualized Compressibility: Normal Flow: Normal Technical Sales Associate: Dist/med calf 2.3mm with 0s reflux. Tech Note: Patent varicose vein prox/med calf 1.8mm with 0s reflux. CONCLUSION: 1. No significant venous insufficiency Dictated by: Sarthak Knapp MD on 11/29/2023 at 14:31 Approved by: Sarthak Knapp MD on 11/29/2023 at 14:37
--- NOTE | 2023-11-29 13:01 | VEIN_ITS ---
The [address] [address] Patient Name: ALFREDO NAQVI MRN: [id number] date: 1980 Sex: F Assigned Patient Location: Current Patient Location: Accession/Order Number: [id number] Exam Date: 11/29/2023 13:00 Report Date: 11/30/2023 10:27 At the request of: CORBY MEADE Procedure: VC SEGMENTAL PRESSURES EXAM: VC SEGMENTAL PRESSURES HISTORY: I73.9 hyperlipidemia. Diabetes. Cool extremity. COMPARISON: None. TECHNIQUE: Resting ABIs and segmental pressures were obtained. FINDINGS: Right resting CORI normal at 1.14. Left resting CORI normal at 1.14. No gradients demonstrated. Normal toe brachial indices. VEIN/VC SEGMENTAL PRESSURES IMPRESSION: Normal resting ABIs. No pressure gradients. Electronically authenticated by: Zafar GE Date: 11/30/2023 10:27
--- OUTSIDE RECORDS SUMMARY | 2023-11-29 13:20 | XMS_ITS | CCD ---
Author Organization [facility] ion Partnership [facility] Care Team Providers Care Manager Access Name Role Phone NEENA OLIVAREZ Admitting Unavailable [...] HYDROcodone; Translations: [HYDROCODONE-ACETAM INOPHEN] Drug Allergy 6 [facility] Repository (2 sources) Codeine; Translations: [CODEINE] Drug Allergy 3 [facility] Repository (4 sources) Morphine; Translations: [MORPHINE] Drug Allergy 4 Vomitus (substance) [facility] Repository (1 source) Acetaminophen / HYDROcodone Drug Allergy 4 [facility] Repository (1 source) Pseudoephedrine Drug Allergy 4 [facility] Repository (2 sources) HYDROcodone / Phenylpropanolamine ; Translations: [hydrocodone-phenyl propanolamine] Drug Allergy Rash [facility] Medications Current Medications Medication Drug Class(es) [...] hours as needed for ankle surgical pain, [facility]/pharmacy #[id number] Start Date: 04/16/22 Status: Ordered docusate sodium 100 mg oral capsule (1 source) Start: 04-16-2022 take 1 capsule by mouth twice daily Colace 100 mg Cap 100 mg = 1 cap(s), Oral, BID, # 20 cap(s), Refills(s) 0, Pharmacy: [facility]/pharmacy #[id number] Start Date: 04/16/22 [...] Refill(s) 0, Cancel Keflex script from yesterday, [facility]/pharmacy #[id number], 74, kg, 04/17/22 [...] day(s), # 30 tab(s), Refills(s) 0, Pharmacy: [facility]/pharmacy #[id number] Start Date: 04/16/22 [...] for Procedure/Surger yon 05-18-2022 Consent for Procedure/Surgery [id number]:127 Normal [facility] Progress Note-Physicianon Progress Note-Physician Patient: Jane MUNOZ Age: 41 years Sex: Female : 1980 Associated Diagnoses: None Author: Jaun Lockhart Jr, DO Postoperative Information Post Operative Note: Post Anesthesia Care Unit. Anesthetic utilized: General. Health Status Allergies: Allergic Reactions (Selected) Severity Not Documented Codamine- Rash. Morphine- Vomit. Problem list: All Problems Smoker / SNOMED CT [id number] / Confirmed Added secondary to documentation in Social History. Resolved: At risk for falls / SNOMED CT 875635200 Problem added when Risk for Falls Careplan [...] PACU when criteria met. Condition stable. Normal [facility] Comment on above: Result Comment: Elec tronically Signed By: Jaun Lockhart Jr, DO\.bryant\Date and Time Signed: 05/18/22 10:13 EST [facility] [employer] 0 04-22-2022 [facility] Documents [id number] [id number]:127 Normal [facility] EMS Documentationon 04-21-19 EMS Documentation Please click on link to see report pdfCD:[id number] oWdGWZfBmf6FWWoQbWSQ uQlkSPIysR10uiZQdfIX hHGP0DwGjMWQxUQE4AyW wIFIgMiAw XFZqPBQ9NGScVDZpMYA1 TWUeVTLdB4Hvr8TGz9je FO9gPZNiOSR1NEVfPPX7 DYHtGR6cD7BfsHPj MTIyMCAwIFIvSUQgMTIy WVHiYFOwAZCuvPYYu7mt AM4wVTWvIPN5CPRkUZF5 SLJsOB3wYBylTD8c B7CrsmFtxTBtEZf8VJHr Rs0TBVSruYMbYVT5NW8R w3okzpPwFZIuOMjwW5At FENlGLemBLZUGo3q Qn6fwZt8A2KAOALdMfFm AZLoEx9PKBIkWZWxUyWg QQJdNLStUBAoOCFrYr4U AAQlKQEkWODNI5RD XJUwYyY9XSOeVs8+L1By s1MOXWGjK0KSIh6PAXa8 WG5DcFLWI8VauNPsWZC8 FINaOCXxQI3plmTs dCAxMjcyIDAgUj4+L1Jv bQP4YZCjZ3X8ucJumOPr kyLhfOEdXGEaVYglZF5G PRllX5GsOgBgGu1+ FrDjUI1jarnsOVZxv2Uw Vdt1T7dhpcm4mPGjAFuh Mz4+j6ZtJVMjOb0KFqTd V3IuPYCag1UbHaXk ACg9AzJ3VFUwNsXaUIP5 MyByZQpmCjAgIHNjbgox XXI5TSRsLNi2XI5jYaq1 IHJlCmYKMTAgNjk1 HoA2KULtHkYlUiLaHoHk nnTRAxt2UPXdXaDuKhu5 XnJ8TBIcYfHsRxIcHlPk blCYWkugIJG0ZSCl EwBdSDi6OS3lCbf1WJPk HyYLJGCvQfHyPuj3QKL1 RlAyPG58DVNdVWodChFv FGQ5DL5mXNBrFhe9 ID0uEt0gARFbIDhtMwL3 OJ2vUOW6XQUhAcEzBR64 NSAtMzIuMjUgcmUKZgow JxhpDTXpz9CsFoLo Olu1VRL8OB73RXY7Pn3f NSAtMTIgcmUKZgowICBz C59QMGNzRoIeDqekMaI3 ARZ6Ir7wVPGdTK44 LXKgNIfnLyRuWSJ6SWVq N04FVuw9UFD1NG55ATJ2 Lf0uEJOsXJInagZCFvre YUIsS69YZgy6SGQ1 Ja2yOTJxMKqpKwFzESRn BlJeaaMJYwfyMUV5NmGt OOg3JQ1qWzq4JSIoSsQK XZUvOVa3ZdK7GNS8 ZoGjDS02VROjGWspQgOv GJG2KxUzDdl3OG72JX08 YDCaNyDTYGb1JgB1LHX4 ZdRaTjk1SI51SL74 BCZhNsNFZI70WIycJKJd zkhqPI24HEW2JjYiBpBu UDw5OjLlEORrFFFhWgPA LYPfv5YxVpZeBci0 EWX8AGJ0MsQbYSSaEX69 NSBtRDbvWqNgEX32RZA4 PZ46WASwNGTyHeZqAFTd GjYmboHKGfo7NOMr OAP1UYVhZCfrDlP7XT5l Yyy6SUDnUxRWIYYhJkFq LzP9Yse7RRJuAlQmHSA4 NjHzngOFZoa2WNIm KhH4Dpn9HJToArJcPDN1 LjUgcmUKZgowLjkxOCAg u5ZrCzXfOl0jTMY0UVep HJkcBui2XH0tTxOn UDiuJjKlATZygwm7HQRr FxDhLrD9Udh2WKS5US48 YUDeEM61VMRgEHlxBjYx AIX8Sk38WQC2YlRl DL11RZNiIGbtDyNfFAW3 CY68CTH1TpHmCAKrBcCr arYJYwodCTG5XTOxWMVv Kxm6YX5sQF60VJUb TlUQHYk4LvJ1BQV5Cy40 PNOhBxNyTPT0EzRcwaMO HxssYxgsYDUjl5ZlFvFq Frk1RBT9Ph25SRS4 NzQuNSAtMTIgcmUKZgow SUFrW21KMCAqFtFpGAfv TdSwJKl5BoVmGRPfVbNc lfLSSzgzQRS4BVIf ISy8MG1lWag9MVKxCxTQ KTRlGFqpOWW7AdJnET44 SDWqMSwdQvRnLNY0SYRr Btj0IX09KS20MIQr GDgdCxR4EV7kVKI5DTBb ZD04GUKcPhDqZmUdhiMB RmvxIitwOAGkv4HxKhDv Iea9WYIiPN1xPGX7 NzQuNSAtMTIgcmUKZgow RIXiP30LYGGsOtJwDMQ7 ZDE4ZB04SA9xFsu7RZUk CmYKMTAgNDYwLjUg TPh1BB2oRqt6FRCkTgMS MCXeKBF7Qyb6ZXG4TfEw SV51KIYtMUpvUtBfQNT7 WX89BPMiEuZwGGJ6 JkGlkgQYYih4CTCiSvJn SIAyOqMbAZ83ZJPtKIHs VXEwAWaqOeSiJSJ8TCBf A06XBNXuJlCkLGS6 Inr5ARY6VP65XB8vRaKs QDdxWgKxZJTbiygtOR54 WGI8XIjjIJB6FaTgMHXh QV43AWPuXItiZdIj APX2IHGbX58CEICuGJF2 JjX7EGP2Gj7fURSlOUJx NSByZQpmCjEgIHNjbgox NiAzOTMuNzUgMzYu TeWaNMFfEve7YRNjGsNX OV16XLgsLOMwtxoqVfHq OTMuNzUgMzYuNzUgLTMw Meh1UTMlLhPSBICp l0CeAbDjYqu9KMQ5Rr82 DKD2WZ6sVXWpAdUsFqUe obOMZlewFdfgLWQau0Tz HvQcLzx3LPF4Lk15 LGR6VI5dKGRpXxKwNoDf zeAMDlyiLBBiF69EFAZ6 NTS5Lx96CWM3ZaTeCoNr MjUgcmUKZgowLjkx FJGpy1WsLsTyFxHxEEGd UfEfCQBsIRUyFeY0UOFi HqKLJEBpw6IdGoP6BEWg OTMuNzUgNDkuNSAt MjAuMjUgcmUKZgowLjkx CWTkx5IhFlE1WWUaCISb NzUgNDkuNSAtMjAuMjUg gyPAZatjOFVjK56J GtX3WsBnJemqTca1UPMp PkF7SN5aNX5bUJZfHSrd JlHfFHG0RGXaX03KWrJ4 LsMcRpoaLuy5QHAs YiD2GV3aGK7pPHYkSWwg CjEgIHNjbgoyMzguNzUg FaafTdi3SUUwPE9uLV7h NSByZQpmCjAuOTE4 CXNhJ27ZLlO1Pov4ISU3 Sk81OHM8XnGwKrAzBvXo rkTSIpavGKKgG34ZVbly Dki4MRI7Yc93RHDm EL89JW2sQU1yBOAqADpq VaBoWUA4WYWeE79ILida Ohv7BZZ4Vb40BOIfZQ65 UD4cEN7gVJQfEGsz CjEgIHNjbgozMDYuMjUg MdxxHbc2KNSpSy4bMEZp MjAuMjUgcmUKZgowLjkx FNSji7ZyIrCoMf2i QZPaREWuPwOzZYP2UiI3 TC9eNP4xRQYrCAggIuRc DRZakhx6LzUnOUMwMPSr NzUgMjguNSAtMjAu MjUgcmUKZgowLjkxOCAg s6HoEhUgJa52KMP9Hx71 MAMsZU16NX8pXO1oBTZi ZQpmCjEgIHNjbgo0 QAArZguxWxe6EMQ1Zoo2 LP7xYS0qMGJyRYicXrWj OCA4DCVgC38WLZQbXSJ7 Sh89KYDcXd23TNEa MjAuMjUgcmUKZgoxICBz Z48QYPa8Gvi4LVS2Nk75 UDXmUS23BD1rWQ7vIIKi CEjqHiHnJPY2WXYy D78DOCt5Mpl9LNK7Sh68 XVHgTE15AI3yON2oGDFk WXalGzWpKFYxjuw4QChn XyCtPeomOsz5UWH6 SpStNCLcBqX9CPDpCyCU IB42MMttJEZsarj7QHqm UmQqBdumFnj3LOW6QjYk BBObYbI1MOKgIvVA AYLhw9LrIkT9CC96JACf OTMuNzUgMjUuNSAtMjAu MjUgcmUKZgowLjkxOCAg x6YxQwT9CR57ETWq OTMuNzUgMjUuNSAtMjAu CoCrmuINSazsWMEdW61O XYzfKnG9WDP3Wg25VKM6 BC5qYL6iSJGrJZgq TlGoJJC3XRHiQ00HERkf DrX8HII3Wr12OCJ1BI5d JB6vCKAwYAcgLuWfVVEs nzt2Bi74NUCgLeQc BRL9DZ0pIIKsYJYnZCUe OTybRuFmMUO2RHJkK46U NTIuNzUgMzczLjUgNzQu MjUgLTEwLjUgcmUK VhswZGYeL27NOMU0XJG3 Pt43INDtTZ0dIC02ZPUa NcGLFP25FXivRGYdxmml MjcgMzczLjUgNDIg LTEwLjUgcmUKZgoxICBz H83LHLH4PMU1Ur60VFL8 LjUgLTEwLjUgcmUKZgow VxdbIPHwz8BzKqU9 BIDeGyZoLUF4NC31LE3r ZB53SNErAdABIARhl4Fn EzWpNZ31RJC0Pl12GRTk OoK8YI6vTL04IEPn OuZNXS57DTdsLFUdmkiq QAulUDYlXoLkBYDyAR9p NSAtMTAuNSByZQpmCjEg IHNjbgoyMzguNzUg MzczLjUgNDIgLTEwLjUg rqMPMjtzQvvhALJmn1Mn BoSmFR89KRLgJeMjZAG2 MiAtMTAuNSByZQpm CjEgIHNjbgoyODAuNzUg MzczLjUgMjUuNSAtMTAu RZXnZQvaAeGfGRI0JBJh W64NJmkaRaq0EZH8 Pr21GWT3VmWkBYDcCpNc uhDFXaymZDRvR43IJdX9 TrQ2STK6Yy80VPM5VZ71 NSAtMTAuNSByZQpm YgGuCDP0RVMrD26RNpF3 LyN6NPE4Gx96ZVC8GL03 NSAtMTAuNSByZQpmCjEg LPAlsux4OALpDuhb UqKqKZF6MdI5UJ3qWD15 UFIuZsAKUV82PYijFRBe fme0OBHcSvelHzWyVMJ6 ReG5AK9mBG17DVCk ToCFZWWmFaCwIGZ2Lhc7 ED3eXM23CIRyNfTLRYUv EeJkAfQtCUUsAw98HV0l QU32JDDsSqIRXFWw w2XyZzT3MRVyAY4hVTW4 NjQgLTAuNzUgcmUKZgox XbH5MEKgAkLyKN81EBNg MTEuMjUgcmUKZgo1 UaivGaFzJKB0EaG0KTRh QdEiEVArCdI4JTGqNqQW BZb2WhF2AKQ0 (more content not included)... Normal [facility] Progress Note-Physicianon Progress Note-Physician Patient: Jane [...] BID, # 20 cap(s), Refills(s) 0, Pharmacy: [facility]/pharmacy #[id number] Keflex 500 mg Cap: 500 mg = 1 cap(s), Oral, QID, X 10 day(s), # 40 cap(s), Refills(s) 0, Pharmacy: [facility]/pharmacy #[id number] Percocet 5 mg-325 mg oral tablet: See Instructions, 40 tab(s), Refill(s) 0, Take one to two po every 4 hours as needed for ankle surgical pain, [facility] #6177 aspirin 325 mg Tab: 325 mg = 1 tab(s), Oral, Daily, Start 04-17-22 for 4 weeks for blood clot prevention., X 30 day(s), # 30 tab(s), Refills(s) 0, Pharmacy: [facility]/pharmacy #[id number] Documented Medications Documented duloxetine 60 mg Cap-DR: 120 mg, Oral, Daily, Refills(s) 0 gabapentin 300 mg Cap: 300 mg = 1 cap(s), Oral, Once a day (at bedtime), # 30 cap(s), Refills(s) 0 omeprazole 40 mg Cap-DR: 80 mg = 2 cap(s), Oral, Daily, Refills(s) 0 Problem list: All Problems At risk for falls / SNOMED CT 963954069 / Possible Problem added when Risk for Falls Careplan was initiated. Smoker / SNOMED CT 761082275 / Confirmed Added secondary to documentation in Social History. Histories Past Medical History: No active or resolved past medical history items have been selected or recorded. Family History: No family history items have been selected or recorded. Procedure history: ORIF - Open reduction of fracture of ankle with internal fixation ([id number]) on 04/16/2022 at 41 Years. Social History [...] Systolic Bloo (more content not included)... Normal [facility] Comment on above: Result Comment: Elec tronically Signed By: Jaun Lockhart Jr, DO\.br\Date and Time Signed: 04/20/22 14:45 EST Coding Summary.on 04-19-2022 Coding Summary. CD:[id number] Gh0bWw+PGhlYWQ+PE1FV UXaN89huOWauI7EW0zBR M9OBIEPINSAPW0YOH5ej FP5WQihC4CsohWq ShtukJGbHL34VQs0IQN4 bHhlSScqbZ4xvAUrI8x4 EaSpIP28mV15PJzeBPIy TuT6MkZlalvdeDOr M7wkVbWkeOSxUfi+PHRh YmxlIHdpZHRoPScxMDAl RgRvhCisIH0aHf4rXLNk LWNvbGxhcHNlOiBj c8wqLALkMDcmDV2snNuk Y0DdaXY0VGLvr4l0Ll75 dHI+LTZeCXD7iAlhQTvw b093JlKtj7ziYOX5 kCHmYCoeHEG6S71zu5R9 KUBcJNAxGNT3mYQ4mL8y eQsvkpwyO9LlgFLhImP5 NTI8bGSosN3wkXgp xgdshX4xRot+U04WXM9S NCNVXU6WQzv6J7NiIdtw dHI+QW51TNMvWD13dUBx wGWcy9mihZv6ZjZi OZRjUSO7gSpnHRxmg8Iu LEAoV91mzKIgz8I8OXXp kKjmuRDjGwHelRT1vY4a QTunedrkc9nlwpdc Ycayc8naue78iD83A53e PFwoPOWgQWT8UTNsATMu cHcpcl1ivT3uQo4+IDxj o8hjp5kfuTa1DuHz JNTndjHsgZhgQPG5e9Jv Si32Z5LzqTxrd6TlBfi0 tc60uXUjc9R1lCN6VGfc JCNvrP4xYZysVpT3 GRCxIsKhvO79rJXiNYxx Fw5bgOhxrCeyLR8nEDUh rkzrOLDwoT1cVWOfuHNs lGafAV2xOTJgoitn d016UvGhTKG3SGYjpNPy D0UxgU4mHuOzOVPhZNBa Z8CucCXmQBnlK922CPtg BnS0JLXjfkNuR2Fg FSPyoAmcZrM5y7N0Tt8X q6KgidmpVKN0KZnaCFTc OiY1VtMkOwC0M1WxCrb1 QFDffZxzSX1hH4Uo EGWrsjwbbddsyCN4ZDEf WVCzwP94tPXnTGhjVo5y v3S5w660POHrLTWaqY00 Jk9ibSnuEXRyfRMB nH6blgtuz8dgkvsiBhJq XKEaWTg1QRw8OQWghLex NlSzDZW0IzS2PRP7iJOm eQ1ueFnxcejiiC3q Oyc+B89ghN6dALV1IXI7 iwqpDGChngRvED88DQ32 B1FzIuxphGVcbMM+PGRp tpRxnFjqOP6tNkVr i6rzr3RnRWjlJ7NsUGSo XFvbLhr0TGKgCEL4lXL7 oO6zWBQxYEkeq3L7rAV1 R1IiyfLonm7ac0tj UIRdMWidD40vvXSkn1R1 ANBwdGG8IFAyqHasObIm yE98Qae+XBCfnLkvg0Yo Vtrrk5xhp8dttHx6 IjMwJSIgdmFsaWduPSJ0 c4HdBt83S22vWJszZGLa ZOBmWOCcQCRufAjptj4x oK5nAb3+PGNvbCB3 xFD9rY0tPMRnUlH9CDza Y236UuMyzRAeOkgov6rk u2yklBi2TpGoMWFxydYv fZzlNXL0u8LyUt81 K50uLNezQFQpADDsPWOv KSLbgMupkp1doL7sRy4+ OF3om7kjqh49nN11hTH+ NQMtOHK7jCqqCTlk IQVcoI7bUSvjOmS2KGKv LhSfpF50wTHyDRurYt7e kQiwvHewDO2bPAXqgamv o074UxEbf9osGAGu qPUxEOzgFSZ8J59wj9R0 TCCmUQNcBNO7tMP2rF2f bGlnbjogbGVmdDsgdmVy tDveGGvpPAkgU993 IHRvcDsnPlBhdGllbnQg EyTqMVa9K8MzJvi0QLAc cRfsZM5cgXRlQQgdDh9d iVfhyZrcDM1eZWLz ttvnl926BjLtp9ceKRPe uIVhMEloFAP8V64cc8F1 BZFyYEOtCSL8fUK1bY3f bGlnbjogbGVmdDsg gbBlaXntEBzgDYmaQ664 IHRvcDsnPkJpcnRoIERh iQN4WT40XV72jGCui1W3 dVC2M3FxIHGvzvva uvrkaIM9OTGfFQZhvV99 Yo0xaJadCc5rCYKrNUY1 XPQhqOFpR9RpoO1nDqZb LQUjFQNoW2EoaSYw OUpxJ780HTxnBnF1LCYu crLtQ4SjZNIeyFolMaK1 t6K0Pg2BI1S2EO90PD64 sLJog3Q6cUZ6S7Ie XBTyvvjcxevztQQ0SSMv WKQiaQ28Mk5hiVxpWw3p AQMgFED4HIKhqYXxM1Co oL0nTyBvHCLjGMXd N0TgnMNmMSszU843HQhp ZdM3WNBvybCoJ3DtZJZh mZrlDaV4a1J6Vx5SBSt0 XU21HL06cUKvk6P0 cWB1J9DlHFNpzkausxca pTW0NAAnDPApwE95Ng7z hAboPt3uFMXgZAU8HWRc bXBnN7RbxA4gXhYr TVYzQPZlV3CmpEUaHRka Z686EXkoGdZ3DTUqvzYb C9AqRJJduMaoZfN6i6G6 Sg5ZCMStWL61AAH7 vNL1QJ67HG78B6QbSdxg dGFibGU+PHRhYmxlIHdp ZHRoPScxMDAlJyBzdHls JC0uFb6nPIZcYZGi oViegLZrGhAgf3zkDMJw TGwfAH8aqErgN9SejFF8 VQHay6p6Ao04Z03bS1Cd dXA+QTVwcXH5zVK3 dI1pGlTkJkV7OJugM113 GwEknHCxOnrpx2xoi2de zGb0LkR1EOJrjiEfaMqi SNU9e7JfCw74O62b IHdpZHRoPSIxNSUiIHZh gCwdbo5caA4nJk6+PGNv eFB6tZB1kM8wVkFcHpH0 EIdyG178CvYviYJn Xfpab2ebc7wlnCr6GpRk SICxprTevXbaIQM4q5Ml Nu67U0QpkNmxy1CiGqz9 nl58eIXnr6H4zJD1 D6BjTZZzpvrcpJMdfQlt JH2qSKGddakaLKKmvJ3u BNPtE6s4ZrSrEyZ6AZhj T3KgdvS3WMQkvHOg NMfgWKK9G14js8L1XABy UNMiOLC5zSL4uV1vrSwi bjogbGVmdDsgdmVydGlj CUzjIRszK004MUJb wMjwFSDgtC0eUMQuaYNo yUstNB4wUNBinilsVswL CRLzGXyOT0KcIRbgjDR+ SPMaGWS1iNfsFFyn HOLicY4zNKJlW0z4FfYc SwH0OYmiV4EqSZUtzztm Le56hL9eRqHhDmH2HKbf N9DxtwA6AUNcrNLj BWtvIZN7W68ef6X4AITw UBWxDRO9eGK8eL7vySfz bjogbGVmdDsgdmVydGlj RWsrGBduG106OYMe vBsjMrH5BlW6NmI1Syy0 A2ZpIqh7RJObwKrsAT1o bIKoLVkrPl8gfLsqzDie LF0oSLTfizaaSVQs jT1vRYIqgAGvfClrHF4u UBHnafikj286UnYsQIP7 NWWvbLJjH1NggO2xEuGq TZByNHSeF1AlfKGw YKsiL486VRqfEtT1SBUp jtJxZ4KkZRNbnKguCsW7 g1A7Oz17XxRGSVPettcp dGQ+TTTyWXH5uCip KEknIVMmlF1zCNDjT8e3 KtQkIoY9TChnH8RsXTYv xipnOm35qV4jAoNwNpJ5 HMqrS1VovyX2BDCd gBXrEGidVQY0Z41eg1Q1 PYHeVMZkKXB7kES6rA0d bGlnbjogbGVmdDsgdmVy cQqsCTdeHVmwN820 IHRvcDsnPkZlbWFsZTwv dGQ+DEGoRCX5mGhfBSwq IUEkqD2qOJHuN1k0CzGb LvK5VDalN0OgLGZb swdnFf26yR9eQsKbNvJ6 NXebZ9IebrN7SMEglJKa KXmyMVF0P09ri9C8GDIu QLZfMAZ6tPG7iW8a bGlnbjogbGVmdDsgdmVy kAueQLhvDFqaM299HWSs vVsxXnlkaQY2aXAhpOkb dGQ+TI09ew95D6Au KauiVcw2SNOnOFZ4yKZ1 mK5wLXClHPfvq2A2jCQ1 R2ZpzbPetu3gs2dmONUa PIrbC39uyTTgh9Z9 XBYjtFN7WIEadFynSbTj kM47Rvo+WHJenKado4Xy Uhzaf1dqd3szoLj6BePg JSIgdmFsaWduPSJ0 x7PrRf89Y72rAEqaAYHd LIIsMPXzSTTeeCqxnn5g pZ2cMg8+TKHsdWO6tPG8 oM2sHgOnZqH1UNnh P716JcMajQToDlgwb2oa a5vhoFt5ThTkVZFfduZy eIeeXDT7l2QpQv86Q7Rf hFmno7CgXwx0mn12 pFKyg7H1oQI6A7EwIARk gwqhlWGetJdzYB2wLPQe gyrpDTVhvN9sONTgN5k7 ReEiUzG6TGsiA7Xr nvQ6BOJuiRTpHHSxcBDT dF2vbhciv2cioklaEdHr MIIjPWs0IZk5TBJysCvp JqTqXWO5JvQ5DXQ5 oUCiwQ3lyYbndtugxL0f Oyc+AXa9a1spgWKhLU1k rGV1SZ18SV58xVKnn2O7 sMM9I9XyCHDbqbla wmfmyBJ4SLVvCRLdlH52 Aq8hpMchOs7pKVTcBYB2 BIGnoUNiO5MegC9xGbAr OEOfRMPsK3VolEKn EPiaT510TTecMzP2CSBq zjZtC5KsUGAqpCryYmU0 d4K4Fj7BYF81AF51NL97 lDCui6W5bYE3H8Fw NYVkytqobydslOJ6QQFh SJLfgD28Ex5giVkcAy3x UAIoBGO6HPZhgYJvW1Rq xT5qZeYrABUtPKLc B8YhgYPaDNqzB388HJdd NaS6UEHycwAaW3OaRXYw fYmtEgN2d2Z0Fd1HOc97 XE62KM72qFLei1M7 lWE4Z3EkRBMcqxwsjfna sNB3DFEwHIXpwN94Rr3r uMjuWb3wMBSgSXT9WFSn sDKyS3XbqZ2eJcGn CHCbBNQbF5LlkLTdJQeq G501NUiyRtR7BMIyblGi C6QtCAUeiCzlVjS3m8U8 Sr1UDVyvjrr2M1Se PjwvdHI+BF07ZWCiWJ03 cLAziNEex7rrmDw4JpYh WNPxBBG1tCdmBGkop8Nu OSCqT86fvKMpa5Q9 IGNv (more content not included)... Normal [facility] Consent for Anesthesiaon Consent for Anesthesia [id number] [id number] #1.00CD:127 Normal [facility] Consent for Procedure/Surger yon 04-19-2022 Consent for Procedure/Surgery [id number] #1.00CD:127 Normal [facility] Discharge Instructionson Discharge Instructions [id number] [id number]#1 .00CD:127 Normal [facility] ED Note-Physicianon 04-19-19 23 ED Note-Physician [...] 1000 mL 1,000 mL, 1000 mL, IV din-zoy076-5qXpn [F], 2 tab(s), Oral Dilaudid 1 mg/mL injectable solution, 1 mg, IV Push duloxetine 60 mg Cap-DR, 120 mg, Oral vmajbj1Zmq [F], 300 mg, Oral MYGA3YYD [F], 1 mg, IV Push FCGQ9UMN [F], 1 mg, IV Push nhzwsx0Iyh-TC [F], 40 mg, Oral potassium chloride 20 mEq ER Tab, 40 mEq, Oral Zofran 4 mg/2 mL Injection, 4 mg, IV Push Disposition Plan Patient Discharge Condition Improved, stable Discharge Disposition Admit to orthopedics Discharge Prescription List Prescriptions No active prescription medications Follow-up No qualifying data available Attestation Patient was treated and evaluated by the Physician Account Retention Representative. The attending physician was in the Emergency [...] Denies Al (more content not included)... Normal [facility] Comment on above: Result Comment: Elec tronically Signed By: Capri Weiner PA-C\.br\Date and Time Signed: 04/15/22 23:21 EST\.br\Electronically Co-Signed By: Sonu Richards MD\.br\Date and Time Co-Signed: 04/19/22 18:39 EST IntraOperative Documentson 0 04-19-2022 IntraOperative Documents [id number] #1.00CD:127 Normal [facility] Main OR Intraoperative Recor don 04-19-2022 Main OR Intraoperative Record IntraOp Document Type FT Summary Primary Physician: Olu Yang DO Finalized Date/Time: 04/19/22 09:57:37 Pt. Name: ANGELA MUNOZ/Sex: 1980 Female Med Rec #: [id number] Physician: Olu Yang DO Financial #: [id number] Pt. Type: I Room/Bed: [place] [address] Admit/Disch: 04/15/22 16:23:28 - 04/17/22 14:15:00 Institution: [...] Role Performed Anesthesiologist of Surgeon - Primary Manager Float - Primary Record Time In 04/16/22 17:43:00 [...] Hollis Wesley RN, Ever Mcleod Role Performed ELEVATOR TENDER/SA Scrub - Primary Manager Float - Primary Time In 04/16/22 17:43:00 04/16/22 17:43:00 04/16/22 18:06:00 Time Out 04/16/22 19:41:00 04/16/22 19:41:00 04/16/22 19:41:00 Procedure ANKLE FRACTURE ANKLE FRACTURE ANKLE FRACTURE ORIF(Right) ORIF(Right) ORIF(Right) Comments Orientation Last Modified By: Costa RN, Ever Skelton RN, Ever Skelton RN, Ever Mcleod 04/16/22 19:41:16 04/16/22 19:41:16 04/16/22 19:41:16 Entry 7 Entry 8 Case Attendee Carlos Enrique TATUM, Margie Almazan Role Performed Furnace Installer Helper Furnace Installer Helper Time In 04/16/22 18:00:00 04/16/22 18:00:00 Time Out 04/16/22 19:24:00 04/16/22 18:05:00 Procedure ANKLE FRACTURE ANKLE FRACTURE ORIF(Right) ORIF(Right) Comments Last Modified By: Costa RN, Ever Skelton RN, Ever Mcleod 04/16/22 19:41:16 04/16/22 19:41:16 General Comments: Lonny Valeriomer-Biomet rep, also in attendance. Gibransmoking pipe mounter Protocols FT Pre-Care Text: Implements protective measures [...] physical in (more content not included)... Normal [facility] Prescriptions/Work Noteson 0 04-19-2022 Prescriptions/Work Notes [id number]#1 .00CD:127 Normal [facility] C Urineon 04-18-2022 Bacteria identified Cx [...] Locations R1: This test was performed at: [facility], [address] [place] [address], [phone]- , , Normal [facility] Comment on above: Performed By: #### 1 [id number] ####[facility] [address] [place] [address] Inpatient Patient Summaryon 04-17-2022 Inpatient Patient Summary [...] remove dressing, Keep incision dry Pharmacy Information [facility] Discharge Instructions PLEASE QUIT SMOKING AND AVOID SECOND HAND SMOKE New Follow Up Appointments after Discharge Follow Up with Olu Yang When: Comments: Call for followup appointment 2 weeks [facility] Where: [address] [place] [address]- Business (1) Follow Up with Corby Conner When: In 0 days Where: [address] [place] [address]- Business (1) Medications What How Much When Why Instructions Next Dose New acetaminophen-oxycod one (Percocet 5 mg-325 mg oral tablet) See instructions Closed displaced pilon fracture of right tibia Take one to two po every 4 hours as needed for ankle surgical pain Pickup at [facility]/pharmacy #[id number] New aspirin (aspirin 325 mg Tab) 1 Tablets By Mouth Every day Duration: 30 Days Start 04-17-22 for 4 weeks for blood clot prevention. Pickup at [facility]/pharmacy #[id number] 04/18 New docusate (Colace 100 mg Cap) 1 Capsules By Mouth 2 times a day Pickup at [facility]/pharmacy #[id number] 04/17 9:00pm New sulfamethoxazole-tri methoprim (Bactrim D.S. 800 mg-160 mg Tab) 1 Tablets By Mouth 2 times a day Duration: 14 Days Cancel Keflex script from yesterday Pickup at [facility]/pharmacy #[id number] Begin when filled Unchanged duloxetine (duloxetine 60 mg Cap-DR) 120 Milligram By Mouth Every day 04/18 Unchanged gabapentin (gabapentin 300 mg Cap) 1 Capsules By Mouth Once a day (at bedtime) 04/18 Unchanged omeprazole (omeprazole 40 mg Cap-DR) 2 Capsules By Mouth Every day 04/17 9:00pm Pharmacy Information [facility]/pharmacy #[id number]: [address] [place], [place] [id number] [phone] Test Results CBC BMP WBC: 11.7 E9/L [...] Cortical Scre (more content not included)... Normal [facility] Interdisciplinary Note - Cristóbal e Manageron 04-17-2022 Interdisciplinary Note - Top Steep Tender Pt is awake and alert in bed, [...] financial assistance paperwork, declines further needs. Normal [facility] Comment on above: Result Comment: Elec tronically Signed By: Carol SIMMONS, Mahsa\.br\Date and Time Signed: 04/17/22 14:25 EST Operative Reporton Operative Report SURGERY DATE: 04/16/2022 TIME BUYER: Darlene Cheng C.F.A. PREOPERATIVE DIAGNOSIS: Right closed [...] marked site. Large C-arm was utilized with automobile technician. Landmarks were identified. The leg was [...] with 0 Vicryl and 2-0 Vicryl sutures. Risco were applied. 10 cc of 0.25% plain Marcaine was injected between the incisions. Nazia once again were applied. Bacitracin, Adaptic, and well-padded dressing with posterior short splint were provided. Tourniquet was deflated. She was awakened from anesthesia and transferred to the Recovery Room in stable and satisfactory condition. Of note, due to her (more content not included)... Normal [facility] Comment on above: Result Comment: Elec [...] DO Transcribed by: DANNIE Technologist: AIDAN Noe [facility] Auto Diffon 04-16-2022 Basophils/100 WBC (Bld) 0.3 % Normal 0.0-2.0 F [facility] Comment on above: Order Comment: Order Added by Discern Expert. Performed By: #### 2 [id number], [id number], [id number] ####[address] [place] [address] Basophils/Leukocytes Auto (Bld) [Pure # fraction] 0.0 E9/L Normal 0.0-0.2 [facility] Comment on above: Order Comment: Order Added by Discern Expert. Performed By: #### 2 [id number], [id number] ####[facility] [address] [place] [address] Eosinophils/100 WBC (Bld) 0.9 % Normal 0.0-8.0 [facility] Comment on above: Order Comment: Order Added by Discern Expert. Performed By: #### 2 [id number], [id number] ####[address] [place] [address] Eosinophils/Leukocytes Auto (Bld) [Pure # fraction] 0.1 E9/L Normal 0.0-0.5 [facility] Comment on above: Order Comment: Order Added by Discern Expert. Performed By: #### 2 [id number], [id number], [id number], [id number] ####[facility] [id number] [place] [address] Lymphocytes/100 WBC (Bld) 31.0 % Normal 14.0-50.0 [facility] Comment on above: Order Comment: Order Added by Discern Expert. Performed By: #### 2 [id number], [id number], [id number], [id number] ####[facility] [address] [place] [address] Lymphocytes/Leukocytes Auto (Bld) [Pure # fraction] 3.6 E9/L Normal 1.0-4.0 [facility] Comment on above: Order Comment: Order Added by Discern Expert. Performed By: #### 2 [id number], [id number], [id number], [id number] ####[address] [place] [address] Monocytes/100 WBC (Bld) 7.3 % Normal 4.0-14.0 [facility] Comment on above: Order Comment: Order Added by Discern Expert. Performed By: #### 2 [id number], [id number], [id number], [id number] ####[address] [address] Monocytes/Leukocytes Auto (Bld) [Pure # fraction] 0.9 E9/L Normal 0.2-1.0 [facility] Comment on above: Order Comment: Order Added by Discern Expert. Performed By: #### 2 [id number], [id number], [id number], [id number] ####[address] [address] Neutrophils/100 WBC (Bld) 60.5 % Normal 36.0-75.0 [facility] Comment on above: Order Comment: Order Added by Discern Expert. Performed By: #### 2 [id number], 73095118, 6631027, 9076360 ####[address] [address] Neutrophils/Leukocytes Auto (Bld) [Pure # fraction] 7.1 E9/L Normal 2.0-7.5 [facility] Comment on above: Order Comment: Order Added by Discern Expert. Performed By: #### 2 587115, 15558649, 3680359, 6463191 ####[address] [place] [address] BMPon 04-16-2022 Anion gap [Moles/Vol] 10 mmol/L Normal 6-16 [facility] Comment on above: Performed By: #### 2 622164, 87646120, 3507580, 0093442 ####[facility] [address] [place] [address] Calcium [Mass/Vol] 8.6 mg/dL Low 8.9-11.1 [facility] Comment on above: Performed By: #### 2 303030, 44564401, 7003929, 3478472 ####[facility] [address] [place] [address] Chloride [Moles/Vol] 100 mmol/L Low 101-111 [facility] Comment on above: Performed By: #### 2 804994, 70484418, 4682893, 7272131 ####[facility] [address] Ave[place] [address] CO2 [Moles/Vol] 29 mmol/L Normal 21-31 [facility] Comment on above: Performed By: #### 2 845617, 53142845, 8300718, 5749644 ####[facility] [address] [place] [address] Creatinine [Mass/Vol] 0.8 mg/dL Normal 0.5-1.3 [facility] Comment on above: Performed By: #### 2 079250, 16266920, 2689193, 7367377 ####[facility] [address] [place] [address] Glucose [Mass/Vol] 112 mg/dL Normal 55-199 [facility] Comment on above: Result Comment: If t his glucose result represents a fasting glucose, interpretation should refer to the following reference range: 55-99 mg/dL Performed By: #### 2 485529, 27387340, 8630946, 3056208 ####[facility] [address] [place] [address] Potassium [Moles/Vol] 3.3 mmol/L Low 3.5-5.3 [facility] Comment on above: Performed By: #### 2 511429, 74009785, 3433987, 5195375 ####[facility] [address] [place] [address] Sodium [Moles/Vol] 136 mmol/L Normal 135-145 [facility] Comment on above: Performed By: #### 2 068141, 79216409, 2975914, 5246877 ####[facility] [address] [place] [address] Urea nitrogen [Mass/Vol] 6 mg/dL Normal 5-21 [facility] Comment on above: Performed By: #### 2 069286, 71529022, 9354162, 7747754 ####[facility] [address] [place] [address] Urea nitrogen/Creatinine [Mass ratio] 8 No Units Low 10-20 [facility] Comment on above: Performed By: #### 2 926448, 83342815, 3292910, 4055748 ####[facility] [address] [place] [address] CBC w/ Auto Diffon 3 Erythrocyte distribution width (RBC) [Ratio] 14.1 % Normal 10.9-14.2 [facility] Comment on above: Performed By: #### 2 156011, 60193355, 5989442, 0569821 ####[facility] [address] [place] [address] Hematocrit (Bld) [Volume fraction] 37.1 % Normal 34.0-46.0 [facility] Comment on above: Performed By: #### 2 817146, 61061873, 0081333, 3923094 ####[facility] [address] [place] [address] Hemoglobin (Bld) [Mass/Vol] 12.6 g/dL Normal 12.0-16.0 [facility] Comment on above: Performed By: #### 2 940523, 27055305, 0720994, 5731618 ####[facility] [address] [place] [address] MCH (RBC) [Entitic mass] 30.0 pg Normal 27.0-34.0 [facility] Comment on above: Performed By: #### 2 264672, 06412647, 4033735, 0739281 ####[address] [place] [address] MCHC (RBC) [Mass/Vol] 34.0 g/dL Normal 31.4-36.0 [facility] Comment on above: Performed By: #### 2 514371, 62329629, 5742636, 4829028 ####[facility] [address] [place] [address] MCV (RBC) [Entitic vol] 88.3 fL Normal 80.0-100.0 [facility] Comment on above: Performed By: #### 2 138992, 81277724, 3758431, 5540109 ####[address] [address] Platelet mean volume (Bld) [Entitic vol] 9.6 fL Normal 6.4-10.8 [facility] Comment on above: Performed By: #### 2 192518, 72978801, 6569554, 5365272 ####[address] [address] Platelets (Bld) [#/Vol] 273.0 E9/L Normal 150.0-500.0 [facility] Comment on above: Performed By: #### 2 012063, 39049648, 2858563, 1141122 ####[address] [address] RBC (Bld) [#/Vol] 4.2 E12/L Low 4.3-5.9 [facility] Comment on above: Performed By: #### 2 999533, 03372234, 8537618, 0952530 ####[facility] [address] [place] [address] WBC corrected for nucl RBC Auto (Bld) [#/Vol] 11.7 E9/L High 4.0-11.0 [facility] Comment on above: Performed By: #### 2 799378, 05792065, 9410450, 7716379 ####[facility] [address] CHEMISTRYOrdered By: SYSTEM SYSTEM on 04-16-2022 Anion [...] rate/Area] mL/min/1.73 m2 Normal >=59mL/min/1 .73 m2 [facility] Chem S GFR/1.73 sq M.predicted among non-blacks MDRD (S/P/Bld) [Vol rate/Area] mL/min/1.73 m2 Normal >=59mL/min/1 .73 m2 [facility] Chem S Glucose [Mass/Vol] 112 mg/dL Normal [...] 4.2 E12/L Low 4.3 - 5.9 E12/L [facility] HemeAutoSS WBC corrected for nucl RBC Auto (Bld) [#/Vol] 11.7 E9/L High 4.0 - 11.0 E9/L [facility] HemeAutoSS Inpatient Clinical Summaryon 04-16-2022 Inpatient Clinical Summary [facility] [address], [place] [address] Clinical Summary Person Information: Name: ANGELA MUNOZ Age: 41 Years : 1980 Sex: Female PCP: Corby Conner MD Marital Status: Single Phone: [phone] Race: White Ethnicity: Non- or Language: Russian Visit Id: Visit Reason: Fall; Ankle injury - Minor; ANKLE FX Speciality: Acuity: Enc Type: Observation Med Service: Medical Arrival: 04/15/2022 16:23:28 Discharge: Dispo Type: Admitted as IP to this [facility] Address: [address] [place] [id number] Provider Notes: Diagnosis: Closed displaced fracture of [...] up: With: Address: When: Olu Yang [address] [place] [address] [facility] (1) Comments: Call for followup appointment 2 weeks [place] office With: Address: When: Corby Conner [facility] [facility], [place] [address] Business (1) Patient Education Information: Normal [facility] Inpatient Patient Summaryon 04-16-2022 Inpatient Patient Summary [facility] [address], [place] [address] Patient Discharge Instructions PERSON INFORMATION [...] up: With: Address: When: Olu Yang [address] [place] [address] Business (1) Comments: Call for followup appointment 2 weeks [place] office With: Address: When: Corby Conner [address] [facility], [facility] [place] [address] Business (1) In the event [...] Leaflets: You may receive a survey from [employer] asking you to rate your care experience. Your feedback is important and will help us understand what we do well and how we can improve the quality of care we provide to you, your loved ones and our community. It?s an honor to serve you. Thank you for choosing [facility] Normal [facility] Insurance Correspondence Off iceon 04-16-2022 Insurance Correspondence Office [id number] 3#1.00CD:127 Normal [facility] Laboratory - Microbiology an d Antimicrobial susceptibilityOrdered By: Lani Hogan on 04-16-2022 Bacteria identified Cx Nom (U) >100,000 cfu/ml Gram Negative [employer] species [facility] Main OR PACU I Recordon Main OR PACU I Record PACU Phase I Document Type FT Summary Primary Physician: Olu Yang DO Finalized Date/Time: 04/16/22 20:43:42 Pt. Name: MUNOZANGELA/Sex: 1980 Female Med Rec #: [id number] Physician: Olu Yang DO Financial #: [id number] Pt. Type: O Room/Bed: [facility]/ Admit/Disch: 04/15/22 16:23:28 - Institution: Case Times [...] By: Flora Brandon RN 04/16/22 20:43 Normal [facility] Main OR Preoperative Recordo n 04-16-2022 Main OR Preoperative Record PreOp Document Type FT Summary Primary Physician: Olu Yang DO Finalized Date/Time: 04/16/22 18:15:02 Pt. Name: ANGEAL MUNOZ./Sex: 1980 Female Med Rec #: [id number] Physician: Olu Yang DO Financial #: [id number] Pt. Type: O Room/Bed: S335/01 Admit/Disch: 04/15/22 [...] By: Ever Skelton RN 04/16/22 18:15 Normal [facility] Monitor Recordon 04-16-2022 Monitor Record [id number] 0#1.00CD:127 Normal [facility] Monitor Record [id number] 2#1.00CD:127 Normal [facility] Operative Reporton 3 Operative Report Patient: [...] Auto 60.5 % Lymph Auto 31.0 % Spink Auto 7.3 % Eos Auto 0.9 % Basophil Auto 0.3 % Neutro Absolute 7.1 E9/L Lymph Absolute 3.6 E9/L Spink Absolute 0.9 E9/L Eos Absolute 0.1 E9/L [...] % HI Lymph Auto 11.5 % LOW Spink Auto 5.3 % Eos Auto 0.4 % Basophil Auto 0.7 % Neutro Absolute 12.0 E9/L HI Lymph Absolute 1.7 E9/L Spink Absolute 0.8 E9/L Eos Absolute 0.1 E9/L [...] Room in stable and satisfactory condition.. Normal [facility] Comment on above: Result Comment: Elec [...] Not Documented Codamine- Rash. Morphine- Vomit. Normal [facility] Comment on above: Result Comment: Elec tronically Signed By: Olu Yang DO\.br\Date and Time Signed: 04/16/22 07:19 EST UA With Cult Reflexon 2022 Bacteria LM Ql (Urine sed) 3+ /HPF Abnormal Trace [facility] Comment on above: Performed By: #### 1 8832266, 4617319 ####[facility] [address] [place] [address] Bilirubin Ql (U) Negative Normal Negative [facility] Comment on above: Performed By: #### 1 3423537, 5699498 ####[facility] [address] [place] [address] Clarity (U) SL CLOUDY Invalid Interpretation Code [facility] Comment on above: Performed By: #### 1 5842020, 3810731 ####[facility] [address] [place] [address] Color (U) YELLOW Normal Yellow [facility] Comment on above: Performed By: #### 1 9167238, 2851427 ####[facility] [address] [place] [address] Epithelial cells.squamous LM.HPF (Urine sed) [#/Area] 0-2 Normal 0-2 [facility] Comment on above: Performed By: #### 1 4874225, 0083091 ####[facility] [address] [place] [address] Glucose Test strip (U) [Mass/Vol] Negative Normal Negative [facility] Comment on above: Performed By: #### 1 5809088, 9217279 ####[address] [address] Hemoglobin Ql (U) TRACE Abnormal Negative [facility] Comment on above: Performed By: #### 1 9497478, 8912275 ####[address] [address] Ketones (U) [Mass/Vol] Negative Normal Negative [facility] Comment on above: Performed By: #### 1 8607815, 0777321 ####[address] [address] [place].plasma/[place].R BC (Bld) [Mass ratio] 0-3 Normal 0-3 [facility] Comment on above: Performed By: #### 1 3267057, 0827082 ####[address] [address] Mucus Ql (Urine sed) TRACE Normal [facility] Comment on above: Performed By: #### 1 9543170, 2268202 ####[address] [address] Nitrite Ql (U) Positive Abnormal Negative [facility] Comment on above: Performed By: #### 1 6648586, 6706989 ####[address] [address] pH (U) 5.5 [pH] Invalid Interpretation Code 5.0-9.0 [facility] Comment on above: Performed By: #### 1 2894295, 5529553 ####[address] [address] Protein (U) [Mass/Vol] Negative Normal Negative [facility] Comment on above: Performed By: #### 1 4512769, 4422233 ####[address] [address] Specific gravity (U) [Rel density] 1.020 Invalid Interpretation Code 1.005-1.030 [facility] Comment on above: Performed By: #### 1 5994927, 7346122 ####[facility] [address] [place] [address] Type of Urine collection method Mandujano Normal [facility] Comment on above: Performed By: #### 1 9497320, 9484538 ####[facility] [address] [place], [place] [address] Urobilinogen Qn (U) 0.2 {Yonatan'U}/dL Normal 0.0-1.0 [facility] Comment on above: Performed By: #### 1 7069789, 4586314 ####[place] [address] WBC Auto Ql (U) 2+ Abnormal Negative [facility] Comment on above: Performed By: #### 1 3614436, 5325511 ####[facility] [address] [place] [address] WBC LM.HPF (Urine sed) [#/Area] /[HPF] Abnormal 0-5 [facility] Comment on above: Performed By: #### 1 6907348, 1834052 ####[place] [address] URINALYSISOrdered By: uR gomez on 04-16-2022 Bacteria LM Ql (Urine sed) 3+ /HPF Invalid Interpretation Code Trace/HPF FT UA Auto SS Bilirubin Ql (U) Negative (04/16/22 6:17 PM) Normal Negative [facility] UA Auto SS Clarity (U) SL CLOUDY Invalid Interpretation Code [facility] UA Auto SS Color (U) Yellow (04/16/22 6:17 PM) Normal Yellow [facility] UA Auto SS Epithelial cells.squamous LM.HPF (Urine sed) [#/Area] 0-2 /HPF Normal 0-2/HPF [facility] UA Aut o SS Glucose Test strip (U) [Mass/Vol] Negative (04/16/22 6:17 PM) Normal Negative FT UA Auto SS Hemoglobin Ql (U) Trace *ABN* (04/16/22 6:17 PM) Invalid Interpretation Code Negative [facility] UA Auto SS Ketones (U) [Mass/Vol] Negative (04/16/22 6:17 PM) Normal Negative [facility] UA Auto SS [facility].plasma/[place].R BC (Bld) [Mass ratio] 0-3 /HPF Normal [...] [facility] UA Auto SS Urobilinogen Qn (U) 0.9237160 {Yonatan'U}/dL Normal 0.0 - 1.0 EU/dL [facility] [...] Transcribed by: DANNIE Technologist: JUAN PABLO Normal [facility] XR Chest Single Viewon 04-16 XR [...] MD, V. Transcribed by: DANNIE Technologist: Normal [facility] eGFRon 04-16-2022 GFR/1.73 sq M.predicted among blacks MDRD (S/P/Bld) [Vol rate/Area] mL/min/{1.73_m2} Normal >=59 [facility] Comment on above: Order Comment: Order added by Discern Expert. Result Comment: eGFR is race adjusted. AA=. Performed By: #### 2 335180, 00943486, 0793296, 1869572 ####[facility] [address] [place] [address] GFR/1.73 sq M.predicted among non-blacks MDRD (S/P/Bld) [Vol rate/Area] mL/min/{1.73_m2} Normal >=59 [facility] Comment on above: Order Comment: Order added by Discern Expert. Result Comment: Network Diagnostic Support Specialist vivi kidney disease could be indicated at eGFR's of less than 60 mL/min/1.73m2. Kidney failure is indicated at less than 15 mL/min/1.73m2. Performed By: #### 2 906154, 23165216, 5987017, 5916551 ####[facility] [address] [place] [address] Auto Diffon 04-15-2022 Basophils/100 WBC (Bld) 0.7 % Normal 0.0-2.0 [facility] Comment on above: Order Comment: Order Added by Silver Expert. Performed By: #### 2 767260, 75791856, 6141004, 5221185, 55226244 ####[address] [place] [address] Basophils/Leukocytes Auto (Bld) [Pure # fraction] 0.1 E9/L Normal 0.0-0.2 [facility] Comment on above: Order Comment: Order Added by Discern Expert. Performed By: #### 2 064169, 83106139, 2169202, 0281313, 63770103 ####[address] [place] [address] Eosinophils/100 WBC (Bld) 0.4 % Normal 0.0-8.0 [facility] Comment on above: Order Comment: Order Added by Silver Expert. Performed By: #### 2 323306, 19464770, 8599812, 8554621, 04420045 ####[address] [place] [address] Eosinophils/Leukocytes Auto (Bld) [Pure # fraction] 0.1 E9/L Normal 0.0-0.5 [facility] Comment on above: Order Comment: Order Added by Silver Expert. Performed By: #### 2 874361, 06243352, 1634593, 7065015, 72348936 ####[address] [address] Lymphocytes/100 WBC (Bld) 11.5 % Low 14.0-50.0 [facility] Comment on above: Order Comment: Order Added by Silver Expert. Performed By: #### 2 604849, 43660303, 0186265, 6391559, 23380765 ####[address] [address] Lymphocytes/Leukocytes Auto (Bld) [Pure # fraction] 1.7 E9/L Normal 1.0-4.0 [facility] Comment on above: Order Comment: Order Added by Silver Expert. Performed By: #### 2 107671, 73238864, 1713405, 0537707, 82249996 ####[facility] [address] [place] [address] Monocytes/100 WBC (Bld) 5.3 % Normal 4.0-14.0 F [facility] Comment on above: Order Comment: Order Added by Discern Expert. Performed By: #### 2 143428, 83918645, 2009608, 2292311, 71676314 ####[facility] [address] [place] [address] Monocytes/Leukocytes Auto (Bld) [Pure # fraction] 0.8 E9/L Normal 0.2-1.0 [facility] Comment on above: Order Comment: Order Added by Silver Expert. Performed By: #### 2 195769, 33495548, 7954680, 9402754, 03420273 ####[address] [address] Neutrophils/100 WBC (Bld) 82.1 % High 36.0-75.0 [facility] Comment on above: Order Comment: Order Added by Discern Expert. Performed By: #### 2 147260, 74181767, 1266459, 7256148, 82718682 ####[address] [place] [address] Neutrophils/Leukocytes Auto (Bld) [Pure # fraction] 12.0 E9/L High 2.0-7.5 [facility] Comment on above: Order Comment: Order Added by Discern Expert. Performed By: #### 2 198109, 32047082, 5449288, 2729096, 36060163 ####[facility] [address] [place] [address] B hCG Qualon 04-15-2022 Beta hCG Ql Negative Normal [facility] Comment on above: Performed By: #### 2 097162, 47396144, 8178226, 2275582, 63428454 ####[facility] [address] [place] [address] BMPon 04-15-2022 Creatinine [Mass/Vol] 0.9 mg/dL Normal 0.5-1.3 [facility] Comment on above: Performed By: #### 2 248791, 32130399, 4696420, 7314731, 51444468 ####[facility] [address] [address] Urea nitrogen [Mass/Vol] 7 mg/dL Normal 5-21 [facility] Comment on above: Performed By: #### 2 004574, 14792010, 7383286, 2872459, 47892485 ####[facility] [address] [address] Urea nitrogen/Creatinine [Mass ratio] 8 No Units Low 10-20 [facility] Comment on above: Performed By: #### 2 031719, 02956023, 7388045, 8013675, 04493880 ####[facility] [address] [facility] [place] [address] Anion gap [Moles/Vol] 13 mmol/L Normal 6-16 [facility] Comment on above: Performed By: #### 2 045673, 07977515, 3733394, 3689937, 09481294 ####[facility] [address] [address] Calcium [Mass/Vol] 9.1 mg/dL Normal 8.9-11.1 [facility] Comment on above: Performed By: #### 2 530123, 94434534, 5139490, 6839685, 18415330 ####[facility] [address] [address] Chloride [Moles/Vol] 99 mmol/L Low 101-111 [facility] Comment on above: Performed By: #### 2 092374, 18895974, 0843147, 5748777, 61199003 ####[facility] [address] [address] CO2 [Moles/Vol] 25 mmol/L Normal 21-31 [facility] Comment on above: Performed By: #### 2 762589, 63245422, 4881599, 5836019, 45112072 ####[facility] [address] [place] [address] Glucose [Mass/Vol] 128 mg/dL Normal 55-199 [facility] Comment on above: Result Comment: If t his glucose result represents a fasting glucose, interpretation should refer to the following reference range: 55-99 mg/dL Performed By: #### 2 999478, 95016203, 6496532, 6312345, 40130027 ####[facility] [address] [place] [address] Potassium [Moles/Vol] 3.1 mmol/L Low 3.5-5.3 [facility] Comment on above: Performed By: #### 2 465762, 72014997, 7971683, 5435474, 54816758 ####[facility] [address] [place] [address] Sodium [Moles/Vol] 134 mmol/L Low 135-145 [facility] Comment on above: Performed By: #### 2 979505, 84754600, 1192151, 8231610, 69845488 ####[facility] [address] [place] [address] CBC w/ Auto Diffon 3 Erythrocyte distribution width (RBC) [Ratio] 13.7 % Normal 10.9-14.2 [facility] Comment on above: Performed By: #### 2 887845, 69197290, 3130579, 3920174, 30609699 ####[facility] [address] [place] [address] Hematocrit (Bld) [Volume fraction] 40.0 % Normal 34.0-46.0 [facility] Comment on above: Performed By: #### 2 510676, 52440763, 9377066, 8913269, 03375382 ####[facility] [address] [place] [address] Hemoglobin (Bld) [Mass/Vol] 13.7 g/dL Normal 12.0-16.0 [facility] Comment on above: Performed By: #### 2 054363, 63116162, 4971526, 7018243, 81821944 ####[address] [address] MCH (RBC) [Entitic mass] 29.5 pg Normal 27.0-34.0 [facility] Comment on above: Performed By: #### 2 178746, 73333608, 1397455, 1902716, 62697282 ####[address] [address] MCHC (RBC) [Mass/Vol] 34.3 g/dL Normal 31.4-36.0 [facility] Comment on above: Performed By: #### 2 325869, 84166723, 7350545, 4469316, 60028927 ####[address] [address] MCV (RBC) [Entitic vol] 85.9 fL Normal 80.0-100.0 F [facility] Comment on above: Performed By: #### 2 471549, 28386566, 7094361, 9968451, 36734182 ####[address] [address] Platelet mean volume (Bld) [Entitic vol] 9.4 fL Normal 6.4-10.8 [facility] Comment on above: Performed By: #### 2 983346, 60005875, 3353716, 8406593, 99047343 ####[address] [address] Platelets (Bld) [#/Vol] 282.0 E9/L Normal 150.0-500.0 [facility] Comment on above: Performed By: #### 2 691936, 88286947, 2914823, 6665715, 94347484 ####[address] [address] RBC (Bld) [#/Vol] 4.6 E12/L Normal 4.3-5.9 [facility] Comment on above: Performed By: #### 2 621234, 22754404, 9168949, 4644325, 76624339 ####[facility] [address] [place] [address] WBC corrected for nucl RBC Auto (Bld) [#/Vol] 14.6 E9/L High 4.0-11.0 [facility] Comment on above: Performed By: #### 2 538641, 51288681, 1708491, 1598801, 60486884 ####[facility] [address] [place] [address] CHEMISTRYOrdered By: SYSTEM SYSTEM on 04-15-2022 Anion [...] rate/Area] mL/min/1.73 m2 Normal >=59mL/min/1 .73 m2 [facility] Chem S Glucose [Mass/Vol] 128 mg/dL Normal [...] Transcribed by: DANNIE Technologist: JUAN PABLO Noe [facility] Consent for Treatmenton Consent for Treatment [id number] 1#1.00CD:127 Normal [facility] ED Clinical Summaryon 2022 ED Clinical Summary [address] [address] ED Clinical Summary Person Information Name: ANGELA MUNOZ [facility] Age: 41 Years : 1980 Sex: Female Language: Russian PCP: Corby Conner MD Marital Status: Single Phone: [phone] Visit Id: Visit Reason: Fall; Ankle injury - Minor; ANKLE FX Speciality: Acuity: 3 Enc Type: Observation Med Service: Emergency Arrival: 04/15/2022 16:23:28 Discharge: LOS: 000 02:02 Checkin: 04/15/2022 16:23:28 Checkout: 04/15/2022 18:25:42 Dispo Type: Admitted as IP to this [facility] EVENTS: Event Name Event Status Request Date/Time [...] 04/15/2022 18:25:42 04/15/2022 18:25:42 04/15/2022 18:25:42 ADDRESS: [address] [place] [phone] PHYS DOC NOTES: MEDICAL INFORMATION: Prescriptions Given: PATIENT EDUCATION INFORMATION: Instructions: Follow up: DIAGNOSIS: Normal [facility] ED Patient Education Noteon 04-15-2022 ED Patient Education Note Normal [facility] ED Patient Summaryon 023 ED Patient Summary [address] [address] Patient Discharge Instructions Person Information Name: ANGELA MUNOZ Age: 41 Years Arrival Date: 04/15/2022 16:23:28 Discharge Diagnosis: Primary Care Physician: Corby Conner MD Provider Information Primary Provider: Advanced Bisque Placer:Capri Weiner PA-C The exam and treatment you received in the Emergency Department were for an urgent problem and are not intended as complete care. It is important that you follow up with a doctor, nurse practitioner, or physician?s drilling assistant for ongoing care. If your symptoms [...] opioids can be used to help relieve rbhtxtvr-wi-bpkgnp pain and are often prescribed following a [...] be struggling with addiction, tell your health healthcare account manager and ask for guidance or call [facility]S National Helpline at [phone]. g Source: [place] Department of Health and Human Services/Center for Disease Control & Prevention [facility] Medications Given: Medication Dose Route HYDROmorphone 1.00 mg IV Push Left Antecubital Fo (more content not included)... Normal [facility] EMS Documentationon 04-15-19 EMS Documentation Please click on link to see report pdfCD:[id number] xLjQNCiX5+prnDQolQUJ QsPMnMZYjJiA1ALexKiV lYH3sye0DVOdYK0ZqOMK pASArKr8C IReuAZy1KUOrE16KE7vc USvvECnsIq6HpC9iARBu tiDvLBTBH96rLvqzJnSq NQovVCAxODAwOTMK Yx1kEMYtRXUmTZAmUYRz ICAgICAgICAgICAgICAg ICAgICAgICAgICAgICAg ICAgICAgICAgICAg ICAgICAgICAgICAgICAg ICAgICAgDQplbmRvYmoN Pk6BfAIqHk4SYdKfLsCX CjAwMDAwMDAwMzIg MIVaAMFbnd6SZDVuBTQz NCM9EAVeRCIwPWBcMNfr AVTuDSWxLKe6DXQpVHBe GQ5ZRwDpZUUfICP6 CcVsOESzWWHqus1QIWMm XOAsCZb3XbNxTJKbFDAf KDtwNTRcAPBrBaG2JNXk VJYdRC5AYbUcDRGu SRJvGBxuTOIdHUWyor0B TEDxJZPwKxA4FPJaCXYg MCBuDQowMDAwMDAyNDI4 IRDkVTMzLN4TSuPp KJIaXXY9PPorCXEnBEMb yu2DXIBhMIWwBoejCrJl MDAwMCBuDQowMDAwMDAz YUinWXWsKJOgOX2W ZiGtMVUfVDW8YQKeOGPl XQMgjk0JXFItZZCpViV5 MCAwMDAwMCBuDQowMDAw MDAzODgxIDAwMDAw TM9JNdFoSGKvQJLgFeJt SNEzJDQwmm6GHDJhVAIj NDUxMCAwMDAwMCBuDQow XBVlFRI1SxajLXVk DGKqIG9WKiCkGJCtDAU8 RZtoLMQxPUYtxw7KEUMp WEWkCOA9GkBqGSAoBYYh AZxpOURiSSO5ENeb WNLxDEJbPV4PEcKvQAWv KKI9BDLlXXYfPDAljh0K IGNcBIVoCUI4DCZsLNWz MCBuDQowMDAwMDQ4 SWb2ZGYgBIEkGB1XIqEf MDAwODUzNDQgMDAwMDAg hm6JrUAgkCjgib3SNZzM K1cVLXa7QBL5GJY7 UVv8DtL0QfP7VYu7MOKc VvL9RjFjJpCzNUF+CjxD RDBFMjExRTMyNEVDNTUw QXVuYHDyQcn9DlHq LFkQRl6aKs0PxcX8EKI7 QAB1UrbzNf9ooKEuFeLq JZTEK1KepzQdQBdGB5Dx aNOnNKKcG8LQYWT6 Jd61WjcnwBxRHMN0HAUJ LVhyTS9NTypKMjItNGca Sd56W7EQm0P2GcPpM5HJ hGtRotNMSFjbJ3kL qHI1g9gdbGwWfOEZyOwj OGdJcndPalFSQUlqUHNX oD51fdeDG1ZoEGp2P2IX Hg6THOagXeHlbR5Z vTklKFV3hC6eIKYDTHnH CntwWJ2RSLBCXHy8HFp+ PiAgICAgICAgICAgICAg ICAgICAgICAgICAg ICAgICAgICAgICAgICAg ICAgICAgICAgICAgICAg ICAgICAgICAgICAgICAg ICAgICAgICAgICAg ICAgICAgICAgICAgICAg ICAgICAgICAgICAgICAg ICAgICAgICAgICAgICAg ICAgICAgICAgICAg ICAgICAgICAgICAgICAg ICAgICAgICAgICAgICAg ICAgICAgICAgICAgICAg ICAgICAgICAgICAg ICAgICAgICAgICAgICAg ICAgICAgICAgICAgICAg ICAgICAgICAgICAgICAg ICAgICAgICAgICAg ICAgICAgICAgICAgICAg ICAgICAgICAgICAgICAg ICAgICAgICAgICAgICAg ICAgICAgICAgICAg ICAgICAgICAgICAgICAg ICAgICAgICAgICAgICAg ICAgICAgICAgICAgICAg ICAgICAgICAgICAg ICAgICAgICAgICAgICAg ICAgICAgICAgICAgICAg ICAgICAgICAgICAgICAg ICAgICAgICAgICAg OL4De7PvqhP7dfEnFJft TXijPQVRWn0ONUnzGtJr TE5ede0SIJdQI58wjUDx YXRhIDIxIDAgUgov D1QqxkUygZtccdQfFuGz PIFYHs4HzYHTLZqzZ0E7 lLgeHUHaUUbyEDBVYo7O NFtwST7aOOSiJKUh Hj2oXPxqETXyFLBjVkMq GIBNMe6ObYKkFI7OEOGd zX0mEx6+DQplbmRvYmoN Gg6ZSlBrSKIyQrcJ Qgr1Ex4RcOq3BOPgQ4Vn PAEuQEAkt9ZpRb9RMT7z yKjbBEC8Uj6VWWd1Xn1+ YCzgeBUxHG2LPbmu M4HkEJQzRAIhKUHf8CFW cGBtPNLvOIGZYJOa6oPB Qv9oSJqBKTxBppGFWwDH N2vLRmekAohKjuQd VrPqmO0V3iNFxN7aZXgC vjUcT6T7Biv7WvRnSVlb iG8B+BcS3ad1GWyPOsoL +p0sQWEeEyUphLns xFvDu3E4MmB8TwZfHJWT GRgqVgLZbuhOBgDwqhqE ZXpclpLhyCGpJZ5NJqYa WG1vfj0ZJDbuWPBv PK1jxm5TLTwKY1FfgsZt wqZaRKy7PpTdQYCiXp6A ZWRpYUJveCBbMCAwIDYx BeW4AVWhIg4SDYJf hlCvWdEyHHCDZg9YNEXj aJPcQWFxODsKQ4gBUjwy C5SuQMzRK4cgVdN6AAX5 IDAgUgo+Pgo+Pgov VHlwZSAvUGFnZQo+Pg0K NQ7rh0PiMNjJKdN1NTMg y0NhJKp3HAggOoUlkWEa CRLpSWDfUcL2NJFz Pe5WeNh6NIUgG6StTVOz ENQmy4EvCh0LLZ1kxPcs DoLWX1Wfz387szPnnvO3 OLjzWO2rjnKvePO4 PAovSWFiYzYgNDMgMCBS Cj4+Cj4+Ls0NeEW4dYMb LB4Qe3TbKy2FnJYlHK5B U8QgZCV7Rd3+DQpz nFIlAG8AYwzko1me7Rns 3FB8ZGSDZHL2XpM8XSOl SuXlClfI4+Jj1IN1SVLt QzWSUZOl3RhoRtpu VHlHN67lNPiKSCRuu7hr kJfLFWgOADNrDtQNCmVu PIF9eiNppH3JDE7iq7Mk QLoVZsR6XFTgn8Ve GIs2FHnyYv8lK91xie1x uXywM4HuKWwhSZBlGAkf TEogMAovTFcgMgovTUwg OTxbK0XdxVU5AJnq C8SfUSy+Jh7EQX2td1Yy VGxIXhX6MUChz5AsEDs8 BZxeFc0nC68npz0zzGwm U3SlANu+Yd5MXQ5j c8ZkJBoKSaV3HFIvg4Lp TRl3TZzfCl5bH38imu2j aJzkQ2UkSEsdDAStMIso TEogMAovTFcgMQov KJmtAPnuJ0LwwJO2JIwr V6KzXSn+Pu4IRY0gv1Fc VBtHBdBaTRJek9GqGIf5 PAovQmFzZUZvbnQg A0UKLduHVicMr9MrfRWs MlG6JTOcUb9gSI7YMu1R NTWnMM8nLC63Qk0zoIMt RcVlRIHlPu8MV2Jj R69iaS8iJY2PNDQzkNb1 nW9JEg6RqFJ0uDJlDW6C aIRyOXtmON4Jzbacr9Iv IDMzIDAgUgovVHlw AGPoNg3udEr+Jb7EGX6v a9UnDOpSEzInHJCsx9Qs RHk5OJibXeXrJERfawXv G0XZCnmOGjeWq7Mv kXHnIiU6WZJjQp9lEV0V Ef5NAVHXrEW6YT3XhoPf PHk7Gr3EcqHlxoilBkJg CBRlmgHydWjxIr5X FCcvh0MokHUqZCJdPqTq Sf4HvUXceDZnRW80ZOUT Rl4OD0OIVPAlW0kIEWQk FQ2TTEZvvAj1sTvm PForGQlrGo3xcJJqd6Zt mPK4d8CgHuMdPBHEDq9O yQD4mSWoKP7JAHYFe927 XOmwSKZPW0Q5vWJn I6ByreJEM2vwGtRlNACf OvBrZcQ2BbH4NJf+Pg0K JY3kq6NyOBgVXgMrGLTi j9MtCZi9ZAwwYEHf QV22SRyqFr16WLo8Juoe X4TmNXZoQ4a2PKV2PM07 JLD3NSznWTFnN1DjmEIs DAPiHkklUVpRA1Lw DKkuIWZ3Va6Eo920YjFx hNFfVYH1LD11BNE4SkAs VxVxUaN9SWJrJWykXZ11 NjAxNiAxMjIxLjE5 WWGkZJdiLu7urKLdqLXt RBF6ZBOlCcvpKs9pvH1y eGIwG2JUXuiHXzfOv1Zu mCIzBuE5LIWiBt6o NV0DBi5KsFOdnARPskcb FBImSc0EyCSdDmH1Fw5c BbU1EOfyLShzTNJvNu4e mSOig2AzeCN5m4ZC Ex6GWyOiLM4oyj9KDVzf KqPqPG0viz2SIHzMS9Qk bHRlciAvRmxhdGVEZWNv UMXHG4ahnpz5dHJm OLDXSi1UCjX8igGyhA8S qNxlAh0peaAYcaDnfzuG AWDUdmmT1GZK7qGUdv6I 3HD9aQwRLzym1c/Y tUOZMxPg93g3qtA4NGzC BJZ++LT0DUemzBIhsJik jT0tPcrLHtsMGlcKgcw0 m2NU1C6OrFQj/ZiU OPIjT2dEku6cw1NwOI1U 1Y3v7NXk4Mn6tgWas757 nRK4VU3GVvPRG9sIkp17 K5ZHJssQq4lE2wWd Xmpo4PRTfPYnPo8zSdmd 9M06WXFrdLiRxkJdUbS1 M98D9fesh+pKtLn212XO iHaEckRCIMpPiPIj ouKAvqvD/s/lNv8TzJrW Yo/dqGIW9cBA9SMfVv0g o+MOhhEgskeZIKCN5IGJ cYI9BU0jnOWTL4Zu SH8XwKWyw0t/gFpeZrTs 3b9HchL+qy2BefArqe4q 3O+ZU71kGc4iccyu9i4H XL1bl1RhFVEkICcz uiYbYmpPSr4RQlDhESCm WorKWfz0Vx5AYODlDx3a yUNzZ6bBWJPVB1QxvSCk ZUWBIWuOC69XCq4E NWTsYE6fOA83Zo6snWLj PaL3WNVwAg3XO6EkY88q eA7eOH3ZHOOi (more content not included)... Normal [facility] EMS Documentation Please click on link to see report pdfCD:[id number] xLjQNCiX5+prnDQolQUJ DcGRmIDExMjAxDQoxNyA jUF0yky5DRJtIE9BmTHu cVExMK4ow SsY5EqCzJWM8FAmiVAPf KMW6YrAAU3nbllExhii9 QCNzTIqwBtXpIr4ITJUs Ik1TJGFpSSA1Hdf+ PiAgICAgICAgICAgICAg ICAgICAgICAgICAgICAg ICAgICAgICAgICAgICAg ICAgICAgICAgICAg ICAgICAgICAgICAgICAg ICAgICAgDQplbmRvYmoN Fc9OnNLyFm3BHItyJQaS CjAwMDAwMDAwMzIg BTGuKSTdpo5JRGRwNINu LHW6COBgFIPaFERfEQjy WKSpFBOiGRY6JYYyYLQf EM8ASdCxQBXeODK7 VUGmVXHlRWIbck3VVZBm SCYhIPi7GMCfSAPbQKRg DQowMDAwMDAxOTYzIDAw BMEdML8RBbOuBFFr HYCaNuEgTVIbDUDkqn7C MDAwMDAwMjIzNyAwMDAw MCBuDQowMDAwMDAyNDAz BUGcEGZrKW2BQxVw YMJvUMS4IGGlAAOwEUDe hc3MTPDwXJWzRyD1LVSf MDAwMCBuDQowMDAwMDAy Iym7BHHlNCViEX8H GnAqWKFxCXL3QKJuEQHn TVCepu7SPVFiKCLqLjS5 NCAwMDAwMCBuDQowMDAw HFFoOcE2JWSwNBQg RG7CWzEcCSMuVntgKYuc RNGzIMXxkb6EKPFhCWU8 ZnW3VHWzVHJvUAWuVTk3 waMhlLYlZLb0JYwj PVAbIlz2TNZ6ETqPPeV8 NzdGNEIwMkQzMzlBNkQw GaNoOYRoOM9FGUW3J4MQ RkEyNjFEQzIzRTlD KBGrCWH8HSMNJQBlGPE8 Kl3EN4FvRSLkJOGbKTq4 Db9Cg620IBZ9DMGhJfsf Z9n7XYIsBCwqB650 cmNlIChXZUpYRnhOTzRm PmD6wSRITOBNE3C4M26r J48kNP2AXUdeZ7E7URla O3J1NcCAD6GLKJMh KUOmyYf7YHuqIRp2Opca uEnjWGJ3J2MroDP9D2dm x48mHPXHZJmMa4ltMIJ9 U91XMwrKZatHvqLC K2l2zTBRQ1OdX8CjQ9BX IBeRBBCyPUWcDl4RBHnJ CUttnkbRCu1tTd9+ICAg ICAgICAgICAgICAg ICAgICAgICAgICAgICAg ICAgICAgICAgICAgICAg ICAgICAgICAgICAgICAg ICAgICAgICAgICAg ICAgICAgICAgICAgICAg ICAgICAgICAgICAgICAg ICAgICAgICAgICAgICAg ICAgICAgICAgICAg ICAgICAgICAgICAgICAg ICAgICAgICAgICAgICAg ICAgICAgICAgICAgICAg ICAgICAgICAgICAg ICAgICAgICAgICAgICAg ICAgICAgICAgICAgICAg ICAgICAgICAgICAgICAg ICAgICAgICAgICAg ICAgICAgICAgICAgICAg ICAgICAgICAgICAgICAg ICAgICAgICAgICAgICAg ICAgICAgICAgICAg ICAgICAgICAgICAgICAg ICAgICAgICAgICAgICAg ICAgICAgICAgICAgICAg ICAgICAgICAgICAg ICAgICAgICAgICAgICAg ICAgICAgICAgICAgICAg ICAgICAgICAgICAgICAg ICAgICAgICAgICAg ICAgICAgICAgICAgDQpz dGFydHhyZWYNCjANCiUl KQ2EQVqEEtX1GFPnw7Kb MUd6FEcyHQS2UGEe tTFrQABqJAEWXj6YvVYu JNL9vL2wNKqrMGPoUJIV J0XuaP1QI568oWvcdeUp ULD9TYIzGkstUPNp XF2iLPXjR5CkDZ1icvYK D7SlY8PlEHX3ZRCmJqta PRrfLCSpR0W0GGlmQiv+ Nx9MHF9sh0ZrFHyA DrB7GCXlz1ZmFEx8HTer SdfxuEByRO3WgFB2NYSd J01xAKznIBMqG2CcJDmv Je6SPIQ4Bi0+DQpz mEJdGO5OVujtI2Ei0WZj RL5YjXWKtTdBSRBTObCw BXeCLGZ8gEDByEgwjUbl +ICCgHIWmZJ0cFYT BTSQlV9FziBiPcA2gIWB q6KdRiiL3P0ZoD+YiQCY +WdlHTzylzSwpOSkDQ5L GbLjJL3zds4TWUdq CRSbNH7fxi9HSEbRA0Aj bnRlbnRzIFsyMiAwIFIg NyMxRPFSJOH9VRIwUwXz NSAwIFIKMjYgMCBS GWT8DSLdWwMsKKClRTCp MjkgMCBSXQovTWVkaWFC i6xdNjCtSYS2OAVkGeqf FQqvMPRmXR16KRQ8 APFmWymqJhBhg3YfV7Ts SUu1Ui9Cl931WGe5Rv7U TATtTYQtGHOaSBXQTz2K R7fNNjcuI5PkBRpI S3hbFbIeDUYlSGNtBRQE Y4oaSrZtOVHvOkWvUUBA K5uiBsNyIYVjDwHqNJET Y4tqRxU6MXArMWIn Ambrocio+Pgo+PgovVHlwZSAv UGFnZQo+It4ISF4fx8Ps WCkGEtBbHYJtb9EfKGx7 PAovQmFzZUZvbnQg T8ZkbJLzCJWeeERbZe9H zwMzUFziAxBgQ8vwOH0i vKTaP06rgW2gUq3CvST1 kAVhLY5RvJAvBWsm MBihKXGuMn7hzFh+Pg0K IR1ri4HrGGbJVzOfXKOe d3EhMPs3BXnzKHPnB7Tv IDEwMQo+Es3Ti8Eo YDOzGGgwBUrSHH3EXHSf VHEojfyZGr8NXLNtIAXo EGNIDi3IYIPbLFSjPXEk YZO6ZNHcThGMaE3T SzLzWPC1CABpQQQbDT50 W1V4pxonFlFrOOSnJG9J W9liHAmvAGBHFg4DWYYA IzGSUk5DGE9jd0Do WWVuQQvcoqSgCrfYXo4A GlGlGBNaRygPGle6Vp3L QG3inVzaDGSJQc0WLuN1 ipJgyQ2IXbiKFcPH WyC0OxWeIZKaUIO3FSBw SDI3GZ4jAkByTtRbzY6A K5gwFjP0PXBqHZcKGToR TP4HKQrbyhDblCGr LF3PMjJiTQ8ejy8QDVcy PYUjST3xji3LSZcNP9db pbq0uEZsMRJDHf1RPlN6 bnMnlQ7AvM4BCtBV CjAgMCAwIHJnDQovRmFi YzUgMTEgVGYNCjEgMCAw IDEgMjAgNTQwLjUzMzMz IFRtDQpbICggRXYp LJW5PCwxuhPuU6CylJYr QSJcMYGjD3NvoyPaZran HKTHFb0VHIYITbUGUj5Y OD7nf5TvJYWzRGbg pyMaNzjIHs1ZLbHdXHCv XcrUTaj1Dq1INU4dxJgo IATBLy5OFgP0ptSxgA5X IxsKUyVLXaO3StWy TQMqJUElHfWxVVC5RuZ3 PsN4PUZkEMhgFCSvMwGh ZYVzQAzZKZsSEU7UBGyk gsNlbBCxMN3FMrWg OK3hpk5FDIbnKzAlXS7e xt8QCQpVA0sktmc6nSCa PLQHWx4JJcW3kfEetL6N wR4XWfJXBeGsBLVk IHJnDQovRmFiYzUgMTEg VGYNCjEgMCAwIDEgMjAg ZUB6Hod5EnZ4MGBbUAeh ULvsNSGhBTK5ZGkc vvGeY2SvjUAqYPBlVYB5 A1JqF80kXJWyVFOGEQyR OI8PDK5CNOqvgoTvnDDj JQ4MQcCtEK8krr0O MNnhJpBoRP2iky0SAIeW Y5ysjjo2iPA8PTn+Pg0K e8KdENRhFIgIGB5AoI3X NTUyIDAgMCAxNjUg HbGnYuL8ANJlQMgvGRBx HpN8OEDmGOaUSYpKRZ4R GCgecpGqhMDnSV8ZCgTx MT8fry5YTVelTPSt QX1xfi3RDIrGP6ofrxf7 hFCiSBMRKl1BYwD1ozSi dA2UrE9WOlSMLuCdVFOt IHJnDQovRmFiYzUg MTEgVGYNCjEgMCAwIDEg UbGmLbS7AyCgCA8VJovs OXJRzjlgNYCxLKImfU5I jRVdnM0eIYFlJKmq Q7BvDo32NMUvORPUWQwG JG5DJO0XHBxzqfRlgEPm AQ1IBnQdJB7pdd5SBMcc VPAnBO2okp9XQOmY L4ixbee0rRL2BCv+Pg0K h0KhHADuQVwDTN0IjF6S GDKsCQMvJVB3SgOkIZSq NzTcHhSxIkFwH75J At4SXUEkSSejOO3WZeUZ DoXNLNjLJmMrRGT9tyGl dF2WUD9jl1GqIFbWWmLk ZWVum9KyXIh9XTsd See6l2GssjMrrNRkcyIb vFJ1Ki0Ik7vgewGpZOUh FT8JIQIiY8AIV3PCT9Kc bHRlciAvRmxhdGVE IHEwPTYXK1hopCopsGIw BaVZO1vqnil1uSPtIYh6 IMakD8DqbGwtBUTlRQ3k R3WIZ3W1uSUuL9sQ LalfM0SRW4foQLVoFKR8 MQo+Wv7Ud7TsQYAiMWe9 wRl1B6hDOwZc0sv39c61 c9//yw4aNe0iY4Cz 3rjm8GnbQw5yTA9SqFWc UDYOMqieVNsBFQzXw81z QQFBDChmELNiQMRMVASV I5lD+M0z2uYhQjve j8mIJkh7mr/0fQan0q34 IvwO7naO2O6CVvJVFlYI AgICAgICAgICAgICAgIC AgICAgICAgICAgIC AgICAgICAgICAgICAgIC KvWPGtOZOkKSCwfeRY0M u1mma/w+IFbLo0Wa9LhY 4ft14RuGWd5/9ijn cA70Amo5+Df35gjVAcDk Y9fkI59yC75/LDt+o1hf 9OzGvHg7gmh21to+PZU3 j2c+qXuZXyUgICAg 0CFRnxM+cukVrUoIaIHu +jrH4WcDhwxNvIJj/FJu Hc2Xv20GWO3jsF83+uf2 LgcN8ZbBQuT72EQn f7Q2Y7PAeF/FgprrqeET vAgr3daN4pksqt7hmV9E RUnVnx1WG+/i (more content not included)... Normal [facility] HEMATOLOGYOrdered By: SYSTEM SYSTEM on 04-15-2022 [...] 3 Pre-Arrival Note Pre-Arrival Summary Name: , [facility] Current Date: 04/15/2022 16:25:10 EST Gender: Female Date of : Age: 41 Pre-Arrival Type: EMS ETA: 04/15/2022 16:50:00 EST Primary Care Physician: Presenting Problem: fall Pre-Arrival User: Ana Paula Funes RN Referring Source: Location: Completion Date/Time: 04/15/2022 16:20:00 [facility] Emergency Department Pre-Hospital Report Form Vital Signs: Pre-Hospital Report: Treatment in Route: Response to Treatment: Misc. Issues: Normal [facility] SEROLOGYOrdered By: Ru For ster on 04-15-2022 Beta hCG Ql Negative (04/15/22 5:35 PM) Normal [facility] Man Sero XR Ankle 3+ Views Righton [...] MD, V. Transcribed by: DANNIE Technologist: MIRANDA [facility] XR Knee Complete 4+ Views Ri [facility] 04-15-2022 XR Knee Complete 4+ Views Right [...] MD, V. Transcribed by: DANNIE Technologist: MIRANDA [facility] eGFRon 04-15-2022 GFR/1.73 sq M.predicted among blacks MDRD (S/P/Bld) [Vol rate/Area] mL/min/{1.73_m2} Normal >=59 [facility] Comment on above: Order Comment: Order added by Discern Expert. Result Comment: eGFR is race adjusted. AA=. Performed By: #### 2 [id number] ####[facility] [id number] [place] [address] GFR/1.73 sq M.predicted among non-blacks MDRD (S/P/Bld) [Vol rate/Area] mL/min/{1.73_m2} Normal >=59 [facility] Comment on above: Order Comment: Order added by Discern Expert. Result Comment: Network Diagnostic Support Specialist vivi kidney disease could be indicated at eGFR's of less than 60 mL/min/1.73m2. Kidney failure is indicated at less than 15 mL/min/1.73m2. Performed By: #### 2 [id number] ####[facility] [id number] [place] [address] ANES Rodney 07-07-2018 ANES POST HNO ID: [id number] Author: Gwen Angela Service: Anesthesiology Author Type: [...] 07, 2018 TIME: 11:33 AM PAGER/CONTACT #: [phone] [facility] ANES PREOPon 07-07-2018 ANES PREOP HNO ID: [id number] Author: Gwen Angela Service: Anesthesiology Author Type: [...] July 07, 2018 TIME: 8:37 AM CSN: [id number] [facility] NURSING PROGon 07-07-2018 Protein mass conc HNO ID: [id number] Author: Leila (Rn) Jules RN Service: Nursing Author Type: Registered Nurse Type: Nursing Progress Note Filed: 07/07/2018 10:48 AM Note Text: Dr Olivarez spoke to patient at bedside [facility] PT EDon 07-07-2018 PT ED HNO ID: [id number] Author: Leila (Rn) TROY Vicente Service: Nursing [...] By: Leila Vicente RN In Department: [facility] AMBULATORY SURGERY - [facility] SURGICAL PATHOLOGYon 019 SURGICAL PATHOLOGY Specimen #: [id number] Submitting Physician: NEENA OLIVAREZ M.D. FINAL DIAGNOSIS [...] x 1.0 cm. The specimens are sectioned. Golf Course Keeper sections are submitted in formalin in one cassette. KVB/rw 07/10/2018 C. Received in formalin labeled third extensor compartment tenosynovium left wrist are multiple white rubbery to fibrous segments of tissue aggregating to 2.3 x 1.8 x 0.4 cm. The specimens are totally submitted in formalin in one cassette. KVB/glw 07/10/2018 Gross examination performed at [facility], [address] [place] [address] Date of Report: 07/12/2018 Date of Procedure: 07/07/2018 Date of Receipt: 07/07/2018 Submitted by: NEENA OLIVAREZ M.D. Location: [facility] Diagnostic interpretation performed at [facility], [address] [place] [address]. CLIA Number: [id number] [facility] NURSING PROGon 07-06-2018 Protein mass conc HNO ID: [id number] Author: Roseline (Rn) TROY Douglas Service: ? [...] Douglas RN July 06, 2018 7:33 AM [facility] HOSPon 06-22-2018 HOSP Patient:Angela [...] results. Gm Broussard Progress Notes ([facility]): Noelle Rudd Rt 06/20/2018 12:35 PM [...] Rudd Rt June 20, 2018 12:34 PM [facility] Vital Signs Date Time Vital Sign Value Performing Clinician Jeff lindo 04-17-2022 12:16-0500 Heart rate 78 /min Olu Yang [facility] 04-17-2022 12:16-0500 SaO2% (BldA) [Mass fraction] 97 % Olu Yang [facility] 04-17-2022 12:15-0500 Diastolic blood pressure 70 mm[Hg] Olu Yang [facility] 04-17-2022 12:15-0500 Mean blood pressure 82 mm[Hg] Olu Yang [facility] 04-17-2022 12:15-0500 Systolic blood pressure 108 mm[Hg] Olu Yang [facility] 04-17-2022 12:15-0500 Body temperature 98.78 [degF] Olu Yang [facility] 04-17-2022 09:01-0500 Hourly Rounding Olu Yang [facility] 04-17-2022 09:01-0500 Promise to Return Olu Yang [facility] 04-17-2022 08:55-0500 SaO2% (BldA) [Mass fraction] 97 % Olu Yang [facility] 04-17-2022 08:01-0500 Hourly Rounding Olu Yang [facility] 04-17-2022 08:01-0500 Promise to Return Olu Yang [facility] 04-17-2022 07:09-0500 Hourly Rounding Olu Yang [facility] 04-17-2022 07:09-0500 Promise to Return Olu Yang [facility] 04-17-2022 07:00-0500 Body temperature 98.06 [degF] Olu Yang [facility] 04-17-2022 07:00-0500 Heart rate 79 /min Olu Yang [facility] 04-17-2022 07:00-0500 SaO2% (BldA) [Mass fraction] 96 % Olu Yang [facility] 04-17-2022 03:35-0500 Blood Pressure Location Olu Yang [facility] 04-17-2022 03:35-0500 Body temperature 98.24 [degF] Olu Celia [facility] 04-17-2022 03:35-0500 Diastolic blood pressure 73 mm[Hg] Olu Yang [facility] 04-17-2022 03:35-0500 Heart rate 89 /min Olu Celia [facility] 04-17-2022 03:35-0500 Mean blood pressure 86 mm[Hg] Olu Celia [facility] 04-17-2022 03:35-0500 Respiratory rate 16 /min Olu Yang [facility] 04-17-2022 03:35-0500 Systolic blood pressure 111 mm[Hg] Olu Celia [facility] 04-17-2022 01:35-0500 Blood Pressure Location Olu Celia [facility] 04-17-2022 01:35-0500 Body temperature 98.42 [degF] Olu Yang [facility] 04-17-2022 01:35-0500 Mean blood pressure 93 mm[Hg] Olu Celia [facility] 04-17-2022 01:35-0500 Respiratory rate 16 /min Olu Yang [facility] 04-16-2022 23:05-0500 Blood Pressure Location Olu Celia [facility] 04-16-2022 23:05-0500 Mean blood pressure 89 mm[Hg] Olu Yang [facility] 04-16-2022 23:05-0500 Respiratory rate 16 /min Olu Yang [facility] 04-16-2022 20:40-0500 Respiratory rate 17 /min Olu Yang [facility] 04-16-2022 20:10-0500 Body temperature 98.42 [degF] Olu Yang [facility] 04-16-2022 20:10-0500 Respiratory rate 26 /min Olu Yang [facility] 04-16-2022 19:55-0500 Respiratory rate 21 /min Olu Yang [facility] 04-16-2022 19:42-0500 Body temperature 98.24 [degF] Olu Celia [facility] 04-16-2022 11:18-0500 Heart rate 76 /min Olu Celia [facility] 04-16-2022 07:26-0500 Mean blood pressure 80 mm[Hg] Olu Yang [facility] 04-15-2022 20:53-0500 Mean blood pressure 81 mm[Hg] Olu Yang [facility] 04-15-2022 17:59-0500 Heart rate 82 /min Olu Yang [facility] 04-15-2022 16:25-0500 Heart rate 71 /min Olu Yang [facility] Encounters Encounter Date Encounter Type Care Provider Facility Start: 03-28-2023 End: 03-29-2023 [facility] Start: 03-07-2023 End: 03-08-2023 ambulatory Rica Villa MD Facility: [facility] Start: 01-17-2023 End: 01-18-2023 ambulatory Rica Villa MD Facility: [facility] Start: 04-15-2022 End: 04-17-2022 Evaluation and management of inpatient Olu Yang Facility:[facility] Start: 04-15-2022 End: 04-17-2022 Evaluation and management of inpatient Olu Yang [facility] Start: 01-11-2020 Patient encounter procedure CORBY DESHAUN Facility: Start: 07-07-2018 End: 07-07-2018 Patient encounter procedure [facility] Procedures Date Procedure Procedure Detail Performing Clinician Start: 04-16-2022 Open reduction of fracture of ankle with internal fixation Olu Yang Payers Date Payer Category Payer Private Health Insurance 1980 Unknown [id number] 1980 Unknown [id number] 1980 Unknown [id number] 1978 Unknown [id number] 1978 Unknown [id number] 1961 Self-pay Social History Date Type Detail Facility Tobacco vape Tobacco Use:. Vaping Fi [facility] Tobacco smoking status No Smoking Status Entered [facility] Sex Assigned At Female [facility] Medical Equipment Procedure Code Equipment Code [...] Assessment Result Facility 04-15-2022 Functional Status N/A [facility] 04-15-2022 Functional Status [facility] Clinical Note 04-19-2022 Note Date & [...] Room. Olu Yang D.O. sathish Dictated: 04/17/2022 [id number] Transcribed: 04/17/2022 [facility] Comment on above: Result Comment: Elec [...] were reviewed. Discharge medications are sent to [facility] in [place] with Percocet, aspirin, Colace, and Bactrim (of [...] testing. Olu Yang D.O. ca Dictated: 04/17/2022 [id number] Transcribed: 04/17/2022 [facility] Comment on above: Result Comment: Elec [...] scooter again tomorrow if pt still inpatient. [facility] 04/03 [facility] Hospital Discharge instructions 04-17-2022 Note Date [...] and water are not available, use hand sightseeing guide. ?Change your dressing as told by your [...] quitting, ask your health care provider. Take uxih-bwh-mxrkxvi and prescription medicines only as told by [...] as fried or sweet foods. ?Take an tsee-gog-ynhzrzh or prescription medicine for constipation. Keep all [...] 01/05/2006 Document Revised: 03/10/2018 Document Reviewed: 01/16/2018 [employer] Patient Education 2020 [employer] 04/17/2022 12:24:52 Ankle Fracture Ankle Fracture [...] told by your health care provider Take bxaz-bll-cbegrow and prescription medicines only as told by [...] 03/25/2001 Document Revised: 06/07/2019 Document Reviewed: 04/29/2017 [employer] Patient Education 2019 [employer]. Follow Up Care 04/15/2022 16:23:55 With:Oul Yang Address: [address] [place] [address]- Business (1) When: Unknown Comments:Call for followup appointment 2 weeks [place] office With:Corby Conner Address: [address] [place] [phone]- Business (1) When: Unknown [facility] Clinical Note 04-16-2022 Note Date & Type Note Facility 04-16-2022 Note CRM entered the room to discuss discharge planning. PCP, DME and insurance discussed. Patient is alert and involved in plan of care. Contact information provided and whiteboard updated. Pt had ankle fx. PT rec knee scooter, LM with Ortho zoology technical officer to see if Celia will order for pt. Pt has no insurance. HCAP given. Pt will have surgery today. ANt dc TBD. CRM to follow. [facility] Comment on above: Result Comment: Elec [...] Recovery Room in stable and satisfactory condition.. [facility] Clinical Note 04-16-2022 Note Date & [...] No further PT needs at this time. [facility] History and physical note 04-16-2022 Note [...] her boyfriend and two daughters in the [facility]. She does have a full [...] scapholunate ligament repair with Dr. Neena Olivarez, [facility]; gastroesophageal reflux disease. PAST SURGICAL HISTORY: Right wrist scapholunate ligament repair with pin, bilateral knee surgery. MEDICATIONS: 1. Cymbalta 60 mg daily. 2. Gabapentin 30 mg q h.s. 3. Omeprazole 40 mg daily. ALLERGIES: Codeine and morphine. She states she can take Percocet and Kim. REVIEW OF SYSTEMS: Otherwise negative. PHYSICAL EXAMINATION: [...] forward later today. Xochilt Bueno Dictated: 04/16/2022 [id number] Transcribed: 04/16/2022 [facility] Comment on above: Result Comment: Elec tronically Signed By: Olu Yang DO\.br\Date and Time Signed: 04/16/22 07:47 EST Hospital course Narrative Note Date & Type Note Facility Hospital course Narrative No data available for this section [facility] Progress note Note Date & Type Note Facility Progress note No data available for this section [facility] Summary Purpose Family History No Family History Records FoundNo Family History Records FoundNo Family History Records FoundNo Family History Records Found Advance Directives No Advanced Directives Records FoundNo Advanced Directives Records FoundNo Advanced Directives Records FoundNo Advanced Directives Records Found Procedure Findings Note HNO ID: [id number] Author: James Montenegro MD (Fel) Service: ? Author Type: Fellow Type: Brief Op Note Filed: 07/07/2018 10:25 AM Note Text: BRIEF OPERATIVE / PROCEDURE NOTE LOG ID: [id number] SURGERY/PROCEDURE DATE: 07/07/2018 INCISION/PROCEDURE START TIME: 9:43 AM INCISION CLOSE/PROCEDURE END TIME: 10:19 AM SURGEON(S)/PROCEDURALIST(S) AND TIME BUYER(S): Surgeon(s) and Role: * Neena Olivarez - [...] (more content not included)... Note HNO ID: [id number] Author: Zeinab Olivarez Service: Hand Surgery Author Type: Physician Type: Operative Report Filed: 07/12/2018 5:45 PM Note Text: OPERATIVE NOTE: July 07, 2018 Neena Olivarez MD, PhD, [facility] Shoulder, Elbow, Wrist AND Hand Surgery [facility] [place] [address] [place] [address] , Patient: Ms. Angela Munoz 1980, 37 [...] CREATED AUTHOR AUTHOR'S ORGANIZ ATION 01/11/2020 [facility] DATE CREATED AUTHOR AUTHOR'S ORGANIZ ATION 08/14/2022 [facility] DATE CREATED AUTHOR AUTHOR'S ORGANIZ ATION 04/01/2023 [facility] Patient Care team informatio n (unrecognized section and content) Personnel Name: Deshaun PEREZ Corby Address: Address: [address] [place] [address] Name: Brynn Quick LPN FOR RECORDS PERTAINING [...] BE BASED ON THE PRIMARY CLINICAL RECORDS. [employer] provides no warranty or guarantee of the accuracy or completeness of information in this document.
== END 2023-11-29 13:00 | disposition home or self-care (01) ==
LOC: VC 12:59
PROVIDERS: PCP Family Medicine; Visit Provider Family Medicine
DX: I73.9 Peripheral vascular disease, unspecified (principal); R60.0 Localized edema
CPT/HCPCS: 93923; 93970

== ENCOUNTER 2023-12-20 12:50 | Outpatient (OUT) | payer OTHER, SELFPAY ==
--- NOTE | 2023-12-20 | CT_ITS ---
[address] [address] Patient Name: ALFREDO NAQVI MRN: [id number] date: 1980 Sex: F Assigned Patient Location: CT Current Patient Location: Accession/Order Number: [id number] Exam Date: 12/20/2023 14:15 Report Date: 12/21/2023 07:08 At the request of: CORBY MEADE Procedure: CT abdomen pelvis w con EXAMINATION: CT abdomen pelvis w con HISTORY: Pelvic mass R19.00 COMPARISON: No relevant comparison available. TECHNIQUE: Axial, Coronal, and Sagittal images were obtained without and/or with IV contrast as indicated by examination type. Dose reduction techniques were achieved by using automated exposure control and/or adjustment of mA and/or kV according to patient size and/or use of iterative reconstruction technique. FINDINGS: LUNG BASES: No visible pulmonary or pleural disease. LIVER: No enlargement, atrophy, suspicious density, or significant focal lesion. BILIARY: No dilatation or calcification. PANCREAS: No lesion, fluid collection, or abnormal duct dilatation. SPLEEN: No enlargement or focal lesion. ADRENALS: No mass or enlargement. KIDNEYS: Prominent cortical scarring and atrophy of right kidney, but otherwise symmetric contrast uptake compared to the left. No mass, obstruction, or calcification. BOWEL/MESENTERY: Loss of haustral folds of the sigmoid colon with borderline mild wall thickening and slightly edematous appearance. No obstruction, mass, free air, free fluid. AORTA/VASCULAR: No aneurysm or dissection. RETROPERITONEUM: No mass or adenopathy. LYMPH NODES: No adenopathy. URINARY BLADDER: No visible focal wall thickening, lesion, or calculus. PELVIC ORGANS: No visible mass. Pelvic organs appropriate for patient age. ABDOMINAL WALL: No mass or hernia. BONES: No bony lesion or fracture. OTHER: Negative. CT/CT abdomen pelvis w con IMPRESSION: 1. Possible mild colitis of sigmoid colon. 2. No pelvic mass or lymphadenopathy. Electronically authenticated by: SRAVANI MAYA Date: 12/21/2023 07:08
--- OUTSIDE RECORDS SUMMARY | 2023-12-20 13:14 | XMS_ITS | CCD ---
Author Organization [facility] ion Partnership [facility] Care Team Providers Care Sr Account Executive Name Role Phone NEENA OLIVAREZ Admitting Unavailable NEENA OLIVAREZ Attending Unavailable CORBY CONNER Admitting Unavailable CORBY CONNER Attending Unavailable CORBY CONNER Primary Care Unavailable Corby Conner Primary Care Physician [phone] Brynn Quick Unavailable Unavailable Olu Yang Attending Unavailable Olu Yang Admitting Unavailable Daisy PEREZ, Rica Gerard Attending Unavailable Gistephitis , Rica Gerard Attending Unavailable Gieditis , Rica Gerard Attending Unavailable Allergies Allergy Classification Reported Allergen(s) Allergy Type Date of Onset Reaction(s) Facility (1 source) Acetaminophen / HYDROcodone; Translations: [HYDROCODONE-ACETAM INOPHEN] Drug Allergy 6 [facility] Repository (2 sources) Codeine; Translations: [CODEINE] Drug Allergy 3 [facility] Repository (4 sources) Morphine; Translations: [MORPHINE] Drug Allergy 4 Vomitus (substance) [facility] Repository (1 source) Acetaminophen / HYDROcodone Drug Allergy 4 [facility] Repository (1 source) Pseudoephedrine Drug Allergy 4 [facility] Repository (2 sources) HYDROcodone / Phenylpropanolamine ; Translations: [hydrocodone-phenyl propanolamine] Drug Allergy Rash [facility] Medications Current Medications Medication Drug Class(es) [...] hours as needed for ankle surgical pain, [facility]/pharmacy #[id number] Start Date: 04/16/22 Status: Ordered docusate sodium 100 mg oral capsule (1 source) Start: 04-16-2022 take 1 capsule by mouth twice daily Colace 100 mg Cap 100 mg = 1 cap(s), Oral, BID, # 20 cap(s), Refills(s) 0, Pharmacy: [facility]/pharmacy #[id number] Start Date: 04/16/22 [...] Refill(s) 0, Cancel Keflex script from yesterday, [facility]/pharmacy #[id number], 74, kg, 04/17/22 [...] day(s), # 30 tab(s), Refills(s) 0, Pharmacy: [facility]/pharmacy #[id number] Start Date: 04/16/22 [...] for Procedure/Surger yon 05-18-2022 Consent for Procedure/Surgery [id number]#1.00CD:127 Normal [facility] Progress Note-Physicianon Progress Note-Physician Patient: Jane MUNOZ Age: 41 years Sex: Female : 1980 Associated Diagnoses: None Author: Jaun Lockhart Jr, DO Postoperative Information Post Operative Note: Post Anesthesia Care Unit. Anesthetic utilized: General. Health Status Allergies: Allergic Reactions (Selected) Severity Not Documented Codamine- Rash. Morphine- Vomit. Problem list: All Problems Smoker / SNOMED CT 104498459 / Confirmed Added secondary to documentation in Social History. Resolved: At risk for falls / SNOMED CT 438500474 Problem added when Risk for Falls Careplan [...] PACU when criteria met. Condition stable. Normal [facility] Comment on above: Result Comment: Elec tronically Signed By: Jaun Lockhart Jr, DO\.bryant\Date and Time Signed: 05/18/22 10:13 EST [facility] Documentson 0 04-22-2022 Intra[facility] Documents [id number]:127 Normal [facility] EMS Documentationon 04-21-19 EMS Documentation Please click on link to see report pdfCD:[id number] zTcWBImIla2YQSvVyQTU bPvhKXTbiP72foVSohAP xDCX5EhNeRXUrOHI4YfN wIFIgMiAw UDVcRAI8FZAcYKNoXDN8 LHVrEFLbB8Jwp6YGe8sf HG6kHHLpCZF3FKBgPXW6 AUHnXO1tB3KscTYi MTIyMCAwIFIvSUQgMTIy XLItMPCsVXSepFIUn8fd WH0nVNFnYWC2SLImAFO8 AUTrDH5xUPadQZ0t C9TrjaNkcLVlQFn9IHKc Bu5YXLPfwMFwYNY0MS8G s9vxdcTuIMNbVOfoU7Cm PILrPTedLURUQw7h Cc5gmYa1L0THQZAvIdWz QKNoId4QPCFcXFJzOtPr IOFiZOTjNPUsSYTzYe0O MRNpYFPrDGQWX6SD ANTfJzO4BPMbLz8+L1By t6JBZZPxR2DVDx9XNDd9 HD0EqHICN2KkzPQmSFB5 BAVwNDUyTC6kgrGl dCAxMjcyIDAgUj4+L1Jv iBN7PLFvM9Z9skBepNBt yqZcgGRsCUFdIQosJL7F QOcpD4CsTyEsTm4+ BuMiRK9vwjvnOVTiw6Wi Xly1Q3ipkcx0fGJgSMug Mz4+x4LtLHBcFu4MIuYx Q8RjONQuz2JwKyYk RWi1NqX3SBMxNuWaOND1 MyByZQpmCjAgIHNjbgox LQP7JBWmNOw2DZ6pOby3 IHJlCmYKMTAgNjk1 IeD8VNTfKsMhJgZuHhMr zhYTQys8PNNfExPuUau3 CzX1SSBsEfMmGaZbYrTv skWFXykxRTQ4WGKi RfDkORb9AT7oOde8KLEs XiVQOQVuKbNoIbh8MQF9 JhZxWD19WKZePEvdMnCc OCC2GQ1wBMSvNqw4 ZN4xEv0bPPRrMDhrQbL9 BW2aIEC3KAQbFlEcKG63 NSAtMzIuMjUgcmUKZgow IjdlANKvv1AqXbZy Mfe9FEP1NQ85DUI9Fd4x NSAtMTIgcmUKZgowICBz W34IIMFsTqBqFulkZwG9 WJB9Nb3yANEeFY65 IYLvFZdiFeIjUZN6RDOh P45KMin4NVW4GP44NAA6 Sh9dBCKdSLXpdwSQYfry XMEuB87ROua0ZSL3 Fi5vQAKaYEoeDlNpZPGr LdTtelYTOdeoCJZ2TfZg EVt2GK4gEnp7TFLeDgDC CHRoJUv7MhL6SPH5 AiArTB31CWQcGVznJiLe VNK8TrPcTge1UI74HS46 HBCwClMNUIx6UlZ7PPW2 YdVuTfw8WF05MY94 NHSdGfUDPS19WHtfYUWj fcyuVW66EHB8XdSkOgRh WIf2WnTjVCSfNCGrRyQO SNSji5NaPdZcTia4 LKX0DVM2MkAnITSoWJ09 NLPwTEbwMwOyCC28CGB5 TN34AKOrQTKeStQsOQBu MlEpynCXWuo5PDVz SAH9QKIsSMkaKiH1BU8c Hcl6DRPzFlGSOGAvMaUl NtV2Pgl3MQGsRbVhREF5 RnPppkSEEum0ASPa YhI5Fgp5GVObWbWjNBS0 LjUgcmUKZgowLjkxOCAg f6KnOmMoId0gLIS6GKqn EHxcXcb3CJ6jZhUq BIzgBeTzSPXfojt3TDQq NxWnZdU8Jsc4DNN3YU04 FWEuIW97SGUlQRasVxDu GQT2Cv88YBZ2OfSi HU65IYOyJHfkOjXiJZL0 LK42YVM8LrIiNCVfLgWb ddVWGowlGRY9LCAdCNVz Hnj7PW6hSU32WZHj SdOEYOg3WoP0ISO2Tv07 HFIpYeUaERD2ZaLqhmZF RyvwKlzqXVCrb8LuFfKk Eir7YYM1Cp72EMO0 NzQuNSAtMTIgcmUKZgow WGZeW16YMDKaBxPhMIpc RkTyROt0CsSaWGAoEmCw elLTPahfWAR0PRDd UNj1DV1jDde3VCMxOxQZ BSViDIarOHG5TeWoPW16 IIDzKMbyGfMrOAM7HUJb Jvp6AC02UQ25CJZe CAmwZjS1HE3tNTU6GBNj CN25CHAhLeJvSnJdbjKO HgigXtgbXJBid7JuLjYq Shc0UGGyZQ9tRTS3 NzQuNSAtMTIgcmUKZgow NFTrT11WBEYbCxMqVJK0 JVD2WV63QT0bYmi1QGUn CmYKMTAgNDYwLjUg CWc5BV5tPta2EISmWyGS TYJmCKK0Suf1GJB9HhNo WS00WJCkOHkwVpYaRXH9 PM57WPZgHaMqLRN8 DuSkmiMQPwu1QABbHbZs MJNxOdBwTO24RLDyYWHq HOGyKXisZuJuUOW9OEOh N42RSEFzCuQsLCP9 Xnc6VJW4UX16KI6tVyOc JUvgCeJhKVDqlrkrWA41 MTE6QWdyTRU6LeQsEKVs PN30MQNaYJamSvEk WCJ3QFOdV63PUJVuAKT8 FhW4UEP1Sc1jPKWpJAOs NSByZQpmCjEgIHNjbgox NiAzOTMuNzUgMzYu VyGvUXJsStt4KGSyGpWD YO65XGsyRLRokcfrAwQc OTMuNzUgMzYuNzUgLTMw Qsq4JNFrHsGECSAn d6CjDcRrCie7CJL9Gw03 FDB8XF1iELQbAaFpFeEl inRALpgzWkmsUXKtx7Cr VwKeLlc1UEO9Us33 ZMZ7YR3wYZWeCeWlUkEr qgTRHsatZKYeU55PSZN6 YPZ4To45GRZ5UqErHwFq MjUgcmUKZgowLjkx MICra8RjUyNuOqCtJQSo JqMpVXOfMDDvQjZ4HJFc XfUOHSAgo0WgVwU5OSIe OTMuNzUgNDkuNSAt MjAuMjUgcmUKZgowLjkx IAJhl8LvHpV9FNXdSGGj NzUgNDkuNSAtMjAuMjUg loFNNyxmQUQqU87D KaV4DeIvZdjcPxe0GPIw HpF2KS9cXD9mUWRpTGjk ZoAcQKY9SAFlM66OArR5 GcBaNocaVzk8AOPk EzC1WV9hEO5bHCWjXPez CjEgIHNjbgoyMzguNzUg ZdaqPne6OGGtAD7xQH8m NSByZQpmCjAuOTE4 UBRsN48YJpV6Ndp6ABU8 Rk32PSE5UqYjFyUeYuPt mcOOCyozAEEnQ52NXheo Ieu6GOZ3Zt07EOTw SR55HX0rCJ1uJUYlKOgn WeAyMTH9ZTUrQ49VDymm Heq1GZR0Po75FWOwKY59 KJ2wTW1aMXHwMClm CjEgIHNjbgozMDYuMjUg HkaeTqe0KGVmYx7xEJFw MjAuMjUgcmUKZgowLjkx XOKwu5QcMuStDp3n HNMlXVOaWrXwYXB3SsE2 ZZ8vSN1rIWGiNDufGwFx LTCelcs7MaXnJENnKPGo NzUgMjguNSAtMjAu MjUgcmUKZgowLjkxOCAg i4BgZkFpVs85MAI3Cl22 UQBoTE05RF9dAS4wVIEs ZQpmCjEgIHNjbgo0 ECLhLzwyUee1UMA8Pfj8 WO6uLZ5uTGJyHJygXiNd AWQ3YUDgT27JTMMgCDJ8 Ak30YKYsGu44WITs MjAuMjUgcmUKZgoxICBz N12EBAg5Bsv6NGB4Aw45 UOCsVC83EY3mUH6uOYSm LSmaKfLgCWD9YNJo A77BLKj9Rhm0MHD9Yn39 JISbHL37ZB6bRJ1kRQSm MLizLxUmTINzknb4CImm ZhSqCiquRxo3RSD7 KcChDXWpJiZ6YQYvZgZN XB70KKcwXPHelyf5PRpz PxIyDmxjUum2GQP4WzVq LERvFjH4YSAqVdAG QZNgs4GcDrX5EO85BQIh OTMuNzUgMjUuNSAtMjAu MjUgcmUKZgowLjkxOCAg p1FcVjJ7KS74VDPo OTMuNzUgMjUuNSAtMjAu QyTdikWSHwteYYMlX21T EWduFuW5QTQ9Om46HWE2 GY3pNK8dNTAhKIme PpSmBAR5YSUuM52FQNzp OgX9JVO0Mc07BDD5SO6k CD8yYWPnMDueXzDzVEOg mnh5Jy78VKFxNuLx ZIV9SB1eJDPnHUXzPCQd AIjyTjEcWMM3ZVOjF74W NTIuNzUgMzczLjUgNzQu MjUgLTEwLjUgcmUK MhqhDSBwI44UXOV2CTN0 Qk01JSFcBL5aAK42DNPi KuJCNA84ZQzkEYUgaqcp MjcgMzczLjUgNDIg LTEwLjUgcmUKZgoxICBz L71GQMD5XCQ2Ss52GKP2 LjUgLTEwLjUgcmUKZgow GivoYKXdt6HmTbR9 DAFpFbPlCNJ0LO61HQ4u UM32FXPqIoFWXRGor0Ar TfRuBA11RCQ0Ax99XNJl PrT3AE6hHK52SUUy SaZTYQ39XBogAHCruuwb CFjsBMMiOwBgDEBpBF2n NSAtMTAuNSByZQpmCjEg IHNjbgoyMzguNzUg MzczLjUgNDIgLTEwLjUg ouXJPvjsTgnxOUXix8Ux RlVwRZ93LTKgSgFeVDA3 MiAtMTAuNSByZQpm CjEgIHNjbgoyODAuNzUg MzczLjUgMjUuNSAtMTAu JODpDAhhXcUfTTZ6CDWy Q91BQwibItg4SGU5 Hq60CVQ3GtIlSUWhJsVf suZWHsyqJQQzR74WPsG6 HqU2LBB5Bk10RQN8XX55 NSAtMTAuNSByZQpm LbXtVYW7CWEoX73BOtU3 FwD9TDM5Qm21ZVW9AX86 NSAtMTAuNSByZQpmCjEg OENoxfo2MSYqQime UpIaOGQ4RyN0ZB1oBQ33 TMDeNwNELY92AQhlUXGd dtv4KDIoYtsgNgOyLZT9 GlI9YO2cRQ68RUZc SkEWKUKxNmLwNQI3Pmv8 VJ8sNK38UNGrHcRUXYAs ExFtQrFzHMMnKe31FV3u XD17XYTsYwDJVRFp g7BiSxJ5MHYiFB4lNZP9 NjQgLTAuNzUgcmUKZgox VbJ9SDHnYzHdRJ44XLEk MTEuMjUgcmUKZgo1 MpdqQmEqSWL3EqD5ZZJz YnGiEWYrWrY5EHPjDjIB UVa9WdL2QPE8 (more content not included)... Normal [facility] Progress Note-Physicianon Progress Note-Physician Patient: Jane [...] BID, # 20 cap(s), Refills(s) 0, Pharmacy: [facility]/pharmacy #[id number] Keflex 500 mg Cap: 500 mg = 1 cap(s), Oral, QID, X 10 day(s), # 40 cap(s), Refills(s) 0, Pharmacy: [facility]/pharmacy #[id number] Percocet 5 mg-325 mg oral tablet: See Instructions, 40 tab(s), Refill(s) 0, Take one to two po every 4 hours as needed for ankle surgical pain, [facility] #6177 aspirin 325 mg Tab: 325 mg = 1 tab(s), Oral, Daily, Start 04-17-22 for 4 weeks for blood clot prevention., X 30 day(s), # 30 tab(s), Refills(s) 0, Pharmacy: [facility]/pharmacy #[id number] Documented Medications Documented duloxetine 60 mg Cap-DR: 120 mg, Oral, Daily, Refills(s) 0 gabapentin 300 mg Cap: 300 mg = 1 cap(s), Oral, Once a day (at bedtime), # 30 cap(s), Refills(s) 0 omeprazole 40 mg Cap-DR: 80 mg = 2 cap(s), Oral, Daily, Refills(s) 0 Problem list: All Problems At risk for falls / SNOMED CT 826087046 / Possible Problem added when Risk for Falls Careplan was initiated. Smoker / SNOMED CT 874751057 / Confirmed Added secondary to documentation in Social History. Histories Past Medical History: No active or resolved past medical history items have been selected or recorded. Family History: No family history items have been selected or recorded. Procedure history: ORIF - Open reduction of fracture of ankle with internal fixation ([id number]) on 04/16/2022 at 41 Years. Social History [...] Systolic Bloo (more content not included)... Normal [facility] Comment on above: Result Comment: Elec tronically Signed By: Jaun Lockhart Jr, DO\.br\Date and Time Signed: 04/20/22 14:45 EST Coding Summary.on 04-19-2022 Coding Summary. [id number] Gh0bWw+PGhlYWQ+PE1FV OWfZ23whPUkxF4XZ6lAK G0MHEEHSXYYJI2YRG1bv TJ0OYzoS4FtszGr MobzqQWqZH37HGm0XSO2 dWxgADnwnY5izJKbT6k9 OkZsUR54oD25LYykLDEf RwT1ElYxbffzzSUh C3zwHdQucCBpNqt+PHRh YmxlIHdpZHRoPScxMDAl GnLtxCbhVT2kUu7dMNJd LWNvbGxhcHNlOiBj q6xjBIPaDVbiDF5hlZxu Y5ZzsHD2TENht5r2Dq87 dHI+HPMqIKB9wLzdEMum p461DsCdd9ggXVH6 dKVvKDzgORZ5R32to2P4 PORkVODgRLB7wSH3dI5q mLwjltbxV5FqyIXzMgG9 ITU5bSBncI9dzNbe cxhjdP0bVrq+R61AVS0N PTHKSQ5BMgf1H8NfPggp dHI+DZ59PEMnWB41hWLa vHEcy3itfEz7WvBt JKBfUIC0gYnnIBnxg7Uy PYAaE92hpWWxz6I9KUCc iTqigARsMbWkmMC3wU2a THmanalbr7rqhcir Zvjct9orys38bE74F52u VLmoCJJcULC3YOYhEMDl xTdjjl0hlT3dIo5+IDxj b7qrc0mloCp6ClQy JJFmghMyrAhkGNZ1e1Pk Fa40Y8BlnGegr5PoEln1 fu51gMTbi8F9lDH6VQyl VNWljP8vHGtkEhP0 PCAmYuAduX73fWXzSBol Ct7yhOnrtHjlSD4pJMKv cqmoFUGesG8bGDVreABs vWlxVY5hFFTqznfc z712QkYaMXF9SCAhvBNp E8PciC8oThBvCUZyKORm C2YjqYWfHDlvG502UQsp GeA8UXDirnMkH4Jp SKGqrFsuAaE2s8F4Nf4H o9BsjfkiODJ0HZvnZSZe MdL6FhEiRbS4T3SrNbc1 OKUzjQhsXR1iW2Mr YIAlonwqvbbkyQM2FHXa SSLalS35kMCxYYozFy6e v1W6g774GUXmJMAusE12 Sk4zaMebTOAzgTZM fY5zgbzbi9umobuxSsCc USLbNPi7DXg4BQReyLza GrSgYHF7PpA7HSX1lEJi fN2vnTzkniclbD6k Oyc+B63jiE7iWVI7KEZ6 qbkvFWMeszJyTM97OB07 H4QcTqoxsOVxiKV+PGRp udOagGtbFP4vPsTg o4lxi4WlWQteG5RsVJQh KUjjGbu4LDCxSIN6xTW2 aD0bBIQqQFskt3N9dYQ3 A3KobkGusu8lt9kn EXSuWGnjY80drWRfe6G9 VRXojYC5AMCunUaiFtOw gL02Aov+SITaoBfew0Ya Jmjin5tkw3bvnFm1 IjMwJSIgdmFsaWduPSJ0 d6CxIt80V84iBPhhEXRu NPCnHOWiFZShlNzwbg4v fM5jKz7+PGNvbCB3 aBW2yR6qJBDnRxO7EIei O869SkLjcLZmAckir3pe l6ybkEc1McLpOIPfplAn rQewRRN7e0HqGn90 A25zOUraWQKmECPdWKWa LFSgeQobie7dwA7mNx8+ EM2hu6ynoa43lL62pBX+ VIXnFHP7pNapKWkb CQFopS8qCJyyRiZ6EVKg EaBvbF31wJEyUAixBh4g dXjpgJrzOF8xSJVovpgh u364FaTzk0riNNJy pZSiVMkyIYE5D17gq1W9 XLZnUQAySFZ8kBW4zD9l bGlnbjogbGVmdDsgdmVy uHqiESrlMStkA882 IHRvcDsnPlBhdGllbnQg CpOvWNl2H3IjMwb1TCRi mFikMN4mxJJrYCgeSp8s jZpszDqgCU3hYGRx xzjhu730GaCfd1tgVPQz uEPaOYinFWF6V65kd9A1 BXMtOQNyNDM9yJP5iF2k bGlnbjogbGVmdDsg coIhwShrALplLErbV390 IHRvcDsnPkJpcnRoIERh wSS1KA18PD81hPIwd0D9 qYC7S0ZpINHcynqv cpjdqTU5HJSxXVRuuH84 Kt3dyAjeOl9yOOAxDYS3 YIBniTCfC0QbnH7tQdOf NNMqAENyR1MjyXBl JGpoH967RRerIeR3BZOt izOvY5AzKXSdvEvbTvV5 p9C0Ph0HL0C2RL84UM94 wVXag2B5rOA7R2Ev AIZoilavfynhjGR4JORl FOToeC08Gx9zpKvyWf6b XWBxVGD2UVEwcEQkL1Tx tF7wGiLrZVOrDVXj Y7UpkRWcJEweC273YDfm TxS8EHSyysQwO2NyTUQq sBheSvZ2s6X6Cu4MFRq8 NG64VP73vYDcj6I4 bFL6P7RmMICqlwcsmahd kKJ3UXIhICEsgY12Zq7e sCkbQb5uULMjMKK6PYUg yHGlB6WozP3gYiPy QQIbGRVbJ5DqhXCjGQsq C889THsuCqK9KUFcmhYf X3YlFUNfbIklBeW4x9X4 Ii9YGUMzES81ZRE2 nCZ9BR93VH78K9FpWyeq dGFibGU+PHRhYmxlIHdp ZHRoPScxMDAlJyBzdHls AB2uQk9oYUByBUUs bQvavHSiOwJlr5ilFNCl KEaoVQ6vmXgdB8KupHX4 UWOhy2i4It02B43xT8Wx dXA+PQNgyYC8dMC5 fB0hWxYyOeF8ENruS072 JlHnvPOoSuvlz6zyj2zh pOe8FsD2VENzvnTlsWfs WGL8g5EaIk50L34d IHdpZHRoPSIxNSUiIHZh uWcawt2vnR0dIg0+PGNv xES3sBI8hI1sNhYfOdV5 CPmlO375NzGscRQy Pbnux4ugd3iqeMo2GsKa YEMsgbEbtGacPGZ6r3Ru Go72A8YsoUhfb9EfSgk6 wb80kDYfp7X0bAA8 C2UuQHBcanhyuWBtpXoz QB0tLKTyvqbaPXQbrW3b CRXwA8o5CdQqPmV5TTdo K1YfseU4BCFfrSRz TZpkFGK4W78yu6G3OTAl CVYlHXN6vCJ5wV9suHov bjogbGVmdDsgdmVydGlj DJywVUynV914NDAy wBpzBWZrnL2bENRpsFUi cMtbPA8yNTIjxeliFadT RXJvVNgPT9RyJRarsUP+ JFSeAEV1xZjlCDwm UTNbbF5yKYXjX6e4HaFl HsP7SWivU6DnVGFnhfkr Vd51qX6fRmVrNvQ7FVof B0BvjxN6BCPiqOZg YHxtKVJ0Q82dd1N9DEPa MNYrIQL7tMP8wF2huNrx bjogbGVmdDsgdmVydGlj DExtKZqrR626PWMf kJipJpB5FsX1HmQ0Lmz6 G5XsBcr0WULrdCziBX4d wCCiXXokDi2ciKkojMfk CD8nFYWidcbeKDYw bZ2iIGJztEYmfGxyUP2n WSYrravex801QpVnOGE7 WDAikVZeE9JbxR4sJnKd LRZyHOJlZ2YugYNg NThxW639MSefDgH4RMDb opKmI4PgSFFutZfqJzR2 h2M2Hu54DtCPYHGppexg dGQ+OKDyTML4fMug EXzyCJKjbJ1aQNGoX4i1 TdDtIkW5GKxpA3AnEQXm achiLs83mM2uAwDgSzW3 IEucI5DsmuR8ZPWq wGEoYEpwZOC2K41kl3H3 WIHeRPAyUVT2yWT1bP5v bGlnbjogbGVmdDsgdmVy lQusUIlxZNtsJ875 IHRvcDsnPkZlbWFsZTwv dGQ+RDSkHUF5hUxoPSky JFQcwB4oJNUlA7r8AvZp OlH4WLnxC8GfOBDk gtkyJg60kN0gBdCrOpI6 DJtkP4FqqxB9WWEwvYPm YWzlPSM3W03lh6T4FZTm ICRaNWO0oSY6sX0t bGlnbjogbGVmdDsgdmVy gFxyNCkdJPdhB206CNOm gGvlUyrpbGX8rOWcfKtf dGQ+XI12eq18U9Wf NthzRoo0NENfBHB3bFF5 rE3cEEYpKKdrz6O2rFJ2 F2FqkpXlan7kq6ofXDMr JZdtD47ewZGip6S1 FJRyfCV9FOPvlEmkOrGj qD94Qsx+RMXewVkue0Xd Uehqb7lrw2uycWt5AfUc JSIgdmFsaWduPSJ0 v6JkNw07K45rVPfdBHAs NASuKQXuZZAvxVmbcv9y sN8nWw5+OGSpsZD7hCM7 bD3vVlHeKbV4MPnr I453AoHckLAiPmzhv0as v5amkZc2VpKoCFNfiaDk eQuxILR8c6BsLk59R3Rm tJsed3SvDot2fa19 uLXza9W3eNR7T3CzJUAq cdgkuUSusTncSE7dDSVv alqbELEpbH2xMMBcM4k7 VmZmUxW8YCbwM9Sl snL1SPOelEEoEYSslNYM sD1tjjatj0ayilutTaVe ABDyNSj1LZh3OANnzTte OpKzTHQ4QrJ6DIN7 kBLhyC8ctRdmfmqtdT8j Oyc+LGe3j3gvyZPuXI7g lOJ3WE22UH97kYGtx3P5 oJD7E8CxUMJuifwa delxwBP4JUTrILFqwV96 Dq1suRhvPl2sYVUaXUY7 MYIveQLgA8HloM5eRbNm ULNsXKRbD4LsyWJg UTlcA561MLmmPpJ3PXOd wtHqU2AmVYAjhWjuDiO8 f7V3Ev9DPM47IH74ZO26 eZSnl8H6nSZ1V5Zr EGXxftvanivukHP1NLRq WYJiyX10Qr7zyCwlQz9o JCRiWPJ3EUMfmYUrZ3Eg jC0sDhWcXTYqQBWa K3NbxFClGBheP448MNfh CzK2DUPlyrSsD5XwWMPb dKuiDiI6d7X5Zw5INk04 NQ45AY71bGGng5J5 rIJ2S6FeLZGfxzhloolm tCU9FPUfICYedC52Bj7v kItlKn7vZZYkEXG8BKRm tZZtG5PuxQ9sGkZd HTApFLGlO6RimGPqMOdz Q889TTisJdN3SDVlxrUx G5SuHATixQsnOoJ3a3B7 Sk5TTFilkcu3P6Xb PjwvdHI+FX08RHJdZQ94 mSUvmEYdb9opuRe2XwLh RDOwKYY4iFzbHNuzt0Ek JUScU04niJPpr0R4 IGNv (more content not included)... Normal [facility] Consent for Anesthesiaon Consent for Anesthesia [id number] #1.00CD:127 Normal [facility] Consent for Procedure/Surger yon 04-19-2022 Consent for Procedure/Surgery [id number] #1.00CD:127 Normal [facility] Discharge Instructionson Discharge Instructions [id number]#1 .00CD:127 Normal [facility] ED Note-Physicianon 04-19-19 23 ED Note-Physician [...] 1000 mL 1,000 mL, 1000 mL, IV tpb-vva703-4yXdo [F], 2 tab(s), Oral Dilaudid 1 mg/mL injectable solution, 1 mg, IV Push duloxetine 60 mg Cap-DR, 120 mg, Oral qzayqx4Wnw [F], 300 mg, Oral RKSS9SSJ [F], 1 mg, IV Push DSZA6WPV [F], 1 mg, IV Push bggozc7Ryb-AH [F], 40 mg, Oral potassium chloride 20 mEq ER Tab, 40 mEq, Oral Zofran 4 mg/2 mL Injection, 4 mg, IV Push Disposition Plan Patient Discharge Condition Improved, stable Discharge Disposition Admit to orthopedics Discharge Prescription List Prescriptions No active prescription medications Follow-up No qualifying data available Attestation Patient was treated and evaluated by the Physician Trade Manager. The attending physician was in the Emergency [...] Denies Al (more content not included)... Normal [facility] Comment on above: Result Comment: Elec tronically Signed By: Capri Weiner PA-C\.br\Date and Time Signed: 04/15/22 23:21 EST\.br\Electronically Co-Signed By: Sonu Richards MD\.br\Date and Time Co-Signed: 04/19/22 18:39 EST IntraOperative Documentson 0 04-19-2022 IntraOperative Documents [id number] #1.00CD:127 Normal [facility] Main OR Intraoperative Recor don 04-19-2022 Main OR Intraoperative Record IntraOp Document Type FT Summary Primary Physician: Olu Yang DO Finalized Date/Time: 04/19/22 09:57:37 Pt. Name: ANGELA MUNOZ/Sex: 1980 Female Med Rec #: [id number] Physician: Olu Yang DO Financial #: [id number] Pt. Type: I Room/Bed: [place] [address] Admit/Disch: 04/15/22 16:23:28 - 04/17/22 14:15:00 Institution: [...] Role Performed Anesthesiologist of Surgeon - Primary Agricultural Economics Teacher - Primary Record Time In 04/16/22 17:43:00 [...] Hollis Wesley RN, Ever Mcleod Role Performed FLATBED OWNER OPERATOR/SA Scrub - Primary Agricultural Economics Teacher - Primary Time In 04/16/22 17:43:00 04/16/22 17:43:00 04/16/22 18:06:00 Time Out 04/16/22 19:41:00 04/16/22 19:41:00 04/16/22 19:41:00 Procedure ANKLE FRACTURE ANKLE FRACTURE ANKLE FRACTURE ORIF(Right) ORIF(Right) ORIF(Right) Comments Orientation Last Modified By: Costa RN, Ever Skelton RN, Ever Skelton RN, Ever Mcleod 04/16/22 19:41:16 04/16/22 19:41:16 04/16/22 19:41:16 Entry 7 Entry 8 Case Attendee Carlos Enrique TATUM, Margie Almazan Role Performed Apple Turner Apple Turner Time In 04/16/22 18:00:00 04/16/22 18:00:00 Time Out 04/16/22 19:24:00 04/16/22 18:05:00 Procedure ANKLE FRACTURE ANKLE FRACTURE ORIF(Right) ORIF(Right) Comments Last Modified By: Costa RN, Ever Skelton RN, Ever Mcleod 04/16/22 19:41:16 04/16/22 19:41:16 General Comments: Lonny Valeriomer-Biomet rep, also in attendance. Gibranwheel worker Protocols FT Pre-Care Text: Implements protective measures [...] physical in (more content not included)... Normal [facility] Prescriptions/Work Noteson 0 04-19-2022 Prescriptions/Work Notes [id number]#1 .00CD:127 Normal [facility] C Urineon 04-18-2022 Bacteria identified Cx [...] Locations R1: This test was performed at: [facility], [address] [place] [address], [phone]- , , Normal [facility] Comment on above: Performed By: #### 1 [id number] ####[facility] [address] [place] [address] Inpatient Patient Summaryon 04-17-2022 Inpatient Patient Summary [...] remove dressing, Keep incision dry Pharmacy Information [facility] Discharge Instructions PLEASE QUIT SMOKING AND AVOID SECOND HAND SMOKE New Follow Up Appointments after Discharge Follow Up with Olu Yang When: Comments: Call for followup appointment 2 weeks [facility] Where: [address] [place] [address]- Business (1) Follow Up with Corby Conner When: In 0 days Where: [address] [place] [address]- Business (1) Medications What How Much When Why Instructions Next Dose New acetaminophen-oxycod one (Percocet 5 mg-325 mg oral tablet) See instructions Closed displaced pilon fracture of right tibia Take one to two po every 4 hours as needed for ankle surgical pain Pickup at [facility]/pharmacy #[id number] New aspirin (aspirin 325 mg Tab) 1 Tablets By Mouth Every day Duration: 30 Days Start 04-17-22 for 4 weeks for blood clot prevention. Pickup at [facility]/pharmacy #[id number] 04/18 New docusate (Colace 100 mg Cap) 1 Capsules By Mouth 2 times a day Pickup at [facility]/pharmacy #[id number] 04/17 9:00pm New sulfamethoxazole-tri methoprim (Bactrim D.S. 800 mg-160 mg Tab) 1 Tablets By Mouth 2 times a day Duration: 14 Days Cancel Keflex script from yesterday Pickup at [facility]/pharmacy #[id number] Begin when filled Unchanged duloxetine (duloxetine 60 mg Cap-DR) 120 Milligram By Mouth Every day 04/18 Unchanged gabapentin (gabapentin 300 mg Cap) 1 Capsules By Mouth Once a day (at bedtime) 04/18 Unchanged omeprazole (omeprazole 40 mg Cap-DR) 2 Capsules By Mouth Every day 04/17 9:00pm Pharmacy Information [facility]/pharmacy #[id number]: [address] [place], [place] [id number] [phone] Test Results CBC BMP WBC: 11.7 E9/L [...] Cortical Scre (more content not included)... Normal [facility] Interdisciplinary Note - Cristóbal e Manageron 04-17-2022 Interdisciplinary Note - Sanitary Chemist Pt is awake and alert in bed, [...] financial assistance paperwork, declines further needs. Normal [facility] Comment on above: Result Comment: Elec tronically Signed By: Carol SIMMONS, Mahsa\.br\Date and Time Signed: 04/17/22 14:25 EST Operative Reporton Operative Report SURGERY DATE: 04/16/2022 REHAB DIRECTOR OCCUPATIONAL THERAPIST: Darlene Cheng C.F.A. PREOPERATIVE DIAGNOSIS: Right closed [...] marked site. Large C-arm was utilized with biological lab technician. Landmarks were identified. The leg was [...] with 0 Vicryl and 2-0 Vicryl sutures. [place] were applied. 10 cc of 0.25% plain Marcaine was injected between the incisions. [place] once again were applied. Bacitracin, Adaptic, and well-padded dressing with posterior short splint were provided. Tourniquet was deflated. She was awakened from anesthesia and transferred to the Recovery Room in stable and satisfactory condition. Of note, due to her (more content not included)... Normal [facility] Comment on above: Result Comment: Elec [...] DO Transcribed by: DANNIE Technologist: AIDAN Noe [facility] Auto Diffon 04-16-2022 Basophils/100 WBC (Bld) 0.3 % Normal 0.0-2.0 F [facility] Comment on above: Order Comment: Order Added by Discern Expert. Performed By: #### 2 [id number] ####[address] [place] [address] Basophils/Leukocytes Auto (Bld) [Pure # fraction] 0.0 E9/L Normal 0.0-0.2 [facility] Comment on above: Order Comment: Order Added by Discern Expert. Performed By: #### 2 [id number] ####[facility] [address] [place] [address] Eosinophils/100 WBC (Bld) 0.9 % Normal 0.0-8.0 [facility] Comment on above: Order Comment: Order Added by Discern Expert. Performed By: #### 2 [id number], [id number] ####[address] [place] [address] Eosinophils/Leukocytes Auto (Bld) [Pure # fraction] 0.1 E9/L Normal 0.0-0.5 [facility] Comment on above: Order Comment: Order Added by Discern Expert. Performed By: #### 2 [id number], [id number] ####[facility] [address] [place] [address] Lymphocytes/100 WBC (Bld) 31.0 % Normal 14.0-50.0 [facility] Comment on above: Order Comment: Order Added by Discern Expert. Performed By: #### 2 [id number], [id number], [id number] ####[facility] [address] [place] [address] Lymphocytes/Leukocytes Auto (Bld) [Pure # fraction] 3.6 E9/L Normal 1.0-4.0 [facility] Comment on above: Order Comment: Order Added by Discern Expert. Performed By: #### 2 [id number], [id number], [id number], [id number] ####[address] [place] [address] Monocytes/100 WBC (Bld) 7.3 % Normal 4.0-14.0 [facility] Comment on above: Order Comment: Order Added by Discern Expert. Performed By: #### 2 641143, 07644502, 8348202, 4221576 ####[address] [address] Monocytes/Leukocytes Auto (Bld) [Pure # fraction] 0.9 E9/L Normal 0.2-1.0 [facility] Comment on above: Order Comment: Order Added by Discern Expert. Performed By: #### 2 310922, 72516846, 5273494, 0380927 ####[address] [address] Neutrophils/100 WBC (Bld) 60.5 % Normal 36.0-75.0 [facility] Comment on above: Order Comment: Order Added by Discern Expert. Performed By: #### 2 136698, 86380519, 4936375, 3594574 ####[address] [address] Neutrophils/Leukocytes Auto (Bld) [Pure # fraction] 7.1 E9/L Normal 2.0-7.5 [facility] Comment on above: Order Comment: Order Added by Discern Expert. Performed By: #### 2 057387, 58447829, 7434109, 3209936 ####[address] [place] [address] BMPon 04-16-2022 Anion gap [Moles/Vol] 10 mmol/L Normal 6-16 [facility] Comment on above: Performed By: #### 2 036736, 64802672, 9842810, 8752309 ####[facility] [address] [place] [address] Calcium [Mass/Vol] 8.6 mg/dL Low 8.9-11.1 [facility] Comment on above: Performed By: #### 2 594925, 31580634, 5684688, 5854036 ####[facility] [address] [place] [address] Chloride [Moles/Vol] 100 mmol/L Low 101-111 [facility] Comment on above: Performed By: #### 2 337650, 11390890, 4631946, 4965081 ####[facility] [address] [place] [address] CO2 [Moles/Vol] 29 mmol/L Normal 21-31 [facility] Comment on above: Performed By: #### 2 983655, 14085162, 8067996, 6180788 ####[facility] [address] [place] [address] Creatinine [Mass/Vol] 0.8 mg/dL Normal 0.5-1.3 [facility] Comment on above: Performed By: #### 2 961175, 44313923, 9138378, 2371823 ####[facility] [address] [place] [address] Glucose [Mass/Vol] 112 mg/dL Normal 55-199 [facility] Comment on above: Result Comment: If t his glucose result represents a fasting glucose, interpretation should refer to the following reference range: 55-99 mg/dL Performed By: #### 2 824950, 79096518, 4015775, 2055649 ####[facility] [address] [place] [address] Potassium [Moles/Vol] 3.3 mmol/L Low 3.5-5.3 [facility] Comment on above: Performed By: #### 2 765479, 72255292, 4366128, 2936198 ####[facility] [address] [place] [address] Sodium [Moles/Vol] 136 mmol/L Normal 135-145 [facility] Comment on above: Performed By: #### 2 491403, 09426219, 3723231, 3736397 ####[facility] [address] [place] [address] Urea nitrogen [Mass/Vol] 6 mg/dL Normal 5-21 [facility] Comment on above: Performed By: #### 2 375011, 85657571, 5291851, 4700153 ####[facility] [address] [place] [address] Urea nitrogen/Creatinine [Mass ratio] 8 No Units Low 10-20 [facility] Comment on above: Performed By: #### 2 600192, 29681866, 1410196, 2786064 ####[facility] [address] [place] [address] CBC w/ Auto Diffon 3 Erythrocyte distribution width (RBC) [Ratio] 14.1 % Normal 10.9-14.2 [facility] Comment on above: Performed By: #### 2 703723, 05222342, 4469604, 0866878 ####[facility] [address] [place] [address] Hematocrit (Bld) [Volume fraction] 37.1 % Normal 34.0-46.0 [facility] Comment on above: Performed By: #### 2 912088, 95555179, 9685507, 8332545 ####[facility] [address] [place] [address] Hemoglobin (Bld) [Mass/Vol] 12.6 g/dL Normal 12.0-16.0 [facility] Comment on above: Performed By: #### 2 606064, 20179009, 0448505, 0970784 ####[facility] [address] [place] [address] MCH (RBC) [Entitic mass] 30.0 pg Normal 27.0-34.0 [facility] Comment on above: Performed By: #### 2 966483, 91083299, 8190809, 9845750 ####[address] [place] [address] MCHC (RBC) [Mass/Vol] 34.0 g/dL Normal 31.4-36.0 [facility] Comment on above: Performed By: #### 2 236265, 89058298, 9996344, 4343615 ####[facility] [address] [place] [address] MCV (RBC) [Entitic vol] 88.3 fL Normal 80.0-100.0 [facility] Comment on above: Performed By: #### 2 305757, 74199571, 3966047, 1628620 ####[address] [address] Platelet mean volume (Bld) [Entitic vol] 9.6 fL Normal 6.4-10.8 [facility] Comment on above: Performed By: #### 2 743282, 34011239, 7356082, 5913504 ####[address] [address] Platelets (Bld) [#/Vol] 273.0 E9/L Normal 150.0-500.0 [facility] Comment on above: Performed By: #### 2 124274, 12320697, 2162860, 3302877 ####[address] [address] RBC (Bld) [#/Vol] 4.2 E12/L Low 4.3-5.9 [facility] Comment on above: Performed By: #### 2 576355, 44941460, 8453417, 5804270 ####[facility] [address] [place] [address] WBC corrected for nucl RBC Auto (Bld) [#/Vol] 11.7 E9/L High 4.0-11.0 [facility] Comment on above: Performed By: #### 2 886843, 38625804, 0105865, 7592349 ####[facility] [id number] CHEMISTRYOrdered By: SYSTEM SYSTEM on 04-16-2022 Anion gap [Moles/Vol] 10 mmol/L Normal 6 - 16 mEq/L [facility]isol Calcium [Mass/Vol] 8.6 mg/dL Low 8.9 - 11. 1 mg/dL [facility] Chloride [Moles/Vol] 100 mmol/L Low 101 - 1 11 mmol/L [facility] CO2 [Moles/Vol] 29 mmol/L Normal 21 - 31 mmol/L [facility] Creatinine [Mass/Vol] 0.8 mg/dL Normal 0.5 - 1.3 mg/dL [facility] GFR/1.73 sq M.predicted among blacks MDRD (S/P/Bld) [Vol rate/Area] mL/min/1.73 m2 Normal >=59mL/min/1 .73 m2 [facility] Chem S GFR/1.73 sq M.predicted among non-blacks MDRD (S/P/Bld) [Vol rate/Area] mL/min/1.73 m2 Normal >=59mL/min/1 .73 m2 [facility] Chem S Glucose [Mass/Vol] 112 mg/dL Normal [...] E12/L Low 4.3 - 5.9 E12/L [facility] HemeAutoSS WBC corrected for nucl RBC Auto (Bld) [#/Vol] 11.7 E9/L High 4.0 - 11.0 E9/L [facility] HemeAutoSS Inpatient Clinical Summaryon 04-16-2022 Inpatient Clinical Summary [facility] [address] [place], [place] [address] Clinical Summary Person Information: Name: ANGELA MUNOZ Age: 41 Years : 1980 Sex: Female PCP: Corby Conner MD Marital Status: Single Phone: [phone] Race: White Ethnicity: Non- or Language: Swedish Visit Id: Visit Reason: Fall; Ankle injury - Minor; ANKLE FX Speciality: Acuity: Enc Type: Observation Med Service: Medical Arrival: 04/15/2022 16:23:28 Discharge: Dispo [facility]: [facility] Address: [address] [place] [phone] Provider Notes: Diagnosis: Closed displaced fracture of [...] up: With: Address: When: Olu Yang [address] [place] [address] [facility] (1) Comments: Call for followup appointment 2 weeks [place] office With: Address: When: Corby Conner [facility] [facility], [place] [address] Business (1) Patient Education Information: Normal [facility] Inpatient Patient Summaryon 04-16-2022 Inpatient Patient Summary [facility] [address] [place], [place] [address] Patient Discharge Instructions PERSON INFORMATION [...] up: With: Address: When: Olu Yang [address] [place] [address] Business (1) Comments: Call for followup appointment 2 weeks [place] office With: Address: When: Corby Conner [address] [facility], [facility] [place] [address] Business (1) In the event [...] Leaflets: You may receive a survey from [employer] asking you to rate your care experience. Your feedback is important and will help us understand what we do well and how we can improve the quality of care we provide to you, your loved ones and our community. It?s an honor to serve you. Thank you for choosing [facility] Normal [facility] Insurance Correspondence Off iceon 04-16-2022 Insurance Correspondence Office [id number] 3#1.00CD:127 Normal [facility] Laboratory - Microbiology an d Antimicrobial susceptibilityOrdered By: Lani Hogan on 04-16-2022 Bacteria identified Cx Nom (U) >100,000 cfu/ml Gram Negative [employer] species [facility] Main OR PACU I Recordon Main OR PACU I Record PACU Phase I Document Type FT Summary Primary Physician: Olu Yang DO Finalized Date/Time: 04/16/22 20:43:42 Pt. Name: MUNOZANGELA/Sex: 1980 Female Med Rec #: [id number] Physician: Olu Yang DO Financial #: [id number] Pt. Type: O Room/Bed: [facility]/ Admit/Disch: 04/15/22 16:23:28 - Institution: Case [...] By: Flora Brandon RN 04/16/22 20:43 Normal [facility] Main OR Preoperative Recordo n 04-16-2022 Main OR Preoperative Record PreOp Document Type FT Summary Primary Physician: Olu Yang DO Finalized Date/Time: 04/16/22 18:15:02 Pt. Name: ANGELA MUNOZ./Sex: 1980 Female Med Rec #: [id number] Physician: Olu Yang DO Financial #: [id number] Pt. Type: O Room/Bed: S335/01 Admit/Disch: 04/15/22 [...] By: Ever Skelton RN 04/16/22 18:15 Normal [facility] Monitor Recordon 04-16-2022 Monitor Record [id number] 0#1.00CD:127 Normal [facility] Monitor Record [id number] 2#1.00CD:127 Normal [facility] Operative Reporton 3 Operative Report Patient: [...] Auto 60.5 % Lymph Auto 31.0 % Cedar Auto 7.3 % Eos Auto 0.9 % Basophil Auto 0.3 % Neutro Absolute 7.1 E9/L Lymph Absolute 3.6 E9/L Cedar Absolute 0.9 E9/L Eos Absolute 0.1 E9/L [...] % HI Lymph Auto 11.5 % LOW Cedar Auto 5.3 % Eos Auto 0.4 % Basophil Auto 0.7 % Neutro Absolute 12.0 E9/L HI Lymph Absolute 1.7 E9/L Cedar Absolute 0.8 E9/L Eos Absolute 0.1 E9/L [...] Room in stable and satisfactory condition.. Normal [facility] Comment on above: Result Comment: Elec [...] Not Documented Codamine- Rash. Morphine- Vomit. Normal [facility] Comment on above: Result Comment: Elec tronically Signed By: Olu Yang DO\.br\Date and Time Signed: 04/16/22 07:19 EST UA With Cult Reflexon 2022 Bacteria LM Ql (Urine sed) 3+ /HPF Abnormal Trace [facility] Comment on above: Performed By: #### 1 8434708, 5599827 ####[facility] [address] [place] [address] Bilirubin Ql (U) Negative Normal Negative [facility] Comment on above: Performed By: #### 1 1032282, 5730387 ####[facility] [address] [place] [address] Clarity (U) SL CLOUDY Invalid Interpretation Code [facility] Comment on above: Performed By: #### 1 5933021, 2426351 ####[facility] [address] [place] [address] Color (U) YELLOW Normal Yellow [facility] Comment on above: Performed By: #### 1 6332587, 5239794 ####[facility] [address] [place] [address] Epithelial cells.squamous LM.HPF (Urine sed) [#/Area] 0-2 Normal 0-2 [facility] Comment on above: Performed By: #### 1 9459627, 1152192 ####[facility] [address] [place] [address] Glucose Test strip (U) [Mass/Vol] Negative Normal Negative [facility] Comment on above: Performed By: #### 1 8765730, 3879085 ####[address] [address] Hemoglobin Ql (U) TRACE Abnormal Negative [facility] Comment on above: Performed By: #### 1 8565909, 1221126 ####[address] [address] Ketones (U) [Mass/Vol] Negative Normal Negative [facility] Comment on above: Performed By: #### 1 2707724, 2829882 ####[address] [address] [place].plasma/[place].R BC (Bld) [Mass ratio] 0-3 Normal 0-3 [facility] Comment on above: Performed By: #### 1 8776181, 6399276 ####[address] [address] Mucus Ql (Urine sed) TRACE Normal Fish [facility] Comment on above: Performed By: #### 1 4103408, 2111043 ####[address] [address] Nitrite Ql (U) Positive Abnormal Negative [facility] Comment on above: Performed By: #### 1 1460682, 8353811 ####[address] [address] pH (U) 5.5 [pH] Invalid Interpretation Code 5.0-9.0 [facility] Comment on above: Performed By: #### 1 5539849, 7299691 ####[address] [address] Protein (U) [Mass/Vol] Negative Normal Negative [facility] Comment on above: Performed By: #### 1 6273793, 7028920 ####[address] [address] Specific gravity (U) [Rel density] 1.020 Invalid Interpretation Code 1.005-1.030 [facility] Comment on above: Performed By: #### 1 8078801, 5325380 ####[facility] [address] [place] [address] Type of Urine collection method Mandujano Normal [facility] Comment on above: Performed By: #### 1 7238938, 1893156 ####[facility] [address] [place], [place] [address] Urobilinogen Qn (U) 0.2 {Yonatan'U}/dL Normal 0.0-1.0 [facility] Comment on above: Performed By: #### 1 6553570, 4038595 ####[place] [address] WBC Auto Ql (U) 2+ Abnormal Negative [facility] Comment on above: Performed By: #### 1 4032365, 9798774 ####[facility] [address] [place] [address] WBC LM.HPF (Urine sed) [#/Area] /[HPF] Abnormal 0-5 [facility] Comment on above: Performed By: #### 1 1952347, 9919134 ####[place] [address] URINALYSISOrdered By: Ru gomez on 04-16-2022 Bacteria LM Ql (Urine sed) 3+ /HPF Invalid Interpretation Code Trace/HPF FT UA Auto SS Bilirubin Ql (U) Negative (04/16/22 6:17 PM) Normal Negative FT UA Auto SS Clarity (U) SL CLOUDY Invalid Interpretation Code [facility] UA Auto SS Color (U) Yellow (04/16/22 6:17 PM) Normal Yellow [facility] UA Auto SS Epithelial cells.squamous LM.HPF (Urine sed) [#/Area] 0-2 /HPF Normal 0-2/HPF [facility] UA Aut o SS Glucose Test strip (U) [Mass/Vol] Negative (04/16/22 6:17 PM) Normal Negative FT UA Auto SS Hemoglobin Ql (U) Trace *ABN* (04/16/22 6:17 PM) Invalid Interpretation Code Negative [facility] UA Auto SS Ketones (U) [Mass/Vol] Negative (04/16/22 6:17 PM) Normal Negative [facility] UA Auto SS [place].plasma/[place].R BC (Bld) [Mass ratio] 0-3 /HPF Normal [...] [facility] UA Auto SS Urobilinogen Qn (U) 0.0762823 {Yonatan'U}/dL Normal 0.0 - 1.0 EU/dL [facility] [...] Transcribed by: DANNIE Technologist: JUAN PABLO Normal [facility] XR Chest Single Viewon 04-16 XR [...] MD, V. Transcribed by: DANNIE Technologist: Normal [facility] eGFRon 04-16-2022 GFR/1.73 sq M.predicted among blacks MDRD (S/P/Bld) [Vol rate/Area] mL/min/{1.73_m2} Normal >=59 [facility] Comment on above: Order Comment: Order added by Discern Expert. Result Comment: eGFR is race adjusted. AA=. Performed By: #### 2 306505, 11504989, 4190111, 2966128 ####[facility] [address] [place] [address] GFR/1.73 sq M.predicted among non-blacks MDRD (S/P/Bld) [Vol rate/Area] mL/min/{1.73_m2} Normal >=59 [facility] Comment on above: Order Comment: Order added by Discern Expert. Result Comment: Wheel Filler vivi kidney disease could be indicated at eGFR's of less than 60 mL/min/1.73m2. Kidney failure is indicated at less than 15 mL/min/1.73m2. Performed By: #### 2 133091, 86506072, 2006163, 8767950 ####[facility] [address] [place] [address] Auto Diffon 04-15-2022 Basophils/100 WBC (Bld) 0.7 % Normal 0.0-2.0 F [facility] Comment on above: Order Comment: Order Added by Silver Expert. Performed By: #### 2 709180, 27174977, 5228422, 7400540, 47265028 ####[address] [place] [address] Basophils/Leukocytes Auto (Bld) [Pure # fraction] 0.1 E9/L Normal 0.0-0.2 [facility] Comment on above: Order Comment: Order Added by Discern Expert. Performed By: #### 2 381605, 84299695, 1609397, 5935845, 70179674 ####[address] [place] [address] Eosinophils/100 WBC (Bld) 0.4 % Normal 0.0-8.0 [facility] Comment on above: Order Comment: Order Added by Silver Expert. Performed By: #### 2 507628, 36697023, 9872226, 9123421, 38024520 ####[address] [place] [address] Eosinophils/Leukocytes Auto (Bld) [Pure # fraction] 0.1 E9/L Normal 0.0-0.5 [facility] Comment on above: Order Comment: Order Added by Silver Expert. Performed By: #### 2 885061, 35245844, 1068992, 7231645, 53390623 ####[address] [address] Lymphocytes/100 WBC (Bld) 11.5 % Low 14.0-50.0 [facility] Comment on above: Order Comment: Order Added by Silver Expert. Performed By: #### 2 915050, 37903016, 7477476, 4677825, 40050308 ####[address] [address] Lymphocytes/Leukocytes Auto (Bld) [Pure # fraction] 1.7 E9/L Normal 1.0-4.0 [facility] Comment on above: Order Comment: Order Added by Silver Expert. Performed By: #### 2 388632, 46032621, 5398845, 4941535, 11648191 ####[facility] [address] [place] [address] Monocytes/100 WBC (Bld) 5.3 % Normal 4.0-14.0 [facility] Comment on above: Order Comment: Order Added by Discern Expert. Performed By: #### 2 660444, 09366125, 8887219, 8960844, 59179276 ####[facility] [address] [place] [address] Monocytes/Leukocytes Auto (Bld) [Pure # fraction] 0.8 E9/L Normal 0.2-1.0 [facility] Comment on above: Order Comment: Order Added by Silver Expert. Performed By: #### 2 327256, 46136714, 7418119, 5240139, 42796364 ####[address] [address] Neutrophils/100 WBC (Bld) 82.1 % High 36.0-75.0 [facility] Comment on above: Order Comment: Order Added by Discern Expert. Performed By: #### 2 329193, 95224835, 0705194, 1023272, 94460719 ####[address] [place] [address] Neutrophils/Leukocytes Auto (Bld) [Pure # fraction] 12.0 E9/L High 2.0-7.5 [facility] Comment on above: Order Comment: Order Added by Discern Expert. Performed By: #### 2 850795, 86597827, 9514273, 2900822, 64615405 ####[facility] [address] [place] [address] B hCG Qualon 04-15-2022 Beta hCG Ql Negative Normal [facility] Comment on above: Performed By: #### 2 174246, 62181046, 1438412, 1469383, 41461284 ####[facility] [address] [place] [address] BMPon 04-15-2022 Creatinine [Mass/Vol] 0.9 mg/dL Normal 0.5-1.3 [facility] Comment on above: Performed By: #### 2 091071, 83957769, 1166453, 3572868, 97237270 ####[facility] [address] [place] [address] Urea nitrogen [Mass/Vol] 7 mg/dL Normal 5-21 [facility] Comment on above: Performed By: #### 2 008942, 70787553, 9513314, 0965788, 35186058 ####[facility] [address] [place] [address] Urea nitrogen/Creatinine [Mass ratio] 8 No Units Low 10-20 [facility] Comment on above: Performed By: #### 2 418496, 43749470, 4951238, 8135116, 74354669 ####[facility] [address] [facility] [place] [address] Anion gap [Moles/Vol] 13 mmol/L Normal 6-16 [facility] Comment on above: Performed By: #### 2 965487, 87088834, 3169462, 1353714, 08508150 ####[facility] [address] [place] [address] Calcium [Mass/Vol] 9.1 mg/dL Normal 8.9-11.1 [facility] Comment on above: Performed By: #### 2 014841, 14225383, 3143551, 6022218, 07754612 ####[facility] [address] [place] [address] Chloride [Moles/Vol] 99 mmol/L Low 101-111 [facility] Comment on above: Performed By: #### 2 942424, 13606247, 6728127, 8395975, 97735663 ####[facility] [address] [place] [address] CO2 [Moles/Vol] 25 mmol/L Normal 21-31 [facility] Comment on above: Performed By: #### 2 722788, 11246987, 8149602, 0000617, 53273463 ####[facility] [address] [place] [address] Glucose [Mass/Vol] 128 mg/dL Normal 55-199 [facility] Comment on above: Result Comment: If t his glucose result represents a fasting glucose, interpretation should refer to the following reference range: 55-99 mg/dL Performed By: #### 2 231999, 24222618, 3150114, 1461040, 92746890 ####[facility] [address] [place] [address] Potassium [Moles/Vol] 3.1 mmol/L Low 3.5-5.3 [facility] Comment on above: Performed By: #### 2 670081, 19871733, 2493638, 2863952, 37284267 ####[facility] [address] [place] [address] Sodium [Moles/Vol] 134 mmol/L Low 135-145 [facility] Comment on above: Performed By: #### 2 057442, 25742636, 4073839, 7857570, 27625995 ####[facility] [address] [place] [address] CBC w/ Auto Diffon 3 Erythrocyte distribution width (RBC) [Ratio] 13.7 % Normal 10.9-14.2 [facility] Comment on above: Performed By: #### 2 444806, 69825699, 1429575, 9882869, 45036347 ####[facility] [address] [place] [address] Hematocrit (Bld) [Volume fraction] 40.0 % Normal 34.0-46.0 [facility] Comment on above: Performed By: #### 2 012680, 72969830, 5205779, 2758590, 12398332 ####[facility] [address] [place] [address] Hemoglobin (Bld) [Mass/Vol] 13.7 g/dL Normal 12.0-16.0 [facility] Comment on above: Performed By: #### 2 825625, 34937377, 2357120, 8796825, 81245497 ####[address] [address] MCH (RBC) [Entitic mass] 29.5 pg Normal 27.0-34.0 [facility] Comment on above: Performed By: #### 2 830936, 57184849, 2321534, 3210966, 86286862 ####[address] [address] MCHC (RBC) [Mass/Vol] 34.3 g/dL Normal 31.4-36.0 [facility] Comment on above: Performed By: #### 2 582724, 06383741, 0843534, 7620956, 87693138 ####[address] [address] MCV (RBC) [Entitic vol] 85.9 fL Normal 80.0-100.0 F [facility] Comment on above: Performed By: #### 2 386972, 19611878, 6742134, 4019788, 96006143 ####[address] [address] Platelet mean volume (Bld) [Entitic vol] 9.4 fL Normal 6.4-10.8 [facility] Comment on above: Performed By: #### 2 402318, 19808151, 6955453, 8408347, 77641934 ####[address] [address] Platelets (Bld) [#/Vol] 282.0 E9/L Normal 150.0-500.0 [facility] Comment on above: Performed By: #### 2 132439, 60210301, 2746274, 7736680, 93664070 ####[address] [address] RBC (Bld) [#/Vol] 4.6 E12/L Normal 4.3-5.9 [facility] Comment on above: Performed By: #### 2 298821, 80100546, 5184467, 8328488, 75926188 ####[facility] [address] [place] [address] WBC corrected for nucl RBC Auto (Bld) [#/Vol] 14.6 E9/L High 4.0-11.0 [facility] Comment on above: Performed By: #### 2 909867, 37259354, 1801253, 7099764, 89214555 ####[facility] [address] [place] [address] CHEMISTRYOrdered By: SYSTEM SYSTEM on 04-15-2022 Anion [...] mL/min/1.73 m2 Normal >=59mL/min/1 .73 m2 [facility] Chem S Glucose [Mass/Vol] 128 mg/dL Normal [...] Transcribed by: DANNIE Technologist: JUAN PABLO Noe [facility] Consent for Treatmenton Consent for Treatment [id number] 1#1.00CD:127 Normal [facility] [facility] ED Clinical Summaryon 2022 ED Clinical Summary [address] [address] ED Clinical Summary Person Information Name: ANGELA MUNOZ [facility]ebe/[facility] Age: 41 Years : 1980 Sex: Female Language: Swedish PCP: Corby Conner MD Marital Status: Single Phone: [phone] Visit Id: Visit Reason: Fall; Ankle injury - Minor; ANKLE FX Speciality: Acuity: 3 Enc Type: Observation Med Service: Emergency Arrival: 04/15/2022 16:23:28 Discharge: LOS: 000 02:02 Checkin: 04/15/2022 16:23:28 Checkout: 04/15/2022 18:25:42 [facility]po [facility] EVENTS: Event Name Event Status Request [...] 04/15/2022 18:25:42 04/15/2022 18:25:42 04/15/2022 18:25:42 ADDRESS: [address] [place] [id number] PHYS DOC NOTES: MEDICAL INFORMATION: Prescriptions Given: PATIENT EDUCATION INFORMATION: Instructions: Follow up: DIAGNOSIS: Normal [facility] ED Patient Education Noteon 04-15-2022 ED Patient Education Note Normal [facility] ED Patient Summaryon 023 ED Patient Summary [address] [address] Patient Discharge Instructions Person Information Name: ANGELA MUNOZ Age: 41 Years Arrival Date: 04/15/2022 16:23:28 Discharge Diagnosis: Primary Care Physician: Corby Conner MD Provider Information Primary Provider: Advanced Risk Control Analyst:Capri Weiner PA-C The exam and treatment you received in the Emergency Department were for an urgent problem and are not intended as complete care. It is important that you follow up with a doctor, nurse practitioner, or physician?s food and beverage assistant for ongoing care. If your symptoms [...] opioids can be used to help relieve gplcbmzb-ih-akcrwn pain and are often prescribed following a [...] be struggling with addiction, tell your health childcare center director and ask for guidance or call [facility]S National Helpline at 1-375-608-FSOA. u Source: [place] Department of Health and Human Services/Center for Disease Control & Prevention [facility] Medications Given: Medication Dose Route HYDROmorphone 1.00 mg IV Push Left Antecubital Fo (more content not included)... Normal [facility] EMS Documentationon 04-15-19 EMS Documentation Please click on link to see report pdfCD:[id number] xLjQNCiX5+prnDQolQUJ WdJCzWKXyMsW1XSyeVuK bAL6opo2LUIcTF9GoPUQ xXSWtJo8L VBbuXRx1YFKoN88DT5aw CCslHYaqCx0UxW8lVHEs rdRqFECLR70uZsctOaCf NQovVCAxODAwOTMK Np6mQYQuMYZmBBXnYDTl ICAgICAgICAgICAgICAg ICAgICAgICAgICAgICAg ICAgICAgICAgICAg ICAgICAgICAgICAgICAg ICAgICAgDQplbmRvYmoN Pj1ZnFToFf9YIyNzDgNF CjAwMDAwMDAwMzIg ESSsABPboy7SWLBeEJWi EMR1RDXbUKBuFTPkVWcd DFUrWSGfOCh8LBPnUQGn WI4BLmQoVIXdQVW0 CvNySGYwFLOgof1QNOLq WEWzMLw3WiOiNLEaMKYo AUyvPXJkKABuLcR4BPDi EMXaBO7CEqUdVCDc MZKdQIrdMXJoDITmbk9U HDNmTQAdCtD8PFEpWQFk MCBuDQowMDAwMDAyNDI4 CHIuMTFjIM0JKlWf WQXaZHC7VGytAQKjZMVh ov2FPGCtPKRiHjqlBlQp MDAwMCBuDQowMDAwMDAz FKhiCRQkIGZbXB1Q RyKjYOEcWAD6TLMqTCXy MAFvhy4YAIGnQNYqGlV0 MCAwMDAwMCBuDQowMDAw MDAzODgxIDAwMDAw OH5XGrLwPCFrYAStYlTh EUTsLBSbas2SZORrHYDu NDUxMCAwMDAwMCBuDQow CYBgREU3JeipTYVw WSOzOR4FKpXcOSYgQZM3 LJqzWTWsYZWsto6JQLXx SXYhMCP4BxDpOGUlFGYi RIniKKKnCSV3ZNwz NXZqIQZkJY4YHtAgNFJa ECP7ZUTcOQOdFOJdlv6G APYhXIIvJUJ3KTCkYQOv MCBuDQowMDAwMDQ4 DDg8LRGcPQJeXO0AHmVg MDAwODUzNDQgMDAwMDAg ju1WxBAvtRjgee4TXKvU Q1zZGMl5WCI8LFM4 YNs9CqA6FlD5IVs3IISj AdY6ZnIjAeHpGVW+CjxD RDBFMjExRTMyNEVDNTUw SUBeAITgSpv7RgFh LCwLEd4qYb6CywG5ZER9 JPI1CqumZe3tpXCsApJq ZPWNT5OttwEuUOtLC0Qr hXYsKXLhX5MKWRR7 We67EjojcCqTTIG7CGPO XIkpSN8WHzgPCxBbOVhn Px56G1YOt6L2UoVsH5GY yGpCwoSGCDmhT0hI tNX1q9jebTdDeSYClFct OGdJcndPalFSQUlqUHNX hU91gjsRP0QvJYd9X1VU Cp6PSPvcDpEbwD0S zFqsRQU2lH5eCRNBZKsM TjfhAU4VRDLRKJx3XIk+ PiAgICAgICAgICAgICAg ICAgICAgICAgICAg ICAgICAgICAgICAgICAg ICAgICAgICAgICAgICAg ICAgICAgICAgICAgICAg ICAgICAgICAgICAg ICAgICAgICAgICAgICAg ICAgICAgICAgICAgICAg ICAgICAgICAgICAgICAg ICAgICAgICAgICAg ICAgICAgICAgICAgICAg ICAgICAgICAgICAgICAg ICAgICAgICAgICAgICAg ICAgICAgICAgICAg ICAgICAgICAgICAgICAg ICAgICAgICAgICAgICAg ICAgICAgICAgICAgICAg ICAgICAgICAgICAg ICAgICAgICAgICAgICAg ICAgICAgICAgICAgICAg ICAgICAgICAgICAgICAg ICAgICAgICAgICAg ICAgICAgICAgICAgICAg ICAgICAgICAgICAgICAg ICAgICAgICAgICAgICAg ICAgICAgICAgICAg ICAgICAgICAgICAgICAg ICAgICAgICAgICAgICAg ICAgICAgICAgICAgICAg ICAgICAgICAgICAg MU4Vi7WslsL3pvLwHVuu YDtpUJBDIe2DXZirJiAq AF6lcf1ECFlJP93vrXPp YXRhIDIxIDAgUgov X7VuceNlgQuadeSiOmQs XSQIYh3UxPAWZLapV6Q0 jLktUIGsTKyuLKWIBp8Q AFmqMQ2lDBPcQOJw Ax3aDNrcMENpSVHsSzDx ZIZTQz1IiWVwRO1IRDDx eP8pPx2+DQplbmRvYmoN Gw5ITjWjPLZwXfrQ Yvb5Vs5VnEe0JZLsI9Qb XDNgQJYfq6NnDq6PYV6a eEtxNKU1Cz8KYTf7Yw7+ MYioxRTcQY1USmsy M4ZbQVYnGCOuXEKv5TMN lQQlYNGmLUACNISj5mDW Dz9eJCwIHSjWjgMJKxWD X4vNJoegTmdOatYh WkArhM0X8hCCgA9vQLaZ xeEoU6S8Kgm4YdDzLNvr iG8B+WsP4kn7KOhQMyyM +d5xMRQuByPviWmk jDrYj0G2CtL7BaSiXZLD GRgqVgLZbuhOBgDwqhqE JQwukiJzeBRaXK8SEjQn QM2zsd4NXSklZYCs PM2hxs0QWOiZF7NhdxZm gtCgYGs6KkDzVAKwVv3R ZWRpYUJveCBbMCAwIDYx KsA2IPXiWb0SYFSr raMgLtYsMCYEBr5QGJEp uIMnOWCqSFyEQ1vBGyqd O4WsNUlKI9pbEzG6OPJ6 IDAgUgo+Pgo+Pgov VHlwZSAvUGFnZQo+Pg0K ET5ol2EaYNeMXrO3VDTb i6YdLPo0FPmtMhMitNXr JITkYSOcOwT5IUVo Rp5StKh5KVRbL8OzVQQe QGYmg2WdGs7LHN7utXwn HhQDO9Pil346dnQkkcA7 FRjpTR1fzgAobJC8 PAovSWFiYzYgNDMgMCBS Cj4+Cj4+Wn3OgYQ4fKCs SO7Ka9DcHn3VjEDvDK6O H7HkPIH6Kn1+DQpz fYMcSU8XMwnfp6jh6Gzg 5OE3JTHZAPG0VpW4PEHi SuXlClfI4+Dc6XN3JFNy JoJBDLRb0IydNhlm VBlPX20sOZqVVGNxj5wx kJfLFWgOADNrDtQNCmVu AOB8qlMmcP3BBS3bz3Dp GJzRWvW7UFUnn5Ah SNg1UCnxFy5nS29jpf0b sIeiE4HtNTxcQPHpHYbg TEogMAovTFcgMgovTUwg PKsvI4UpsID7LUqt M1SbCZe+Ey7OPW0mi9Lp VRyVYuH9TIRtg6PsKDo4 PLzhOq1zD99jqt0xoHtj M2GmYMw+Oj3OEB0l c6NcVFbKQxO3RHMau2Hw BJc8BYkcEj5sA65crv1h lBejS7QxHBgaLVZbAWdq TEogMAovTFcgMQov LOatVEybT4JoyWW2FGub I5MyCWj+Ny3YNS2xo3Ya BIvICeYsCDRjs2DaTIy7 PAovQmFzZUZvbnQg D3QOUntQTkdGd4SbvVWq RsS8IXMySa2iQU6AXs9B KFShHR5kKZ20Cq8thRBo TmSgKGGmXl9EP1Rb G37dxE5gWD1BWDTvaUy2 bW4UNk1VoWR0bMMoKR9W lOLxMCrqXG2Xyjjss7Fb IDMzIDAgUgovVHlw HTTtIi2qrAq+Ho9ENW1z g6PsSTvTZgUmXDNxi5Vo MYn5SLdgDuFwGAVzyoQs Y1WZPzpWIxrCr9Cn rGOiNcO1LFHlBv9yGB6X Zx7ECNKHnEI4GG4WdbJu OGr2Cg1JuhAmstqbVfHv AQKdlyXfoSzaVq2B IUnfi0JcqKXgMJBtFfWb Py4TuFUhvTLpIU73SXBV We2RO2RJKIJzQ7dYLJLs SE6IMPCcrSi1cLon EBxzDSgfMj3ruTQif0Gg gMS4x2OiIvAvXDNAJt8O wXU6nOQsBW2BEDPDp389 LFkeKLRIG2Q6vYNd T7HjgmDAX8ffMrOmKQSr EvSwVtJ0LdO5RZc+Pg0K ZO5dc2MnGNuYDuTmOPGo o7EqIBu8TYosMOOt FQ37JIocWi60QGk1Lolk T1HzCUPcV7d4DAW2SB34 MIR9NOulUFKgS3DulSQv JCCxJuznQOkBH5Fl RTwaRKP4Vy8Ks959NePa jTSuISJ8EU45ZGW9BgFm NxLsWbH4UGGsGBxzMA32 NjAxNiAxMjIxLjE5 KDFjKUbtLt5wyKZukANc VAU2MDUhAjxjSe8yqB4k iBBpN1YNOkpZRvxRd0Jf mWXyCkR8HHEmHu6c ZA9QDd0IaHXozJWXqkjb GMQoFc4EsLGbRrU1Rw6i YaQ5CPqiCFvrXEJuKq5l tPTdh1YlfEJ9u9AA At4BNuRoYC6nuv2XRYwq MuYhHL9jih2PLYcSP3Bl bHRlciAvRmxhdGVEZWNv RPSAT3avbol1wGJy AGDCMs1XCiM4baJrlT3Y nUkaXr8sojMAorCkzyvJ IILFbigY1WJZ5mFJcg0C 4YZ8eAnIKpab3v/Y vJTURgEp06m9usL4DQwS BJZ++FU9OVomoBLouOyv dV6yDslFXagMYtmXphd8 y8IG2K3NzMKd/ZiU ZMOzV7qIgp8uq7HbMU3A 0S8i2LBo4Xm0avLki405 wWP5JW0DEoVUZ6dAsz66 P4SWEtxCx7cB5tFy Lowl2KWQrZAySq7iMogy 5I45RMJunOlJqlDmLoJ1 Y18N1ilxs+yUfCk830AH iHaEckRCIMpPiPIj ouKAvqvD/s/tIl8VgAsK Yo/emNHZ1hSN4OCzXb3j o+FZtfIrtoxFAHGF8YFQ vDD9SR5liOTZU8Po YB3FkKDuh5w/gFpeZrTs 7f0QauQ+qn4HpqFvbg2j 3O+LB97xDe0ntaxu5r6J JK7zv9YqJOYmAOok aqNsWowTJr4WZcDjLVJh WbpIXfg7Ah9GIVQcHf9g wXTmL0lVXGYPN9HeuXUt KWLGUTrWI40PUk7Q ULJtRM2jZH99Oq1mpXVm WfT3SRYoHr2ZM9YvV19x mB7nHI6JDISp (more content not included)... Normal [facility] EMS Documentation Please click on link to see report pdfCD:[id number] xLjQNCiX5+prnDQolQUJ DcGRmIDExMjAxDQoxNyA sZD2smd9KDYyAO7QxLTk pJWaBZ7ql KlO4ExKuXLX7BHkcIMJb HZC6EgZNB5nfyxRwgtq7 SNJbFXvqZtVdFv3WWVJb Qf8CBEGhROY7Lpk+ PiAgICAgICAgICAgICAg ICAgICAgICAgICAgICAg ICAgICAgICAgICAgICAg ICAgICAgICAgICAg ICAgICAgICAgICAgICAg ICAgICAgDQplbmRvYmoN Hi7UlNKsSo5XHQmbHCbC CjAwMDAwMDAwMzIg BMWjWOWeis2OUIIoYMUx HFU2ODKiEAXtRVCwRVkh QPGyAWKnSEJ0YYOpPUBz YJ0PIuVhGVHdKYI7 GCKpFUHrIRZgiw0FCXQz DGGoKIy2QYYkVZWpOTTi DQowMDAwMDAxOTYzIDAw ZOTnTC5GTfNlNHEx PSVqTbEjIOPsSJNsem2R MDAwMDAwMjIzNyAwMDAw MCBuDQowMDAwMDAyNDAz UYNmTEVkBN0PWfPy BLOsHOK4WJZpBCLpBLFl cd7AGXKaZQWoVsO0ODZg MDAwMCBuDQowMDAwMDAy Vef4OLGuVTTlOB6Z BtWpBPWzTKT9NQYfHFLk EZGkkb4WMPHhALIjYhQ3 NCAwMDAwMCBuDQowMDAw PSUsJfX2GNPfOSPn EC5BNcCoZMJtYrfgRWhf FRGnLOPmrz2HAAGrLWI6 YbM4IQMuZKIpFLUxSKo9 jyXgsHKzQHm9HFjs TPXrXtx7BWN1RDvYKfL0 NzdGNEIwMkQzMzlBNkQw ElFxOUMpWS1LXLK2T8IV RkEyNjFEQzIzRTlD CESoZYO4AUPNCLRgTCJ9 Xp4XY7OjVFTwGZLePOb6 Kz9Zc919SUE0RAYjGrdn Q5m8PPQhBKeiZ967 cmNlIChXZUpYRnhOTzRm UqA2yGQSOQILC0D2X75o L81aXD0TAVahX7L1DLci O2Y6JqXZQ8WFYTKp AEGjuTl2EFneZNl4Vbwh wLrzEZF1O9EbdTG9W6yf u80xEHSTIXeDo8tiJBJ0 W92GLzjBLiwUxlAI Y0o9wBGJS0KvX7LjG2PP JXrOOVRkGJUvEm8LJZlI KPcitbgPSb8aUx8+ICAg ICAgICAgICAgICAg ICAgICAgICAgICAgICAg ICAgICAgICAgICAgICAg ICAgICAgICAgICAgICAg ICAgICAgICAgICAg ICAgICAgICAgICAgICAg ICAgICAgICAgICAgICAg ICAgICAgICAgICAgICAg ICAgICAgICAgICAg ICAgICAgICAgICAgICAg ICAgICAgICAgICAgICAg ICAgICAgICAgICAgICAg ICAgICAgICAgICAg ICAgICAgICAgICAgICAg ICAgICAgICAgICAgICAg ICAgICAgICAgICAgICAg ICAgICAgICAgICAg ICAgICAgICAgICAgICAg ICAgICAgICAgICAgICAg ICAgICAgICAgICAgICAg ICAgICAgICAgICAg ICAgICAgICAgICAgICAg ICAgICAgICAgICAgICAg ICAgICAgICAgICAgICAg ICAgICAgICAgICAg ICAgICAgICAgICAgICAg ICAgICAgICAgICAgICAg ICAgICAgICAgICAgICAg ICAgICAgICAgICAg ICAgICAgICAgICAgDQpz dGFydHhyZWYNCjANCiUl II1QQQjGClU5HTDqc7Sm MKi2HPdiBHI9VEJt iDAjVFFuIDVHRo7JfOJo OOJ6jN5sVQzvOBUyMYJA R7QstP1NM908iVxpjsTo ODX9XCKdYvznTHCp TJ6lBMPtA5ReDT0xpcQE M1IqK3TrTJJ3QRGbCoph JEbuITWkB5L4IIvfFim+ Ga2ZGP1xn1DhZXdE ImW2QQUcl0IvLMx8IEak BgpziNRmMW1UhAB0FAZs Q34gCTxwVQSxP5GyRImx Cw8RPWX9Jl0+DQpz kEYiML2LVlxqR7Ki2DMd YP0SuPVKxGkIGFMMCfGj HVzUCMC6kVLWmQowpFcn +XPKhKXDzWH4lIBW OJAOlS5WdsEoNtN8mPUD j9YbJjnS4C0XiK+YiQCY +ZhiMCgcnyAwvXSbGU5L YrZyTR9rub9LUDwh IUEeYQ6nrv2WYZuLO2La bnRlbnRzIFsyMiAwIFIg SvHwXXPAUWC8ZZPsGzOt NSAwIFIKMjYgMCBS JKW1ZTFcScKbUBPkHFNr MjkgMCBSXQovTWVkaWFC m2irLlJfLHS6SARoMyhc NDmhXJMoDH51JNC3 SPMcIjssNgGix8SfV1Ez OLz8Cq4Ui070AIj1Pb3Y JBJoVHPdVMWbKFCWGk9W B8aMYcyeE7NvMRgA J1crAbBeTZAqOZOpNZXW B2fhAlMgONMrGaEyPCIG A2cwIbZzDVYwHtEmYROO X8omWdC8YUXeJAZk Ambrocio+Pgo+PgovVHlwZSAv UGFnZQo+Kx1AUS2az0Wh NTmEXiFhXFExk2IdNRj5 PAovQmFzZUZvbnQg O0NyiOSoONQdfSObCe7B foTmLVaiPpFjH3zjCK0v aVPbX41zzO1qWt6XqOA2 kWBiSJ2QyEMmIDae EFugKUDbTx9nyCr+Pg0K NG4qm7DyQMoLYoVpKVGi o4SjWEb8SYsqYYMpK2Bt IDEwMQo+Yw9Yc0Zy KBZoTFyyKLfCDK0KKRZr GDZppqtEPj2FSJCaRHPh RHWDNo8TBLZeOLUqGOYe VIV5QFRhQqFSnR1S GkPmZBD9WOBrGTGnWJ34 B8W3ygmyMlYgXQApQW4J F2vnUZroGREBOz2NDKNP SfHBYi2DZW5qm4Hd WUDfQSchhvMoDcnHJf4J HuJuPJLlZfoOYyt2Se0Y SR5hcSxaRFJRKu4QQlL2 lmXsqL5NMtlCJiDG PqG8NfVqWBInXBH2KAPh MVU1ZZ0tJaOkVdZryZ6O C8hyHpI4TVDyGRbWFItH SW2CBCcrixOocGWm EN4LWxZtYG6fnv7GQQsq OMTuQG8gan1JHUtHO0jk cvx3bUAmXAXCBj4EEsI9 zmArnA6VhL0KBkFQ CjAgMCAwIHJnDQovRmFi YzUgMTEgVGYNCjEgMCAw IDEgMjAgNTQwLjUzMzMz IFRtDQpbICggRXYp QAP0CSigrzHcM2DaqLSx FENaTQUnM8KaqlZsZzjy UMVJTh1GHLABIqBUFz4E WK2ak4KzWTOrEQum wkPdQodCAn3IFwZxHGBc FntZVnu0Fn0CMJ3alYlt RXINUh9XAhC5dqOpsT3R ZcsOLgUWIdX4XhPr RHOnFCRqGjRnGQC2BiJ2 NyI4YJBgMFcoLNCgNnVw QGBsDCoJSWwROW2QYErp leRteRTdWG6KJvYy PW1vok8FLBtcFkCpRL2z va8HXRdAN1hngmi9wSDe TYHMHi0SAvS3qyWsgD7D oA1JCtFQTjLlRIHr IHJnDQovRmFiYzUgMTEg VGYNCjEgMCAwIDEgMjAg RMX8Qyr3PrB9VTIyMZyj QLraJSEkLNS8IEwi crYjB5YlvOOsUXRvXXQ2 N4NcW68eGWIcZFHYXSeU YE6SUM5AJIxeibHfdCQo HH1RBwYfVK6wzi3K RJfaEwPzDA8ipr2BXRkH M5robjz0rSG6IHp+Pg0K x0YoZYFyJCjFGK9EcB6P NTUyIDAgMCAxNjUg LoNcHuF5ZEKvOLahSLXj AnD0PWXaURtZGKtZLO3H WGgatfEehJIqKA1NRzDs VF4lds0VCOrtTBQr ZP2llq7DCSrPV8lbzhn0 aVKbUPBGZz4JBwM7msFj gT8GtB0NYwCNRtJjLYUc IHJnDQovRmFiYzUg MTEgVGYNCjEgMCAwIDEg TxVsEvD2QxJxZM6PYchu ZIAUrlhvXRTbOTTqiG9A lMVpyO9kNXKiINwi V6GjFi89ITOdOUMYOKvF YQ0ONN4ICMrzxlTixNKn GH4DPcTfQG6fzl5VHCsi ZSOoQJ8owl4HSYhJ O9hmhnf7sZL5KUz+Pg0K d8PlFPOzQMyOYJ9QzP4Y RFBbGQKiGEE2WuUaZMMa ZpBxYsQyTeNvN08G Zg8SFKDsEVnmCJ2FIiNH RoUTYZtKJyPiGLH5hlZg tO4HXZ8ah6DuTRaFYrPi KNPpv5VvBSx8WBhy Aiq9x9HnguUyhCYupxEy rDN9Vm2Gw8hgfgNuSETr NW0VMCAnR5CGM6OJO0Cf bHRlciAvRmxhdGVE ZORiKADDR4ibdDbhzJKv IhYWA0ucmis4nZIfJMq1 MXvxP4KzfJxbSTDcRW6d C1GHG2S0hSUhG2hY EphcY9ZZO3oeHYMeQID3 MQo+Um4Xc1FeYIOjFKg8 zDx9O4uFToUu3ep89h76 c9//db5tHg5uB8Ls 3zqd9AllQz7qKB2ZfLCx FBUMJcvlMBlGQMwQl35w QQFBDChmELNiQMRMVASV I5lD+M4h9tQoJwcl d6mSFyo4yj/4bYci7a16 XfnO7vbG6O4CYmLWJxLU AgICAgICAgICAgICAgIC AgICAgICAgICAgIC AgICAgICAgICAgICAgIC LoUVWlNNDbEEKsdcEX2J u1mma/w+AIbJc4Du6HhO 0fx25OsSNj5/9ijn qT82Riw1+Kq68htLYnQi O3szB75jF65/LDt+o1hf 1AnUkXh6sqn52cn+PZU3 j2c+qXuZXyUgICAg 0CFRnxM+cukVrUoIaIHu +gxD9RqKgqyXsGDu/FJu Lu9Wr15LJN6hfM16+uf2 WmsL9YgZYtD86LFb o4T3D8UYlH/FgprrqeET tTft2iyI5dqqex2jcJ3C CTwHwk1MS+/i (more content not included)... Normal [facility] HEMATOLOGYOrdered By: SYSTEM SYSTEM on 04-15-2022 [...] 3 Pre-Arrival Note Pre-Arrival Summary Name: , [facility] Current Date: 04/15/2022 16:25:10 EST Gender: Female Date of : Age: 41 Pre-Arrival Type: EMS ETA: 04/15/2022 16:50:00 EST Primary Care Physician: Presenting Problem: fall Pre-Arrival User: Ana Paula Funes RN Referring Source: Location: Completion Date/Time: 04/15/2022 16:20:00 [facility] Emergency Department Pre-Hospital Report Form Vital Signs: Pre-Hospital Report: Treatment in Route: Response to Treatment: Misc. Issues: Normal [facility] SEROLOGYOrdered By: Ru For ster on 04-15-2022 Beta hCG Ql Negative (04/15/22 5:35 PM) Normal [facility] Sero XR Ankle 3+ Views Righton [...] MD, V. Transcribed by: DANNIE Technologist: MIRANDA [facility] XR Knee Complete 4+ Views [facility] 04-15-2022 XR Knee Complete 4+ [...] MD, V. Transcribed by: DANNIE Technologist: MIRANDA [facility] eGFRon 04-15-2022 GFR/1.73 sq M.predicted among blacks MDRD (S/P/Bld) [Vol rate/Area] mL/min/{1.73_m2} Normal >=59 [facility] Comment on above: Order Comment: Order added by Discern Expert. Result Comment: eGFR is race adjusted. AA=. Performed By: #### 2 [id number] ####[facility] [id number] [place] [address] GFR/1.73 sq M.predicted among non-blacks MDRD (S/P/Bld) [Vol rate/Area] mL/min/{1.73_m2} Normal >=59 [facility] Comment on above: Order Comment: Order added by Discern Expert. Result Comment: Wheel Filler vivi kidney disease could be indicated at eGFR's of less than 60 mL/min/1.73m2. Kidney failure is indicated at less than 15 mL/min/1.73m2. Performed By: #### 2 [id number] ####[facility] [id number] [place] [address] ANES Rodney 07-07-2018 ANES POST HNO ID: [id number] Author: Gwen Angela Service: Anesthesiology Author Type: [...] 07, 2018 TIME: 11:33 AM PAGER/CONTACT #: [phone] [facility] ANES PREOPon 07-07-2018 ANES PREOP HNO ID: [id number] Author: Gwen Angela Service: Anesthesiology Author Type: [...] July 07, 2018 TIME: 8:37 AM CSN: [id number] [facility] NURSING PROGon 07-07-2018 Protein mass conc HNO ID: [id number] Author: Leila (Rn) Jules RN Service: Nursing Author Type: Registered Nurse Type: Nursing Progress Note Filed: 07/07/2018 10:48 AM Note Text: Dr Olivarez spoke to patient at bedside [facility] PT EDon 07-07-2018 PT ED HNO ID: [id number] Author: Leila (Rn) TROY Vicente Service: Nursing [...] Signed By: Leila Vicente RN In Department: [facility] AMBULATORY SURGERY - [facility] SURGICAL PATHOLOGYon 019 SURGICAL PATHOLOGY Specimen #: [id number] Submitting Physician: NEENA OLIVAREZ M.D. FINAL DIAGNOSIS [...] x 1.0 cm. The specimens are sectioned. [employer] sections are submitted in formalin in one cassette. KVB/rw 07/10/2018 C. Received in formalin labeled third extensor compartment tenosynovium left wrist are multiple white rubbery to fibrous segments of tissue aggregating to 2.3 x 1.8 x 0.4 cm. The specimens are totally submitted in formalin in one cassette. KVB/glw 07/10/2018 Gross examination performed at [facility], [address] [place] [address] Date of Report: 07/12/2018 Date of Procedure: 07/07/2018 Date of Receipt: 07/07/2018 Submitted by: NEENA OLIVAREZ M.D. Location: [facility] ([facility]) Diagnostic interpretation performed at [facility], [address] [place] [address]. CLIA Number: [id number] [facility] NURSING PROGon 07-06-2018 Protein mass conc HNO ID: [id number] Author: Roseline (Rn) TROY Douglas Service: ? [...] Douglas RN July 06, 2018 7:33 AM [facility] HOSPon 06-22-2018 HOSP Patient:Angela Munoz [...] results. Gm Broussard Progress Notes ([facility] INDP): Noelle Rudd Rt 06/20/2018 12:35 PM [...] Rudd Rt June 20, 2018 12:34 PM [facility] Vital Signs Date Time Vital Sign Value Performing Clinician Jeff lindo 04-17-2022 12:16-0500 Heart rate 78 /min Olu Yang [facility] 04-17-2022 12:16-0500 SaO2% (BldA) [Mass fraction] 97 % Olu Yang [facility] 04-17-2022 12:15-0500 Diastolic blood pressure 70 mm[Hg] Olu Yang [facility] 04-17-2022 12:15-0500 Mean blood pressure 82 mm[Hg] Olu Yang [facility] 04-17-2022 12:15-0500 Systolic blood pressure 108 mm[Hg] Olu Yang [facility] 04-17-2022 12:15-0500 Body temperature 98.78 [degF] Olu Yang [facility] 04-17-2022 09:01-0500 Hourly Rounding Olu Yang [facility] 04-17-2022 09:01-0500 Promise to Return Olu Yang [facility] 04-17-2022 08:55-0500 SaO2% (BldA) [Mass fraction] 97 % Olu Yang [facility] 04-17-2022 08:01-0500 Hourly Rounding Olu Yang [facility] 04-17-2022 08:01-0500 Promise to Return Olu Yang [facility] 04-17-2022 07:09-0500 Hourly Rounding Olu Yang [facility] 04-17-2022 07:09-0500 Promise to Return Olu Yang [facility] 04-17-2022 07:00-0500 Body temperature 98.06 [degF] Olu Yang [facility] 04-17-2022 07:00-0500 Heart rate 79 /min Olu Yang [facility] 04-17-2022 07:00-0500 SaO2% (BldA) [Mass fraction] 96 % Olu Yang [facility] 04-17-2022 03:35-0500 Blood Pressure Location Olu Yang [facility] 04-17-2022 03:35-0500 Body temperature 98.24 [degF] Olu Celia [facility] 04-17-2022 03:35-0500 Diastolic blood pressure 73 mm[Hg] Olu Yang [facility] 04-17-2022 03:35-0500 Heart rate 89 /min Olu Celia [facility] 04-17-2022 03:35-0500 Mean blood pressure 86 mm[Hg] Olu Celia [facility] 04-17-2022 03:35-0500 Respiratory rate 16 /min Olu Yang [facility] 04-17-2022 03:35-0500 Systolic blood pressure 111 mm[Hg] Olu Celia [facility] 04-17-2022 01:35-0500 Blood Pressure Location Olu Celia [facility] 04-17-2022 01:35-0500 Body temperature 98.42 [degF] Olu Yang [facility] 04-17-2022 01:35-0500 Mean blood pressure 93 mm[Hg] Olu Celia [facility] 04-17-2022 01:35-0500 Respiratory rate 16 /min Olu Yang [facility] 04-16-2022 23:05-0500 Blood Pressure Location Olu Celia [facility] 04-16-2022 23:05-0500 Mean blood pressure 89 mm[Hg] Olu Yang [facility] 04-16-2022 23:05-0500 Respiratory rate 16 /min Olu Yang [facility] 04-16-2022 20:40-0500 Respiratory rate 17 /min Olu Yang [facility] 04-16-2022 20:10-0500 Body temperature 98.42 [degF] Olu Yang [facility] 04-16-2022 20:10-0500 Respiratory rate 26 /min Olu Yang [facility] 04-16-2022 19:55-0500 Respiratory rate 21 /min Olu Yang [facility] 04-16-2022 19:42-0500 Body temperature 98.24 [degF] Olu Celia [facility] 04-16-2022 11:18-0500 Heart rate 76 /min Olu Celia [facility] 04-16-2022 07:26-0500 Mean blood pressure 80 mm[Hg] Olu Yang [facility] 04-15-2022 20:53-0500 Mean blood pressure 81 mm[Hg] Olu Yang [facility] 04-15-2022 17:59-0500 Heart rate 82 /min Olu Yang [facility] 04-15-2022 16:25-0500 Heart rate 71 /min Olu Yang [facility] Encounters Encounter Date Encounter Type Care Provider Facility Start: 03-28-2023 End: 03-29-2023 [facility] Start: 03-07-2023 End: 03-08-2023 ambulatory Rica Villa MD Facility: [facility] Start: 01-17-2023 End: 01-18-2023 ambulatory Rica Villa MD Facility: [facility] Start: 04-15-2022 End: 04-17-2022 Evaluation and management of inpatient Olu Yang Facility[place] Start: 04-15-2022 End: 04-17-2022 Evaluation and management of inpatient Olu Yang [facility] Start: 01-11-2020 Patient encounter procedure CORBY DESHAUN Facility: Start: 07-07-2018 End: 07-07-2018 Patient encounter procedure [facility] Procedures Date Procedure Procedure Detail Performing Clinician Start: 04-16-2022 Open reduction of fracture of ankle with internal fixation Olu Yang Payers Date Payer Category Payer Private Health Insurance 1980 Unknown [id number] 1980 Unknown [id number] 1980 Unknown [id number] 1978 Unknown [id number] [id number]. [id number] 1978 Unknown [id number] 1961 Self-pay Social History Date Type Detail Facility Tobacco vape Tobacco Use:. Vaping Fi [facility] Tobacco smoking status No Smoking Status Entered [facility] Sex Assigned At Female [facility] Medical Equipment Procedure Code Equipment Code [...] Assessment Result Facility 04-15-2022 Functional Status N/A [facility] 04-15-2022 Functional Status [facility] Clinical Note 04-19-2022 Note Date & [...] Room. Olu Yang D.O. sathish Dictated: 04/17/2022 [id number] Transcribed: 04/17/2022 [facility] Comment on above: Result Comment: Elec [...] were reviewed. Discharge medications are sent to [facility] in [place] with Percocet, aspirin, Colace, and Bactrim (of [...] testing. Olu Yang D.O. ca Dictated: 04/17/2022 [id number] Transcribed: 04/17/2022 [facility] Comment on above: Result Comment: Elec [...] scooter again tomorrow if pt still inpatient. [facility] 04/03 [facility] Hospital Discharge instructions 04-17-2022 Note Date [...] and water are not available, use hand electrode turner and finisher. ?Change your dressing as told by your [...] quitting, ask your health care provider. Take jicj-ofw-ogphmcr and prescription medicines only as told by [...] as fried or sweet foods. ?Take an kivi-ssf-pogrctc or prescription medicine for constipation. Keep all [...] 01/05/2006 Document Revised: 03/10/2018 Document Reviewed: 01/16/2018 [employer] Patient Education 2020 [employer] 04/17/2022 12:24:52 Ankle Fracture Ankle Fracture [...] told by your health care provider Take bqit-ptt-ldxdwyj and prescription medicines only as told by [...] 03/25/2001 Document Revised: 06/07/2019 Document Reviewed: 04/29/2017 [employer] Patient Education 2019 [employer]. Follow Up Care 04/15/2022 16:23:55 With:Olu Yang Address: [address] [place] [address]- Business (1) When: Unknown Comments:Call for followup appointment 2 weeks [place] office With:Corby Conner Address: [address] [place] [phone]- Business (1) When: Unknown [facility] Clinical Note 04-16-2022 Note Date & Type Note Facility 04-16-2022 Note CRM entered the room to discuss discharge planning. PCP, DME and insurance discussed. Patient is alert and involved in plan of care. Contact information provided and whiteboard updated. Pt had ankle fx. PT rec knee scooter, LM with Ortho parachute/combatant diver officer to see if Celia will order for pt. Pt has no insurance. HCAP given. Pt will have surgery today. ANt dc TBD. CRM to follow. [facility] [facility] Comment on above: Result Comment: Elec [...] Recovery Room in stable and satisfactory condition.. [facility] Clinical Note 04-16-2022 Note Date & [...] No further PT needs at this time. [facility] History and physical note 04-16-2022 Note [...] her boyfriend and two daughters in the [facility]. She does have a full slight [...] scapholunate ligament repair with Dr. Neena Olivarez, [facility]; gastroesophageal reflux disease. PAST SURGICAL HISTORY: Right wrist scapholunate ligament repair with pin, bilateral knee surgery. MEDICATIONS: 1. Cymbalta 60 mg daily. 2. Gabapentin 30 mg q h.s. 3. Omeprazole 40 mg daily. ALLERGIES: Codeine and morphine. She states she can take Percocet and [place]. REVIEW OF SYSTEMS: Otherwise negative. PHYSICAL EXAMINATION: [...] forward later today. Xochilt Bueno Dictated: 04/16/2022 [id number] Transcribed: 04/16/2022 [facility] Comment on above: Result Comment: Elec tronically Signed By: Olu Yang DO\.br\Date and Time Signed: 04/16/22 07:47 EST Hospital course Narrative Note Date & Type Note Facility Hospital course Narrative No data available for this section [facility] Progress note Note Date & Type Note Facility Progress note No data available for this section [facility] Summary Purpose Family History No Family History Records FoundNo Family History Records FoundNo Family History Records FoundNo Family History Records Found Advance Directives No Advanced Directives Records FoundNo Advanced Directives Records FoundNo Advanced Directives Records FoundNo Advanced Directives Records Found Procedure Findings Note HNO ID: [id number] Author: James Montenegro MD (Fel) Service: ? Author Type: Fellow Type: Brief Op Note Filed: 07/07/2018 10:25 AM Note Text: BRIEF OPERATIVE / PROCEDURE NOTE LOG ID: [id number] SURGERY/PROCEDURE DATE: 07/07/2018 INCISION/PROCEDURE START TIME: 9:43 AM INCISION CLOSE/PROCEDURE END TIME: 10:19 AM SURGEON(S)/PROCEDURALIST(S) AND REHAB DIRECTOR OCCUPATIONAL THERAPIST(S): Surgeon(s) and Role: * Neena Olivarez - [...] (more content not included)... Note HNO ID: [id number] Author: Zeinab Olivarez Service: Hand Surgery Author Type: Physician Type: Operative Report Filed: 07/12/2018 5:45 PM Note Text: OPERATIVE NOTE: July 07, 2018 Neena Olivarez MD, PhD, [facility] Shoulder, Elbow, Wrist AND Hand Surgery Orthopaedic AND Rheumatologic [place] [address] [place] [address] , Patient: Ms. Angela Munoz 1980, 37 [...] CREATED AUTHOR AUTHOR'S ORGANIZ ATION 01/11/2020 [facility] DATE CREATED AUTHOR AUTHOR'S ORGANIZ ATION 08/14/[address] [facility] DATE CREATED AUTHOR AUTHOR'S ORGANIZ ATION 04/01/2023 [facility] Patient Care team informatio n (unrecognized section and content) Personnel Name: Deshaun PEREZ Corby Address: Address: [address] [place] [address] Name: Brynn Quick LPN FOR RECORDS PERTAINING [...] BE BASED ON THE PRIMARY CLINICAL RECORDS. [employer] provides no warranty or guarantee of the accuracy or completeness of information in this document.
== END 2023-12-20 12:51 | disposition home or self-care (01) ==
LOC: CT 12:51
PROVIDERS: PCP Family Medicine; Visit Provider Family Medicine
DX: R19.00 Intra-abdominal and pelvic swelling, mass and lump, unspecified site (principal)
CPT/HCPCS: 74177; Q9967